=== PATIENT | female | born 1975 | race Two or more races ===

== ENCOUNTER 2020-10-13 10:46 | Emergency (ER) | payer MEDICAID, SELFPAY ==
[2020-10-13 11:30] VITALS: BP 118/79; PULSE 86; RESP 16; TEMP 36.5; O2SAT 97; BMI 26.6
--- NOTE | 2020-10-13 12:10 | ED.SKABFB ---
HPI - Skin/Abscess/Foreign Bdy General Chief complaint: Skin/Abscess/Foreign Body Stated complaint: rash Time Seen by Provider: 10/13/20 12:10 Source: patient Mode of arrival: ambulatory Limitations: no limitations History of Present Illness HPI narrative: 44-year-old female presenting to the ED with complaints of entire body itching although she does not see a rash and denies any other symptom complaints or concerns at this time. Related Data Previous Rx's Medication Instructions Recorded diphenhydramine HCl [Benadryl 50 mg PO TID PRN #10 tab 10/13/20 Allergy] famotidine [Pepcid] 20 mg PO BID #10 tab 10/13/20 hydrocortisone 1 appl TOPICAL QD-TID PRN #453.6 g 10/13/20 loratadine [Claritin] 10 mg PO DAILY PRN #10 tab 10/13/20 prednisone 40 mg PO DAILY 5 Days #10 tab 10/13/20 Allergies Allergy/AdvReac Type Severity Reaction Status Date / Time No Known Allergies Allergy Unverified 07/24/20 19:23 [No Known Allergies*] none Allergy Unknown Uncoded 01/28/20 00:00 Review of Systems Review of Systems: Constitutional : No Fever, No Chills , no body aches, no recent illness Head/Face: No facial swelling, No facial redness ENT/Mouth : No oral/throat swelling, No Hoarseness, No Swallowing Difficulty Eyes: No Eye Pain, No Swelling, No Redness Cardiovascular : No Chest Pain, No SOB, No palpitations Respiratory : No Cough, No Sputum, No Wheezing, No Smoke Exposure, No Dyspnea Gastrointestinal : No Nausea, No Vomiting, No Diarrhea, No abdominal Pain Genitourinary : No Dysuria, No Urinary Frequency, No Hematuria Musculoskeletal : No joint pain, No Myalgias, No Joint Swelling Skin : No Skin Lesions, + rash Neuro : No Weakness, No Numbness, No Headache, No dizziness, No tingling Psych : No Anxiety/Panic, No Depression Heme/Lymph: No Bruising, No Lymphadenopathy Endocrine : No Polyuria, No Polydipsia Denies changes in lotions or detergents. Denies new medications or any changes in medications. Denies drainage from rash. Denies any recent sick contacts or recent travel. Yes all other systems are reviewed and are negative PMFSH Past Medical History Attestation statement: The following information was validated with the patient. Medical History delivery delivered No known health problems Social History Social History Advance Directives: No Advance Directives Information Provided: No Physical Exam Vital Signs: Vital Signs: Last Vital Signs Temp 97.7 F 10/13/20 11:30 Pulse 86 10/13/20 11:30 Resp 16 10/13/20 11:30 BP 118/79 10/13/20 11:30 Pulse Ox 97 10/13/20 11:30 Body Mass Index 26.6 vital signs have been reviewed as normal and appeared to be correct. Blood pressure normal. Heart rate normal. Respiration rate normal. Temperature normal. Oxygen saturation normal. Appearance: Alert. Oriented X3. No acute distress. Head: Normal external exam. Normocephalic. Atraumatic. Eyes: PERRLA. EOMI. Conjunctiva and sclera normal. Eyelids normal. ENT: Pharynx normal. Uvula midline. Moist mucous membranes. No trismus noted. No drooling noted. No muffled voice noted. Neck: Normal inspection. Neck supple. FROM. No adenopathy. No meningeal signs. CVS: Normal heart rate and rhythm. Heart sound normal. No murmurs noted. Pulses normal throughout. Respiratory: No respiratory distress. Painless inspiration. Breath sounds normal. No wheezes/rales/rhonchi noted. Chest nontender. No accessory muscle usage noted or decreased air movement noted. Abdomen: Soft and nontender. Bowel sounds normal in all 4 quadrants. No distention noted. No organomegaly noted. No visible injury noted. Back: No CVA tenderness. Full range of motion noted. Skin: Skin warm and dry. Normal skin color. Normal skin turgor. No rashes Noted although patient is noted to be scratching her entire body. No lesions/lacerations noted. Extremities: Extremities exhibit normal range of motion. Extremities nontender. Neuro: Oriented X 3. No motor deficit. No sensory deficit. Reflexes normal. Course Course Course Narrative: IMP/Plan: Allergic rxn. Not anaphylaxis. Not sepsis/ infectious etiology. Patient well appearing in no acute distress, breathing easily without throat symptoms. Speaking full sentences, and handling secretions without difficulty. There is no obvious threat to airway. Lungs are CTA in all becerra. No signs of angioedema, stridor, airway compromise, anaphylaxis or anaphylactic shock. Not c/w SSSS/ TEN/ Eryth multiforme/ Falk Johnsons. Given HPI and PE - Will watch and observe. If patient continues to be symptom free - will d/c with return precautions. Patient understands and agrees with plan MDM - Skin/Abscess/Foreign Bdy Medical Records Attestation: I reviewed the patient's medical records. Discharge Plan Discharge Clinical Impression: Allergic reaction Patient Disposition: Home, Self-Care Instructions: Allergies (ED), General Allergic Reaction (ED), Allergy Testing (ED) Prescriptions: New loratadine [Claritin] 10 mg tablet 10 mg PO DAILY PRN (Reason: allergy symptoms) Qty: 10 RF: 0 prednisone 20 mg tablet 40 mg PO DAILY 5 Days Qty: 10 RF: 0 famotidine [Pepcid] 20 mg tablet 20 mg PO BID Qty: 10 RF: 0 diphenhydramine HCl [Benadryl Allergy] 25 mg tablet 50 mg PO TID PRN (Reason: allergic reaction) Qty: 10 RF: 0 hydrocortisone 2.5 % ointment 1 appl topical QD-TID PRN (Reason: rash) Qty: 453.6 RF: 0 Referrals: Leonor Ocampo MD [Primary Care Provider] - 2 days ( Patient will need an [facility] specialist referral) Print Language: Italian
[2020-10-13] MEDS: Loratadine 10 MG TABLET PO (12:28)
[2020-10-13] MEDS: predniSONE 20 MG TABLET 40 MG PO (12:28)
== END 2020-10-13 12:31 | disposition home or self-care (01) ==
PROVIDERS: Emergency Provider Emergency Medicine; PCP Internal Medicine
DX: T78.40XA Allergy, unspecified, initial encounter (principal); R21 Rash and other nonspecific skin eruption; X58.XXXA Exposure to other specified factors, initial encounter
CPT/HCPCS: 99283

== ENCOUNTER → 2020-12-19 08:19 | Outpatient (BNVA) | payer MEDICAID, SELFPAY | PROVIDERS: PCP Internal Medicine; Visit Provider Internal Medicine Gastroenterology ==

== ENCOUNTER 2021-01-07 14:24 | Emergency (ER) | payer OTHER, MEDICAID, SELFPAY ==
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
[2021-01-07 15:53] VITALS: BP 124/78; PULSE 79; RESP 18; TEMP 36.9; O2SAT 100; BMI 28.2
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
--- NOTE | 2021-01-07 18:28 | PC.NURSE ---
negative xrays. no deformity noted. seen by [employer].
== END 2021-01-07 18:35 | disposition home or self-care (01) ==
PROVIDERS: Emergency Provider Emergency Medicine
DX: S90.02XA Contusion of left ankle, initial encounter (principal); V43.52XA Car driver injured in collision with other type car in traffic accident, initial encounter; Y93.89 Activity, other specified; Y92.414 Local residential or business street as the place of occurrence of the external cause; Y99.9 Unspecified external cause status
CPT/HCPCS: 73600; 99283; 99284

== ENCOUNTER 2021-03-11 09:52 | Emergency (ER) | payer MEDICAID, SELFPAY ==
[2021-03-11 10:09] VITALS: BP 110/69; PULSE 87; RESP 16; TEMP 36.1; O2SAT 99; BMI 25.0
--- NOTE | 2021-03-11 10:32 | ED.SKABFB ---
HPI - Skin/Abscess/Foreign Bdy General Chief complaint: Skin/Abscess/Foreign Body <KAITLYN Alford Last Filed: 03/11/21 10:41> Stated complaint: rash <KAITLYN Alford Last Filed: 03/11/21 10:41> Time Seen by Provider: 03/11/21 10:31 <KAITLYN Alford Last Filed: 03/11/21 10:41> History of Present Illness HPI narrative: Patient complains of rash over her body that is very itchy that started after she used a hair spray a week ago, there is no difficulty breathing or swallowing no swelling in her tongue or lips or throat, no fever no chills <KAITLYN Alford Last Filed: 03/11/21 10:41> Related Data Home medications: Previous Rx's Medication Instructions Recorded diphenhydramine HCl [Benadryl 50 mg PO TID PRN #10 tab 10/13/20 Allergy] famotidine [Pepcid] 20 mg PO BID #10 tab 10/13/20 hydrocortisone 1 appl TOPICAL QD-TID PRN #453.6 g 10/13/20 loratadine [Claritin] 10 mg PO DAILY PRN #10 tab 10/13/20 prednisone 40 mg PO DAILY 5 Days #10 tab 10/13/20 polyethylene glycol 3350 17 17 g PO DAILY #510 g 12/19/20 gram/dose oral powder cetirizine 10 mg PO DAILY PRN #14 cap 03/11/21 hydroxyzine HCl 50 mg PO BEDTIME #14 tab 03/11/21 prednisone 60 mg PO DAILY 3 Days #9 tab 03/11/21 <KAITLYN Alford Last Filed: 03/11/21 10:41> Allergies/Adverse reactions: Allergies Allergy/AdvReac Type Severity Reaction Status Date / Time No Known Allergies Allergy Verified 12/19/20 08:20 [No Known Allergies*] <KAITLYN Alford Last Filed: 03/11/21 10:41> Review of Systems Review of Systems: Positive for itchy rash Negatives are no fever no chills no dizziness no weakness no chest pain no shortness of breath no throat swelling no lip swelling and no difficulty breathing or swallowing no difficulty speaking no abdominal pain no nausea vomiting no joint swelling no numbness or weakness <KAITLYN Alford Last Filed: 03/11/21 10:41> [facility] Past Medical History Source: nursing notes reviewed <KAITLYN Alford - Last Filed: 03/11/21 10:41> Medical History: Medical History (Updated 03/12/21 @ 00:01 by Giovany Chapman) delivery delivered No known health problems <KAITLYN Alford - Last Filed: 03/11/21 10:41> Surgical History: Surgical History H/O: <KAITLYN Alford - Last Filed: 03/11/21 10:41> Family History Family History: Family History (Updated 12/19/20 @ 08:21 by BOB Abreu) Mother Diabetes Father Heart attack <KAITLYN Alford - Last Filed: 03/11/21 10:41> Social History Social History: Social History (Updated 12/19/20 @ 08:22 by BOB Abreu) Household Members: Children Alcohol intake: never Cigarettes Per Day: 5 Advance Directives: Yes Advance Directives Information Provided: No Advance Directives on File: No Patient : No <KAITLYN Alford - Last Filed: 03/11/21 10:41> Physical Exam Vital Signs: Vital Signs: Last Vital Signs Temp 96.9 F 03/11/21 10:09 Pulse 87 03/11/21 10:09 Resp 16 03/11/21 10:09 BP 110/69 03/11/21 10:09 Pulse Ox 99 03/11/21 10:09 Body Mass Index 25.0 <KAITLYN Alford - Last Filed: 03/11/21 10:41> Vital Signs: Last Vital Signs Temp 96.9 F 03/11/21 10:09 Pulse 87 03/11/21 10:09 Resp 16 03/11/21 10:09 BP 110/69 03/11/21 10:09 Pulse Ox 99 03/11/21 10:09 Body Mass Index 25.0 <Silverio Rubin MD - Last Filed: 04/09/21 12:39> General appearance is no acute distress, calm and cooperative The pharynx is clear with no swelling of lips tongue or uvula or pharynx The neck is supple The chest is clear to auscultation with full symmetric equal breath sounds Heart no murmur The extremities full range of motion x4 no joint swelling The skin there is bilateral linear raised rash, no petechiae no wounds no sign of cellulitis or abscess Neuro no focal motor or sensory deficit <KAITLYN Alford - Last Filed: 03/11/21 10:41> Course Course Course Narrative: I have reviewed the chart <Silverio Rubin MD - Last Filed: 04/09/21 12:39> Discharge Plan Discharge Clinical Impression: Rash <KAITLYN Alford - Last Filed: 03/11/21 10:41> Patient Disposition: Home, Self-Care <KAITLYN Alford Last Filed: 03/11/21 10:41> Additional Instructions: Use medications as directed, they will usually help Return to ER any time any worse condition or concerns Follow with primary doctor in 2 days if not improved <KAITLYN Alford - Last Filed: 03/11/21 10:41> Prescriptions: New prednisone 20 mg tablet 60 mg PO DAILY 3 Days Qty: 9 RF: 0 hydroxyzine HCl 25 mg tablet 50 mg PO BEDTIME Qty: 14 RF: 0 cetirizine 10 mg capsule 10 mg PO DAILY PRN (Reason: allergy symptoms) Qty: 14 RF: 0 No Action loratadine [Claritin] 10 mg tablet 10 mg PO DAILY PRN (Reason: allergy symptoms) Qty: 10 RF: 0 prednisone 20 mg tablet 40 mg PO DAILY 5 Days Qty: 10 RF: 0 famotidine [Pepcid] 20 mg tablet 20 mg PO BID Qty: 10 RF: 0 diphenhydramine HCl [Benadryl Allergy] 25 mg tablet 50 mg PO TID PRN (Reason: allergic reaction) Qty: 10 RF: 0 hydrocortisone 2.5 % ointment 1 appl topical QD-TID PRN (Reason: rash) Qty: 453.6 RF: 0 polyethylene glycol 3350 [Miralax] 17 gram/dose powder 17 g PO DAILY Qty: 510 RF: 2 <KAITLYN Alford Last Filed: 03/11/21 10:41> Interventions: ED Discharge Assessment Last Done: 03/11/21 11:00 <KAITLYN Alford Last Filed: 03/11/21 10:41> Discharge Date/Time: 03/11/21 11:01 <KAITLYN Alford - Last Filed: 03/11/21 10:41>
[2021-03-11] MEDS: predniSONE 20 MG TABLET 60 MG PO (10:57)
== END 2021-03-11 11:01 | disposition home or self-care (01) ==
PROVIDERS: Emergency Provider Emergency Medicine; PCP Internal Medicine
DX: R21 Rash and other nonspecific skin eruption (principal); F17.210 Nicotine dependence, cigarettes, uncomplicated; Z71.6 Tobacco abuse counseling; Z79.899 Other long term (current) drug therapy
CPT/HCPCS: 99283

== ENCOUNTER 2021-06-08 15:00 | Outpatient (RCR) | payer MEDICAID, SELFPAY ==
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
== END 2021-08-14 12:01 | disposition home or self-care (01) ==
LOC: HO.PT 15:00
PROVIDERS: PCP Internal Medicine; Visit Provider Internal Medicine
DX: M54.5 Low back pain (principal)
CPT/HCPCS: 97110; 97112; 97150; 97162

== ENCOUNTER 2021-06-11 02:54 | Emergency (ER) | payer MEDICAID, SELFPAY ==
[2021-06-11 03:10] VITALS: BMI 27.4
[2021-06-11] MEDS: LORazepam 1 MG TABLET 2 MG PO (03:20)
[2021-06-11] MEDS: Nicotine 21 MG PATCH.TD24 TRANSDERMA (03:20)
--- NOTE | 2021-06-11 03:24 | ED.PSYCH ---
HPI - Psych General Chief Complaint: Psychiatric Symptoms <Elaina Hannah MD - Last Filed: 06/11/21 03:31> Stated Complaint: SI <MD Julius Kaplan Last Filed: 06/11/21 03:31> Time Seen by Provider: 06/11/21 03:16 <MD Julius Kaplan Last Filed: 06/11/21 03:31> Source: patient and surgeon assistant <MD Julius Kaplan Last Filed: 06/11/21 03:31> Mode of arrival: ambulatory <MD Julius Kaplan Last Filed: 06/11/21 03:31> Limitations: no limitations <MD Julius Kaplan Last Filed: 06/11/21 03:31> History of Present Illness HPI Narrative: 45-year-old female drove herself to the emergency department for feeling depressed and suicidal. 45-year-old female who apparently under alcohol intoxication patient drove herself to the hospital made suicidal statement and patient pulled out a pocket knife trying to hurt herself, patient stated she feel depressed because of her family and financial issue, tavera to the influence of alcohol patient is unable to give complete meaningfull history. <MD Julius Kaplan Last Filed: 06/11/21 03:31> Related Data Home Medications: Home Medications Medication Instructions Recorded Confirmed duloxetine 60 mg capsule,delayed 1 cap PO QAM 06/11/21 06/11/21 release quetiapine 100 mg tablet 1 tab PO BEDTIME 06/11/2121 <MD Julius Kaplan Last Filed: 06/11/21 03:31> Allergies/Adverse Reactions: Allergies Allergy/AdvReac Type Severity Reaction Status Date / Time No Known Allergies Allergy Verified 12/19/20 08:20 [No Known Allergies*] <MD Julius Kaplan Last Filed: 06/11/21 03:31> Review of Systems Review of Systems: All other systems are reviewed and are negative Constitutional: Reports as per HPI and Reports no additional constitutional complaints Eyes: Reports as per HPI and Reports no additional eye complaints Reports system reviewed and no additional complaints, except as documented Cardiovascular: Reports as per HPI and Reports no additional cardiovascular complaints Respiratory: Reports as per HPI and Reports no additional respiratory complaints Gastrointestinal: Reports as per HPI and Reports no additional gastrointestinal complaints Genitourinary: Reports no additional female genitourinary complaints Musculoskeletal: Reports no additional musculoskeletal complaints Skin/Breast: Reports system reviewed and no additional complaints, except as docu Psychiatric: Reports no additional psychiatric complaints Endocrine: Reports no additional endocrine complaints Hematologic/Lymphatic: Reports no additional hematologic/lymphatic complaints Allergic/Immunologic: Reports no additional allergic/immunologic complaints Reports system reviewed and no additional complaints, except as documented and Reports Abnormal speech present <Elaina Hannah MD - Last Filed: 06/11/21 03:31> FOR[facility]LY [facility], [facility] Past Medical History Medical History: Medical History delivery delivered No known health problems <Elaina Hannah MD - Last Filed: 06/11/21 03:31> Surgical History: Surgical History H/O: <Elaina Hannah MD - Last Filed: 06/11/21 03:31> Family History Family History: Family History Mother Diabetes Father Heart attack <Elaina Hannah MD - Last Filed: 06/11/21 03:31> Social History Social History: Social History Household Members: Children Alcohol intake: never Cigarettes Per Day: 5 Advance Directives: No Advance Directives Information Provided: Yes Patient : No <Elaina Hannah MD - Last Filed: 06/11/21 03:31> Physical Exam Vital Signs: Vital Signs: Last Vital Signs Temp 97.6 F 06/11/21 09:44 Pulse 89 06/11/21 09:44 Resp 18 06/11/21 09:44 BP 111/74 06/11/21 09:44 Pulse Ox 98 06/11/21 09:44 Body Mass Index 27.4 Vital signs have been reviewed as appeared to be correct. Blood pressure normal. Heart rate normal. Respiration rate normal. Temperature normal. Oxygen saturation normal. <Elaina Hannah MD - Last Filed: 06/11/21 03:31> Vital Signs: Last Vital Signs Temp 97.6 F 06/11/21 09:44 Pulse 89 06/11/21 09:44 Resp 18 06/11/21 09:44 BP 111/74 06/11/21 09:44 Pulse Ox 98 06/11/21 09:44 Body Mass Index 27.4 <KAITLYN Galvan - Last Filed: 06/11/21 11:33> Appearance: Alert. Alcohol on breath. Head: Normal external exam. Normocephalic. Atraumatic. No Dominguez signs noted. No raccoon eyes noted Eyes: PERRLA. EOMI. Conjunctiva and sclera normal. Eyelids normal. ENT: TM's Normal. Pharynx normal. Uvula midline. Moist mucous membranes. No trismus noted. No drooling noted. No muffled voice noted. Neck: Normal inspection. Neck supple. FROM. No adenopathy. Thyroid Normal. No meningeal signs. No neck mass noted. CVS: Normal heart rate and rhythm. Heart sound normal. No murmurs noted. Pulses normal throughout. Respiratory: No respiratory distress. Painless inspiration. Breath sounds normal. No wheezes/rales/rhonchi noted. Chest nontender. No accessory muscle usage noted or decreased air movement noted. Abdomen: Soft and nontender. Bowel sounds normal in all 4 quadrants. No distention noted. No organomegaly noted. No visible injury noted. Back: No CVA tenderness. Full range of motion noted. Skin: Skin warm and dry. Normal skin color. Normal skin turgor. No rashes/lesions/lacerations noted. Extremities: No lower extremity edema. Extremities exhibit normal range of motion. Extremities nontender. Neuro: No motor deficit. No sensory deficit. Reflexes normal. <Elaina Hannah MD - Last Filed: 06/11/21 03:31> Course Course Course Narrative: Physician observation started at3:30 am . Patient placed in physician observation because [facility] patient's vital sign were stable, patient is alert and oriented , neuro exam unchanged, unremarkable rest of physical exam. <Elaina Hannah MD - Last Filed: 06/11/21 03:31> MDM - Psych Lab Data Result diagrams: : 06/11/21 09:11 06/11/21 09:11 <Elaina Hannah MD - Last Filed: 06/11/21 03:31> Labs: Lab Results 06/11/21 06/11/21 06/11/21 Range/Units 03:34 03:57 03:57 WBC (4.8-10.8) X10*3/uL RBC (4.20-5.50) X10*6/uL Hgb (12.0-16.0) g/dl Hct (37-47) % MCV (80-98) fL MCH (27.0-33.0) pg MCHC (31.0-35.0) g/dl RDW (11.0-16.0) % Plt Count (160-400) X10*3/uL MPV (9.4-12.3) fL Immature Gran % (Auto) (0.0-0.4) % Neut % (Auto) (45-73) % Lymph % (Auto) (20-40) % Mccracken % (Auto) (2-11) % Eos % (Auto) (0-4) % Baso % (Auto) (0-2) % Lymph # (Auto) (1.2-4.9) X10*3/uL Mccracken # (Auto) (0.1-1.2) X10*3/uL Eos # (Auto) (0.0-0.4) X10*3/uL Baso # (Auto) (0.0-0.2) X10*3/uL Abs Immat Gran (auto) (0.00-0.03) X10*3/uL Absolute Neuts (auto) (2.0-8.3) X10*3/uL Absolute Nucleated RBC (0.0-0.012) X10*3/uL Nucleated RBC % (auto) (0.0-0.2) /100WBC Sodium (135-145) mmol/L Potassium (3.3-5.1) mmol/L Chloride (96-108) mmol/L Carbon Dioxide (22-29) mmol/L Anion Gap (12-20) BUN (9-16) mg/dL Creatinine (0.5-1.4) mg/dL Estim Creat Clear Calc Estimated GFR Random Glucose (60-115) mg/dL Calcium (8.4-10.2) mg/dL Magnesium (1.6-2.6) mg/dL Total Bilirubin (0.0-1.0) mg/dL AST (5-31) U/L ALT (0-31) U/L Alkaline Phosphatase (39-117) U/L Total Protein (6.5-8.0) g/dL Albumin (3.5-5.0) g/dL Urine Color Urine Appearance Urine pH (5.0-8.0) Ur Specific [place] (1.005-1.025) Urine Protein (NEG-TRACE) MG/DL Urine Glucose (UA) (NEG) MG/DL Urine Ketones (NEG) MG/DL Urine Blood (NEG) Urine Nitrite (NEG) Ur Leukocyte Esterase (NEG) Urine RBC (0) /HPF Urine WBC (0-4) /HPF Ur Squamous Epith Cells /LPF Urine Bacteria /LPF Urine Test NEGATIVE (NEGATIVE) Urine Opiates Screen Not Detected (Not Detect) Ur Barbiturates Screen Not Detected (Not Detect) Ur Phencyclidine Scrn Not Detected (Not Detect) Ur Amphetamines Screen Not Detected (Not Detect) U Benzodiazepines Scrn Not Detected (Not Detect) Urine Cocaine Screen POSITIVE H (Not Detect) U Marijuana (THC) Screen Not Detected (Not Detect) COVID-19 (DMITRI) Negative (Negative) COVID-19 Clin Com See Note 06/11/21 06/11/21 06/11/21 Range/Units 03:57 09:11 09:11 WBC 9.2 (4.8-10.8) X10*3/uL RBC 4.29 (4.20-5.50) X10*6/uL Hgb 11.7 L (12.0-16.0) g/dl Hct 36.3 L (37-47) % MCV 84.6 (80-98) fL MCH 27.3 (27.0-33.0) pg MCHC 32.2 (31.0-35.0) g/dl RDW 17.0 H (11.0-16.0) % Plt Count 373 (160-400) X10*3/uL MPV 9.5 (9.4-12.3) fL Immature Gran % (Auto) 0.4 (0.0-0.4) % Neut % (Auto) 69.6 (45-73) % Lymph % (Auto) 19.5 L (20-40) % Mccracken % (Auto) 9.2 (2-11) % Eos % (Auto) 0.8 (0-4) % Baso % (Auto) 0.5 (0-2) % Lymph # (Auto) 1.8 (1.2-4.9) X10*3/uL Mccracken # (Auto) 0.8 (0.1-1.2) X10*3/uL Eos # (Auto) 0.1 (0.0-0.4) X10*3/uL Baso # (Auto) 0.1 (0.0-0.2) X10*3/uL Abs Immat Gran (auto) 0.04 H (0.00-0.03) X10*3/uL Absolute Neuts (auto) 6.4 (2.0-8.3) X10*3/uL Absolute Nucleated RBC 0.000 (0.0-0.012) X10*3/uL Nucleated RBC % (auto) 0.0 (0.0-0.2) /100WBC Sodium 141 (135-145) mmol/L Potassium 4.0 (3.3-5.1) mmol/L Chloride 108 (96-108) mmol/L Carbon Dioxide 23 (22-29) mmol/L Anion Gap 14 (12-20) BUN 6 L (9-16) mg/dL Creatinine 0.77 (0.5-1.4) mg/dL Estim Creat Clear Calc 92.0 Estimated GFR > 60 Random Glucose 100 (60-115) mg/dL Calcium 9.1 (8.4-10.2) mg/dL Magnesium 1.8 (1.6-2.6) mg/dL Total Bilirubin 0.2 (0.0-1.0) mg/dL AST 14 (5-31) U/L ALT 7 (0-31) U/L Alkaline Phosphatase 77 (39-117) U/L Total Protein 7.7 (6.5-8.0) g/dL Albumin 4.3 (3.5-5.0) g/dL Urine Color COLORLESS Urine Appearance CLEAR Urine pH 6.0 (5.0-8.0) Ur Specific [place] <= 1.005 (1.005-1.025) Urine Protein NEG (NEG-TRACE) MG/DL Urine Glucose (UA) NEG (NEG) MG/DL Urine Ketones NEG (NEG) MG/DL Urine Blood NEG (NEG) Urine Nitrite NEG (NEG) Ur Leukocyte Esterase NEG (NEG) Urine RBC 0 (0) /HPF Urine WBC 0-2 (0-4) /HPF Ur Squamous Epith Cells 1+ /LPF Urine Bacteria NONE /LPF Urine Test (NEGATIVE) Urine Opiates Screen (Not Detect) Ur Barbiturates Screen (Not Detect) Ur Phencyclidine Scrn (Not Detect) Ur Amphetamines Screen (Not Detect) U Benzodiazepines Scrn (Not Detect) Urine Cocaine Screen (Not Detect) U Marijuana (THC) Screen (Not Detect) COVID-19 (DMITRI) (Negative) COVID-19 Clin Com <Elaina Hannah MD - Last Filed: 06/11/21 03:31> Lab Results 06/11/21 06/11/21 06/11/21 Range/Units 03:34 03:57 03:57 WBC (4.8-10.8) X10*3/uL RBC (4.20-5.50) X10*6/uL Hgb (12.0-16.0) g/dl Hct (37-47) % MCV (80-98) fL MCH (27.0-33.0) pg MCHC (31.0-35.0) g/dl RDW (11.0-16.0) % Plt Count (160-400) X10*3/uL MPV (9.4-12.3) fL Immature Gran % (Auto) (0.0-0.4) % Neut % (Auto) (45-73) % Lymph % (Auto) (20-40) % Mccracken % (Auto) (2-11) % Eos % (Auto) (0-4) % Baso % (Auto) (0-2) % Lymph # (Auto) (1.2-4.9) X10*3/uL Mccracken # (Auto) (0.1-1.2) X10*3/uL Eos # (Auto) (0.0-0.4) X10*3/uL Baso # (Auto) (0.0-0.2) X10*3/uL Abs Immat Gran (auto) (0.00-0.03) X10*3/uL Absolute Neuts (auto) (2.0-8.3) X10*3/uL Absolute Nucleated RBC (0.0-0.012) X10*3/uL Nucleated RBC % (auto) (0.0-0.2) /100WBC Sodium (135-145) mmol/L Potassium (3.3-5.1) mmol/L Chloride (96-108) mmol/L Carbon Dioxide (22-29) mmol/L Anion Gap (12-20) BUN (9-16) mg/dL Creatinine (0.5-1.4) mg/dL Estim Creat Clear Calc Estimated GFR Random Glucose (60-115) mg/dL Calcium (8.4-10.2) mg/dL Magnesium (1.6-2.6) mg/dL Total Bilirubin (0.0-1.0) mg/dL AST (5-31) U/L ALT (0-31) U/L Alkaline Phosphatase (39-117) U/L Total Protein (6.5-8.0) g/dL Albumin (3.5-5.0) g/dL Urine Color Urine Appearance Urine pH (5.0-8.0) Ur Specific [place] (1.005-1.025) Urine Protein (NEG-TRACE) MG/DL Urine Glucose (UA) (NEG) MG/DL Urine Ketones (NEG) MG/DL Urine Blood (NEG) Urine Nitrite (NEG) Ur Leukocyte Esterase (NEG) Urine RBC (0) /HPF Urine WBC (0-4) /HPF Ur Squamous Epith Cells /LPF Urine Bacteria /LPF Urine Test NEGATIVE (NEGATIVE) Urine Opiates Screen Not Detected (Not Detect) Ur Barbiturates Screen Not Detected (Not Detect) Ur Phencyclidine Scrn Not Detected (Not Detect) Ur Amphetamines Screen Not Detected (Not Detect) U Benzodiazepines Scrn Not Detected (Not Detect) Urine Cocaine Screen POSITIVE H (Not Detect) U Marijuana (THC) Screen Not Detected (Not Detect) COVID-19 (DMITRI) Negative (Negative) COVID-19 Clin Com See Note 06/11/21 06/11/21 06/11/21 Range/Units 03:57 09:11 09:11 WBC 9.2 (4.8-10.8) X10*3/uL RBC 4.29 (4.20-5.50) X10*6/uL Hgb 11.7 L (12.0-16.0) g/dl Hct 36.3 L (37-47) % MCV 84.6 (80-98) fL MCH 27.3 (27.0-33.0) pg MCHC 32.2 (31.0-35.0) g/dl RDW 17.0 H (11.0-16.0) % Plt Count 373 (160-400) X10*3/uL MPV 9.5 (9.4-12.3) fL Immature Gran % (Auto) 0.4 (0.0-0.4) % Neut % (Auto) 69.6 (45-73) % Lymph % (Auto) 19.5 L (20-40) % Mccracken % (Auto) 9.2 (2-11) % Eos % (Auto) 0.8 (0-4) % Baso % (Auto) 0.5 (0-2) % Lymph # (Auto) 1.8 (1.2-4.9) X10*3/uL Mccracken # (Auto) 0.8 (0.1-1.2) X10*3/uL Eos # (Auto) 0.1 (0.0-0.4) X10*3/uL Baso # (Auto) 0.1 (0.0-0.2) X10*3/uL Abs Immat Gran (auto) 0.04 H (0.00-0.03) X10*3/uL Absolute Neuts (auto) 6.4 (2.0-8.3) X10*3/uL Absolute Nucleated RBC 0.000 (0.0-0.012) X10*3/uL Nucleated RBC % (auto) 0.0 (0.0-0.2) /100WBC Sodium 141 (135-145) mmol/L Potassium 4.0 (3.3-5.1) mmol/L Chloride 108 (96-108) mmol/L Carbon Dioxide 23 (22-29) mmol/L Anion Gap 14 (12-20) BUN 6 L (9-16) mg/dL Creatinine 0.77 (0.5-1.4) mg/dL Estim Creat Clear Calc 92.0 Estimated GFR > 60 Random Glucose 100 (60-115) mg/dL Calcium 9.1 (8.4-10.2) mg/dL Magnesium 1.8 (1.6-2.6) mg/dL Total Bilirubin 0.2 (0.0-1.0) mg/dL AST 14 (5-31) U/L ALT 7 (0-31) U/L Alkaline Phosphatase 77 (39-117) U/L Total Protein 7.7 (6.5-8.0) g/dL Albumin 4.3 (3.5-5.0) g/dL Urine Color COLORLESS Urine Appearance CLEAR Urine pH 6.0 (5.0-8.0) Ur Specific [place] <= 1.005 (1.005-1.025) Urine Protein NEG (NEG-TRACE) MG/DL Urine Glucose (UA) NEG (NEG) MG/DL Urine Ketones NEG (NEG) MG/DL Urine Blood NEG (NEG) Urine Nitrite NEG (NEG) Ur Leukocyte Esterase NEG (NEG) Urine RBC 0 (0) /HPF Urine WBC 0-2 (0-4) /HPF Ur Squamous Epith Cells 1+ /LPF Urine Bacteria NONE /LPF Urine Test (NEGATIVE) Urine Opiates Screen (Not Detect) Ur Barbiturates Screen (Not Detect) Ur Phencyclidine Scrn (Not Detect) Ur Amphetamines Screen (Not Detect) U Benzodiazepines Scrn (Not Detect) Urine Cocaine Screen (Not Detect) U Marijuana (THC) Screen (Not Detect) COVID-19 (DMITRI) (Negative) COVID-19 Clin Com <KAITLYN Galvan - Last Filed: 06/11/21 11:33> Discharge Plan Discharge Clinical Impression: Alcohol intoxication <Elaina Hannah MD - Last Filed: 06/11/21 03:31> Patient Disposition: Home, Self-Care <Elaina Hannah MD - Last Filed: 06/11/21 03:31> Instructions: Alcohol Intoxication (ED) <Elaina Hannah MD - Last Filed: 06/11/21 03:31> Prescriptions: No Action duloxetine 60 mg capsule,delayed release(DR/EC) 1 cap PO QAM RF: 0 quetiapine 100 mg tablet 1 tab PO BEDTIME RF: 0 <Elaina Hannah MD - Last Filed: 06/11/21 03:31> Referrals: [facility] [Primary Care Provider] - 2 days <Elaina Hannah MD - Last Filed: 06/11/21 03:31> Print Language: Greek <Elaina Hannah MD - Last Filed: 06/11/21 03:31> ED Observation ED Observation Progress Notes 1: Progress Note: 06/11/21 - 11:32 KAITLYN Galvan - patient was evaluated by BHN and patient denies any SI/HI/auditory visual sensations thoughts of self-injury she reports that when she is drunk she says things that she does not mean. BHN spoke to the patient's daughters who will be taking care of the patient and they will be picking her up and they are comfortable with taking her home if they notice that the patient is endorsing any SI or HI they will bring her back for further evaluation and treatment although they are comfortable with picking her up at this time. Will DC home with daughters at this time. <KAITLYN Galvan - Last Filed: 06/11/21 11:33>
[2021-06-11 03:51] VITALS: BP 138/88; PULSE 110; RESP 17; TEMP 36.6; O2SAT 96
[2021-06-11 03:55] LABS: COVID-19 Test Negative (Negative); IDNOW Serial# 9DD0AD1C
[2021-06-11 04:08] LABS: Appearance Urine CLEAR; Color Urine COLORLESS; Glucose Urine UA NEG (NEG); Leukocyte Esterase Urine NEG (NEG); Nitrite Urine NEG (NEG); Specific Gravity - Urine <= 1.005 (1.005-1.025); UACC CULT NO; UPreg QC Valid YES; Urine Blood NEG (NEG); Urine Ketones NEG (NEG); Urine Pregnancy NEGATIVE (NEGATIVE); Urine Protein NEG (NEG-TRACE)
[2021-06-11 04:13] LABS: RBC Urine 0 /HPF (0); Squamous Epithelial Cell Urine 1+ /LPF; WBC Urine 0-2 /HPF (0-4)
--- NOTE | 2021-06-11 04:21 | PC.NURSE ---
N referral completed via telephone by speaking with Kera Steele [facility] overnight medical office specialist, No ETA at this time, patient will be seen in the morning, patient had couple of pseudo seizure episode, engaged in unsafe behavior by trying to throw herself on the floor, however patient can be redirected minimally, provider ordered Ativan 2 mg PO, administered as ordered/pending effect, will continue to monitor.
[2021-06-11 04:28] LABS: Amphetamine Screen Urine Not Detected (Not Detect); Barbiturates, Urine Not Detected (Not Detect); Benzodiazepines Screen Urine Not Detected (Not Detect); Cannabinoid Screen Urine Not Detected (Not Detect); Cocaine Screen Urine POSITIVE (Not Detect); Opiate Screen Urine Not Detected (Not Detect); Phencyclidine Screen Urine Not Detected (Not Detect)
--- NOTE | 2021-06-11 05:34 | PC.NURSE ---
Patient in bed lying, restlessness continues, labs pending d/t patient not compliant, awaiting BHN evaluation, will continue to monitor.
--- NOTE | 2021-06-11 07:04 | PC.NURSE ---
patient appears to remain at rest at present, patient appears in no distress, breaths are even and unlabored
--- NOTE | 2021-06-11 08:50 | ECG_ITS ---
Test Reason : MEDICAL CLEARANCE Blood Pressure : / mmHG Vent. Rate : 099 BPM Atrial Rate : 099 BPM P-R Int : 142 ms QRS Dur : 064 ms QT Int : 356 ms P-R-T Axes : 050 048 039 degrees QTc Int : 456 ms Normal sinus rhythm Normal ECG When compared with ECG of 07-MAR-2020 03:12, No significant change was found Referred By: Concetta Luevano Electronically Signed By:Alex Vargas
[2021-06-11 09:22] LABS: MANUAL DIFF FLAG NO
[2021-06-11 09:27] LABS: Basophils Absolute Auto 0.1 X10*3/uL (0.0-0.2); Basophils Percent Auto 0.5 % (0-2); Eosinophils Absolute Auto 0.1 X10*3/uL (0.0-0.4); Eosinophils Percent Auto 0.8 % (0-4); Hematocrit 36.3 % (37-47); Hemoglobin 11.7 g/dl (12.0-16.0); Imm Gran Abs Auto 0.04 X10*3/uL (0.00-0.03); Imm Gran Pct Auto 0.4 % (0.0-0.4); Lymphocytes Absolute Auto 1.8 X10*3/uL (1.2-4.9); Lymphocytes Percent Auto 19.5 % (20-40); Mean Corpuscular HGB Conc 32.2 g/dl (31.0-35.0); Mean Corpuscular Hemoglobin 27.3 pg (27.0-33.0); Mean Corpuscular Volume 84.6 fL (80-98); Mean Platelet Volume 9.5 fL (9.4-12.3); Monocytes Absolute Auto 0.8 X10*3/uL (0.1-1.2); Monocytes Percent Auto 9.2 % (2-11); Neutrophils Absolute Auto 6.4 X10*3/uL (2.0-8.3); Neutrophils Percent Auto 69.6 % (45-73); Platelet Count 373 X10*3/uL (160-400); Red Blood Count 4.29 X10*6/uL (4.20-5.50); White Blood Count 9.2 X10*3/uL (4.8-10.8)
[2021-06-11 09:44] VITALS: BP 111/74; PULSE 89; RESP 18; TEMP 36.4; O2SAT 98
[2021-06-11 09:54] LABS: Alanine Aminotransferase 7 U/L (0-31); Albumin Level 4.3 g/dL (3.5-5.0); Alkaline Phosphatase 77 U/L (39-117); Anion Gap 14 (12-20); Aspartate Amino Transferase 14 U/L (5-31); Bilirubin Total 0.2 mg/dL (0.0-1.0); Blood Urea Nitrogen 6 mg/dL (9-16); Calcium 9.1 mg/dL (8.4-10.2); Carbon Dioxide 23 mmol/L (22-29); Chloride 108 mmol/L (96-108); Estimated Glomerular Filt Rate > 60; Glucose Random 100 mg/dL (60-115); Magnesium 1.8 mg/dL (1.6-2.6); Sodium 141 mmol/L (135-145); Total Protein 7.7 g/dL (6.5-8.0)
== END 2021-06-11 11:42 | disposition home or self-care (01) ==
PROVIDERS: Physician Assistant Medical; Emergency Provider Emergency Medicine
DX: F33.1 Major depressive disorder, recurrent, moderate (principal); F10.129 Alcohol abuse with intoxication, unspecified; R45.851 Suicidal ideations; F17.210 Nicotine dependence, cigarettes, uncomplicated; Y90.8 Blood alcohol level of 240 mg/100 ml or more; Z20.822 Contact with and (suspected) exposure to COVID-19; Z71.41 Alcohol abuse counseling and surveillance of alcoholic; Z71.6 Tobacco abuse counseling; Z79.899 Other long term (current) drug therapy
CPT/HCPCS: 36415; 80053; 80307; 81001; 81025; 83735; 85025; 87635; 93005; 99284

== ENCOUNTER → 2021-06-12 10:58 | Outpatient (BNVA) | payer MEDICAID, SELFPAY | PROVIDERS: PCP Internal Medicine; Visit Provider Internal Medicine Gastroenterology ==

== ENCOUNTER 2021-07-16 17:19 | Emergency (ER) | payer MEDICAID, SELFPAY | END 2021-07-16 19:57 | disposition left against medical advice (07) | LOC: HO.ED 19:54 | PROVIDERS: Emergency Provider Emergency Medicine; PCP Internal Medicine | DX: Z20.822 Contact with and (suspected) exposure to COVID-19 (principal) ==

== ENCOUNTER 2021-07-22 11:44 | Outpatient (REF) | payer MEDICAID, SELFPAY ==
--- NOTE | ~2021-07-22 | XR_ITS ---
EXAMINATION: XR HAND, right, right wrist. CLINICAL INFORMATION: Pain COMPARISON: None available at the time of this dictation. TECHNIQUE: Frontal lateral oblique views of the hand and wrist were obtained. Total 7 views FINDINGS: There is no fracture or dislocation. Radiocarpal, intercarpal, carpometacarpal, metacarpophalangeal and interphalangeal joints are intact. There are no osteolytic or osteoblastic lesions. There are no bone erosions. Surrounding soft tissue unremarkable. XR/XR hand wrist LT IMPRESSION: No acute osseous changes to explain patient's pain symptoms. No fractures. No erosions.
--- NOTE | ~2021-07-22 | XR_ITS ---
EXAMINATION: XR HAND, right, right wrist. CLINICAL INFORMATION: Pain COMPARISON: None available at the time of this dictation. TECHNIQUE: Frontal lateral oblique views of the hand and wrist were obtained. Total 7 views FINDINGS: There is no fracture or dislocation. Radiocarpal, intercarpal, carpometacarpal, metacarpophalangeal and interphalangeal joints are intact. There are no osteolytic or osteoblastic lesions. There are no bone erosions. Surrounding soft tissue unremarkable. XR/XR hand wrist RT IMPRESSION: No acute osseous changes to explain patient's pain symptoms. No fractures. No erosions.
== END 2021-07-22 11:45 | disposition home or self-care (01) ==
LOC: HO.XRAY 11:44
PROVIDERS: PCP Internal Medicine; Visit Provider Internal Medicine
DX: M25.50 Pain in unspecified joint (principal); M25.541 Pain in joints of right hand; M25.542 Pain in joints of left hand
CPT/HCPCS: 73110; 73130

== ENCOUNTER 2022-03-25 14:40 | Emergency (ER) | payer MEDICAID, SELFPAY ==
[2022-03-25 14:50] VITALS: BP 160/83; PULSE 129; RESP 20; O2SAT 97; BMI 31.3
[2022-03-25] MEDS: LORazepam 2 MG/ML VIAL IM (15:00)
--- NOTE | 2022-03-25 15:25 | ED.PSYCH ---
HPI - Psych General Chief Complaint: Seizure Stated Complaint: fainted Time Seen by Provider: 03/25/22 15:07 Source: patient Mode of arrival: ambulatory Limitations: no limitations History of Present Illness HPI Narrative: Patient history of depression on Seroquel drove to the hospital and threw herself on the floor in the waiting area started shaking all 4 extremities with anxiety reports SI when able to verbalize needs asking for her. No history of seizures in the past no head injury patient is tearful breathing rapidly and shaking her extremities Related Data Home Medications Medication Instructions Recorded Confirmed duloxetine 60 mg capsule,delayed 1 cap PO QAM 06/11/21 03/25/22 release quetiapine 100 mg tablet 1 tab PO BEDTIME 06/11/21 03/25/22 ferrous sulfate 325 mg (65 mg 325 mg PO DAILY 06/12/21 03/25/22 iron) tablet mecobalamin (vitamin B12) 1,000 1,000 mcg SUBLINGUAL DAILY 06/12/21 03/25/22 mcg disintegrating tablet,sublingual Allergies Allergy/AdvReac Type Severity Reaction Status Date / Time No Known Allergies Allergy Verified 12/19/20 08:20 [No Known Allergies*] Review of Systems Review of Systems: Yes all other systems are reviewed and are negative PMFSH Past Medical History Medical History delivery delivered No known health problems Surgical History H/O: Family History Family History Mother Diabetes Father Heart attack Social History Social History Household Members: Children Alcohol intake: never Cigarette Packs Per Day: 0.5 Advance Directives: No Advance Directives Information Provided: No Current occupational status: employed 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 Oriented X3. No acute distress. Anxious tearful shaking her 4 extremities Eyes: PERRLA, No Nystagmus ENT: Pharynx normal. Oral Mucosa moist Neck: Normal inspection. Neck supple. CVS: Normal heart rate and rhythm. Pulses normal. Respiratory: No respiratory distress. Equal air entry bilateral, no wheezing/rales/rhonchi Abdomen: Soft and nontender. Bowel sounds are present, no mass palpable, no CVA tenderness Skin: Skin warm and dry. Normal skin color. Normal skin turgor. Extremities: No lower extremity edema. No calf tenderness Neuro: Oriented X 3. No motor deficit. No sensory deficit.No cerebellar signs , cranial nerves II-XII intact MDM - Psych MDM Narrative Medical decision making narrative: Patient with depression with history of cocaine abuse with suicidal ideation will get crisis evaluation Differential Diagnosis Differential diagnosis: Likely suicidal ideation and depression Medical Records Attestation: I reviewed the patient's medical records. Lab Data Attestation: I reviewed the patient's lab results. Result diagrams: 03/25/22 19:27 03/25/22 19:27 Labs: Lab Results 03/25/22 03/25/22 03/25/22 Range/Units 16:24 16:25 17:11 WBC (4.8-10.8) X10*3/uL RBC (4.20-5.50) X10*6/uL Hgb (12.0-16.0) g/dl Hct (37.0-47.0) % MCV (80.0-98.0) fL MCH (27.0-33.0) pg MCHC (31.0-35.0) g/dl RDW (11.0-16.0) % Plt Count (160-400) X10*3/uL MPV (9.4-12.3) fL Immature Gran % (Auto) (0.0-0.4) % Neut % (Auto) (45-73) % Lymph % (Auto) (20-40) % [place] % (Auto) (2-11) % Eos % (Auto) (0-4) % Baso % (Auto) (0-2) % Lymph # (Auto) (1.2-4.9) X10*3/uL [place] # (Auto) (0.1-1.2) X10*3/uL Eos # (Auto) (0.0-0.4) X10*3/uL Baso # (Auto) (0.0-0.2) X10*3/uL Abs Immat Gran (auto) (0.00-0.03) X10*3/uL Absolute Neuts (auto) (2.0-8.3) x10*3/uL Absolute Nucleated RBC (0.0-0.012) X10*3/uL Nucleated RBC % (auto) (0.0-0.2) /100WBC Sodium (135-145) mmol/L Potassium (3.3-5.1) mmol/L Chloride (96-108) mmol/L Carbon Dioxide (22-29) mmol/L Anion Gap (12-20) BUN (9-16) mg/dL Creatinine (0.5-1.4) mg/dL Estim Creat Clear Calc Estimated GFR Random Glucose (60-115) mg/dL Calcium (8.4-10.2) mg/dL Magnesium (1.6-2.6) mg/dL Total Bilirubin (0.0-1.0) mg/dL AST (5-31) U/L ALT (0-31) U/L Alkaline Phosphatase (39-117) U/L Total Protein (6.5-8.0) g/dL Albumin (3.5-5.0) g/dL Urine Color YELLOW Urine Appearance CLEAR Urine pH 5.5 (5.0-8.0) Ur Specific [place] >= 1.030 H (1.005-1.025) Urine Protein 1+ H (NEG-TRACE) MG/DL Urine Glucose (UA) NEG (NEG) MG/DL Urine Ketones NEG (NEG) MG/DL Urine Blood NEG (NEG) Urine Nitrite POS H (NEG) Ur Leukocyte Esterase NEG (NEG) Urine RBC 1-4 (0) /HPF Urine WBC 5-9 H (0-4) /HPF Ur Squamous Epith Cells TRACE /LPF Urine Bacteria 3+ /LPF Urine Opiates Screen Not Detected (Not Detect) Urine Fentanyl Screen Not Detected (Not Detect) Ur Barbiturates Screen Not Detected (Not Detect) Ur Phencyclidine Scrn Not Detected (Not Detect) Ur Amphetamines Screen Not Detected (Not Detect) U Benzodiazepines Scrn Not Detected (Not Detect) Urine Cocaine Screen POSITIVE H (Not Detect) U Marijuana (THC) Screen Not Detected (Not Detect) Ethyl Alcohol mg/dL COVID-19 (DMITRI) Negative (Negative) COVID-19 Clin Com See Note 03/25/22 03/25/22 03/25/22 Range/Units 19:27 19:27 19:27 WBC 11.7 H (4.8-10.8) X10*3/uL RBC 4.33 (4.20-5.50) X10*6/uL Hgb 9.6 L (12.0-16.0) g/dl Hct 31.6 L (37.0-47.0) % MCV 73.0 L (80.0-98.0) fL MCH 22.2 L (27.0-33.0) pg MCHC 30.4 L (31.0-35.0) g/dl RDW 18.6 H (11.0-16.0) % Plt Count 350 (160-400) X10*3/uL MPV 9.2 L (9.4-12.3) fL Immature Gran % (Auto) 0.3 (0.0-0.4) % Neut % (Auto) 74.4 H (45-73) % Lymph % (Auto) 16.1 L (20-40) % [place] % (Auto) 7.9 (2-11) % Eos % (Auto) 0.8 (0-4) % Baso % (Auto) 0.5 (0-2) % Lymph # (Auto) 1.9 (1.2-4.9) X10*3/uL [place] # (Auto) 0.9 (0.1-1.2) X10*3/uL Eos # (Auto) 0.1 (0.0-0.4) X10*3/uL Baso # (Auto) 0.1 (0.0-0.2) X10*3/uL Abs Immat Gran (auto) 0.04 H (0.00-0.03) X10*3/uL Absolute Neuts (auto) 8.7 H (2.0-8.3) x10*3/uL Absolute Nucleated RBC 0.000 (0.0-0.012) X10*3/uL Nucleated RBC % (auto) 0.0 (0.0-0.2) /100WBC Sodium 138 (135-145) mmol/L Potassium 4.2 (3.3-5.1) mmol/L Chloride 107 (96-108) mmol/L Carbon Dioxide 21 L (22-29) mmol/L Anion Gap 14 (12-20) BUN 6 L (9-16) mg/dL Creatinine 0.99 (0.5-1.4) mg/dL Estim Creat Clear Calc 83.8 Estimated GFR > 60 Random Glucose 97 (60-115) mg/dL Calcium 9.5 (8.4-10.2) mg/dL Magnesium 1.9 (1.6-2.6) mg/dL Total Bilirubin 0.2 (0.0-1.0) mg/dL AST 19 (5-31) U/L ALT 8 (0-31) U/L Alkaline Phosphatase 80 (39-117) U/L Total Protein 8.0 (6.5-8.0) g/dL Albumin 4.4 (3.5-5.0) g/dL Urine Color Urine Appearance Urine pH (5.0-8.0) Ur Specific [place] (1.005-1.025) Urine Protein (NEG-TRACE) MG/DL Urine Glucose (UA) (NEG) MG/DL Urine Ketones (NEG) MG/DL Urine Blood (NEG) Urine Nitrite (NEG) Ur Leukocyte Esterase (NEG) Urine RBC (0) /HPF Urine WBC (0-4) /HPF Ur Squamous Epith Cells /LPF Urine Bacteria /LPF Urine Opiates Screen (Not Detect) Urine Fentanyl Screen (Not Detect) Ur Barbiturates Screen (Not Detect) Ur Phencyclidine Scrn (Not Detect) Ur Amphetamines Screen (Not Detect) U Benzodiazepines Scrn (Not Detect) Urine Cocaine Screen (Not Detect) U Marijuana (THC) Screen (Not Detect) Ethyl Alcohol 30 mg/dL COVID-19 (DMITRI) (Negative) COVID-19 Clin Com Discharge Plan Discharge Clinical Impression: Depression, Suicidal ideation Patient Disposition: Still a Patient Prescriptions: No Action duloxetine 60 mg capsule,delayed release(DR/EC) 1 cap PO QAM 0RF quetiapine 100 mg tablet 1 tab PO BEDTIME 0RF ferrous sulfate 325 mg (65 mg iron) tablet 325 mg PO DAILY 0RF mecobalamin (vitamin B12) 1,000 mcg tablet,disintegrating 1,000 mcg sublingual DAILY 0RF Rx Instructions: place tablet under tongue and allow to dissolve for at least30 secs before swallowing
--- NOTE | 2022-03-25 15:33 | PC.NURSE ---
2mg Ativan IM administered at 1440 for anxiety. MD Recio at bedside, verbal order at the time
[2022-03-25 16:45] LABS: Appearance Urine CLEAR; Color Urine YELLOW; Glucose Urine UA NEG (NEG); Leukocyte Esterase Urine NEG (NEG); Nitrite Urine POS (NEG); PH 5.5 (5.0-8.0); Specific Gravity - Urine >= 1.030 (1.005-1.025); UACC Culture Trigger YES; Urine Blood NEG (NEG); Urine Ketones NEG (NEG); Urine Protein 1+ MG/DL (NEG-TRACE)
[2022-03-25 17:01] LABS: Amphetamine Screen Urine Not Detected (Not Detect); Barbiturates, Urine Not Detected (Not Detect); Benzodiazepines Screen Urine Not Detected (Not Detect); Cannabinoid Screen Urine Not Detected (Not Detect); Cocaine Screen Urine POSITIVE (Not Detect); Fentanyl, urine Not Detected (Not Detect); Opiate Screen Urine Not Detected (Not Detect); Phencyclidine Screen Urine Not Detected (Not Detect)
[2022-03-25 17:09] LABS: Bacteria Urine 3+ /LPF; Squamous Epithelial Cell Urine TRACE /LPF
[2022-03-25 17:51] LABS: COVID-19 Test Negative (Negative); IDNOW Serial# 55D5AD1C
[2022-03-25 19:34] LABS: Basophils Absolute Auto 0.1 X10*3/uL (0.0-0.2); Basophils Percent Auto 0.5 % (0-2); Eosinophils Absolute Auto 0.1 X10*3/uL (0.0-0.4); Eosinophils Percent Auto 0.8 % (0-4); Hematocrit 31.6 % (37.0-47.0); Hemoglobin 9.6 g/dl (12.0-16.0); Imm Gran Abs Auto 0.04 X10*3/uL (0.00-0.03); Imm Gran Pct Auto 0.3 % (0.0-0.4); Lymphocytes Absolute Auto 1.9 X10*3/uL (1.2-4.9); Lymphocytes Percent Auto 16.1 % (20-40); MANUAL DIFF FLAG NO; Mean Corpuscular HGB Conc 30.4 g/dl (31.0-35.0); Mean Corpuscular Hemoglobin 22.2 pg (27.0-33.0); Mean Platelet Volume 9.2 fL (9.4-12.3); Monocytes Absolute Auto 0.9 X10*3/uL (0.1-1.2); Monocytes Percent Auto 7.9 % (2-11); Neutrophils Absolute Auto 8.7 x10*3/uL (2.0-8.3); Neutrophils Percent Auto 74.4 % (45-73); Platelet Count 350 X10*3/uL (160-400); Red Blood Count 4.33 X10*6/uL (4.20-5.50); Red Cell Distribution Width 18.6 % (11.0-16.0); White Blood Count 11.7 X10*3/uL (4.8-10.8)
[2022-03-25 19:46] LABS: Ethanol 30 mg/dL
[2022-03-25 19:48] LABS: Alanine Aminotransferase 8 U/L (0-31); Albumin Level 4.4 g/dL (3.5-5.0); Alkaline Phosphatase 80 U/L (39-117); Anion Gap 14 (12-20); Aspartate Amino Transferase 19 U/L (5-31); Bilirubin Total 0.2 mg/dL (0.0-1.0); Blood Urea Nitrogen 6 mg/dL (9-16); Calcium 9.5 mg/dL (8.4-10.2); Carbon Dioxide 21 mmol/L (22-29); Chloride 107 mmol/L (96-108); Creatinine Clr Calc Pharmacy 83.8; Estimated Glomerular Filt Rate > 60; Glucose Random 97 mg/dL (60-115); Magnesium 1.9 mg/dL (1.6-2.6); Potassium 4.2 mmol/L (3.3-5.1); Sodium 138 mmol/L (135-145)
--- NOTE | 2022-03-26 00:46 | PC.NURSE ---
Patient is currently in bed appears sleeping, respiration +/= non labored, bilaterally, no distress observed/reported, will continue to monitor.
--- NOTE | 2022-03-26 05:56 | PC.NURSE ---
Patient slept through whole evening and night, no distress observed/reported, behavior appropriate in the morning, compliant with VS assessment, [place] speaking primarily, care team attempted to assess the patient but couldn't due to drowsiness, will be assessed in the morning by care team, med rec completed/pending provider's approval, will continue to monitor.
[2022-03-26 05:57] VITALS: BP 139/82; PULSE 99; RESP 16; TEMP 37.2; O2SAT 95
--- NOTE | 2022-03-26 07:34 | PC.NURSE ---
pt sleeping, resps are = and nonlabored. awaiting care team eval when she is awake.
--- NOTE | 2022-03-26 11:14 | MHC.CARE ---
Pt is a 46 y/o Thai speaking, female who is previously known to the CARE Team through prior ED visits.? Yesterday, pt drove herself to the ED as she was experiencing anxiety.? Pt reportedly ?threw herself on the floor? and was shaking, and unable to verbalize her needs.? Pt has a hx of depression, she is presently not on her medications for approximately one week, no known hx of suicide attempts.? Pt has tested positive for cocaine. She is alert and oriented x4 and is assessed in her room in the behavioral health pod of the ED.? She appears well groomed.? She is engaged and help seeking, stating she has been off her anxiety medications for approximately a week.? She stated that she has been off other medications for that time as well.? She reports that she had lost her prescriber and has been having difficulty securing a new one, she also noted having difficulty securing a therapist.? She reports sleep and appetite as fair.? Her mood is anxious and depressed.? She denies SI, HI, , AH, and self-harm urges.? She does say she sees ?Shadows.? moving.? Her affect appears tearful.? Insight, judgement, memory, concentration, and impulse control appear fair Plan is for pt to be discharged home with referrals to [facility] and [facility] for a therapist and prescriber.? Pt?s ED prescriber will write a prescription for pt?s medications to bridge the gap between discharge and her first [facility] appointment.? [facility] has been contacted and can see pt on Tuesday of next week.? CARE Team will refer pt to [facility] as well to secure a therapist and counselor.? This plan was discussed with and agreed upon by ED provider Goyo, CARE Package Line Relief Operator Diego KANG, and pt?s nurse MARICHUY Whiteside. F41.9 ? Unspecified anxiety d/o
== END 2022-03-26 11:43 | disposition home or self-care (01) ==
PROVIDERS: Emergency Provider Internal Medicine; PCP Internal Medicine
DX: F33.1 Major depressive disorder, recurrent, moderate (principal); R45.851 Suicidal ideations; R56.9 Unspecified convulsions; F14.90 Cocaine use, unspecified, uncomplicated; F17.210 Nicotine dependence, cigarettes, uncomplicated; Z20.822 Contact with and (suspected) exposure to COVID-19; Z79.899 Other long term (current) drug therapy; Z71.6 Tobacco abuse counseling
CPT/HCPCS: 80053; 80307; 81001; 82077; 83735; 85025; 87086; 87088; 87186; 87635; 96372; 99283; 99284; J2060

== ENCOUNTER 2022-04-24 20:28 | Inpatient (IN) | payer MEDICAID, OTHER, SELFPAY ==
[2022-04-24] VITALS (7 sets, daily range): BP systolic 109–142; BP diastolic 63–89; PULSE 18–110; RESP 18; O2SAT 95–98; BMI 29.1
--- NOTE | 2022-04-24 20:51 | PC.NURSE ---
pt became increase agitated, started to hit her self in the face, tried to eloped. security arrived to triage. pt refuse vital. pt brought to bed 22 per charge ER
[2022-04-24] MEDS: LORazepam 2 MG/ML VIAL IM (21:05)
[2022-04-24] MEDS: Haloperidol Lactate 5 MG/ML VIAL IM (21:05)
[2022-04-24 21:20] LABS: Glucose, Whole Blood 136 mg/dL (60-115)
[2022-04-24 21:29] LABS: MANUAL DIFF FLAG NO
[2022-04-24 21:36] LABS: Basophils Absolute Auto 0.1 X10*3/uL (0.0-0.2); Basophils Percent Auto 0.7 % (0-2); Eosinophils Absolute Auto 0.1 X10*3/uL (0.0-0.4); Eosinophils Percent Auto 0.7 % (0-4); Hematocrit 33.4 % (37.0-47.0); Imm Gran Abs Auto 0.03 X10*3/uL (0.00-0.03); Imm Gran Pct Auto 0.3 % (0.0-0.4); Lymphocytes Percent Auto 19.7 % (20-40); Mean Corpuscular HGB Conc 29.9 g/dl (31.0-35.0); Mean Corpuscular Hemoglobin 21.9 pg (27.0-33.0); Mean Corpuscular Volume 73.1 fL (80.0-98.0); Mean Platelet Volume 9.5 fL (9.4-12.3); Monocytes Absolute Auto 0.9 X10*3/uL (0.1-1.2); Monocytes Percent Auto 8.8 % (2-11); Neutrophils Absolute Auto 7.3 x10*3/uL (2.0-8.3); Neutrophils Percent Auto 69.8 % (45-73); Platelet Count 415 X10*3/uL (160-400); Red Blood Count 4.57 X10*6/uL (4.20-5.50); Red Cell Distribution Width 17.2 % (11.0-16.0); White Blood Count 10.4 X10*3/uL (4.8-10.8)
[2022-04-24 21:41] LABS: Ethanol 150 mg/dL
[2022-04-24 21:47] LABS: Chloride 110 mmol/L (96-108)
[2022-04-24 21:48] LABS: Alanine Aminotransferase 8 U/L (0-31); Albumin Level 4.9 g/dL (3.5-5.0); Alkaline Phosphatase 72 U/L (39-117); Anion Gap 22 (12-20); Aspartate Amino Transferase 20 U/L (5-31); Bilirubin Direct < 0.2 mg/dL (0.0-0.5); Bilirubin Total 0.3 mg/dL (0.0-1.0); Blood Urea Nitrogen 7 mg/dL (9-16); Calcium 9.6 mg/dL (8.4-10.2); Carbon Dioxide 14 mmol/L (22-29); Creatinine Clr Calc Pharmacy 72.5; Estimated Glomerular Filt Rate 58; Glucose Random 134 mg/dL (60-115); Potassium 3.9 mmol/L (3.3-5.1); Sodium 142 mmol/L (135-145); Total Protein 8.5 g/dL (6.5-8.0)
--- NOTE | 2022-04-24 22:19 | ED.PSYCH ---
HPI - Psych General Chief Complaint: Psychiatric Symptoms Stated Complaint: Crisis? Time Seen by Provider: 04/24/22 20:45 Source: patient Mode of arrival: ambulatory Limitations: no limitations History of Present Illness HPI Narrative: 46-year-old female with a history depression here with reports of feeling anxious and suicidal. Patient has plan to overdose on her home medications or jump off a bridge. No homicidal ideations. No hallucinations. Denies substance use. No physical complaints. On arrival patient quite agitated, screaming, unable to redirect. Patient hitting herself in the head with her fist. Related Data Home Medications Medication Instructions Recorded Confirmed duloxetine 60 mg capsule,delayed 60 mg PO QAM 04/25/22 04/25/22 release quetiapine 100 mg tablet 1 tab PO BEDTIME 04/25/22 04/25/22 Allergies Allergy/AdvReac Type Severity Reaction Status Date / Time No Known Allergies Allergy Verified 12/19/20 08:20 [No Known Allergies*] Review of Systems Review of Systems: Yes all other systems are reviewed and are negative Constitutional: Constitutional: Reports no additional constitutional complaints, Denies body ache(s), Denies chills, Denies fever(s), Denies headache(s) and Denies weakness Eyes: Eyes: Reports no additional eye complaints and Denies change in vision ENT: Reports system reviewed and no additional complaints, except as documented, Denies dizziness, Denies headache(s), Denies nasal congestion, Denies nasal discharge and Denies neck pain Cardiovascular: Cardiovascular: Reports no additional cardiovascular complaints, Denies chest pain, Denies leg edema and Denies dyspnea Respiratory: Respiratory: Reports no additional respiratory complaints, Denies cough and Denies dyspnea Gastrointestinal: Gastrointestinal: Reports no additional gastrointestinal complaints, Denies abdominal pain, Denies diarrhea, Denies nausea and Denies vomiting Genitourinary: Genitourinary: Reports no additional female genitourinary complaints and Denies urinary incontinence Musculoskeletal: Musculoskeletal: Reports no additional musculoskeletal complaints, Denies back pain, Denies arthralgias, Denies joint swelling, Denies neck pain, Denies numbness and Denies tingling Integumentary/Breasts: Skin/Breast: Reports system reviewed and no additional complaints, except as docu and Denies rash Neurologic: Reports system reviewed and no additional complaints, except as documented, Denies Abnormal speech present, Denies dizziness, Denies headache(s), Denies numbness, Denies tingling and Denies weakness Psychiatric: Psychiatric: Reports anxiety, Denies homicidal ideation and Reports suicidal ideation [facility] Past Medical History Attestation statement: The following information was validated with the patient. 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 Vital Signs: Vital Signs: Last Vital Signs Pulse 92 04/24/22 23:49 Resp 18 04/24/22 23:49 BP 109/70 04/24/22 23:49 Pulse Ox 96 04/24/22 23:49 O2 Del Method 04/24/22 23:49 BMI result Body Mass Index 29.1 Const: General: anxious and combative Orientation/consciousness: patient oriented x3 HEENT: Head: Yes normal to inspection Ears: hearing grossly normal bilaterally Face and sinus: Yes normal facial exam Mouth: Normal oral and palatal mucosa present Throat: Yes posterior oropharynx normal Eyes: General: appearance normal, both eyes and all related structures Pupils: Equal, round and reactive pupils present Neck: Neck: Yes normal visual inspection Chest: Chest palpation & inspection: normal inspection of the chest Resp: Other: Anxious, hyperventilating Cardio: Peripheral pulses: Peripheral pulses 2+ throughout Skin: General skin exam: no rashes or lesions noted Neuro: General: patient oriented x3 and moves all extremities Cranial nerves: Yes CN's II-XII intact bilaterally and Yes Equal, round and reactive pupils present Cognition (Neuro): normal cognition Speech: No Abnormal speech present Gait exam (Neuro): Normal gait present Extrem: General: Yes normal to inspection Course Reevaluation(s) Reevaluation #1: Sign-out pending crisis evaluation. Placed in physician observation pending disposition Time: 02:00 MDM - Psych MDM Narrative Medical decision making narrative: 46-year-old female with reports of anxiety, suicidal thoughts who arrives to triage anxious, panicking, combative, hitting herself in the head with her fist. Unable to redirect patient. She was immediately brought to room received Haldol and Ativan IM. Will need labs, toxicology, COVID screen, crisis consultation No concern for acute ingestion or trauma Medical Records Attestation: I reviewed the patient's medical records. Lab Data Attestation: I reviewed the patient's lab results. Result diagrams: 04/24/22 21:24 04/24/22 21:23 Labs: Lab Results 04/24/22 04/24/22 04/24/22 Range/Units 21:17 21:23 21:23 WBC (4.8-10.8) X10*3/uL RBC (4.20-5.50) X10*6/uL Hgb (12.0-16.0) g/dl Hct (37.0-47.0) % MCV (80.0-98.0) fL MCH (27.0-33.0) pg MCHC (31.0-35.0) g/dl RDW (11.0-16.0) % Plt Count (160-400) X10*3/uL MPV (9.4-12.3) fL Immature Gran % (Auto) (0.0-0.4) % Neut % (Auto) (45-73) % Lymph % (Auto) (20-40) % [place] % (Auto) (2-11) % Eos % (Auto) (0-4) % Baso % (Auto) (0-2) % Lymph # (Auto) (1.2-4.9) X10*3/uL [place] # (Auto) (0.1-1.2) X10*3/uL Eos # (Auto) (0.0-0.4) X10*3/uL Baso # (Auto) (0.0-0.2) X10*3/uL Abs Immat Gran (auto) (0.00-0.03) X10*3/uL Absolute Neuts (auto) (2.0-8.3) x10*3/uL Absolute Nucleated RBC (0.0-0.012) X10*3/uL Nucleated RBC % (auto) (0.0-0.2) /100WBC Sodium 142 (135-145) mmol/L Potassium 3.9 (3.3-5.1) mmol/L Chloride 110 H (96-108) mmol/L Carbon Dioxide 14 L (22-29) mmol/L Anion Gap 22 H (12-20) BUN 7 L (9-16) mg/dL Creatinine 1.03 (0.5-1.4) mg/dL Estim Creat Clear Calc 72.5 Estimated GFR 58 POC Glucose 136 H (60-115) mg/dL Random Glucose 134 H (60-115) mg/dL Calcium 9.6 (8.4-10.2) mg/dL Total Bilirubin 0.3 (0.0-1.0) mg/dL Direct Bilirubin < 0.2 (0.0-0.5) mg/dL AST 20 (5-31) U/L ALT 8 (0-31) U/L Alkaline Phosphatase 72 (39-117) U/L Total Protein 8.5 H (6.5-8.0) g/dL Albumin 4.9 (3.5-5.0) g/dL Ethyl Alcohol 150 mg/dL COVID-19 (DMITRI) (Negative) COVID-19 Clin Com 04/24/22 04/24/22 Range/Units 21:24 23:06 WBC 10.4 (4.8-10.8) X10*3/uL RBC 4.57 (4.20-5.50) X10*6/uL Hgb 10.0 L (12.0-16.0) g/dl Hct 33.4 L (37.0-47.0) % MCV 73.1 L (80.0-98.0) fL MCH 21.9 L (27.0-33.0) pg MCHC 29.9 L (31.0-35.0) g/dl RDW 17.2 H (11.0-16.0) % Plt Count 415 H (160-400) X10*3/uL MPV 9.5 (9.4-12.3) fL Immature Gran % (Auto) 0.3 (0.0-0.4) % Neut % (Auto) 69.8 (45-73) % Lymph % (Auto) 19.7 L (20-40) % [place] % (Auto) 8.8 (2-11) % Eos % (Auto) 0.7 (0-4) % Baso % (Auto) 0.7 (0-2) % Lymph # (Auto) 2.0 (1.2-4.9) X10*3/uL [place] # (Auto) 0.9 (0.1-1.2) X10*3/uL Eos # (Auto) 0.1 (0.0-0.4) X10*3/uL Baso # (Auto) 0.1 (0.0-0.2) X10*3/uL Abs Immat Gran (auto) 0.03 (0.00-0.03) X10*3/uL Absolute Neuts (auto) 7.3 (2.0-8.3) x10*3/uL Absolute Nucleated RBC 0.000 (0.0-0.012) X10*3/uL Nucleated RBC % (auto) 0.0 (0.0-0.2) /100WBC Sodium (135-145) mmol/L Potassium (3.3-5.1) mmol/L Chloride (96-108) mmol/L Carbon Dioxide (22-29) mmol/L Anion Gap (12-20) BUN (9-16) mg/dL Creatinine (0.5-1.4) mg/dL Estim Creat Clear Calc Estimated GFR POC Glucose (60-115) mg/dL Random Glucose (60-115) mg/dL Calcium (8.4-10.2) mg/dL Total Bilirubin (0.0-1.0) mg/dL Direct Bilirubin (0.0-0.5) mg/dL AST (5-31) U/L ALT (0-31) U/L Alkaline Phosphatase (39-117) U/L Total Protein (6.5-8.0) g/dL Albumin (3.5-5.0) g/dL Ethyl Alcohol mg/dL COVID-19 (DMITRI) Negative (Negative) COVID-19 Clin Com See Note Discharge Plan Discharge Clinical Impression: Suicidal ideation, Acute anxiety Patient Disposition: Still a Patient Prescriptions: No Action duloxetine 60 mg capsule,delayed release(DR/EC) 60 mg PO QAM quetiapine 100 mg tablet 1 tab PO BEDTIME
[2022-04-24 23:29] LABS: COVID-19 Test Negative (Negative); IDNOW Serial# 9DB6401D
--- NOTE | 2022-04-25 | ECG_ITS ---
Test Reason : MED CLEARANCE Blood Pressure : / mmHG Vent. Rate : 086 BPM Atrial Rate : 086 BPM P-R Int : 130 ms QRS Dur : 070 ms QT Int : 372 ms P-R-T Axes : 010 044 034 degrees QTc Int : 445 ms Normal sinus rhythm Normal ECG When compared with ECG of 11-JUN-2021 09:17, No significant change was found Referred By: Anali Flynn Electronically Signed By:MICHEL ELENA MD
--- NOTE | 2022-04-25 00:41 | PC.NURSE ---
Online [facility] referral completed by this RN.
[2022-04-25 01:41] LABS: Appearance Urine HAZY; Color Urine YELLOW; Glucose Urine UA NEG (NEG); Leukocyte Esterase Urine NEG (NEG); Nitrite Urine NEG (NEG); PH 5.5 (5.0-8.0); Specific Gravity - Urine >= 1.030 (1.005-1.025); Urine Blood NEG (NEG); Urine Ketones 15 MG/DL (NEG); Urine Protein 2+ MG/DL (NEG-TRACE)
[2022-04-25 01:46] LABS: UPreg QC Valid YES; Urine Pregnancy NEGATIVE (NEGATIVE)
[2022-04-25 01:47] LABS: Bacteria Urine TRACE /LPF; Mucus Urine 3+ /LPF; RBC Urine 0-2 /HPF (0); Squamous Epithelial Cell Urine 4+ /LPF; WBC Urine 0 /HPF (0-4)
[2022-04-25 01:48] LABS: Hyaline Casts Urine 0-2 /LPF
[2022-04-25 01:55] LABS: Amphetamine Screen Urine Not Detected (Not Detect); Barbiturates, Urine Not Detected (Not Detect); Benzodiazepines Screen Urine Not Detected (Not Detect); Cannabinoid Screen Urine Not Detected (Not Detect); Cocaine Screen Urine POSITIVE (Not Detect); Fentanyl, urine POSITIVE (Not Detect); Opiate Screen Urine Not Detected (Not Detect); Phencyclidine Screen Urine Not Detected (Not Detect)
--- NOTE | 2022-04-25 07:09 | PC.NURSE ---
Patient slept through the night, no distress observed/reported, med rec completed/JAN updated, N assessed the patient, patient well engaged, disposition is section 12 inpatient bed search, behavior non concerning, VSS, will continue to monitor.
[2022-04-25] MEDS: DULoxetine HCl 60 MG CAPSULE.DR PO (08:50)
--- NOTE | 2022-04-25 10:15 | PC.NURSE ---
PT SLEEPING MOST OF THE MORNING, UP FOR BREAKFAST AND MEDS THEN BACK TO SLEEP. NO ISSUES OBSERVED/REPORTED.
--- NOTE | 2022-04-25 10:26 | PHA.MEDREC ---
Pharmacy Consult ? Medication Reconciliation Pharmacy has completed the medication reconciliation.
--- NOTE | 2022-04-25 15:46 | PC.NURSE ---
PT SEEN BY [facility] CLINICIAN. PT SLEEPING MOST OF THE SHIFT. OUT OF ROOM ONCE OF THIS TIME.
[2022-04-25 16:56] VITALS: BP 106/70; PULSE 110; RESP 20; TEMP 37.3; O2SAT 96
[2022-04-25] MEDS: QUEtiapine Fumarate 100 MG TABLET PO (21:48)
[2022-04-26 02:06] VITALS: BP 126/63; PULSE 109; RESP 16; TEMP 36.8; O2SAT 96
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
[2022-04-26 06:00] VITALS: BP 119/66; PULSE 104; RESP 18; TEMP 36.7; O2SAT 96
[2022-04-26] MEDS: DULoxetine HCl 60 MG CAPSULE.DR PO (08:46)
[2022-04-26] MEDS: Acetaminophen 325 MG TABLET 650 MG PO ×2 (08:49→23:08)
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
[2022-04-26] MEDS: Nicotine 14 MG PATCH.TD24 TRANSDERMA (15:38)
[2022-04-26 21:10] VITALS: BP 129/85; PULSE 89; RESP 18; TEMP 36.1; O2SAT 100
[2022-04-26] MEDS: QUEtiapine Fumarate 100 MG TABLET PO (21:22)
[2022-04-26] MEDS: Mirtazapine 7.5 MG TABLET PO (21:22)
[2022-04-26] MEDS: Prazosin HCL 1 MG CAPSULE PO (21:22)
[2022-04-27] MEDS: Nicotine 14 MG PATCH.TD24 TRANSDERMA (08:30)
[2022-04-27] MEDS: DULoxetine HCl 60 MG CAPSULE.DR PO (08:30)
[2022-04-27 08:32] VITALS: BP 128/75; PULSE 103; RESP 20; TEMP 35.8; O2SAT 100
[2022-04-27 09:25] LABS: Estimated Average Glucose 97 mg/dL
[2022-04-27 09:26] LABS: Alanine Aminotransferase 9 U/L (0-31); Albumin Level 4.2 g/dL (3.5-5.0); Alkaline Phosphatase 64 U/L (39-117); Anion Gap 12 (12-20); Aspartate Amino Transferase 19 U/L (5-31); Bilirubin Total 0.4 mg/dL (0.0-1.0); Blood Urea Nitrogen 7 mg/dL (9-16); Calcium 9.4 mg/dL (8.4-10.2); Carbon Dioxide 24 mmol/L (22-29); Chloride 105 mmol/L (96-108); Cholesterol 188 mg/dL; Creatinine Clr Calc Pharmacy 98.3; Estimated Glomerular Filt Rate > 60; Glucose Fasting 100 mg/dL (60-99); HDL Cholesterol 57 mg/dL; LDL Cholesterol Calculated 120 mg/dl; Potassium 4.1 mmol/L (3.3-5.1); Sodium 137 mmol/L (135-145); Total Protein 7.1 g/dL (6.5-8.0); Triglycerides 55 mg/dL
--- NOTE | 2022-04-27 11:50 | P.PNPSI_ITS ---
Subjective Subjective Date of Service: 04/27/22 Reason For Visit: depression/SI Interim History: Reports mood is a little better and no SI. She said she had a good time seeing her grandchildren. Overall slept well and no nightmares. Patient discussed her sadness at her daughter's plan to move away and understands that it will take an adjustment for her. She talked about gas Prices and struggling to see them; lead technical writer discussed patient's substance abuse as she binge drinks and uses cocaine 2 times a week, drinking up to 24 beers that night which all adds up to about 90 dollars per week. Patient agreed that this equates to significant gas money; lead technical writer also discussed how both alcohol and cocaine are very likely contributing to her depression to which she agreed and says she wants to discontinue substance abuse. Patient talked about considering going back to [employer] which she finds a supportive environment; she says her mother was an alcoholic but became sober after going to [employer]. Mental Status Exam Mental Status Exam Narrative: Pt is alert and oriented; behavior is cooperative, calm; dressed in casual cloths with adequate hygiene and grooming; mood is described as little better and affect congruent, not downcast, not tearful; eye contact appropriate; Speech is normal rate, volume and prosody and not pressured; no psychomotor retardation present; thought process is organized and goal directed; Thought content is on feeling lonely, treatment and dealing with substance abuse; otherwise pertinent to relevant topics and without any delusional content, paranoid ideations or grandiosity; denies any SI/HI. AH; Patients insight and judgment are impaired but improving Diagnostics Vital Signs (24Hr): Vital Signs - 24 hr 04/26/22 21:10 04/27/22 08:32 Temperature 97 F 96.5 F L Pulse Rate 89 103 H Respiratory Rate 18 20 Blood Pressure 129/85 128/75 Pulse Oximetry 100 100 Oxygen Delivery Method Room Air Room Air BMI result Body Mass Index 29.1 Labs Results: 04/24/22 21:24 04/27/22 08:13 Labs: Laboratory Results - last 48 hr 04/27/22 04/27/22 08:13 08:13 Sodium 137 Potassium 4.1 Chloride 105 Carbon Dioxide 24 Anion Gap 12 BUN 7 L Creatinine 0.76 Estim Creat Clear Calc 98.3 Estimated GFR > 60 Fasting Glucose 100 H Estimat Average Glucose 97 Hemoglobin A1c % 5.0 Calcium 9.4 Total Bilirubin 0.4 AST 19 ALT 9 Alkaline Phosphatase 64 Total Protein 7.1 Albumin 4.2 Triglycerides 55 Cholesterol 188 LDL Cholesterol, Calc 120 HDL Cholesterol 57 Medications Medications Current Medications Acetaminophen (Acetaminophen 325 Mg Tablet) 650 mg PO Q6H PRN PRN Reason: Headache/Pain Mild Scale (1-3) Last Admin: 04/26/22 23:08 Dose: 650 mg Al Hydroxide/Mg Hydroxide (Magnesium Hydrox/Alum Hydrox 30 Ml Oral.Susp) 30 ml PO Q6H PRN PRN Reason: Heartburn/Nausea Buspirone HCl (Buspirone Hcl 10 Mg Tablet) 10 mg PO TID PRN PRN Reason: anxiety/seeing shadows Duloxetine HCl (Duloxetine Hcl 60 Mg Capsule.Dr) 60 mg PO DAILY SYLVIA Last Admin: 04/27/22 08:30 Dose: 60 mg Hydroxyzine HCl (Hydroxyzine Hcl 25 Mg Tablet) 25 mg PO Q6H PRN PRN Reason: Anxiety Magnesium Hydroxide (Milk Of Magnesia 30 Ml Oral.Susp) 30 ml PO DAILY PRN PRN Reason: Constipation Mirtazapine (Mirtazapine 7.5 Mg Tablet) 7.5 mg PO BEDTIME SYLVIA Last Admin: 04/26/22 21:22 Dose: 7.5 mg Nicotine (Nicotine 14 Mg Patch.Td24) 14 mg TRANSDERMA DAILY SYLVIA Last Admin: 04/27/22 08:30 Dose: 14 mg Nicotine Polacrilex (Nicotine Polacrilex 2 Mg Gum) 4 mg BUCCAL Q2H PRN PRN Reason: Nicotine Cravings Prazosin HCl (Prazosin Hcl 1 Mg Capsule) 1 mg PO BEDTIME SYLVIA; Protocol Last Admin: 04/26/22 21:22 Dose: 1 mg Quetiapine Fumarate (Quetiapine Fumarate 100 Mg Tablet) 100 mg PO BEDTIME SYLVIA Last Admin: 04/26/22 21:22 Dose: 100 mg Trazodone HCl (Trazodone Hcl 50 Mg Tablet) 50 mg PO BEDTIME PRN PRN Reason: Insomnia Allergies Allergies Allergy/AdvReac Type Severity Reaction Status Date / Time No Known Allergies Allergy Verified 12/19/20 08:20 [No Known Allergies*] Assessment & Plan Assessment & Plan (1) MDD (major depressive disorder), recurrent, severe, with psychosis: Status: Acute Code(s): F33.3 - Major depressive disorder, recurrent, severe with psychotic symptoms (2) Chronic post-traumatic stress disorder (PTSD): Status: Acute Code(s): F43.12 - Post-traumatic stress disorder, chronic (3) Panic attack: Status: Acute Code(s): F41.0 - Panic disorder [episodic paroxysmal anxiety] (4) Cocaine abuse: Status: Acute Code(s): F14.10 - Cocaine abuse, uncomplicated (5) Alcohol abuse: Status: Acute Code(s): F10.10 - Alcohol abuse, uncomplicated Plan Pt is a 46 yo female with hx MDD, PTSD, panic attacks and cocaine/alcohol abuse who presents for worsening depression and SI in face of being off some of her medications and her daughter and grandchildren moving away. Patient symptoms moderately well treated with duloxetine, Seroquel for sleep, BuSpar and she has been off Seroquel and BuSpar for few months as she is in between providers. 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 Patient also has a long history of trauma and untreated PTSD which is contributory; also patient binge drinks alcohol and uses cocaine 2 days a week which certainly Exacerbate her depressive symptoms. Patient wants to get back on Seroquel. Only uses BuSpar as a p.r.n.. She agrees to start mirtazapine to help with depression and anxiety and also since she has trouble sleeping and has had poor appetite. She also agrees to start prazosin for nightmares. Will give her the diagnosis of MDD with psychotic features for now Since it is not really clear the extent of auditory hallucinations when she is in a good mood. 04/27 mood a little better; no SI; not tearful. More active in milieu. Considering how substance abuse worsens or depression. PLAN: CV Q 15 minute checks Consider naltrexone Started prazosin 1 mg q.h.s. for nightmares Started mirtazapine 7.5 mg for depression/anxiety and for trouble sleeping and poor appetite Restart Seroquel 100 mg q.h.s. Restart BuSpar and will leave his p.r.n. since that is how she takes at home Continue duloxetine 60 mg daily Will gather collateral Patient agrees that she will benefit from therapy and is willing to engage Will also discuss maintenance treatment for substance abuse I spent minutes with the patient and/or on the patient floor today, greater than?50% of which was spent counseling/coordinating care. Patient educated on: diagnosis, medication risk/benefits, substance abuse and therapeutic strategies Informed Consent: understands Reason for contiued inpatient stay Substantial Risk for: rapid decompensation
[2022-04-27 20:13] VITALS: BP 115/68; PULSE 95
[2022-04-27] MEDS: QUEtiapine Fumarate 100 MG TABLET PO (20:13)
[2022-04-27] MEDS: Mirtazapine 7.5 MG TABLET PO (20:13)
[2022-04-27] MEDS: Prazosin HCL 1 MG CAPSULE PO (20:13)
[2022-04-28 06:39] VITALS: BP 103/50; PULSE 78; RESP 18; TEMP 36.4; O2SAT 96
[2022-04-28] MEDS: Nicotine 14 MG PATCH.TD24 TRANSDERMA (08:38)
[2022-04-28] MEDS: DULoxetine HCl 60 MG CAPSULE.DR PO (08:38)
[2022-04-28] MEDS: Milk of Magnesia 30 ML ORAL.SUSP PO (09:56)
--- NOTE | 2022-04-28 15:44 | HO.PSYCHPN ---
Subjective Subjective Date of Service: 04/28/22 Reason For Visit: depression/SI Interim History: Patient reports that she is doing well and feeling better. She says she is not really feeling depressed anymore and denies any SI at all. Patient said she slept well and is eating well. Patient denies medication side effects. Rn Critical Care discussed with her maintenance medication to help her resist the urge to drink. Patient says she is very eager to quit drinking and wants to start naltrexone after telegraphic typewriter operator went over risks/benefits.. Patient says auditory hallucinations fully resolved Mental Status Exam Mental Status Exam Narrative: Pt is alert and oriented; behavior is cooperative, calm; dressed in casual pajama type cloths with adequate hygiene and grooming; mood is described as better and affect congruent,brighter; eye contact appropriate; Speech is normal rate, volume and prosody and not pressured; no psychomotor retardation present; thought process is organized and goal directed; Thought content is on feeling better; dealing with substance abuse; otherwise pertinent to relevant topics and without any delusional content, paranoid ideations or grandiosity; denies any SI/HI. denies AH; Patients insight and judgment are fair Diagnostics Vital Signs (24Hr): Vital Signs - 24 hr 04/27/22 20:13 04/28/22 06:39 Temperature 97.5 F Pulse Rate 95 78 Respiratory Rate 18 Blood Pressure 115/68 103/50 L Pulse Oximetry 96 Oxygen Delivery Method Room Air BMI result Body Mass Index 29.1 Labs Results: 04/24/22 21:24 04/27/22 08:13 Labs: Laboratory Results - last 48 hr 04/27/22 04/27/22 08:13 08:13 Sodium 137 Potassium 4.1 Chloride 105 Carbon Dioxide 24 Anion Gap 12 BUN 7 L Creatinine 0.76 Estim Creat Clear Calc 98.3 Estimated GFR > 60 Fasting Glucose 100 H Estimat Average Glucose 97 Hemoglobin A1c % 5.0 Calcium 9.4 Total Bilirubin 0.4 AST 19 ALT 9 Alkaline Phosphatase 64 Total Protein 7.1 Albumin 4.2 Triglycerides 55 Cholesterol 188 LDL Cholesterol, Calc 120 HDL Cholesterol 57 Medications Medications Current Medications Acetaminophen (Acetaminophen 325 Mg Tablet) 650 mg PO Q6H PRN PRN Reason: Headache/Pain Mild Scale (1-3) Last Admin: 04/26/22 23:08 Dose: 650 mg Al Hydroxide/Mg Hydroxide (Magnesium Hydrox/Alum Hydrox 30 Ml Oral.Susp) 30 ml PO Q6H PRN PRN Reason: Heartburn/Nausea Buspirone HCl (Buspirone Hcl 10 Mg Tablet) 10 mg PO TID PRN PRN Reason: anxiety/seeing shadows Duloxetine HCl (Duloxetine Hcl 60 Mg Capsule.Dr) 60 mg PO DAILY SYLVIA Last Admin: 04/28/22 08:38 Dose: 60 mg Hydroxyzine HCl (Hydroxyzine Hcl 25 Mg Tablet) 25 mg PO Q6H PRN PRN Reason: Anxiety Magnesium Hydroxide (Milk Of Magnesia 30 Ml Oral.Susp) 30 ml PO DAILY PRN PRN Reason: Constipation Last Admin: 04/28/22 09:56 Dose: 30 ml Mirtazapine (Mirtazapine 7.5 Mg Tablet) 7.5 mg PO BEDTIME SYLVIA Last Admin: 04/27/22 20:13 Dose: 7.5 mg Nicotine (Nicotine 14 Mg Patch.Td24) 14 mg TRANSDERMA DAILY SYLVIA Last Admin: 04/28/22 08:38 Dose: 14 mg Nicotine Polacrilex (Nicotine Polacrilex 2 Mg Gum) 4 mg BUCCAL Q2H PRN PRN Reason: Nicotine Cravings Prazosin HCl (Prazosin Hcl 1 Mg Capsule) 1 mg PO BEDTIME SYLVIA; Protocol Last Admin: 04/27/22 20:13 Dose: 1 mg Quetiapine Fumarate (Quetiapine Fumarate 100 Mg Tablet) 100 mg PO BEDTIME SYLVIA Last Admin: 04/27/22 20:13 Dose: 100 mg Trazodone HCl (Trazodone Hcl 50 Mg Tablet) 50 mg PO BEDTIME PRN PRN Reason: Insomnia Allergies Allergies Allergy/AdvReac Type Severity Reaction Status Date / Time No Known Allergies Allergy Verified 12/19/20 08:20 [No Known Allergies*] Assessment & Plan Assessment & Plan (1) MDD (major depressive disorder), recurrent, severe, with psychosis: Status: Acute Code(s): F33.3 - Major depressive disorder, recurrent, severe with psychotic symptoms (2) Chronic post-traumatic stress disorder (PTSD): Status: Acute Code(s): F43.12 - Post-traumatic stress disorder, chronic (3) Panic attack: Status: Acute Code(s): F41.0 - Panic disorder [episodic paroxysmal anxiety] (4) Cocaine abuse: Status: Acute Code(s): F14.10 - Cocaine abuse, uncomplicated (5) Alcohol abuse: Status: Acute Code(s): F10.10 - Alcohol abuse, uncomplicated Plan Pt is a 46 yo female with hx MDD, PTSD, panic attacks and cocaine/alcohol abuse who presents for worsening depression and SI in face of being off some of her medications and her daughter and grandchildren moving away. Patient symptoms moderately well treated with duloxetine, Seroquel for sleep, BuSpar and she has been off Seroquel and BuSpar for few months as she is in between providers. Patient's support in the community mostly comes from her daughter and Acting as Part-time caregiver To her grand children; with them moving away, patient feels abandoned, though daughter continues to welcome patient and their lives. Patient also has a long history of trauma and untreated PTSD which is contributory; also patient binge drinks alcohol and uses cocaine 2 days a week which certainly Exacerbate her depressive symptoms. Patient wants to get back on Seroquel. Only uses BuSpar as a p.r.n.. She agrees to start mirtazapine to help with depression and anxiety and also since she has trouble sleeping and has had poor appetite. She also agrees to start prazosin for nightmares. Will give her the diagnosis of MDD with psychotic features for now Since it is not really clear the extent of auditory hallucinations when she is in a good mood. 04/27 mood a little better; no SI; not tearful. More active in milieu. Considering how substance abuse worsens or depression. 04/28 mood is better and patient feels that depression has resolved; no SI or AH which are both fully resolved. Patient would like to start naltrexone; telegraphic typewriter operator reviewed risks/side effects and she is eager to try this medication which could help curb cravings PLAN: CV Q 15 minute checks Start naltrexone: Will review labs Started prazosin 1 mg q.h.s. for nightmares Started mirtazapine 7.5 mg for depression/anxiety and for trouble sleeping and poor appetite Restart Seroquel 100 mg q.h.s. Restart BuSpar and will leave his p.r.n. since that is how she takes at home Continue duloxetine 60 mg daily Will gather collateral Patient agrees that she will benefit from therapy and is willing to engage Will also discuss maintenance treatment for substance abuse I spent minutes with the patient and/or on the patient floor today, greater than?50% of which was spent counseling/coordinating care. Patient educated on: medication risk/benefits, substance abuse and therapeutic strategies Informed Consent: understands Reason for contiued inpatient stay Substantial Risk for: stable for discharge
[2022-04-28 16:23] VITALS: BP 111/62; PULSE 96; TEMP 36.3; O2SAT 99
[2022-04-28] MEDS: Naltrexone HCl 50 MG TABLET 25 MG PO (16:33)
[2022-04-28 19:57] VITALS: BP 137/66; PULSE 90
[2022-04-28] MEDS: QUEtiapine Fumarate 100 MG TABLET PO (19:58)
[2022-04-28] MEDS: Mirtazapine 7.5 MG TABLET PO (19:58)
[2022-04-28] MEDS: Prazosin HCL 1 MG CAPSULE PO (19:58)
[2022-04-29 06:49] VITALS: BP 93/54; PULSE 71; RESP 18; TEMP 36.4; O2SAT 95
[2022-04-29] MEDS: Nicotine 14 MG PATCH.TD24 TRANSDERMA (08:24)
[2022-04-29] MEDS: Naltrexone HCl 50 MG TABLET 25 MG PO (08:25)
[2022-04-29] MEDS: DULoxetine HCl 60 MG CAPSULE.DR PO (08:25)
--- NOTE | 2022-04-29 10:18 | P.PNPSI_ITS ---
Subjective Subjective Date of Service: 04/29/22 Reason For Visit: depression/SI Diagnostics Vital Signs (24Hr): Vital Signs - 24 hr 04/28/22 16:23 04/28/22 19:57 04/29/22 06:49 Temperature 97.3 F 97.6 F Pulse Rate 96 90 71 Respiratory Rate 18 Blood Pressure 111/62 137/66 93/54 L Pulse Oximetry 99 95 Oxygen Delivery Method Room Air Room Air BMI result Body Mass Index 29.1 Labs Results: 04/24/22 21:24 04/27/22 08:13 Medications Medications Current Medications Acetaminophen (Acetaminophen 325 Mg Tablet) 650 mg PO Q6H PRN PRN Reason: Headache/Pain Mild Scale (1-3) Last Admin: 04/26/22 23:08 Dose: 650 mg Al Hydroxide/Mg Hydroxide (Magnesium Hydrox/Alum Hydrox 30 Ml Oral.Susp) 30 ml PO Q6H PRN PRN Reason: Heartburn/Nausea Buspirone HCl (Buspirone Hcl 10 Mg Tablet) 10 mg PO TID PRN PRN Reason: anxiety/seeing shadows Duloxetine HCl (Duloxetine Hcl 60 Mg Capsule.Dr) 60 mg PO DAILY [facility] Last Admin: 04/29/22 08:25 Dose: 60 mg Hydroxyzine HCl (Hydroxyzine Hcl 25 Mg Tablet) 25 mg PO Q6H PRN PRN Reason: Anxiety Magnesium Hydroxide (Milk Of Magnesia 30 Ml Oral.Susp) 30 ml PO DAILY PRN PRN Reason: Constipation Last Admin: 04/28/22 09:56 Dose: 30 ml Mirtazapine (Mirtazapine 7.5 Mg Tablet) 7.5 mg PO BEDTIME [facility] Last Admin: 04/28/22 19:58 Dose: 7.5 mg Naltrexone HCl (Naltrexone Hcl 50 Mg Tablet) 25 mg PO DAILY [facility] Last Admin: 04/29/22 08:25 Dose: 25 mg Nicotine (Nicotine 14 Mg Patch.Td24) 14 mg TRANSDERMA DAILY [facility] Last Admin: 04/29/22 08:24 Dose: 14 mg Nicotine Polacrilex (Nicotine Polacrilex 2 Mg Gum) 4 mg BUCCAL Q2H PRN PRN Reason: Nicotine Cravings Prazosin HCl (Prazosin Hcl 1 Mg Capsule) 1 mg PO BEDTIME [facility]; Protocol Last Admin: 04/28/22 19:58 Dose: 1 mg Quetiapine Fumarate (Quetiapine Fumarate 100 Mg Tablet) 100 mg PO BEDTIME [facility] Last Admin: 04/28/22 19:58 Dose: 100 mg Trazodone HCl (Trazodone Hcl 50 Mg Tablet) 50 mg PO BEDTIME PRN PRN Reason: Insomnia Allergies Allergies Allergy/AdvReac Type Severity Reaction Status Date / Time No Known Allergies Allergy Verified 12/19/20 08:20 [No Known Allergies*] Assessment & Plan Assessment & Plan (1) MDD (major depressive disorder), recurrent, severe, with psychosis: Status: Acute Code(s): F33.3 - Major depressive disorder, recurrent, severe with psychotic symptoms (2) Chronic post-traumatic stress disorder (PTSD): Status: Acute Code(s): F43.12 - Post-traumatic stress disorder, chronic (3) Panic attack: Status: Acute Code(s): F41.0 - Panic disorder [episodic paroxysmal anxiety] (4) Cocaine abuse: Status: Acute Code(s): F14.10 - Cocaine abuse, uncomplicated (5) Alcohol abuse: Status: Acute Code(s): F10.10 - Alcohol abuse, uncomplicated Plan Pt is a 46 yo female with hx MDD, PTSD, panic attacks and cocaine/alcohol abuse who presents for worsening depression and SI in face of being off some of her medications and her daughter and grandchildren moving away. Patient symptoms moderately well treated with duloxetine, Seroquel for sleep, BuSpar and she has been off Seroquel and BuSpar for few months as she is in between providers. Patient's support in the community mostly comes from her daughter and Acting as Part-time caregiver To her grand children; with them moving away, patient feels abandoned, though daughter continues to welcome patient and their lives. Patient also has a long history of trauma and untreated PTSD which is contributory; also patient binge drinks alcohol and uses cocaine 2 days a week which certainly Exacerbate her depressive symptoms. Patient wants to get back on Seroquel. Only uses BuSpar as a p.r.n.. She agrees to start mirtazapine to help with depression and anxiety and also since she has trouble sleeping and has had poor appetite. She also agrees to start prazosin for nightmares. Will give her the diagnosis of MDD with psychotic features for now Since it is not really clear the extent of auditory hallucinations when she is in a good mood. 04/27 mood a little better; no SI; not tearful. More active in milieu. Considering how substance abuse worsens or depression. 04/28 mood is better and patient feels that depression has resolved; no SI or AH which are both fully resolved. Patient would like to start naltrexone; insurance underwriter sales reviewed risks/side effects and she is eager to try this medication which could help curb cravings PLAN: CV Q 15 minute checks Start naltrexone: Will review labs Started prazosin 1 mg q.h.s. for nightmares Started mirtazapine 7.5 mg for depression/anxiety and for trouble sleeping and poor appetite Restart Seroquel 100 mg q.h.s. Restart BuSpar and will leave his p.r.n. since that is how she takes at home Continue duloxetine 60 mg daily Will gather collateral Patient agrees that she will benefit from therapy and is willing to engage Will also discuss maintenance treatment for substance abuse I spent minutes with the patient and/or on the patient floor today, greater than?50% of which was spent counseling/coordinating care.
--- NOTE | 2022-04-29 12:05 | PM.PSYDC ---
DS: Providers Provider Date of Service: 04/29/22 Date of admission: 04/26/22 01:23 Date of discharge: 04/29/22 Primary care physician: Nonstaff Physician Attending physician on admission: Praveen Burdick Consults: 04/26/22 10:52 Consult to Hospitalist Routine Consulting Provider: Hospitalist Reason For Exam: admission physical Attending physician on discharge: Praveen Burdick DS: Diagnosis Discharge Diagnosis (1) MDD (major depressive disorder), recurrent, severe, with psychosis: Status: Acute (2) Chronic post-traumatic stress disorder (PTSD): Status: Acute (3) Panic attack: Status: Acute (4) Cocaine abuse: Status: Acute (5) Alcohol abuse: Status: Acute DS: Medications Discharge Medications Home Medications: Previous Rx's Medication Instructions Recorded buspirone 10 mg tablet 10 mg PO BID PRN anxiety/seeing 04/29/22 shadows 30 days #60 tabs duloxetine 60 mg capsule,delayed 60 mg PO QAM 30 days #30 caps 04/29/22 release mirtazapine 7.5 mg tablet 7.5 mg PO BEDTIME 30 days #30 tabs 04/29/22 naltrexone 50 mg tablet 25 mg PO DAILY 30 days #15 tabs 04/29/22 nicotine (polacrilex) 2 mg gum 4 mg buccal Q2H PRN Nicotine 04/29/22 Cravings 30 days #100 ea nicotine 14 mg/24 hr daily 14 mg transdermal DAILY 28 days 04/29/22 transdermal patch #28 ea prazosin 1 mg capsule 1 mg PO BEDTIME 30 days #30 caps 04/29/22 quetiapine 100 mg tablet 100 mg PO BEDTIME 30 days #30 tabs 04/29/22 Mental Status Exam Mental Status Exam Narrative: Pt is alert and oriented; behavior is cooperative, calm; dressed in casual pajama type cloths with adequate hygiene and grooming; mood is described as good and affect congruent,brighter; eye contact appropriate; Speech is normal rate, volume and prosody and not pressured; no psychomotor retardation present; thought process is organized and goal directed; Thought content is on feeling better; dealing with substance abuse; otherwise pertinent to relevant topics and without any delusional content, paranoid ideations or grandiosity; denies any SI/HI. denies AH; Patients insight and judgment are fair Data Data Completed and Pending Completed studies during hospitalization [Text1]: 04/24/22 04/24/22 04/24/22 21:17 21:23 21:23 WBC RBC Hgb Hct MCV MCH MCHC RDW Plt Count MPV Immature Gran % (Auto) Neut % (Auto) Lymph % (Auto) [place] % (Auto) Eos % (Auto) Baso % (Auto) Lymph # (Auto) [place] # (Auto) Eos # (Auto) Baso # (Auto) Abs Immat Gran (auto) Absolute Neuts (auto) Absolute Nucleated RBC Nucleated RBC % (auto) Sodium 142 Potassium 3.9 Chloride 110 H Carbon Dioxide 14 L Anion Gap 22 H BUN 7 L Creatinine 1.03 Estim Creat Clear Calc 72.5 Estimated GFR 58 POC Glucose 136 H Random Glucose 134 H Fasting Glucose Estimat Average Glucose Hemoglobin A1c % Calcium 9.6 Total Bilirubin 0.3 Direct Bilirubin < 0.2 AST 20 ALT 8 Alkaline Phosphatase 72 Total Protein 8.5 H Albumin 4.9 Triglycerides Cholesterol LDL Cholesterol, Calc HDL Cholesterol Urine Color Urine Appearance Urine pH Ur Specific [place] Urine Protein Urine Glucose (UA) Urine Ketones Urine Blood Urine Nitrite Ur Leukocyte Esterase Urine RBC Urine WBC Ur Squamous Epith Cells Urine Bacteria Hyaline Casts Urine Mucus Urine Test Urine Opiates Screen Urine Fentanyl Screen Ur Barbiturates Screen Ur Phencyclidine Scrn Ur Amphetamines Screen U Benzodiazepines Scrn Urine Cocaine Screen U Marijuana (THC) Screen Ethyl Alcohol 150 COVID-19 (DMITRI) COVID-19 Clin Com 04/24/22 04/24/22 04/25/22 21:24 23:06 01:34 WBC 10.4 RBC 4.57 Hgb 10.0 L Hct 33.4 L MCV 73.1 L MCH 21.9 L MCHC 29.9 L RDW 17.2 H Plt Count 415 H MPV 9.5 Immature Gran % (Auto) 0.3 Neut % (Auto) 69.8 Lymph % (Auto) 19.7 L [place] % (Auto) 8.8 Eos % (Auto) 0.7 Baso % (Auto) 0.7 Lymph # (Auto) 2.0 [place] # (Auto) 0.9 Eos # (Auto) 0.1 Baso # (Auto) 0.1 Abs Immat Gran (auto) 0.03 Absolute Neuts (auto) 7.3 Absolute Nucleated RBC 0.000 Nucleated RBC % (auto) 0.0 Sodium Potassium Chloride Carbon Dioxide Anion Gap BUN Creatinine Estim Creat Clear Calc Estimated GFR POC Glucose Random Glucose Fasting Glucose Estimat Average Glucose Hemoglobin A1c % Calcium Total Bilirubin Direct Bilirubin AST ALT Alkaline Phosphatase Total Protein Albumin Triglycerides Cholesterol LDL Cholesterol, Calc HDL Cholesterol Urine Color Urine Appearance Urine pH Ur Specific [place] Urine Protein Urine Glucose (UA) Urine Ketones Urine Blood Urine Nitrite Ur Leukocyte Esterase Urine RBC Urine WBC Ur Squamous Epith Cells Urine Bacteria Hyaline Casts Urine Mucus Urine Test NEGATIVE Urine Opiates Screen Urine Fentanyl Screen Ur Barbiturates Screen Ur Phencyclidine Scrn Ur Amphetamines Screen U Benzodiazepines Scrn Urine Cocaine Screen U Marijuana (THC) Screen Ethyl Alcohol COVID-19 (DMITRI) Negative COVID-19 Clin Com See Note 04/25/22 04/25/22 04/27/22 01:34 01:34 08:13 WBC RBC Hgb Hct MCV MCH MCHC RDW Plt Count MPV Immature Gran % (Auto) Neut % (Auto) Lymph % (Auto) [place] % (Auto) Eos % (Auto) Baso % (Auto) Lymph # (Auto) [place] # (Auto) Eos # (Auto) Baso # (Auto) Abs Immat Gran (auto) Absolute Neuts (auto) Absolute Nucleated RBC Nucleated RBC % (auto) Sodium 137 Potassium 4.1 Chloride 105 Carbon Dioxide 24 Anion Gap 12 BUN 7 L Creatinine 0.76 Estim Creat Clear Calc 98.3 Estimated GFR > 60 POC Glucose Random Glucose Fasting Glucose 100 H Estimat Average Glucose Hemoglobin A1c % Calcium 9.4 Total Bilirubin 0.4 Direct Bilirubin AST 19 ALT 9 Alkaline Phosphatase 64 Total Protein 7.1 Albumin 4.2 Triglycerides 55 Cholesterol 188 LDL Cholesterol, Calc 120 HDL Cholesterol 57 Urine Color YELLOW Urine Appearance HAZY Urine pH 5.5 Ur Specific [place] >= 1.030 H Urine Protein 2+ H Urine Glucose (UA) NEG Urine Ketones 15 Urine Blood NEG Urine Nitrite NEG Ur Leukocyte Esterase NEG Urine RBC 0-2 Urine WBC 0 Ur Squamous Epith Cells 4+ Urine Bacteria TRACE Hyaline Casts 0-2 Urine Mucus 3+ Urine Test Urine Opiates Screen Not Detected Urine Fentanyl Screen POSITIVE H Ur Barbiturates Screen Not Detected Ur Phencyclidine Scrn Not Detected Ur Amphetamines Screen Not Detected U Benzodiazepines Scrn Not Detected Urine Cocaine Screen POSITIVE H U Marijuana (THC) Screen Not Detected Ethyl Alcohol COVID-19 (DMITRI) COVID-19 Clin Com 04/27/22 08:13 WBC RBC Hgb Hct MCV MCH MCHC RDW Plt Count MPV Immature Gran % (Auto) Neut % (Auto) Lymph % (Auto) [place] % (Auto) Eos % (Auto) Baso % (Auto) Lymph # (Auto) [place] # (Auto) Eos # (Auto) Baso # (Auto) Abs Immat Gran (auto) Absolute Neuts (auto) Absolute Nucleated RBC Nucleated RBC % (auto) Sodium Potassium Chloride Carbon Dioxide Anion Gap BUN Creatinine Estim Creat Clear Calc Estimated GFR POC Glucose Random Glucose Fasting Glucose Estimat Average Glucose 97 Hemoglobin A1c % 5.0 Calcium Total Bilirubin Direct Bilirubin AST ALT Alkaline Phosphatase Total Protein Albumin Triglycerides Cholesterol LDL Cholesterol, Calc HDL Cholesterol Urine Color Urine Appearance Urine pH Ur Specific [place] Urine Protein Urine Glucose (UA) Urine Ketones Urine Blood Urine Nitrite Ur Leukocyte Esterase Urine RBC Urine WBC Ur Squamous Epith Cells Urine Bacteria Hyaline Casts Urine Mucus Urine Test Urine Opiates Screen Urine Fentanyl Screen Ur Barbiturates Screen Ur Phencyclidine Scrn Ur Amphetamines Screen U Benzodiazepines Scrn Urine Cocaine Screen U Marijuana (THC) Screen Ethyl Alcohol COVID-19 (DMITRI) COVID-19 Clin Com DS: Summary Hospital Course Hospital Course: HPI: Pt is a 46 yo female with hx MDD, PTSD, panic attacks and cocaine/alcohol abuse who presents for worsening depression and SI in face of being off some of her medications and her daughter and grandchildren moving away. Patient symptoms moderately well treated with duloxetine, Seroquel for sleep, BuSpar and she has been off Seroquel and BuSpar for few months as she is in between providers. 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 Patient also has a long history of trauma and untreated PTSD which is contributory; also patient binge drinks alcohol and uses cocaine 2 days a week which certainly Exacerbate her depressive symptoms.? Patient wants to get back on Seroquel.? Only uses BuSpar as a p.r.n..? She agrees to start mirtazapine to help with depression and anxiety and also since she has trouble sleeping and has had poor appetite.? She also agrees to start prazosin for nightmares.? Will give her the diagnosis of MDD with psychotic features for now Since it is not really clear the extent of auditory hallucinations when she is in a good mood. Hospital course: On admission, patient was depressed and tearful but SI quickly resolved. She was restarted on Seroquel q.h.s. and agreed to start mirtazapine for continued depression anxiety as well as poor sleep and poor appetite, as well as start prazosin for nightmares, both to good effect. Soon, patient's depression abated, AH fully resolved and her mood significantly improved. She remained without any SI. Patient also reported that she was sleeping better and that nightmares were reduced. Patient was visible on the unit, interacting with peers and staff appropriately, attending groups and invested in treatment. She discussed her struggles with binge drinking and cocaine abuse and was determined to become sober, with a plan to start going to scientologist again feeling the community would be helpful; she also agreed to trial of naltrexone to curb cravings for alcohol. Patient reported some a mild dizziness for about an hour after taking naltrexone but wanted to continue with it hoping it would resolve soon (lft's checked and WNL). Patient had good visits and conversations with her daughter and felt ready for discharge. She remained in good mood, with noticeably brighter affect and without any SI or AH, optimistic about her her future and staying sober. Patient agreed to reach out for help if she felt unsafe at any time. She was eager to return to the community and continue treatment with a therapist which was being set for her by social work. Patient was not in imminent risk for harm to self or others and her request for discharge honored. Time spent discussing smoking cessation with patient: 3 to 10 minutes (Wanted the patch and gum) Status at Discharge Functional status at discharge: independent ambulation Overall status at discharge: patient is back to baseline Time Spent with Patient Time attestation: Total time spent providing and/or coordinating discharge services: Time spent: Less than 30 minutes Discharge Plan Discharge Patient Disposition: Home, Self-Care Discharge Diagnosis: MDD, recurrent, severe with psychotic features in full remission Referrals: Therapist: Shirley Funk ([facility]) [Other] - 05/03/22 11:00 am (*In person at the office* ) Psych Prescriber: Marlin Casillas ([facility]) [Other] - 05/28/22 10:00 am (*Telehealth- you will be sent an email with instructions to download an tiffany for video appointments. You will receive an email with a link to join the appointment as well*) Psych Prescriber: Marlin Casillas ([facility]) [Other] - 06/22/22 10:20 am (*Telehealth- you will receive an email with a link to join the appointment* ) Community Support Program (CSP): [facility] Support [facility] [Other] - 1 Week (*Will be calling you to schedule an intake to assist with applying for SSI*) Physician,Nonstaff [Primary Care Provider] - 05/04/22 10:45 am Discharge Medications: New nicotine 14 mg/24 hr Patch 24 Hour 14 mg transdermal DAILY 28 Days Qty: 28 0RF Rx Instructions: remove at bedtime nicotine (polacrilex) 2 mg Gum 4 mg buccal Q2H PRN (Reason: Nicotine Cravings) 30 Days Qty: 100 0RF prazosin 1 mg Capsule 1 mg PO BEDTIME 30 Days Qty: 30 0RF Protocol: Hold for SBP< HOLD for SBP < : 90 buspirone 10 mg Tablet 10 mg PO BID PRN (Reason: anxiety/seeing shadows) 30 Days Qty: 60 0RF mirtazapine 7.5 mg Tablet 7.5 mg PO BEDTIME 30 Days Qty: 30 0RF naltrexone 50 mg Tablet 25 mg PO DAILY 30 Days Qty: 15 0RF Changed quetiapine 100 mg tablet 100 mg PO BEDTIME 30 Days Qty: 30 0RF duloxetine 60 mg capsule,delayed release(DR/EC) 60 mg PO QAM 30 Days Qty: 30 0RF Discharge Orders: Discharge Order (Routine); Ordered 04/29/22 Ordered By: Praveen Burdick Diet: regular diet Activity on Discharge: As tolerated Stand Alone Forms: Patient Portal Discharge page, Community Support Care Plan Goals: Maintain mood and safe behaviors Take medications as prescribed Continue to pursue sobriety Practice coping skills Continue with outpatient providers and reach out to them as needed Health Concerns: Mood stability and behaviors Sobriety Plan of Treatment: Follow up with your PCP, psychiatric provider and other outpatient providers regarding above concerns Take medications as prescribed Assessment: Risk assessment at time of discharge:? Patient was interviewed prior to discharge and found to be fully oriented and without any SI or HI. Patient has insight and demonstrates good judgment in terms of wanting to pursue treatment. Patient is not in imminent risk of harm to self or others and has a safety plan that includes presenting to the closest ER or calling 911 if feeling unsafe.? Patient has been observed closely by nursing and unit staff throughout admission; patient has not engaged in any behaviors that suggest dangerousness to self or others and has demonstrated appropriate behaviors and impulse control
[2022-04-29 14:42] LABS: Alanine Aminotransferase 10 U/L (0-31); Albumin Level 4.2 g/dL (3.5-5.0); Alkaline Phosphatase 74 U/L (39-117); Aspartate Amino Transferase 18 U/L (5-31); Bilirubin Direct < 0.2 mg/dL (0.0-0.5); Bilirubin Total 0.2 mg/dL (0.0-1.0); Total Protein 7.3 g/dL (6.5-8.0)
== END 2022-04-29 15:12 | disposition home or self-care (01) | DRG 751 ==
LOC: HO.ED 04-25 01:19 → HO.PM5 04-26 01:41
PROVIDERS: Nurse Practitioner Family; Admitting Provider Psychiatry & Neurology Psychiatry; Emergency Provider Emergency Medicine; Visit Provider Psychiatry & Neurology Psychiatry
DX: F33.3 Major depressive disorder, recurrent, severe with psychotic symptoms (principal); R45.851 Suicidal ideations; F17.210 Nicotine dependence, cigarettes, uncomplicated; F43.12 Post-traumatic stress disorder, chronic; F41.0 Panic disorder [episodic paroxysmal anxiety]; F14.10 Cocaine abuse, uncomplicated; F10.10 Alcohol abuse, uncomplicated; Z20.822 Contact with and (suspected) exposure to COVID-19; Z71.6 Tobacco abuse counseling; Z79.899 Other long term (current) drug therapy
CPT/HCPCS: 36415; 80048; 80053; 80061; 80076; 80307; 81001; 81025; 82077; 82947; 83036; 85025; 87635; 93005; 96372; 99285; J2060

== ENCOUNTER 2022-05-05 11:01 | Emergency (ER) | payer MEDICAID, SELFPAY ==
[2022-05-05 11:40] VITALS: BP 124/69; PULSE 85; RESP 18; TEMP 35.7; O2SAT 100; BMI 30.1
--- NOTE | 2022-05-05 11:47 | ED.EAR ---
HPI - Ear Problem General Chief complaint: Ear Problems Stated complaint: ear swollen Time Seen by Provider: 05/05/22 11:46 Source: patient Mode of arrival: ambulatory Limitations: language barrier (Romanian-speaking medical imaging technologist utilized) History of Present Illness HPI Narrative: Patient presents emergency department for evaluation of right ear swelling. She reports 2 weeks ago having pimple at the base of her auricle that was painful and she popped it. For the past 5 days she has had swelling of her external ear. She denies any redness to it, denies any active drainage, reports that it does feel itchy. Denies fevers, chills, internal ear pain, dizziness, lightheadedness, tinnitus, upper respiratory symptoms. Denies any recent piercings. She states that about 1 week ago she was punching the sides of her head out of frustration, and does admit that she had punched at the area of her ears. Related Data Previous Rx's Medication Instructions Recorded buspirone 10 mg tablet 10 mg PO BID PRN anxiety/seeing 04/29/22 shadows 30 days #60 tabs duloxetine 60 mg capsule,delayed 60 mg PO QAM 30 days #30 caps 04/29/22 release mirtazapine 7.5 mg tablet 7.5 mg PO BEDTIME 30 days #30 tabs 04/29/22 naltrexone 50 mg tablet 25 mg PO DAILY 30 days #15 tabs 04/29/22 nicotine (polacrilex) 2 mg gum 4 mg buccal Q2H PRN Nicotine 04/29/22 Cravings 30 days #100 ea nicotine 14 mg/24 hr daily 14 mg transdermal DAILY 28 days 04/29/22 transdermal patch #28 ea prazosin 1 mg capsule 1 mg PO BEDTIME 30 days #30 caps 04/29/22 quetiapine 100 mg tablet 100 mg PO BEDTIME 30 days #30 tabs 04/29/22 cephalexin 500 mg capsule 500 mg PO QID 5 days #20 caps 05/05/22 Allergies Allergy/AdvReac Type Severity Reaction Status Date / Time No Known Allergies Allergy Verified 12/19/20 08:20 [No Known Allergies*] Review of Systems Review of Systems: Ear: Positive ear swelling. No pain. No drainage. No auditory changes. Yes all other systems are reviewed and are negative PMFSH Past Medical History Attestation statement: The following information was validated with the patient. Source: old records reviewed Medical History delivery delivered No known health problems Surgical History H/O: Family History Family History Mother Diabetes Father Heart attack Social History Social History Household Members: None Housing: Apartment Do you presently have visiting nurse or other home services: No Alcohol intake: never Patient Tobacco Use Status: Current everyday Tobacco user Tobacco use type: Cigarette Cigarette Packs Per Day: 0.5 Cigarettes Per Day: 10 Years Smoked: 20 e-Cigarette/Vaping Use: Never Used Second Hand Smoke Exposure: Yes Substance Use Type: Crack/Cocaine Advance Directives: No Advance Directives Information Provided: Yes service: No Current occupational status: employed 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 Blood pressure normal.? Heart rate normal.? Respiration rate normal. Temperature normal.? Oxygen saturation normal. Appearance: Alert.?Oriented to person, place and time. No acute distress.?Normal affect. Eyes: Pupils equal, round and reactive to light.? ENT: Pharynx normal.??Bilateral ear canals clear, TM normal bilaterally. Right auricular swelling, no erythema, warmth, or active drainage. Neck: Normal inspection.? Neck supple.?? CVS: Heart sounds normal. Normal heart rate and rhythm.? Pulses normal.?? Respiratory: No respiratory distress.? Lung sounds clear to auscultation bilaterally?? Abdomen: Soft and non-tender. Normoactive bowel sounds. Skin: Skin warm and dry.? Normal skin color.?? Extremities: No lower extremity edema.? Neuro: Moves all extremities spontaneously. Sensation intact bilaterally. CN II-XII intact. No focal neuro deficits. Ambulates with normal steady gait. Course Course Course Narrative: Patient is a 46-year-old female presenting to emergency department for evaluation of right external ear swelling. Physical exam concerning for auricular inflammation, may be traumatic versus infectious. There is a small area of fluctuance, the rest is indurated, patient requesting to have area opened and drained, discussed with patient procedure, will attempt drainage at this time. No systemic toxicity, and patient is well-appearing. Not consistent with necrotizing fasciitis, myositis, DVT, osteomyelitis. not consistent with otitis externa. Reevaluation(s) Reevaluation #1: patient is now status post incision and drainage of clear fluid, with relief of pressure, and tolerated the procedure well. No complications. Will discharge home with course of prophylactic oral antibiotics and symptomatic treatment instructions. Discussed reasons to return to the emergency department, and follow-up with primary care provider. Patient agreeable with plan of care. Time: 13:39 Procedures Abscess I/D Site: other (ear) Side (if applicable): right Local Anesthetic: lidocaine 1% Amount of anesthesia used (mL): 1 Technique: incised with blade Irrigation: No Packing used?: none Discharge Plan Discharge Clinical Impression: Perichondritis of auricle Patient Disposition: Home, Self-Care Additional Instructions: This area may still continue to drain, we were only able to remove clear fluid from the ear, there is no sign of pus. However, since she did report pustule to this area recently, he has been given a course of antibiotics, please complete this entire course. You should follow-up with your primary care provider within 5 days. Return to the emergency department any new or worsening symptoms or concerns, such as increased swelling, redness, pain, pus like drainage, fevers, chills. Esta ?steve a?n puede continuar drenando, solo pudimos eliminar un l?quido pau del o?do, no hay se?ales de pus. Sin embargo, debido a que astrid report? p?stulas en esta ?steve recientemente, se le sotomayor dado un ciclo de antibi?ticos, complete moshe ciclo completo. Debe hacer un seguimiento con carias proveedor de atenci?n primaria dentro de los 5 d?as. Regrese al departamento de emergencias ante cualquier s?ntoma o inquietud nuevos o que empeoren, stephen aumento de la hinchaz?n, enrojecimiento, dolor, drenaje similar al pus, fiebre, escalofr?os. Prescriptions: New cephalexin 500 mg capsule 500 mg PO QID 5 Days Qty: 20 0RF No Action nicotine 14 mg/24 hr Patch 24 Hour 14 mg transdermal DAILY 28 Days Qty: 28 0RF Rx Instructions: remove at bedtime nicotine (polacrilex) 2 mg Gum 4 mg buccal Q2H PRN (Reason: Nicotine Cravings) 30 Days Qty: 100 0RF prazosin 1 mg Capsule 1 mg PO BEDTIME 30 Days Qty: 30 0RF Protocol: Hold for SBP< HOLD for SBP < : 90 buspirone 10 mg Tablet 10 mg PO BID PRN (Reason: anxiety/seeing shadows) 30 Days Qty: 60 0RF mirtazapine 7.5 mg Tablet 7.5 mg PO BEDTIME 30 Days Qty: 30 0RF naltrexone 50 mg Tablet 25 mg PO DAILY 30 Days Qty: 15 0RF quetiapine 100 mg tablet 100 mg PO BEDTIME 30 Days Qty: 30 0RF duloxetine 60 mg capsule,delayed release(DR/EC) 60 mg PO QAM 30 Days Qty: 30 0RF Referrals: Leonor Ocampo MD [Primary Care Provider] - 5 days Interventions: ED Discharge Assessment Last Done: 05/05/22 13:58 Discharge Date/Time: 05/05/22 14:00 Print Language: Romanian
[2022-05-05] MEDS: Lidocaine HCl 1 % MPF 5 ML VIAL SUBCUT (12:13)
== END 2022-05-05 14:00 | disposition home or self-care (01) ==
PROVIDERS: Emergency Provider Emergency Medicine; PCP Internal Medicine
DX: H61.011 Acute perichondritis of right external ear (principal); F17.200 Nicotine dependence, unspecified, uncomplicated
CPT/HCPCS: 69000; 99282; 99284

== ENCOUNTER 2022-05-12 11:21 | Emergency (ER) | payer MEDICAID, SELFPAY ==
[2022-05-12 11:57] VITALS: BP 133/68; PULSE 82; RESP 16; TEMP 36.7; O2SAT 96; BMI 29.4
--- NOTE | 2022-05-12 12:16 | ED_ITS ---
HPI - Ear Problem General Chief complaint: Ear Problems Stated complaint: Right ear swollen Time Seen by Provider: 05/12/22 12:14 Source: patient Mode of arrival: ambulatory Limitations: no limitations History of Present Illness HPI Narrative: 46-year-old female here with swelling to the right ear for 2 weeks. Patient seen here week ago and had an I&D of the abscess. Recommended she start cephalexin the patient did not belt picker the medication or started. Here because the swelling continues. No fevers, chills, ear pain or drainage from the ear. Related Data Previous Rx's Medication Instructions Recorded buspirone 10 mg tablet 10 mg PO BID PRN anxiety/seeing 04/29/22 shadows 30 days #60 tabs duloxetine 60 mg capsule,delayed 60 mg PO QAM 30 days #30 caps 04/29/22 release mirtazapine 7.5 mg tablet 7.5 mg PO BEDTIME 30 days #30 tabs 04/29/22 naltrexone 50 mg tablet 25 mg PO DAILY 30 days #15 tabs 04/29/22 nicotine (polacrilex) 2 mg gum 4 mg buccal Q2H PRN Nicotine 04/29/22 Cravings 30 days #100 ea nicotine 14 mg/24 hr daily 14 mg transdermal DAILY 28 days 04/29/22 transdermal patch #28 ea prazosin 1 mg capsule 1 mg PO BEDTIME 30 days #30 caps 04/29/22 quetiapine 100 mg tablet 100 mg PO BEDTIME 30 days #30 tabs 04/29/22 cephalexin 500 mg capsule 500 mg PO QID 5 days #20 caps 05/05/22 Allergies Allergy/AdvReac Type Severity Reaction Status Date / Time No Known Allergies Allergy Verified 05/12/22 11:57 [No Known Allergies*] Review of Systems Review of Systems: Yes all other systems are reviewed and are negative Constitutional: Constitutional: Reports no additional constitutional complaints, Denies body ache(s), Denies chills, Denies fever(s), Denies headache(s) and Denies weakness Eyes: Eyes: Reports no additional eye complaints and Denies change in vision ENT: Reports system reviewed and no additional complaints, except as documented, Denies dizziness, Denies headache(s), Denies nasal congestion, Denies nasal discharge and Denies neck pain Cardiovascular: Cardiovascular: Reports no additional cardiovascular complaints, Denies chest pain, Denies leg edema and Denies dyspnea Respiratory: Respiratory: Reports no additional respiratory complaints, Denies cough and Denies dyspnea Gastrointestinal: Gastrointestinal: Reports no additional gastrointestinal complaints, Denies abdominal pain, Denies diarrhea, Denies nausea and Denies vomiting Genitourinary: Genitourinary: Reports no additional female genitourinary complaints and Denies urinary incontinence Musculoskeletal: Musculoskeletal: Reports no additional musculoskeletal complaints, Denies back pain, Denies arthralgias, Denies joint swelling, Denies neck pain, Denies numbness and Denies tingling Integumentary/Breasts: Skin/Breast: Reports system reviewed and no additional complaints, except as docu, Reports swelling and Denies rash Neurologic: Reports system reviewed and no additional complaints, except as documented, Denies Abnormal speech present, Denies dizziness, Denies headache(s), Denies numbness, Denies tingling and Denies weakness PMFSH Past Medical History Attestation statement: The following information was validated with the patient. Source: old records reviewed and nursing notes reviewed Medical History delivery delivered No known health problems Surgical History H/O: Family History Family History Mother Diabetes Father Heart attack Social History Social History Household Members: None Housing: Apartment Do you presently have visiting nurse or other home services: No Alcohol intake: never Patient Tobacco Use Status: Current everyday Tobacco user Tobacco use type: Cigarette Cigarette Packs Per Day: 0.5 Cigarettes Per Day: 10 Years Smoked: 20 e-Cigarette/Vaping Use: Never Used Second Hand Smoke Exposure: Yes Substance Use Type: Crack/Cocaine Advance Directives: No Advance Directives Information Provided: No service: No Current occupational status: employed 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 Palpable abscess with fluctuance and tenderness. General nose exam: Normal external nose present Face and sinus: Yes normal facial exam Mouth: Normal oral and palatal mucosa present Throat: Yes posterior oropharynx normal Eyes: General: appearance normal, both eyes and all related structures Pupils: Equal, round and reactive pupils present Neck: Neck: Yes normal visual inspection Chest: Chest palpation & inspection: normal inspection of the chest Resp: Effort & Inspection: normal respiratory effort Auscultation: clear to auscultation bilaterally Cardio: Rate: regular rate Rhythm: regular rhythm Peripheral pulses: Peripheral pulses 2+ throughout GI: Inspection: Yes normal to inspection Palpation (GI): Soft to palpation and nontender Auscultation: normal bowel sounds Back/Spine/Pelvis: Thoracic/Lumbar Spine: thoracic and lumbar spine normal to inspection Skin: General skin exam: no rashes or lesions noted Neuro: General: patient oriented x3, no focal motor deficits and normal sensation to monofilament Cranial nerves: Yes Equal, round and reactive pupils present Cognition (Neuro): normal cognition Speech: No Abnormal speech present Gait exam (Neuro): Normal gait present Motor exam (neuro): 5/5 motor strength present throughout Extrem: General: Yes normal to inspection Course Course Course Narrative: See procedure note Pressure dressing placed for today Patient has antibiotics to the pharmacy that she can belt picker. Procedures Abscess I/D Site: other (ear) Side (if applicable): right Local Anesthetic: lidocaine 1% Amount of anesthesia used (mL): 1 Technique: incised with blade Amount of fluid expressed (mL): 5 Sent for culture/gram staining?: No Irrigation: No Packing used?: none MDM - Ear MDM Narrative Medical decision making narrative: 46-year-old female here with reoccur an abscess to the right ear after having I and D 2 weeks ago. Patient did not feel that oral antibiotics are recommended she start. See procedure note for I and D Patient has antibiotics to the pharmacy for her Medical Records Attestation: I reviewed the patient's medical records. Lab Data Attestation: I reviewed the patient's lab results. Discharge Plan Discharge Clinical Impression: Abscess Patient Disposition: Home, Self-Care Instructions: Abscess (ED) Additional Instructions: Start your antibiotic Use the dressing today. Remove tomorrow Prescriptions: No Action nicotine 14 mg/24 hr Patch 24 Hour 14 mg transdermal DAILY 28 Days Qty: 28 0RF Rx Instructions: remove at bedtime nicotine (polacrilex) 2 mg Gum 4 mg buccal Q2H PRN (Reason: Nicotine Cravings) 30 Days Qty: 100 0RF prazosin 1 mg Capsule 1 mg PO BEDTIME 30 Days Qty: 30 0RF Protocol: Hold for SBP< HOLD for SBP < : 90 buspirone 10 mg Tablet 10 mg PO BID PRN (Reason: anxiety/seeing shadows) 30 Days Qty: 60 0RF mirtazapine 7.5 mg Tablet 7.5 mg PO BEDTIME 30 Days Qty: 30 0RF naltrexone 50 mg Tablet 25 mg PO DAILY 30 Days Qty: 15 0RF quetiapine 100 mg tablet 100 mg PO BEDTIME 30 Days Qty: 30 0RF duloxetine 60 mg capsule,delayed release(DR/EC) 60 mg PO QAM 30 Days Qty: 30 0RF cephalexin 500 mg capsule 500 mg PO QID 5 Days Qty: 20 0RF Referrals: Leonor Ocampo MD [Primary Care Provider] - Interventions: ED Discharge Assessment Last Done: 05/12/22 12:58
[2022-05-12] MEDS: Lidocaine HCl 1 % MPF 5 ML VIAL SUBCUT (12:39)
== END 2022-05-12 13:33 | disposition home or self-care (01) ==
LOC: HO.ED 13:02
PROVIDERS: Emergency Provider Internal Medicine; PCP Internal Medicine
DX: H60.01 Abscess of right external ear (principal); F17.200 Nicotine dependence, unspecified, uncomplicated
CPT/HCPCS: 69000; 99282; 99284

== ENCOUNTER 2022-08-11 07:55 | Emergency (ER) | payer MEDICAID, SELFPAY ==
--- NOTE | ~2022-08-11 | XR_ITS ---
EXAMINATION: XR FOOT, LEFT CLINICAL INFORMATION: Pain COMPARISON: None TECHNIQUE: AP, lateral, and oblique views of the left foot. FINDINGS: Bones of the midfoot are well aligned. No tarsal, metatarsal or phalangeal fracture. No appreciable degenerative changes. No focal soft tissue swelling. XR/XR foot LT min 3V IMPRESSION: Unremarkable radiographs of the left foot.
--- NOTE | ~2022-08-11 | XR_ITS ---
EXAMINATION: XR ANKLE, LEFT CLINICAL INFORMATION: Trauma COMPARISON: None TECHNIQUE: AP, lateral, and mortise views of the left ankle. FINDINGS: Soft tissue swelling laterally. No evidence for an acute fracture or dislocation. The mortise is grossly intact. Mild spurring at the insertion of the Achilles. XR/XR ankle LT 2V IMPRESSION: No acute fracture or dislocation. Soft tissue swelling is noted laterally.
[2022-08-11 08:00] VITALS: BP 138/79; PULSE 85; RESP 16; TEMP 36.6; O2SAT 98; BMI 29.9
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
[2022-08-11] MEDS: Butalb/Acetamin/Caff 50/325/40 TABLET 1 TAB PO (09:38)
[2022-08-11] MEDS: Ibuprofen 600 MG TABLET PO (09:38)
== END 2022-08-11 10:19 | disposition home or self-care (01) ==
PROVIDERS: Emergency Provider Emergency Medicine; PCP Internal Medicine
DX: M25.572 Pain in left ankle and joints of left foot (principal); M79.672 Pain in left foot; R51.9 Headache, unspecified; F17.200 Nicotine dependence, unspecified, uncomplicated; Z71.6 Tobacco abuse counseling; Z79.899 Other long term (current) drug therapy
CPT/HCPCS: 73600; 73630; 99283

== ENCOUNTER 2023-01-09 15:47 | Emergency (ER) | payer MEDICAID, SELFPAY ==
[2023-01-09] VITALS (8 sets, daily range): BP systolic 98–136; BP diastolic 57–69; PULSE 68–122; RESP 12–20; TEMP 36.5–36.9; O2SAT 99–100; BMI 29.4
--- NOTE | 2023-01-09 16:12 | ECG_ITS ---
Test Reason : WEAKNESS Blood Pressure : / mmHG Vent. Rate : 067 BPM Atrial Rate : 067 BPM P-R Int : 144 ms QRS Dur : 066 ms QT Int : 390 ms P-R-T Axes : 053 024 029 degrees QTc Int : 412 ms Normal sinus rhythm Normal ECG When compared with ECG of 25-APR-2022 23:51, No significant change was found Referred By: Zayda Mckenna Electronically Signed By:JOS DENTON
--- NOTE | 2023-01-09 16:19 | ED_ITS ---
HPI - Weakness General Chief complaint: Recheck/Abnormal Lab/Rx Stated complaint: anemic, needs blood Time Seen by Provider: 01/09/23 16:11 Source: patient Mode of arrival: ambulatory Limitations: no limitations History of Present Illness HPI Narrative: 47-year-old female presents for anemia. She had her labs drawn at [facility], they informed her that her hemoglobin was 6. Patient has had multiple transfusions in the past for anemia. She is menstruating at this time, has felt fatigue, shortness breath, and weakness for the past week. MD Complaint: generalized weakness and lack of energy Onset (ago): week(s) (1) Duration: constant and progressively worsening Location: generalized Severity: moderate Relieving factors: rest Exacerbating factors: movement and exertion Context: other (Chronic anemia) Associated symptoms: denies other symptoms Related Data Previous Rx's Medication Instructions Recorded buspirone 10 mg tablet 10 mg PO BID PRN anxiety/seeing 04/29/22 shadows 30 days #60 tabs duloxetine 60 mg capsule,delayed 60 mg PO QAM 30 days #30 caps 04/29/22 release mirtazapine 7.5 mg tablet 7.5 mg PO BEDTIME 30 days #30 tabs 04/29/22 naltrexone 50 mg tablet 25 mg PO DAILY 30 days #15 tabs 04/29/22 nicotine (polacrilex) 2 mg gum 4 mg buccal Q2H PRN Nicotine 04/29/22 Cravings 30 days #100 ea nicotine 14 mg/24 hr daily 14 mg transdermal DAILY 28 days 04/29/22 transdermal patch #28 ea prazosin 1 mg capsule 1 mg PO BEDTIME 30 days #30 caps 04/29/22 quetiapine 100 mg tablet 100 mg PO BEDTIME 30 days #30 tabs 04/29/22 cephalexin 500 mg capsule 500 mg PO QID 5 days #20 caps 05/05/22 opvdjgsozb-nvatxcjvzovty-sroflkbg 1 cap PO Q4-6H PRN headache #14 08/11/22 50 mg-300 mg-40 mg capsule caps (Fioricet) naproxen 500 mg tablet 500 mg PO BID PRN pain 10 days #20 08/11/22 tabs Allergies Allergy/AdvReac Type Severity Reaction Status Date / Time No Known Allergies Allergy Verified 01/09/23 16:23 [No Known Allergies*] Review of Systems Review of Systems: Constitutional: No Fever, No Chills Cardiovascular: No Chest Pain, positive SOB Respiratory: No Cough, No Dyspnea Gastrointestinal: No Nausea, No Vomiting, No Diarrhea, No abdominal Pain Genitourinary: No Dysuria, No Hematuria Musculoskeletal: No joint pain, No Myalgias, No Joint Swelling Skin: No Skin lacerations, No rash Neuro: Phos Weakness, positive Dizziness, No Headache Yes all other systems are reviewed and are negative [facility] Past Medical History Attestation statement: The following information was validated with the patient. Source: old records reviewed Medical History delivery delivered No known health problems Surgical History (Reviewed 01/10/23 @ :28 by Zayda Mckenna NP) H/O: Family History Family History Mother Diabetes Father Heart attack Social History Social History Household Members: None Housing: Apartment Do you presently have visiting nurse or other home services: No Alcohol intake: never Patient Tobacco Use Status: Current everyday Tobacco user Tobacco use type: Cigarette Cigarette Packs Per Day: 0.5 Cigarettes Per Day: 10 Years Smoked: 20 Smoked in Last 30 Days: Yes e-Cigarette/Vaping Use: Never Used Second Hand Smoke Exposure: Yes Substance Use Type: Crack/Cocaine Advance Directives: No Advance Directives Information Provided: No service: No Current occupational status: employed 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 Oriented X3. Moderate distress. Pale. Eyes: Pupils equal, round and reactive to light. ENT: Pharynx normal. Neck: Normal inspection. Neck supple. CVS: Normal heart rate and rhythm. Pulses normal. Respiratory: No respiratory distress. Breath sounds normal. Abdomen: Soft and nontender. Skin: Skin warm and dry. Normal skin color. Normal skin turgor. Extremities: No lower extremity edema. Gait well-balanced well coordinated. Neuro: No motor deficit. No sensory deficit. Cranial nerves 2-12 intact. Course Course Course Narrative: 47-year-old female with past medical history of chronic anemia, PTSD, alcohol abuse, cocaine abuse, major depressive disorder presents with severe anemia. Was called by [facility] to present to the emergency department for hematocrit of 6. Patient has had multiple blood transfusions in the past, and is an established gastroenterology patient with Dr. Awad for anemia. Her last visit was 06/12/2021, with negative workup. Anemia is considered to be related to menorrhagia. Currently, patient is alert oriented x4, polite, cooperative, is pale. Does not report any rectal bleeding. States that her menstrual cycle is light at this time, and at the end. She does report cocaine use on a regular basis, however not for the past 3 days. Will order type and screen. Patient's daughter is a medical field representative at another facility, patient requests that daughter interpret for her. medical interpreter present during this conversation. Patient's wishes respected. 16:39 H&H Critical 6.4/33.9. 2 units ordered. 18:00 lab called, patient has antibodies, screening will take more time. 23:00 2nd unit hanging. 01:32 2nd unit completed. Plan of care is to discharge home and patient follow- up with gynecology. 01:51 vital signs stable and within normal limits. Even unlabored respirations. No indication of adverse reaction from blood transfusion. Google translate utilized for discharge instructions. seismic interpreter utilized for all correspondence. Patient verbalized understanding of and agrees plan of care discharge home. Verbalized understanding signs and symptoms indicating need for emergent intervention. Medications Administered Discontinued Medications Generic Name Dose Route Start Last Admin Trade Name Freq PRN Reason Stop Dose Admin Acetaminophen 650 mg 01/10/23 00:25 01/10/23 00:41 Acetaminophen 325 Mg Tablet PO 01/10/23 00:26 650 mg ONCE ONE Administration Medical Decision Making Differential Diagnosis Differential Diagnoses: The differential diagnosis associated with the presentation includes Chronic severe anemia Lab Data MDM Lab Attestation statement: I reviewed the patient's lab results. 01/09/23 16:29 01/09/23 16:29 Labs: Lab Results 01/09/23 01/09/23 01/09/23 Range/Units 16:29 16:29 16:38 WBC 6.3 (4.8-10.8) X10*3/uL RBC 3.61 L D (4.20-5.50) X10*6/uL Hgb 6.4 L* D (12.0-16.0) g/dl Hct 23.3 L D (37.0-47.0) % MCV 64.5 L (80.0-98.0) fL MCH 17.7 L (27.0-33.0) pg MCHC 27.5 L (31.0-35.0) g/dl RDW 17.9 H (11.0-16.0) % Plt Count 351 (160-400) X10*3/uL MPV 9.6 (9.4-12.3) fL Immature Gran % (Auto) 0.3 (0.0-0.4) % Neut % (Auto) 61.0 (45-73) % Lymph % (Auto) 23.9 (20-40) % [place] % (Auto) 10.2 (2-11) % Eos % (Auto) 3.8 (0-4) % Baso % (Auto) 0.8 (0-2) % Lymph # (Auto) 1.5 (1.2-4.9) X10*3/uL [place] # (Auto) 0.6 (0.1-1.2) X10*3/uL Eos # (Auto) 0.2 (0.0-0.4) X10*3/uL Baso # (Auto) 0.1 (0.0-0.2) X10*3/uL Abs Immat Gran (auto) 0.02 (0.00-0.03) X10*3/uL Absolute Neuts (auto) 3.8 (2.0-8.3) x10*3/uL Absolute Nucleated RBC 0.000 (0.0-0.012) X10*3/uL Nucleated RBC % (auto) 0.0 (0.0-0.2) /100WBC Sodium 139 (135-145) mmol/L Potassium 4.9 (3.3-5.1) mmol/L Chloride 108 (96-108) mmol/L Carbon Dioxide 20 L (22-29) mmol/L Anion Gap 16 (12-20) BUN 9 (9-16) mg/dL Creatinine 0.68 (0.5-1.4) mg/dL Estim Creat Clear Calc 109.3 Estimated GFR > 60 Random Glucose 103 (60-115) mg/dL Calcium 8.6 D (8.4-10.2) mg/dL Blood Type O Positive Antibody Screen POSITIVE Antibody Identification Cold Antibody Crossmatch See Detail Crossmatch (AHG) See Detail Independent Interpretation I performed an independent interpretation of an: EKG Interpretation: Normal sinus rhythm Normal ECG When compared with ECG of 25-APR-2022 23:51, No significant change was found Vent. rate 67 BPM IA interval 144 ms QRS duration 66 ms QT/QTc 390/412 ms P-R-T axes 53 24 29 09-JAN-2023 16:19:19 Independent Historian Clinical information obtained from an independent historian. History obtained from or confirmed by: Other (Daughter) External Record Review External record reviewed: Inpatient record, Outpatient record, Prior outpatient labs and Prior outpatient radiology Critical Care Time Critical Care Time Critical Care Time: Yes Total Critical Care Time: 65 Attestation: I have personally provided critical care time exclusive of time spent on separately billable procedures. Time includes review of laboratory data, radiology results, discussion with consultants, and monitoring for potential decompensation. Interventions were performed as documented. Discharge Plan Discharge Clinical Impression: Anemia Patient Disposition: Home, Self-Care Instructions: Anemia (ED) Additional Instructions: Se le evalu? por anemia que requiri? transfusi?n de [place]. Macias hematocrito y hemoglobina fueron 6.4/23.3. Le dimos 2 unidades de concentrados de gl?bulos rojos. Contin?e con el seguimiento del m?dico de atenci?n primaria y de Ginecolog?a. Abigail por elegir moshe departamento de emergencias para macias evaluaci?n. Por favor, estephania un seguimiento con el m?dico de atenci?n primaria seg?n sea necesario. Regrese al departamento de emergencias por cualquier s?ntoma nuevo, preocupante o que empeore. You were evaluated for anemia requiring blood transfusion. Your hematocrit and hemoglobin were 6.4/23.3. We gave you 2 units of packed red blood cells. Please continue to follow-up the primary care physician as well as Gynecology. Thank you for choosing this emergency department for evaluation. Please follow-up with primary care physician as needed. Return to the emergency department for any new, concerning, or worsening symptoms. Prescriptions: No Action nicotine 14 mg/24 hr Patch 24 Hour 14 mg transdermal DAILY 28 Days Qty: 28 0RF Rx Instructions: remove at bedtime nicotine (polacrilex) 2 mg Gum 4 mg buccal Q2H PRN (Reason: Nicotine Cravings) 30 Days Qty: 100 0RF prazosin 1 mg Capsule 1 mg PO BEDTIME 30 Days Qty: 30 0RF Protocol: Hold for SBP< HOLD for SBP < : 90 buspirone 10 mg Tablet 10 mg PO BID PRN (Reason: anxiety/seeing shadows) 30 Days Qty: 60 0RF mirtazapine 7.5 mg Tablet 7.5 mg PO BEDTIME 30 Days Qty: 30 0RF naltrexone 50 mg Tablet 25 mg PO DAILY 30 Days Qty: 15 0RF quetiapine 100 mg tablet 100 mg PO BEDTIME 30 Days Qty: 30 0RF duloxetine 60 mg capsule,delayed release(DR/EC) 60 mg PO QAM 30 Days Qty: 30 0RF cephalexin 500 mg capsule 500 mg PO QID 5 Days Qty: 20 0RF naproxen 500 mg tablet 500 mg PO BID PRN (Reason: pain) 10 Days Qty: 20 0RF onopzorfht-tbmourzeqoech-msux [Fioricet] 50-300-40 mg capsule 1 cap PO Q4-6H PRN (Reason: headache) Qty: 14 0RF Referrals: Leonor Ocampo MD [Primary Care Provider] - 1 week (Severe anemia)
[2023-01-09 16:33] LABS: MANUAL DIFF FLAG NO
[2023-01-09 16:34] LABS: Basophils Absolute Auto 0.1 X10*3/uL (0.0-0.2); Basophils Percent Auto 0.8 % (0-2); Eosinophils Absolute Auto 0.2 X10*3/uL (0.0-0.4); Eosinophils Percent Auto 3.8 % (0-4); Hematocrit 23.3 % (37.0-47.0); Imm Gran Abs Auto 0.02 X10*3/uL (0.00-0.03); Imm Gran Pct Auto 0.3 % (0.0-0.4); Lymphocytes Absolute Auto 1.5 X10*3/uL (1.2-4.9); Lymphocytes Percent Auto 23.9 % (20-40); Mean Corpuscular HGB Conc 27.5 g/dl (31.0-35.0); Mean Corpuscular Hemoglobin 17.7 pg (27.0-33.0); Mean Platelet Volume 9.6 fL (9.4-12.3); Monocytes Absolute Auto 0.6 X10*3/uL (0.1-1.2); Monocytes Percent Auto 10.2 % (2-11); Neutrophils Absolute Auto 3.8 x10*3/uL (2.0-8.3); Platelet Count 351 X10*3/uL (160-400); Red Blood Count 3.61 X10*6/uL (4.20-5.50); Red Cell Distribution Width 17.9 % (11.0-16.0); White Blood Count 6.3 X10*3/uL (4.8-10.8)
[2023-01-09 16:38] LABS: Mean Corpuscular Volume 64.5 fL (80.0-98.0)
[2023-01-09 16:40] LABS: Hemoglobin 6.4 g/dl (12.0-16.0)
[2023-01-09 17:01] LABS: Anion Gap 16 (12-20); Blood Urea Nitrogen 9 mg/dL (9-16); Calcium 8.6 mg/dL (8.4-10.2); Carbon Dioxide 20 mmol/L (22-29); Chloride 108 mmol/L (96-108); Creatinine Clr Calc Pharmacy 109.3; Estimated Glomerular Filt Rate > 60; Glucose Random 103 mg/dL (60-115); Potassium 4.9 mmol/L (3.3-5.1); Sodium 139 mmol/L (135-145)
--- NOTE | 2023-01-09 20:15 | PC.NURSE ---
pt resting comfortably on stretcher, alert and oriented x4. Denies pain at this time. Blood transfusion started tolerating well thus far with no complications. VSS remains stable. Pt ambulatory with no difficulty
[2023-01-10 00:05] VITALS: BP 101/48; PULSE 78; RESP 20; TEMP 36.8; O2SAT 96
--- NOTE | 2023-01-10 00:25 | PC.NURSE ---
pt rang callbell. this rn answered callbell. pt needed assistance with using restroom. htis rn brought commode to bedside. pt assisted back into bed. pt requested something for pain at this time. this rn discussed with mauricio islas. verbal order with read back for tylenol po 650mg
[2023-01-10 00:31] VITALS: BP 104/48; PULSE 80; RESP 20; TEMP 36.8; O2SAT 96
[2023-01-10] MEDS: Acetaminophen 325 MG TABLET 650 MG PO (00:41)
[2023-01-10 00:44] VITALS: BP 103/48; PULSE 92; RESP 20; O2SAT 98
--- NOTE | 2023-01-10 00:54 | PC.NURSE ---
pt resting comfortably on stretcher, no apparent distress, soon to finish second unit of blood. Denies any reaction symptoms thus far. Blood pressure continues to be low, Zayda OPERATIONS RESEARCH DIRECTOR aware. No new orders, request to get pt up after second unit of blood is finished to see if blood pressure rises.
[2023-01-10 01:00] VITALS: BP 111/60; PULSE 75; RESP 19; O2SAT 97
[2023-01-10 01:44] VITALS: BP 110/64; PULSE 68; RESP 18; TEMP 36.8
[2023-01-10 02:09] VITALS: BP 112/62; PULSE 74; RESP 16; O2SAT 98
== END 2023-01-10 02:05 | disposition home or self-care (01) ==
PROVIDERS: Nurse Practitioner Family; Emergency Provider Emergency Medicine Emergency Medical Services; PCP Internal Medicine
DX: D64.9 Anemia, unspecified (principal); R79.89 Other specified abnormal findings of blood chemistry; R53.1 Weakness; F17.210 Nicotine dependence, cigarettes, uncomplicated; F14.10 Cocaine abuse, uncomplicated; Z71.6 Tobacco abuse counseling; Z79.899 Other long term (current) drug therapy
CPT/HCPCS: 36415; 80048; 85025; 86850; 86870; 86900; 86901; 86920; 86922; 93005; 99285; P9016

== ENCOUNTER 2023-01-13 14:02 | Emergency (ER) | payer MEDICAID, SELFPAY ==
[2023-01-13 14:13] VITALS: BP 133/83; PULSE 110; RESP 18; TEMP 36.4; O2SAT 98; BMI 29.4
--- NOTE | 2023-01-13 14:14 | ED.BACK ---
HPI - Back Pain/Injury General Chief Complaint: Back Pain/Injury <Dorota Grider CNP - Last Filed: 01/13/23 14:21> Stated Complaint: Lower back pain <Dorota Grider CNP - Last Filed: 01/13/23 14:21> Time Seen by Provider: 01/13/23 16:10 <Dorota Grider CNP - Last Filed: 01/13/23 14:21> Source: patient, RN notes reviewed and old records reviewed <Rolan Sofia - Last Filed: 01/13/23 18:21> Mode of arrival: ambulatory <Rolan Sofia - Last Filed: 01/13/23 18:21> Limitations: no limitations <Rolan Sofia - Last Filed: 01/13/23 18:21> History of Present Illness HPI Narrative: 47-year-old female presents for evaluation of back pain. Patient reports a past medical history significant for PTSD, alcohol abuse, major depressive disorder, anemia Patient states that she woke up with back pain across her low abdomen back Her pain is worse with movement, 8/10, aching She states that she was helping her sister move yesterday so was moving a heavy boxes She denies any specific injury that she can remember She also complains of burning with urination Denies any fevers, chills Denies abdominal pain, nausea <Rolan Sofia - Last Filed: 01/13/23 18:21> Related Data Home Medications: Previous Rx's Medication Instructions Recorded buspirone 10 mg tablet 10 mg PO BID PRN anxiety/seeing 04/29/22 shadows 30 days #60 tabs duloxetine 60 mg capsule,delayed 60 mg PO QAM 30 days #30 caps 04/29/22 release mirtazapine 7.5 mg tablet 7.5 mg PO BEDTIME 30 days #30 tabs 04/29/22 naltrexone 50 mg tablet 25 mg PO DAILY 30 days #15 tabs 04/29/22 nicotine (polacrilex) 2 mg gum 4 mg buccal Q2H PRN Nicotine 04/29/22 Cravings 30 days #100 ea nicotine 14 mg/24 hr daily 14 mg transdermal DAILY 28 days 04/29/22 transdermal patch #28 ea prazosin 1 mg capsule 1 mg PO BEDTIME 30 days #30 caps 04/29/22 quetiapine 100 mg tablet 100 mg PO BEDTIME 30 days #30 tabs 04/29/22 cephalexin 500 mg capsule 500 mg PO QID 5 days #20 caps 05/05/22 ffnpmuhmoi-boxubtjwhqsqk-lkxuqmfe 1 cap PO Q4-6H PRN headache #14 08/11/22 50 mg-300 mg-40 mg capsule caps (Fioricet) naproxen 500 mg tablet 500 mg PO BID PRN pain 10 days #20 08/11/22 tabs methocarbamol 500 mg tablet 500 mg PO TID PRN muscle spasm #20 01/13/23 tabs nitrofurantoin 100 mg PO Q12H 5 days #10 caps 01/13/23 monohydrate/macrocrystals 100 mg capsule (Macrobid) <Dorota Grider CNP - Last Filed: 01/13/23 14:21> Allergies/Adverse Reactions: Allergies Allergy/AdvReac Type Severity Reaction Status Date / Time No Known Allergies Allergy Verified 01/09/23 16:23 [No Known Allergies*] <Dorota Grider MARKETING ENGINEER - Last Filed: 01/13/23 14:21> Review of Systems Constitutional: Constitutional: Reports as per HPI, Denies chills and Denies fatigue <Rolan Sofia - Last Filed: 01/13/23 18:21> Cardiovascular: Cardiovascular: Denies chest pain and Denies dyspnea <Rolan Sofia - Last Filed: 01/13/23 18:21> Respiratory: Respiratory: Denies cough and Denies dyspnea <Rolan Sofia - Last Filed: 01/13/23 18:21> Gastrointestinal: Gastrointestinal: Denies abdominal pain, Denies constipation and Denies vomiting <Rolan Sofia - Last Filed: 01/13/23 18:21> Genitourinary: Genitourinary: Reports dysuria <Rolan Sofia - Last Filed: 01/13/23 18:21> Musculoskeletal: Musculoskeletal: Reports back pain <Rolan Sofia - Last Filed: 01/13/23 18:21> Endocrine: Endocrine: Denies fatigue <Rolan Sofia - Last Filed: 01/13/23 18:21> [facility] Past Medical History Medical History: Medical History delivery delivered No known health problems <Dorota Grider CNP - Last Filed: 01/13/23 14:21> Surgical History: Surgical History H/O: <Dorota Grider CNP - Last Filed: 01/13/23 14:21> Family History Family History: Family History Mother Diabetes Father Heart attack <Dorota Grider CNP - Last Filed: 01/13/23 14:21> Social History Social History: Social History Household Members: None Housing: Apartment Do you presently have visiting nurse or other home services: No Alcohol intake: never Patient Tobacco Use Status: Current everyday Tobacco user Tobacco use type: Cigarette Cigarette Packs Per Day: 0.5 Cigarettes Per Day: 10 Years Smoked: 20 e-Cigarette/Vaping Use: Never Used Second Hand Smoke Exposure: Yes Substance Use Type: Crack/Cocaine Advance Directives: No Advance Directives Information Provided: Yes service: No Current occupational status: employed 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 Sexual orientation: Did not discuss <Dorota Grider CNP - Last Filed: 01/13/23 14:21> Physical Exam Vital Signs: Vital Signs: Last Vital Signs Temp 98.5 F 01/13/23 16:01 Pulse 80 01/13/23 16:01 Resp 16 01/13/23 16:01 BP 123/68 01/13/23 16:01 Pulse Ox 98 01/13/23 16:01 O2 Del Method 01/13/23 16:01 BMI result Body Mass Index 29.4 <Dorota Grider CNP - Last Filed: 01/13/23 14:21> Vital Signs: Last Vital Signs Temp 98.5 F 01/13/23 16:01 Pulse 80 01/13/23 16:01 Resp 16 01/13/23 16:01 BP 123/68 01/13/23 16:01 Pulse Ox 98 01/13/23 16:01 O2 Del Method 01/13/23 16:01 BMI result Body Mass Index 29.4 < Last Filed: 01/13/23 18:21> Const: General: cooperative, healthy appearing, comfortable and no acute distress < Last Filed: 01/13/23 18:21> Orientation/consciousness: patient oriented x3 < - Last Filed: 01/13/23 18:21> Limitations: no limitations < - Last Filed: 01/13/23 18:21> HEENT: Head: Yes No palpable skull fracture present, Yes normocephalic and Yes atraumatic < Last Filed: 01/13/23 18:21> Eyes: Periorbital: periorbital findings normal < Last Filed: 01/13/23 18:21> Eyelids: Yes eyelids normal < Last Filed: 01/13/23 18:21> Conjunctivae: conjunctivae normal < Last Filed: 01/13/23 18:21> Sclerae: sclerae normal < - Last Filed: 01/13/23 18:21> Corneas: corneas normal < Last Filed: 01/13/23 18:21> Pupils: Equal, round and reactive pupils present and Pupils normal by confrontation < Last Filed: 01/13/23 18:21> Neck: Neck: Yes full ROM, Yes no meningeal signs, Yes trachea midline and No anterior neck swelling < Last Filed: 01/13/23 18:21> Resp: Effort & Inspection: normal respiratory effort and able to speak in complete sentences < Last Filed: 01/13/23 18:21> Auscultation: clear to auscultation bilaterally < Last Filed: 01/13/23 18:21> GI: Inspection: Yes normal to inspection < Last Filed: 01/13/23 18:21> Palpation (GI): Soft to palpation, not firm, nontender and no guarding <Rolan Sofia - Last Filed: 01/13/23 18:21> Auscultation: normoactive bowel sounds <Rolanomar Sofia - Last Filed: 01/13/23 18:21> : General: Yes no CVA tenderness <Rolan OPaul - Last Filed: 01/13/23 18:21> Back/Spine/Pelvis: Back: no CVA tenderness <Rolan OPaul - Last Filed: 01/13/23 18:21> Thoracic/Lumbar Spine: thoracic and lumbar spine normal to inspection, No Thoracic/lumbar spine scar(s), thoraco-lumbar ROM normal, straight leg raise negative bilaterally and paraspinal muscle tenderness bilaterally <Rolan [place] - Last Filed: 01/13/23 18:21> Skin: General skin exam: no rashes or lesions noted <Rolan OPaul - Last Filed: 01/13/23 18:21> Lesions: no lesions <Rolan OPaul - Last Filed: 01/13/23 18:21> Rashes: no rashes <Rolanomar Sofia Last Filed: 01/13/23 18:21> Neuro: General: patient oriented x3 and no meningeal signs <Rolanomar Sofia - Last Filed: 01/13/23 18:21> Cranial nerves: Yes Equal, round and reactive pupils present <Rolan Sofia - Last Filed: 01/13/23 18:21> Course Course Course Narrative: This is an RME: Additional HPI, ROS, PE not included below will be deferred to primary provider. Patient is a 47-year-old female who presents to the emergency department for evaluation of back pain, and anxiety. Reports she feels like she is going to have an anxiety attack, did not take her duloxetine today, able to re-direct with slowed breathing. Back pain is diffuse across lower back, onset after helping her sister move yesterday and was lifting heavy objects. Also she is reporting dysuria. History of chronic low back pain, she has underwent physical therapy. Denies fevers, chills, nausea, vomiting, bladder or bowel dysfunction. Plan: urinalysis. Tylenol for pain, she drove herself here today. placed back in waiting room pending bed availability <Dorota Malloryyulissa, GAUDENCIO - Last Filed: 01/13/23 14:21> Medications Administered Discontinued Medications Generic Name Dose Route Start Last Admin Trade Name Freq PRN Reason Stop Dose Admin Acetaminophen 975 mg 01/13/23 14:20 01/13/23 14:23 Acetaminophen 325 Mg Tablet PO 01/13/23 14:21 975 mg ONCE ONE Administration <Dorota Grider, MARKETING ENGINEER - Last Filed: 01/13/23 14:21> Medications Administered Discontinued Medications Generic Name Dose Route Start Last Admin Trade Name Freq PRN Reason Stop Dose Admin Acetaminophen 975 mg 01/13/23 14:20 01/13/23 14:23 Acetaminophen 325 Mg Tablet PO 01/13/23 14:21 975 mg ONCE ONE Administration <Rolan Sofia - Last Filed: 01/13/23 18:21> Medical Decision Making Medical Decision Making MDM Narrative: Patient's vital signs are within normal limits. Her back pain is most likely musculoskeletal in origin, it was reproducible, may she was moving heavy boxes yesterday However she does have disorder awaiting UA to evaluate for UTI as well. I doubt pyelonephritis. She is afebrile <Rolan Sofia - Last Filed: 01/13/23 18:21> Differential Diagnosis Muscle strain Radiculopathy Back pain UTI Pyelonephritis <Rolan Sofia - Last Filed: 01/13/23 18:21> Lab Data Labs: Lab Results 01/13/23 Range/Units 16:50 Urine Color Yellow Urine Appearance Cloudy Urine pH 5.5 (5.0-9.0) Ur Specific [place] >= 1.030 H (1.005-1.025) Urine Protein 30 (1+) H (Neg-Trace) mg/dL Urine Glucose (UA) Negative (Negative) mg/dL Urine Ketones Negative (Negative) mg/dL Urine Blood Large (3+) H (Negative) Urine Nitrite Negative (Negative) Ur Leukocyte Esterase Moderate (2+) H (Negative) Urine RBC 6-10 H (0-2) /HPF Urine WBC 21-50 H (0-5) /HPF Ur Squamous Epith Cells 11-20 (0-2) /HPF Urine Bacteria 4+ (None Seen) Hyaline Casts 3-5 (0-2) /LPF <Dorota Grider CNP - Last Filed: 01/13/23 14:21> Lab Results 01/13/23 Range/Units 16:50 Urine Color Yellow Urine Appearance Cloudy Urine pH 5.5 (5.0-9.0) Ur Specific [place] >= 1.030 H (1.005-1.025) Urine Protein 30 (1+) H (Neg-Trace) mg/dL Urine Glucose (UA) Negative (Negative) mg/dL Urine Ketones Negative (Negative) mg/dL Urine Blood Large (3+) H (Negative) Urine Nitrite Negative (Negative) Ur Leukocyte Esterase Moderate (2+) H (Negative) Urine RBC 6-10 H (0-2) /HPF Urine WBC 21-50 H (0-5) /HPF Ur Squamous Epith Cells 11-20 (0-2) /HPF Urine Bacteria 4+ (None Seen) Hyaline Casts 3-5 (0-2) /LPF <Rolan Sofia - Last Filed: 01/13/23 18:21> Discharge Plan Discharge Clinical Impression: Back pain, UTI (urinary tract infection) <Dorota Grider CNP - Last Filed: 01/13/23 14:21> Instructions: Urinary Tract Infection in Women (ED) <Dorota Grider CNP - Last Filed: 01/13/23 14:21> Additional Instructions: Take Macrobid twice daily for the next 5 days for UTI. Use ibuprofen and Tylenol for discomfort in your back You may also use methocarbamol for muscle spasms. This may make you sleepy, do not drink alcohol or drive after taking <Dorota Grider CNP - Last Filed: 01/13/23 14:21> Prescriptions: New nitrofurantoin monohyd/m-cryst [Macrobid] 100 mg capsule 100 mg PO Q12H 5 Days Qty: 10 0RF Rx Instructions: must administer with a meal/food methocarbamol 500 mg tablet 500 mg PO TID PRN (Reason: muscle spasm) Qty: 20 0RF No Action nicotine 14 mg/24 hr Patch 24 Hour 14 mg transdermal DAILY 28 Days Qty: 28 0RF Rx Instructions: remove at bedtime nicotine (polacrilex) 2 mg Gum 4 mg buccal Q2H PRN (Reason: Nicotine Cravings) 30 Days Qty: 100 0RF prazosin 1 mg Capsule 1 mg PO BEDTIME 30 Days Qty: 30 0RF Protocol: Hold for SBP< HOLD for SBP < : 90 buspirone 10 mg Tablet 10 mg PO BID PRN (Reason: anxiety/seeing shadows) 30 Days Qty: 60 0RF mirtazapine 7.5 mg Tablet 7.5 mg PO BEDTIME 30 Days Qty: 30 0RF naltrexone 50 mg Tablet 25 mg PO DAILY 30 Days Qty: 15 0RF quetiapine 100 mg tablet 100 mg PO BEDTIME 30 Days Qty: 30 0RF duloxetine 60 mg capsule,delayed release(DR/EC) 60 mg PO QAM 30 Days Qty: 30 0RF cephalexin 500 mg capsule 500 mg PO QID 5 Days Qty: 20 0RF naproxen 500 mg tablet 500 mg PO BID PRN (Reason: pain) 10 Days Qty: 20 0RF [id number]-[id number] [Fioricet] 50-300-40 mg capsule 1 cap PO Q4-6H PRN (Reason: headache) Qty: 14 0RF <Dorota Grider, MARKETING ENGINEER - Last Filed: 01/13/23 14:21>
[2023-01-13] MEDS: Acetaminophen 325 MG TABLET 975 MG PO (14:23)
[2023-01-13 16:01] VITALS: BP 123/68; PULSE 80; RESP 16; TEMP 36.9; O2SAT 98
[2023-01-13 17:00] LABS: Bacteria Urine 4+ (None Seen); WBC Urine 21-50 /HPF (0-5)
[2023-01-13 17:12] LABS: Appearance Urine Cloudy; Color Urine Yellow; Glucose Urine UA Negative (Negative); Leukocyte Esterase Urine Moderate (2+) (Negative); Nitrite Urine Negative (Negative); PH 5.5 (5.0-9.0); Specific Gravity - Urine >= 1.030 (1.005-1.025); UACC Culture Trigger YES; UMIC TRIGGER UACC YES; Urine Blood Large (3+) (Negative); Urine Ketones Negative (Negative); Urine Protein 30 (1+) mg/dL (Neg-Trace)
== END 2023-01-13 18:27 | disposition home or self-care (01) ==
PROVIDERS: Physician Assistant; Emergency Provider Internal Medicine; PCP Internal Medicine
DX: N39.0 Urinary tract infection, site not specified (principal); M54.50 Low back pain, unspecified; R30.0 Dysuria; F17.210 Nicotine dependence, cigarettes, uncomplicated; Z71.6 Tobacco abuse counseling; Z79.899 Other long term (current) drug therapy
CPT/HCPCS: 81001; 87086; 87147; 99283

== ENCOUNTER 2023-05-13 16:01 | Emergency (ER) | payer MEDICAID, OTHER, SELFPAY ==
[2023-05-13 16:12] VITALS: BP 136/73; BP 142/82; PULSE 124; PULSE 144; RESP 24; O2SAT 96; O2SAT 97
--- NOTE | 2023-05-13 16:27 | PC.NURSE ---
pt agitated while doing initial assessment, states that she wants me to get an object to kill herself while making the movements as if she was cutting her neck, pt then started slamming her head onto the bedframe siderails trying to hurt herself, pt crying that she wants to go home, she is also asking where her daughter is, tech bedside transferring pt into a green cameron/bringing her to the restroom, urine cup provided to pt for urine sample.
--- NOTE | 2023-05-13 16:28 | ED.PSYCH ---
HPI - Psych General Chief Complaint: Psychiatric Symptoms Stated Complaint: crisis, combative to self, per ems Time Seen by Provider: 05/13/23 16:28 Source: patient and family Mode of arrival: EMS Limitations: no limitations History of Present Illness HPI Narrative: Patient with history of anxiety had trouble with her car insurance payments which she supposed to make the pain by the end of the week dealer peak of the car today and refused to return the car patient had severe anxiety at that time with pseudo seizure crying on the floor hitting herself uncontrollable denies any SI to the EMS but when she arrived the ER said that she want to kill herself and asses the nurse to get her something to slit her throat trying to hit the side rails during his stay in the ER patient became calm denies any SI when I examined the patient Related Data Previous Rx's Medication Instructions Recorded buspirone 10 mg tablet 10 mg PO BID PRN anxiety/seeing 04/29/22 shadows 30 days #60 tabs duloxetine 60 mg capsule,delayed 60 mg PO QAM 30 days #30 caps 04/29/22 release mirtazapine 7.5 mg tablet 7.5 mg PO BEDTIME 30 days #30 tabs 04/29/22 naltrexone 50 mg tablet 25 mg PO DAILY 30 days #15 tabs 04/29/22 nicotine (polacrilex) 2 mg gum 4 mg buccal Q2H PRN Nicotine 04/29/22 Cravings 30 days #100 ea nicotine 14 mg/24 hr daily 14 mg transdermal DAILY 28 days 04/29/22 transdermal patch #28 ea prazosin 1 mg capsule 1 mg PO BEDTIME 30 days #30 caps 04/29/22 quetiapine 100 mg tablet 100 mg PO BEDTIME 30 days #30 tabs 04/29/22 cephalexin 500 mg capsule 500 mg PO QID 5 days #20 caps 05/05/22 [id number]-qyxcnqyaakhlm-[id number] 1 cap PO Q4-6H PRN headache #14 08/11/22 50 mg-300 mg-40 mg capsule caps (Fioricet) naproxen 500 mg tablet 500 mg PO BID PRN pain 10 days #20 08/11/22 tabs methocarbamol 500 mg tablet 500 mg PO TID PRN muscle spasm #20 01/13/23 tabs nitrofurantoin 100 mg PO Q12H 5 days #10 caps 01/13/23 monohydrate/macrocrystals 100 mg capsule (Macrobid) Allergies Allergy/AdvReac Type Severity Reaction Status Date / Time No Known Allergies Allergy Verified 05/13/23 16:11 [No Known Allergies*] Review of Systems Review of Systems: Yes all other systems are reviewed and are negative [facility] Past Medical History Medical History delivery delivered No known health problems Surgical History H/O: Family History Family History Mother Diabetes Father Heart attack Social History Social History Household Members: None Housing: Apartment Do you presently have visiting nurse or other home services: No Alcohol intake: current Alcohol intake frequency: holidays/special occasions only Alcohol type: beer Patient Tobacco Use Status: Current everyday Tobacco user Tobacco use type: Cigarette Cigarette Packs Per Day: 0.5 Cigarettes Per Day: 10 Years Smoked: 20 Smoked in Last 30 Days: Yes e-Cigarette/Vaping Use: Never Used Second Hand Smoke Exposure: Yes Use of substances other than those prescribed or required for medical reasons: No Substance Use Type: Crack/Cocaine Advance Directives: No Advance Directives Information Provided: No Healthcare Proxy: No Guardian: No Patient : No service: No Current occupational status: employed 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 Oriented X3. No acute distress. Anxious Eyes: PERRLA, No Nystagmus ENT: Pharynx normal. Oral Mucosa moist Neck: Normal inspection. Neck supple. CVS: Normal heart rate and rhythm. Pulses normal. Respiratory: No respiratory distress. Equal air entry bilateral, no wheezing/rales/rhonchi Abdomen: Soft and nontender. Bowel sounds are present, no mass palpable, no CVA tenderness Skin: Skin warm and dry. Normal skin color. Normal skin turgor. Extremities: No lower extremity edema. No calf tenderness psych: Anxious denied any SI at this time no hallucination/ delusion Neuro: Oriented X 3. No motor deficit. No sensory deficit.No cerebellar signs , cranial nerves II-XII intact Medications Administered Discontinued Medications Generic Name Dose Route Start Last Admin Trade Name Nanda PRN Reason Stop Dose Admin Lorazepam 2 mg 05/13/23 17:31 05/13/23 18:08 Lorazepam 1 Mg Tablet PO 05/13/23 17:32 2 mg ONCE ONE Administration Medical Decision Making Medical Decision Making [facility] Narrative: Patient with severe anxiety/panic attack got up set at [employer] as they refused to give her the car back patient threatened a very upset when she arrived later on she became calm and cooperative daughter agrees that she is not suicidal at this time and able be managed at home will get care Team consult for disposition Patient later told the daughter that she had command auditory hallucination when she gets stressed out to kill herself seen by care team plan for inpatient placement Lab Data MDM Lab Attestation statement: I reviewed the patient's lab results. 05/13/23 18:20 05/13/23 18:20 Labs: Lab Results 05/13/23 05/13/23 05/13/23 Range/Units 18:08 18:20 18:20 WBC 7.4 (4.8-10.8) X10*3/uL RBC 4.13 L (4.20-5.50) X10*6/uL Hgb 9.8 L D (12.0-16.0) g/dl Hct 32.1 L D (37.0-47.0) % MCV 77.7 L (80.0-98.0) fL MCH 23.7 L (27.0-33.0) pg MCHC 30.5 L (31.0-35.0) g/dl RDW 15.2 (11.0-16.0) % Plt Count 385 (160-400) X10*3/uL MPV 9.8 (9.4-12.3) fL Immature Gran % (Auto) 0.4 (0.0-0.4) % Neut % (Auto) 73.0 (45-73) % Lymph % (Auto) 19.0 L (20-40) % [place] % (Auto) 6.6 (2-11) % Eos % (Auto) 0.5 (0-4) % Baso % (Auto) 0.5 (0-2) % Lymph # (Auto) 1.4 (1.2-4.9) X10*3/uL [place] # (Auto) 0.5 (0.1-1.2) X10*3/uL Eos # (Auto) 0.0 (0.0-0.4) X10*3/uL Baso # (Auto) 0.0 (0.0-0.2) X10*3/uL Abs Immat Gran (auto) 0.03 (0.00-0.03) X10*3/uL Absolute Neuts (auto) 5.4 (2.0-8.3) x10*3/uL Absolute Nucleated RBC 0.000 (0.0-0.012) X10*3/uL Nucleated RBC % (auto) 0.0 (0.0-0.2) /100WBC Sodium 142 (135-145) mmol/L Potassium 3.8 D (3.3-5.1) mmol/L Chloride 109 H (96-108) mmol/L Carbon Dioxide 20 L (22-29) mmol/L Anion Gap 17 (12-20) BUN 7 L (9-16) mg/dL Creatinine 0.80 (0.5-1.4) mg/dL Estim Creat Clear Calc 93.7 Estimated GFR > 60 Random Glucose 100 (60-115) mg/dL Calcium 8.9 (8.4-10.2) mg/dL Total Bilirubin 0.3 (0.0-1.0) mg/dL AST 22 (5-31) U/L ALT 8 (0-31) U/L Alkaline Phosphatase 83 (39-117) U/L Total Protein 8.0 (6.5-8.0) g/dL Albumin 4.4 (3.5-5.0) g/dL Urine Opiates Screen Not Detected (Not Detect) Urine Fentanyl Screen Not Detected (Not Detect) Ur Barbiturates Screen Not Detected (Not Detect) Ur Phencyclidine Scrn Not Detected (Not Detect) Ur Amphetamines Screen Not Detected (Not Detect) U Benzodiazepines Scrn Not Detected (Not Detect) Urine Cocaine Screen POSITIVE H (Not Detect) U Marijuana (THC) Screen Not Detected (Not Detect) Ethyl Alcohol 110 mg/dL Discharge Plan Discharge Clinical Impression: MDD (major depressive disorder), recurrent, severe, with psychosis Patient Disposition: Still a Patient Prescriptions: No Action nicotine 14 mg/24 hr Patch 24 Hour 14 mg transdermal DAILY 28 Days Qty: 28 0RF Rx Instructions: remove at bedtime nicotine (polacrilex) 2 mg Gum 4 mg buccal Q2H PRN (Reason: Nicotine Cravings) 30 Days Qty: 100 0RF prazosin 1 mg Capsule 1 mg PO BEDTIME 30 Days Qty: 30 0RF Protocol: Hold for SBP< HOLD for SBP < : 90 buspirone 10 mg Tablet 10 mg PO BID PRN (Reason: anxiety/seeing shadows) 30 Days Qty: 60 0RF mirtazapine 7.5 mg Tablet 7.5 mg PO BEDTIME 30 Days Qty: 30 0RF naltrexone 50 mg Tablet 25 mg PO DAILY 30 Days Qty: 15 0RF quetiapine 100 mg tablet 100 mg PO BEDTIME 30 Days Qty: 30 0RF duloxetine 60 mg capsule,delayed release(DR/EC) 60 mg PO QAM 30 Days Qty: 30 0RF nitrofurantoin monohyd/m-cryst [Macrobid] 100 mg capsule 100 mg PO Q12H 5 Days Qty: 10 0RF Rx Instructions: must administer with a meal/food methocarbamol 500 mg tablet 500 mg PO TID PRN (Reason: muscle spasm) Qty: 20 0RF cephalexin 500 mg capsule 500 mg PO QID 5 Days Qty: 20 0RF naproxen 500 mg tablet 500 mg PO BID PRN (Reason: pain) 10 Days Qty: 20 0RF farmhyaoqz-pcmrnvcpmgnwo-bcbk [Fioricet] 50-300-40 mg capsule 1 cap PO Q4-6H PRN (Reason: headache) Qty: 14 0RF
--- NOTE | 2023-05-13 16:39 | PC.NURSE ---
1:1 sitter placed, seizure precauations intact, fall precautions intact, pt awaiting to see provider
--- NOTE | 2023-05-13 17:20 | PC.NURSE ---
pt continuously hitting herself while in the bed and yelling/kicking feet, no seizure activity has been noted since arriving here, this nurse spoke with provider who will be ordering care team consult- report given to pod pt will be transported to pod when security available
--- NOTE | 2023-05-13 18:02 | PC.NURSE ---
security transported pt to pod
[2023-05-13 20:30] VITALS: BP 129/74; PULSE 83; RESP 20; TEMP 36.8; O2SAT 100
--- NOTE | 2023-05-13 21:33 | PC.NURSE ---
pt assessed, calm and cooperative, ambulatory gait steady
--- NOTE | 2023-05-13 22:39 | PC.NURSE ---
care team in with pt
--- NOTE | 2023-05-13 22:45 | PC.NURSE ---
interpreter for the deaf in with pt
[2023-05-14 00:06] VITALS: BP 123/81; PULSE 87; RESP 17; TEMP 36.3; O2SAT 98
--- NOTE | 2023-05-14 07:38 | PC.NURSE ---
patient appears to remain asleep at present respirations are even and unlabored patient appears in no distress.
[2023-05-14 11:46] VITALS: BP 121/68; PULSE 59; RESP 18; O2SAT 97
--- NOTE | 2023-05-14 16:15 | MHC.CARE ---
Conducted [facility] bed search for this patient, no beds found bed search is exhausted for today. Faxed to [facility]
--- NOTE | 2023-05-14 20:03 | PC.NURSE ---
Pt got out of bed to go to the bathroom, walking with steady gait. Pt appears pleasant, calm, and cooperative.
[2023-05-14 21:13] VITALS: BP 138/79; PULSE 61; RESP 17; TEMP 36.3; O2SAT 97
--- NOTE | 2023-05-14 21:24 | PC.NURSE ---
Pt requesting something to help sleep, PO seroquel ordered.
[2023-05-15 00:31] VITALS: BP 142/76; PULSE 60; RESP 16; TEMP 36.4; O2SAT 97
[2023-05-15 08:38] VITALS: BP 104/69; PULSE 63; RESP 16; TEMP 36.5; O2SAT 97
== END 2023-05-15 12:34 | disposition home or self-care (01) ==
PROVIDERS: Emergency Provider Internal Medicine
DX: F33.3 Major depressive disorder, recurrent, severe with psychotic symptoms (principal); F41.1 Generalized anxiety disorder; F43.0 Acute stress reaction; F14.90 Cocaine use, unspecified, uncomplicated; Z79.899 Other long term (current) drug therapy
CPT/HCPCS: 36415; 80053; 80307; 85025; 99284; 99285; S9485

== ENCOUNTER 2023-06-08 14:30 | Outpatient (AMB) | payer MEDICAID, SELFPAY ==
--- NOTE | 2023-06-08 14:32 | MHC.OFFVIS ---
Intake Vital Signs 06/08/23 14:37 BP 108/70 Blood Pressure Location Lt radial Position Sitting Pulse 88 Pulse Source Pulse Oximeter Pulse Oximetry (%) 95 Oxygen Delivery Method Room Air Intake Visit Reasons: MAT Intake Intake Note: the patient presents for a mat intake Marketing Support Coordinator Required: No Allergies No Known Allergies [No Known Allergies*] Allergy (Verified 06/08/23 14:32) Do you need a note to return to daycare/school/sports/work: No HPI MAT Intake HPI Details Patient presents for AUD intake and evaluation Prior to ED visit was drinking 24+ beers at least 3 days per week Last drink Tuesday almost full case Last cocaine use about 2 weeks Denies any ATS admissions Denies any seizures Denies any tremors 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 Would like to transition to vivitrol injection Family Histroy: -father with AUD and several other family members Social History: -lives alone -working FT at [employer] PCP appt 06/14 Dr. Hector [facility] --unclear what medications she is taking at this time [facility] Medical History delivery delivered No known health problems Surgical History H/O: Family History Mother Diabetes Father Heart attack Social History Household Members: None Housing: Apartment Do you presently have visiting nurse or other home services: No Alcohol intake: never Patient Tobacco Use Status: Current everyday Tobacco user Tobacco use type: Cigarette Cigarette Packs Per Day: 0.5 Cigarettes Per Day: 10 Years Smoked: 20 e-Cigarette/Vaping Use: Never Used Second Hand Smoke Exposure: Yes Substance Use Type: Crack/Cocaine service: No Current occupational status: employed 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 Sexual orientation: Did not discuss Review of Systems Const Reports as per HPI and Reports no additional complaints Physical Exam Vital Signs: Last Vital Signs Pulse 88 06/08/23 14:37 BP 108/70 06/08/23 14:37 Pulse Ox 95 06/08/23 14:37 Oxygen Delivery Method Room Air 06/08/23 14:37 Const General: cooperative and no acute distress Orientation/consciousness: patient oriented x3 Neuro General: patient oriented x3 Psych Appearance: grossly normal Thought process: Normal thought process present Thought content: Normal thought content present Insight: Fair insight present (Psych) Judgement: Fair judgement present (Psych) Assessment & Plan Assessment & Plan (1) Alcohol use disorder, moderate, dependence: Code(s): F10.20 - Alcohol dependence, uncomplicated Plan: naltrexone ordered injection to be ordered risk reduction discussion --encouraged to present to ED with any withdrawal sx that may present Coding Level of Care Code New Pt Level 4 (03908) Diagnoses Alcohol use disorder, moderate, dependence F10.20
[2023-06-08 14:37] VITALS: BP 108/70; PULSE 88; O2SAT 95
== END 2023-06-08 15:18 | disposition home or self-care (01) ==
LOC: HO.HCC 14:30
PROVIDERS: Visit Provider Nurse Practitioner Psychiatric/Mental Health
DX: F10.20 Alcohol dependence, uncomplicated (principal)
CPT/HCPCS: 99204

== ENCOUNTER → 2023-06-08 14:30 | Outpatient (BNVA) | payer MEDICAID, SELFPAY | PROVIDERS: Visit Provider Nurse Practitioner Psychiatric/Mental Health | DX: F10.20 Alcohol dependence, uncomplicated (principal); F11.20 Opioid dependence, uncomplicated; F17.210 Nicotine dependence, cigarettes, uncomplicated; Z81.1 Family history of alcohol abuse and dependence; Z51.81 Encounter for therapeutic drug level monitoring; Z79.899 Other long term (current) drug therapy | CPT/HCPCS: 99204 ==

== ENCOUNTER 2023-06-27 14:53 | Outpatient (AMB) | payer MEDICAID, SELFPAY ==
--- NOTE | 2023-06-27 15:16 | MHC.OFFVIS ---
Intake Vital Signs 06/27/23 15:17 BP 118/72 Blood Pressure Location Lt radial Position Sitting Pulse 75 Pulse Source Pulse Oximeter Pulse Oximetry (%) 98 Oxygen Delivery Method Room Air Intake Visit Reasons: Phoebe Inj Intake Note: the patient presents for a phobee inj Convention Services Manager Required: No Allergies No Known Allergies [No Known Allergies*] Allergy (Verified 06/27/23 15:29) Do you need a note to return to daycare/school/sports/work: No HPI Phoebe Inj HPI Details Patient presents for AUD follow up and Vivitrol injection She reports that she feels the naltrexone has been helpful in managing her cravings during the week, however she continues to drink one weekend day She reports having 24 beers this Tuesday. Prior to that she states she does not drink for 2 weeks. Denies any withdrawal symptoms including tremors anxiety. Currently working FT at [employer] Does not have any questions related to Vivitrol injection. [facility] Medical History delivery delivered No known health problems Surgical History H/O: Family History Mother Diabetes Father Heart attack Social History Household Members: None Housing: Apartment Do you presently have visiting nurse or other home services: No Alcohol intake: never Patient Tobacco Use Status: Current everyday Tobacco user Tobacco use type: Cigarette Cigarette Packs Per Day: 0.5 Cigarettes Per Day: 10 Years Smoked: 20 e-Cigarette/Vaping Use: Never Used Second Hand Smoke Exposure: Yes Substance Use Type: Crack/Cocaine service: No Current occupational status: employed 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 Sexual orientation: Did not discuss Review of Systems Const Reports as per HPI and Reports no additional complaints Physical Exam Vital Signs: Last Vital Signs Pulse 75 06/27/23 15:17 BP 118/72 06/27/23 15:17 Pulse Ox 98 06/27/23 15:17 Oxygen Delivery Method Room Air 06/27/23 15:17 Const General: cooperative and no acute distress Orientation/consciousness: patient oriented x3 Neuro General: patient oriented x3 Psych Appearance: grossly normal Thought process: Normal thought process present Thought content: Normal thought content present Insight: Fair insight present (Psych) Judgement: Fair judgement present (Psych) Office Meds Vivitrol ER Performing Provider: Nancy Joshi CNP Administered by: Silvia Fonseca RN on 06/27/23 16:19 Dose Route Admin Location Lot Number Expiration Date NDC Seam Taper Machine 380 mg IM LG [id number] 10/06/25 99316-772-19 [employer] Comments: Reviewed education with patient to monitor for intolerable pain, swelling, redness, heat, discharge-to call the [facility]. Reviewed aftercare, heat/ice, massage, tylenol/ibprofen. Pt verbalized understanding. Pt tolerated injection. Results AMB 14 Panel Urine Drug Screen Urine Marijuana (THC) Negative Last Edit by Odalys Collier CMA on 06/27/23 15:31 Urine Cocaine Positive Last Edit by Odalys Collier CMA on 06/27/23 15:31 Urine Morphine Negative Last Edit by Odalys Collier CMA on 06/27/23 15:31 Urine Methamphetamine Negative Last Edit by Odalys Collier CMA on 06/27/23 15:31 Urine Amphetamine Negative Last Edit by Odalys Collier CMA on 06/27/23 15:31 Urine Benzodiazepine Negative Last Edit by Odalys Collier CMA on 06/27/23 15:31 Urine Barbiturates Negative Last Edit by Odalys Collier CMA on 06/27/23 15:31 Urine Methadone Negative Last Edit by Odalys Collier CMA on 06/27/23 15:31 Urine Buprenorphine Negative Last Edit by Odalys Collier CMA on 06/27/23 15:31 Urine Tricyclic Antidepressant Negative Last Edit by Odalys Collier CMA on 06/27/23 15:31 Urine MDMA Negative Last Edit by Odalys Collier CMA on 06/27/23 15:31 Urine Oxycodone Positive Last Edit by Odalys Collier CMA on 06/27/23 15:31 Urine Phencyclidine Negative Last Edit by Odalys Collier CMA on 06/27/23 15:31 Urine Propoxyphene Negative Last Edit by Odalys Collier CMA on 06/27/23 15:31 AMB Test Urine AMB Test Urine Negative Last Edit by Odalys Collier CMA on 06/27/23 15:33 Results Reviewed Results Reviewed: Laboratory Last Values [facility] Negative 06/27/23 15:30 POC Urine Buprenorphine Negative 06/27/23 15:30 POC Urine Morphine Negative 06/27/23 15:30 POC Urine Oxycodone Positive 06/27/23 15:30 POC Urine Methadone Negative 06/27/23 15:30 POC Urine Propoxyphene Negative 06/27/23 15:30 POC Urine Barbiturates Negative 06/27/23 15:30 POC U Tricyclic Antidpr Negative 06/27/23 15:30 POC Urine PCP Negative 06/27/23 15:30 POC Ur Amphetamines Negative 06/27/23 15:30 POC Ur Methamphetamine Negative 06/27/23 15:30 POC Urine MDMA Negative 06/27/23 15:30 POC Ur Benzodiazepine Negative 06/27/23 15:30 POC Urine Cocaine Positive 06/27/23 15:30 POC Ur Marijuana (THC) Negative 06/27/23 15:30 Assessment & Plan Assessment & Plan (1) Alcohol use disorder, moderate, dependence: Code(s): F10.20 - Alcohol dependence, uncomplicated Plan: Tolerated injection Follow up for week Risk reduction discussion related to binge drinking Orders: Orders AMB Naltrexone Injection Patient Supplied Today F10.20 - Alcohol dependence, uncomplicated AMB 14 Panel Urine Drug Screen Today Z51.81 - Encounter for therapeutic drug level monitoring AMB HCG Urine Test Today Z32.01 - Encounter for test, result positive, Z32.02 - Encounter for test, result negative Coding Level of Care Code Est Pt Level 4 (66290) Diagnoses Alcohol use disorder, moderate, dependence F10.20
[2023-06-27 15:17] VITALS: BP 118/72; PULSE 75; O2SAT 98
== END 2023-06-27 16:07 | disposition home or self-care (01) ==
PROVIDERS: Visit Provider Nurse Practitioner Psychiatric/Mental Health
DX: Z32.02 Encounter for pregnancy test, result negative (principal); Z32.01 Encounter for pregnancy test, result positive; Z51.81 Encounter for therapeutic drug level monitoring; F10.20 Alcohol dependence, uncomplicated
CPT/HCPCS: 99214; J2315

== ENCOUNTER → 2023-06-27 14:53 | Outpatient (BNVA) | payer MEDICAID, SELFPAY | PROVIDERS: Visit Provider Nurse Practitioner Psychiatric/Mental Health | DX: F10.20 Alcohol dependence, uncomplicated (principal); F14.20 Cocaine dependence, uncomplicated; F11.20 Opioid dependence, uncomplicated; F17.210 Nicotine dependence, cigarettes, uncomplicated; Z32.02 Encounter for pregnancy test, result negative; Z51.81 Encounter for therapeutic drug level monitoring; Z79.899 Other long term (current) drug therapy | CPT/HCPCS: 80305; 81025; 96372; 99214 ==

== ENCOUNTER 2023-07-18 19:07 | Outpatient (REF) | payer MEDICAID, SELFPAY ==
[2023-07-18 19:48] LABS: Influenza A PCR NEGATIVE (Negative); Influenza B PCR NEGATIVE (Negative); Resp Syncy Virus RNA Qual PCR NEGATIVE (Negative); SARS COV2 PCR INHOUSE NEGATIVE (Negative)
== END 2023-07-18 19:08 | disposition home or self-care (01) ==
LOC: HO.HHCLNP 19:07
PROVIDERS: Visit Provider Nurse Practitioner Family
DX: R05.1 Acute cough (principal); J02.9 Acute pharyngitis, unspecified; Z20.822 Contact with and (suspected) exposure to COVID-19
CPT/HCPCS: 0241U

== ENCOUNTER 2023-09-02 09:31 | Outpatient (AMB) | payer MEDICAID, SELFPAY ==
--- NOTE | 2023-09-02 09:32 | A.OFFVIS_ITS ---
Intake Vital Signs 09/02/23 09:36 BP 110/70 Blood Pressure Location Lt radial Position Sitting Pulse 91 Pulse Source Pulse Oximeter Pulse Oximetry (%) 97 Oxygen Delivery Method Room Air Intake Visit Reasons: MAT Visit Intake Note: the patient presents for a mat visit Sizing Machine Operator Required: No Allergies No Known Allergies [No Known Allergies*] Allergy (Verified 09/02/23 09:37) Do you need a note to return to daycare/school/sports/work: No HPI MAT Visit HPI Details Pt presents for AUD treatment and follow up. States she has been working a lot, 6 days a week at [employer]. ENjoying her job, reports she has been too busy to drink, and only drinks on Saturdays now. Last drink was Tuesday evening- 10 beers. Wants to stop drinking completely. Has no concerns about the otis injection, no side effects, finds it helpful in decreasing cravings. Plans to continue with the otis injections. [facility] Medical History delivery delivered No known health problems Surgical History H/O: Family History Mother Diabetes Father Heart attack Social History Household Members: None Housing: Apartment Do you presently have visiting nurse or other home services: No Alcohol intake: never Patient Tobacco Use Status: Current everyday Tobacco user Tobacco use type: Cigarette Cigarette Packs Per Day: 0.5 Cigarettes Per Day: 10 Years Smoked: 20 e-Cigarette/Vaping Use: Never Used Second Hand Smoke Exposure: Yes Substance Use Type: Crack/Cocaine service: No Current occupational status: employed 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 Sexual orientation: Did not discuss Review of Systems Const Reports as per HPI Physical Exam Vital Signs: Last Vital Signs Pulse 91 09/02/23 09:36 BP 110/70 09/02/23 09:36 Pulse Ox 97 09/02/23 09:36 Oxygen Delivery Method Room Air 09/02/23 09:36 Const General: cooperative, healthy appearing and no acute distress Orientation/consciousness: patient oriented x3 Resp Effort & Inspection: normal respiratory effort Neuro General: patient oriented x3 Psych Appearance: grossly normal Mental Status: mental status grossly normal Speech and movement: Normal speech and movement present Affect: normal affect Office Meds Vivitrol 380 mg intramuscular suspension,extended release Performing Provider: Aleyda Espino NP Performing Location: [facility] Administered by: Cinthya Garcia on 09/02/23 10:10 Dose Route Admin Location Dispensed Lot Number Expiration Date [facility] Making Department Preparer 380 mg IM RG 380 mg [id number] 10/06/25 38134-311-19 [employer] Comments: Pt tolerated injection well. Educated on signs/symptoms of infection. Encouraged to call the [facility] with questions or concerns. Denies questions or co ncerns at this time. Assessment & Plan Assessment & Plan (1) Alcohol use disorder, moderate, dependence: Code(s): F10.20 - Alcohol dependence, uncomplicated Plan: Continue with monthly vivitrol injections. Follow up in 4 weeks. Orders: Orders AMB Naltrexone Injection Patient Supplied Today F10.20 - Alcohol dependence, uncomplicated Coding Level of Care Code Est Pt Level 3 (46073) Diagnoses Alcohol use disorder, moderate, dependence F10.20
[2023-09-02 09:36] VITALS: BP 110/70; PULSE 91; O2SAT 97
== END 2023-09-02 10:24 | disposition home or self-care (01) ==
PROVIDERS: Visit Provider Nurse Practitioner Family
DX: F10.20 Alcohol dependence, uncomplicated (principal)
CPT/HCPCS: 99213; J2315

== ENCOUNTER → 2023-09-02 09:31 | Outpatient (BNVA) | payer MEDICAID, SELFPAY | PROVIDERS: Visit Provider Nurse Practitioner Family | DX: F10.20 Alcohol dependence, uncomplicated (principal); Z51.81 Encounter for therapeutic drug level monitoring; Z79.899 Other long term (current) drug therapy | CPT/HCPCS: 96372; 99212 ==

== ENCOUNTER 2023-09-04 12:08 | Emergency (ER) | payer MEDICAID, SELFPAY ==
[2023-09-04 12:16] VITALS: BP 134/79; PULSE 73; RESP 19; TEMP 36.6; O2SAT 98; BMI 26.6
--- NOTE | 2023-09-04 12:19 | ED_ITS ---
HPI - General Adult General Chief complaint: General Medical Stated complaint: Body Pain Time Seen by Provider: 09/04/23 18:26 Source: patient Mode of arrival: ambulatory Limitations: no limitations History of Present Illness HPI narrative: Patient is a 47-year-old female who presents emergency department for evaluation of body aches reportedly to the bilateral upper and lower extremities and hands, in addition to nausea with a single episode of vomiting in addition to mild suprapubic pain without dysuria, urinary frequency/urgency/hesitancy, or hematuria. Denies pelvic pain or abnormal vaginal discharge. She reports that she started naltrexone injection 2 days ago, and She states that she was advised to come to the emergency department if she develops any muscle aching. She denies any fevers, chills, dizziness, lightheadedness, chest pain, shortness of breath, diarrhea, constipation, known sick contacts, discolored urine Related Data Previous Rx's Medication Instructions Recorded buspirone 10 mg tablet 10 mg PO BID PRN anxiety/seeing 04/29/22 shadows 30 days #60 tabs duloxetine 60 mg capsule,delayed 60 mg PO QAM 30 days #30 caps 04/29/22 release mirtazapine 7.5 mg tablet 7.5 mg PO BEDTIME 30 days #30 tabs 04/29/22 naltrexone 50 mg tablet 25 mg (1/2 x 50 mg) PO DAILY 30 04/29/22 days #15 tabs nicotine (polacrilex) 2 mg gum 4 mg buccal Q2H PRN Nicotine 04/29/22 Cravings 30 days #100 ea nicotine 14 mg/24 hr daily 14 mg transdermal DAILY 28 days 04/29/22 transdermal patch #28 ea prazosin 1 mg capsule 1 mg PO BEDTIME 30 days #30 caps 04/29/22 quetiapine 100 mg tablet 100 mg PO BEDTIME 30 days #30 tabs 04/29/22 cephalexin 500 mg capsule 500 mg PO QID 5 days #20 caps 05/05/22 adgeuzbqwu-hoepmbbaynhcq-etwubntc 1 cap PO Q4-6H PRN headache #14 08/11/22 50 mg-300 mg-40 mg capsule caps (Fioricet) naproxen 500 mg tablet 500 mg PO BID PRN pain 10 days #20 08/11/22 tabs methocarbamol 500 mg tablet 500 mg PO TID PRN muscle spasm #20 01/13/23 tabs nitrofurantoin 100 mg PO Q12H 5 days #10 caps 01/13/23 monohydrate/macrocrystals 100 mg capsule (Macrobid) naltrexone microspheres 380 mg 380 mg IM Q4W #1 ea 06/14/23 intramuscular suspension,extended release (Vivitrol) cefuroxime axetil 250 mg tablet 250 mg PO BID #13 tabs 09/04/23 Allergies Allergy/AdvReac Type Severity Reaction Status Date / Time No Known Allergies Allergy Verified 09/04/23 12:16 [No Known Allergies*] Review of Systems 2 Review of Systems: Yes all other systems are reviewed and are negative PMFSH Past Medical History Attestation statement: The following information was validated with the patient. Source: old records reviewed Medical History delivery delivered No known health problems Surgical History H/O: Family History Family History Mother Diabetes Father Heart attack Social History Social History Household Members: None Housing: Apartment Do you presently have visiting nurse or other home services: No Alcohol intake: current Alcohol intake frequency: holidays/special occasions only Alcohol type: beer Patient Tobacco Use Status: Current everyday Tobacco user Tobacco use type: Cigarette Cigarette Packs Per Day: 0.5 Cigarettes Per Day: 10 Years Smoked: 20 Smoked in Last 30 Days: Yes e-Cigarette/Vaping Use: Never Used Second Hand Smoke Exposure: Yes Use of substances other than those prescribed or required for medical reasons: Yes Substance Use Type: Crack/Cocaine Substance Use Frequency: Chronic Longstanding Last Used Substance: Days (ago) Advance Directives: No Advance Directives Information Provided: Yes Patient : No service: No Current occupational status: employed 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 No acute distress.?Normal affect. Eyes: Pupils equal, round and reactive to light.? ENT: Pharynx normal.?? Neck: Normal inspection.? Neck supple.?? CVS: Heart sounds normal. Normal heart rate and rhythm.? Pulses normal.?? Respiratory: No respiratory distress.? Lung sounds clear to auscultation bilaterally?? Abdomen: Soft and non-tender. No rigidity, no guarding, no rebound tenderness. Normoactive bowel sounds. ? Skin: Skin warm and dry.? Normal skin color.? Extremities: No lower extremity edema.? No calf ttp?full AROM to bilateral upper and lower extremities Neuro: Moves all extremities spontaneously. Sensation intact bilaterally. No focal neuro deficits. Ambulates with normal steady gait. Course Course Course Narrative: This is an RME: Additional HPI, ROS, PE not included below will be deferred to primary provider. 47 yo f hx of ptsd, alcohol abuse, cocaine abuse, depression presents w/ body pain & nausea and vomiting s/p starting naltrexone, states she got her last shot tuesday. Plan- labs, urine, covid Medications Administered Discontinued Medications Generic Name Dose Route Start Last Admin Trade Name Freq PRN Reason Stop Dose Admin Acetaminophen 650 mg 09/04/23 12:20 09/04/23 18:34 Acetaminophen 325 Mg Tablet PO 09/04/23 12:21 650 mg ONCE ONE Administration Cefuroxime Axetil 250 mg 09/04/23 19:19 09/04/23 19:29 Cefuroxime Axetil 250 Mg Tablet PO 09/04/23 19:20 250 mg ONCE ONE Administration Medical Decision Making Medical Decision Making MDM Narrative: Patient is a 47-year-old female with past medical history of PTSD, ETOH abuse, cocaine abuse, depression presenting to emergency department for evaluation of suprapubic pain with nausea vomiting and body aches x2 days. She was recently started on naltrexone injection, and states that she was advised to come to the emergency department with any body aches. Overall she is well-appearing, nontoxic, afebrile, without tachycardia tachypnea or hypoxia. She is in no respiratory distress. She has no URI symptoms associated with this and has no recent sick contacts. Had COVID-19 and influenza testing obtained which were negative, advised the patient she may consider having repeat viral testing in 1- 3 days should her symptoms continue. Labs are obtained prior to my assumption of care she has no leukocytosis, baseline microcytic anemia not needing transfusion criteria and no active bleeding. CMP is overall unremarkable. Magnesium is within normal limits. Urinalysis consistent with urinary tract infection which I discussed with patient, she received initial dose of cefuroxime while in the emergency department and prescription was sent to her pharmacy. testing is negative. She has no CVA tenderness to suggest pyelonephritis. She declines any assistance with detox. At this time feel that she is stable for discharge home and outpatient follow-up with her primary care provider as needed. Reviewed worrisome signs and symptoms that would warrant re-evaluation emergency department. All questions answered. Differential Diagnosis Differential Diagnoses: The differential diagnosis associated with the presentation includes (As noted above) Lab Data MDM Lab Attestation statement: I reviewed the patient's lab results. (As noted above) 09/04/23 13:23 09/04/23 13:23 Labs: Lab Results 09/04/23 09/04/23 09/04/23 Range/Units 13:23 16:39 18:36 WBC 8.4 (4.8-10.8) X10*3/uL RBC 4.40 (4.20-5.50) X10*6/uL Hgb 9.6 L (12.0-16.0) g/dl Hct 31.6 L (37.0-47.0) % MCV 71.8 L (80.0-98.0) fL MCH 21.8 L (27.0-33.0) pg MCHC 30.4 L (31.0-35.0) g/dl RDW 17.2 H (11.0-16.0) % Plt Count 392 (160-400) X10*3/uL MPV 9.4 (9.4-12.3) fL Immature Gran % (Auto) 0.2 (0.0-0.4) % Neut % (Auto) 70.5 (45-73) % Lymph % (Auto) 17.7 L (20-40) % Barbour % (Auto) 9.3 (2-11) % Eos % (Auto) 1.3 (0-4) % Baso % (Auto) 1.0 (0-2) % Lymph # (Auto) 1.5 (1.2-4.9) X10*3/uL Barbour # (Auto) 0.8 (0.1-1.2) X10*3/uL Eos # (Auto) 0.1 (0.0-0.4) X10*3/uL Baso # (Auto) 0.1 (0.0-0.2) X10*3/uL Abs Immat Gran (auto) 0.02 (0.00-0.03) X10*3/uL Absolute Neuts (auto) 5.9 (2.0-8.3) x10*3/uL Absolute Nucleated RBC 0.000 (0.0-0.012) X10*3/uL Nucleated RBC % (auto) 0.0 (0.0-0.2) /100WBC Sodium 141 (135-145) mmol/L Potassium 4.1 (3.3-5.1) mmol/L Chloride 107 (96-108) mmol/L Carbon Dioxide 23 (22-29) mmol/L Anion Gap 15 (12-20) BUN 7 L (9-16) mg/dL Creatinine 0.78 (0.5-1.4) mg/dL Estim Creat Clear Calc 90.9 Estimated GFR > 60 Random Glucose 116 H (60-115) mg/dL Calcium 9.9 D (8.4-10.2) mg/dL Magnesium 2.1 (1.6-2.6) mg/dL Total Bilirubin 0.3 (0.0-1.0) mg/dL AST 16 (5-31) U/L ALT 5 (0-31) U/L Alkaline Phosphatase 70 (39-117) U/L Total Creatine Kinase 141 H (26-140) U/L Total Protein 8.3 H (6.5-8.0) g/dL Albumin 4.5 (3.5-5.0) g/dL Urine Color Yellow Urine Appearance Cloudy Urine pH 6.5 (5.0-9.0) Ur Specific Cutler 1.020 (1.005-1.025) Urine Protein Negative (Neg-Trace) mg/dL Urine Glucose (UA) Negative (Negative) mg/dL Urine Ketones Negative (Negative) mg/dL Urine Blood Negative (Negative) Urine Nitrite Positive H (Negative) Ur Leukocyte Esterase Small (1+) H (Negative) Urine RBC 0-2 (0-2) /HPF Urine WBC 6-10 H (0-5) /HPF Ur Squamous Epith Cells 3-5 (0-2) /HPF Urine Bacteria 4+ (None Seen) Hyaline Casts 0-2 (0-2) /LPF Urine Test NEGATIVE (NEGATIVE) COVID-19 (DMITRI) Negative (Negative) COVID-19 Clin Com See Note Influenza Type A (YOANDY) Negative (Negative) Influenza Type B (YOANDY) Negative (Negative) Influenza A & B Note See Note Independent Historian Clinical information obtained from an independent historian. History obtained from or confirmed by: Friend External Record Review External record reviewed: Prior outpatient labs Prescription Management I considered prescription management with: Antibiotic Social Determinants Patient?s care significantly limited by Social Determinants of Health including: Alcoholism and drug addiction in family Discharge Plan Discharge Clinical Impression: Urinary tract infection Patient Disposition: Home, Self-Care Instructions: Urinary Tract Infection in Women (ED) Additional Instructions: You received the initial dose of the antibiotic for your urinary tract infection while in the emergency department. I have sent a prescription to your pharmacy for the remainder of the course, please begin this tomorrow morning and complete the entire course. If you develop any new or worsening symptoms you may return back to emergency department or seek re-evaluation with your primary care provider. You can take ibuprofen 200 mg, 3 tablets (600mg) every 6-8 hours as needed for pain, in addition to Tylenol 500 mg, 2 tablets (1,000mg) every 4-6 hours as needed for pain, but not to exceed 3 doses daily (3,000mg).? Prescriptions: New cefuroxime axetil 250 mg tablet 250 mg PO BID Qty: 13 0RF No Action nicotine 14 mg/24 hr Patch 24 Hour 14 mg transdermal DAILY 28 Days Qty: 28 0RF Rx Instructions: remove at bedtime nicotine (polacrilex) 2 mg Gum 4 mg buccal Q2H PRN (Reason: Nicotine Cravings) 30 Days Qty: 100 0RF prazosin 1 mg Capsule 1 mg PO BEDTIME 30 Days Qty: 30 0RF Protocol: Hold for SBP< HOLD for SBP < : 90 buspirone 10 mg Tablet 10 mg PO BID PRN (Reason: anxiety/seeing shadows) 30 Days Qty: 60 0RF mirtazapine 7.5 mg Tablet 7.5 mg PO BEDTIME 30 Days Qty: 30 0RF naltrexone 50 mg Tablet 25 mg PO DAILY 30 Days Qty: 15 0RF quetiapine 100 mg tablet 100 mg PO BEDTIME 30 Days Qty: 30 0RF duloxetine 60 mg capsule,delayed release(DR/EC) 60 mg PO QAM 30 Days Qty: 30 0RF nitrofurantoin monohyd/m-cryst [Macrobid] 100 mg capsule 100 mg PO Q12H 5 Days Qty: 10 0RF Rx Instructions: must administer with a meal/food methocarbamol 500 mg tablet 500 mg PO TID PRN (Reason: muscle spasm) Qty: 20 0RF cephalexin 500 mg capsule 500 mg PO QID 5 Days Qty: 20 0RF naproxen 500 mg tablet 500 mg PO BID PRN (Reason: pain) 10 Days Qty: 20 0RF vvjwlzupfw-yijfanbwcieba-nmmi [Fioricet] 50-300-40 mg capsule 1 cap PO Q4-6H PRN (Reason: headache) Qty: 14 0RF Vivitrol 380 mg suspension,extended rel recon 380 mg IM Q4W Qty: 1 5RF Referrals: Leonor Ocampo MD [Primary Care Provider] -
[2023-09-04 13:28] LABS: MANUAL DIFF FLAG NO
[2023-09-04 13:34] LABS: Basophils Absolute Auto 0.1 X10*3/uL (0.0-0.2); Eosinophils Absolute Auto 0.1 X10*3/uL (0.0-0.4); Eosinophils Percent Auto 1.3 % (0-4); Hematocrit 31.6 % (37.0-47.0); Hemoglobin 9.6 g/dl (12.0-16.0); Imm Gran Abs Auto 0.02 X10*3/uL (0.00-0.03); Imm Gran Pct Auto 0.2 % (0.0-0.4); Lymphocytes Absolute Auto 1.5 X10*3/uL (1.2-4.9); Lymphocytes Percent Auto 17.7 % (20-40); Mean Corpuscular HGB Conc 30.4 g/dl (31.0-35.0); Mean Corpuscular Hemoglobin 21.8 pg (27.0-33.0); Mean Corpuscular Volume 71.8 fL (80.0-98.0); Mean Platelet Volume 9.4 fL (9.4-12.3); Monocytes Absolute Auto 0.8 X10*3/uL (0.1-1.2); Monocytes Percent Auto 9.3 % (2-11); Neutrophils Absolute Auto 5.9 x10*3/uL (2.0-8.3); Neutrophils Percent Auto 70.5 % (45-73); Platelet Count 392 X10*3/uL (160-400); Red Cell Distribution Width 17.2 % (11.0-16.0); White Blood Count 8.4 X10*3/uL (4.8-10.8)
[2023-09-04 13:42] LABS: Alanine Aminotransferase 5 U/L (0-31); Albumin Level 4.5 g/dL (3.5-5.0); Alkaline Phosphatase 70 U/L (39-117); Anion Gap 15 (12-20); Aspartate Amino Transferase 16 U/L (5-31); Bilirubin Total 0.3 mg/dL (0.0-1.0); Blood Urea Nitrogen 7 mg/dL (9-16); Calcium 9.9 mg/dL (8.4-10.2); Carbon Dioxide 23 mmol/L (22-29); Chloride 107 mmol/L (96-108); Creatinine Clr Calc Pharmacy 90.9; Estimated Glomerular Filt Rate > 60; Glucose Random 116 mg/dL (60-115); Magnesium 2.1 mg/dL (1.6-2.6); Potassium 4.1 mmol/L (3.3-5.1); Sodium 141 mmol/L (135-145); Total Protein 8.3 g/dL (6.5-8.0)
[2023-09-04 13:45] LABS: COVID-19 Test Negative (Negative); IDNOW Serial# BCCEAD1C
[2023-09-04 16:48] LABS: Appearance Urine Cloudy; Color Urine Yellow; Glucose Urine UA Negative (Negative); Leukocyte Esterase Urine Small (1+) (Negative); Nitrite Urine Positive (Negative); PH 6.5 (5.0-9.0); UMIC TRIGGER UACC YES; UPreg QC Valid YES; Urine Blood Negative (Negative); Urine Ketones Negative (Negative); Urine Pregnancy NEGATIVE (NEGATIVE); Urine Protein Negative (Neg-Trace)
[2023-09-04 16:50] LABS: Bacteria Urine 4+ (None Seen); Hyaline Casts Urine 0-2 /LPF (0-2); RBC Urine 0-2 /HPF (0-2); UACC Culture Trigger YES
[2023-09-04 18:15] VITALS: BP 126/84; PULSE 67; RESP 18; TEMP 36.6; O2SAT 99
--- NOTE | 2023-09-04 18:20 | PC.NURSE ---
a&ox3, vss and up to date at this time. pt comes in today d/t increased generalized body aches. pt recently started naltrexone treatment to help w/ obtaining abstinence from alcohol. pt states last shot was on tuesday. pt c/o 8/ body pain all over. denies fever/chills/any other sx recently. pt resting comfortably in no apparent distress at this time. respirations remain even and unlabored. call gardner placed within reach.
[2023-09-04] MEDS: Acetaminophen 325 MG TABLET 650 MG PO (18:34)
--- NOTE | 2023-09-04 18:38 | PC.NURSE ---
pt medicated w/ order that was placed in triage. labs obtained and sent to lab. call gardner placed within reach.
[2023-09-04 19:07] LABS: IDNOW Serial# 08D9AD1C; Influenza A Negative (Negative); Influenza B2 Negative (Negative)
[2023-09-04 19:28] VITALS: BP 126/76; PULSE 61; TEMP 36.8; O2SAT 97
[2023-09-04] MEDS: cefuroxime axetiL 250 MG TABLET PO (19:29)
== END 2023-09-04 20:08 | disposition home or self-care (01) ==
PROVIDERS: Nurse Practitioner Family; Physician Assistant; Emergency Provider Internal Medicine; PCP Internal Medicine
DX: N39.0 Urinary tract infection, site not specified (principal); M79.10 Myalgia, unspecified site; M79.602 Pain in left arm; M79.601 Pain in right arm; M79.605 Pain in left leg; M79.604 Pain in right leg; F17.210 Nicotine dependence, cigarettes, uncomplicated; Z11.52 Encounter for screening for COVID-19; Z20.822 Contact with and (suspected) exposure to COVID-19; Z79.899 Other long term (current) drug therapy; Z71.6 Tobacco abuse counseling
CPT/HCPCS: 80053; 81001; 81025; 82550; 83735; 85025; 87086; 87088; 87186; 87502; 87635; 99284

== ENCOUNTER 2023-10-06 12:51 | Emergency (ER) | payer MEDICAID, SELFPAY ==
--- NOTE | 2023-10-06 13:03 | ED_ITS ---
HPI - General Adult General Chief complaint: General Medical Stated complaint: body itch all over Related Data Previous Rx's Medication Instructions Recorded buspirone 10 mg tablet 10 mg PO BID PRN anxiety/seeing 04/29/22 shadows 30 days #60 tabs duloxetine 60 mg capsule,delayed 60 mg PO QAM 30 days #30 caps 04/29/22 release mirtazapine 7.5 mg tablet 7.5 mg PO BEDTIME 30 days #30 tabs 04/29/22 naltrexone 50 mg tablet 25 mg (1/2 x 50 mg) PO DAILY 30 04/29/22 days #15 tabs nicotine (polacrilex) 2 mg gum 4 mg buccal Q2H PRN Nicotine 04/29/22 Cravings 30 days #100 ea nicotine 14 mg/24 hr daily 14 mg transdermal DAILY 28 days 04/29/22 transdermal patch #28 ea prazosin 1 mg capsule 1 mg PO BEDTIME 30 days #30 caps 04/29/22 quetiapine 100 mg tablet 100 mg PO BEDTIME 30 days #30 tabs 04/29/22 cephalexin 500 mg capsule 500 mg PO QID 5 days #20 caps 05/05/22 giqhyyslba-lhjgrbrgcpsqc-xrrjpfms 1 cap PO Q4-6H PRN headache #14 08/11/22 50 mg-300 mg-40 mg capsule caps (Fioricet) naproxen 500 mg tablet 500 mg PO BID PRN pain 10 days #20 08/11/22 tabs methocarbamol 500 mg tablet 500 mg PO TID PRN muscle spasm #20 01/13/23 tabs nitrofurantoin 100 mg PO Q12H 5 days #10 caps 01/13/23 monohydrate/macrocrystals 100 mg capsule (Macrobid) naltrexone microspheres 380 mg 380 mg IM Q4W #1 ea 06/14/23 intramuscular suspension,extended release (Vivitrol) cefuroxime axetil 250 mg tablet 250 mg PO BID #13 tabs 09/04/23 Allergies Allergy/AdvReac Type Severity Reaction Status Date / Time No Known Allergies Allergy Verified 10/06/23 13:04 [No Known Allergies*] [facility] Past Medical History Medical History delivery delivered No known health problems Surgical History H/O: Family History Family History Mother Diabetes Father Heart attack Social History Social History Household Members: None Housing: Apartment Do you presently have visiting nurse or other home services: No Alcohol intake: current Alcohol intake frequency: holidays/special occasions only Alcohol type: beer Patient Tobacco Use Status: Current everyday Tobacco user Tobacco use type: Cigarette Cigarette Packs Per Day: 0.5 Cigarettes Per Day: 10 Years Smoked: 20 e-Cigarette/Vaping Use: Never Used Second Hand Smoke Exposure: Yes Substance Use Type: Crack/Cocaine Advance Directives: No Advance Directives Information Provided: Yes service: No Current occupational status: employed 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 Patient is a 47-year-old female presenting to the emergency department with complaint of diffuse body itching for one month, also requesting labs drawn and reports history of anemia. Went to the clinic and was prescribed hydrocortisone which has not improved symptoms. Reports feeling short of breath and lightheaded/dizzy for 2 weeks and states that it feels similar to when hemoglobin levels were low in the past. Denies chest pain or palpitations. Does complain of palpitations. Plan: EKG, labs 18:00 Patient back to triage office requesting medication for itching, hydroxyzine ordered. Medications Administered Discontinued Medications Generic Name Dose Route Start Last Admin Trade Name Balbirq PRN Reason Stop Dose Admin Hydroxyzine HCl 25 mg 10/06/23 17:59 10/06/23 18:03 Hydroxyzine Hcl 25 Mg Tablet PO 10/06/23 18:00 25 mg ONCE ONE Administration Medical Decision Making Lab Data 10/06/23 14:36 10/06/23 14:36 Labs: Lab Results 10/06/23 Range/Units 14:36 WBC 7.9 (4.8-10.8) X10*3/uL RBC 4.72 (4.20-5.50) X10*6/uL Hgb 9.9 L (12.0-16.0) g/dl Hct 33.8 L (37.0-47.0) % MCV 71.6 L (80.0-98.0) fL MCH 21.0 L (27.0-33.0) pg MCHC 29.3 L (31.0-35.0) g/dl RDW 18.3 H (11.0-16.0) % Plt Count 405 H (160-400) X10*3/uL MPV 9.5 (9.4-12.3) fL Immature Gran % (Auto) 0.3 (0.0-0.4) % Neut % (Auto) 71.8 (45-73) % Lymph % (Auto) 18.9 L (20-40) % [place] % (Auto) 7.5 (2-11) % Eos % (Auto) 1.0 (0-4) % Baso % (Auto) 0.5 (0-2) % Lymph # (Auto) 1.5 (1.2-4.9) X10*3/uL [place] # (Auto) 0.6 (0.1-1.2) X10*3/uL Eos # (Auto) 0.1 (0.0-0.4) X10*3/uL Baso # (Auto) 0.0 (0.0-0.2) X10*3/uL Abs Immat Gran (auto) 0.02 (0.00-0.03) X10*3/uL Absolute Neuts (auto) 5.7 (2.0-8.3) x10*3/uL Absolute Nucleated RBC 0.000 (0.0-0.012) X10*3/uL Nucleated RBC % (auto) 0.0 (0.0-0.2) /100WBC Sodium 140 (135-145) mmol/L Potassium 3.6 (3.3-5.1) mmol/L Chloride 106 (96-108) mmol/L Carbon Dioxide 26 (22-29) mmol/L Anion Gap 12 (12-20) BUN 6 L (9-16) mg/dL Creatinine 0.68 (0.5-1.4) mg/dL Estim Creat Clear Calc 104.7 Estimated GFR > 60 Random Glucose 78 (60-115) mg/dL Calcium 9.3 D (8.4-10.2) mg/dL Total Bilirubin 0.2 (0.0-1.0) mg/dL AST 18 (5-31) U/L ALT 5 (0-31) U/L Alkaline Phosphatase 77 (39-117) U/L Total Protein 8.6 H (6.5-8.0) g/dL Albumin 4.5 (3.5-5.0) g/dL Blood Type O Positive Antibody Screen NEGATIVE Crossmatch (AHG) See Detail Discharge Plan Discharge Clinical Impression: Itching Patient Disposition: Left W/O Completing Treatment Prescriptions: No Action nicotine 14 mg/24 hr Patch 24 Hour 14 mg transdermal DAILY 28 Days Qty: 28 0RF Rx Instructions: remove at bedtime nicotine (polacrilex) 2 mg Gum 4 mg buccal Q2H PRN (Reason: Nicotine Cravings) 30 Days Qty: 100 0RF prazosin 1 mg Capsule 1 mg PO BEDTIME 30 Days Qty: 30 0RF Protocol: Hold for SBP< HOLD for SBP < : 90 buspirone 10 mg Tablet 10 mg PO BID PRN (Reason: anxiety/seeing shadows) 30 Days Qty: 60 0RF mirtazapine 7.5 mg Tablet 7.5 mg PO BEDTIME 30 Days Qty: 30 0RF naltrexone 50 mg Tablet 25 mg PO DAILY 30 Days Qty: 15 0RF quetiapine 100 mg tablet 100 mg PO BEDTIME 30 Days Qty: 30 0RF duloxetine 60 mg capsule,delayed release(DR/EC) 60 mg PO QAM 30 Days Qty: 30 0RF nitrofurantoin monohyd/m-cryst [Macrobid] 100 mg capsule 100 mg PO Q12H 5 Days Qty: 10 0RF Rx Instructions: must administer with a meal/food methocarbamol 500 mg tablet 500 mg PO TID PRN (Reason: muscle spasm) Qty: 20 0RF cephalexin 500 mg capsule 500 mg PO QID 5 Days Qty: 20 0RF naproxen 500 mg tablet 500 mg PO BID PRN (Reason: pain) 10 Days Qty: 20 0RF zqwrvvhqom-tophkeffaohtl-pddc [Fioricet] 50-300-40 mg capsule 1 cap PO Q4-6H PRN (Reason: headache) Qty: 14 0RF cefuroxime axetil 250 mg tablet 250 mg PO BID Qty: 13 0RF Vivitrol 380 mg suspension,extended rel recon 380 mg IM Q4W Qty: 1 5RF Discharge Date/Time: 10/06/23 19:30
[2023-10-06 13:05] VITALS: BP 132/70; PULSE 87; RESP 18; TEMP 36.4; O2SAT 100; BMI 26.9
--- NOTE | 2023-10-06 13:12 | ECG_ITS ---
Test Reason : DIZZY Blood Pressure : / mmHG Vent. Rate : 072 BPM Atrial Rate : 072 BPM P-R Int : 146 ms QRS Dur : 072 ms QT Int : 400 ms P-R-T Axes : 021 029 033 degrees QTc Int : 438 ms Normal sinus rhythm Normal ECG When compared to the previous EKG of No significant changes seen Referred By: Beth Brush Electronically Signed By:MICHEL ELENA MD
[2023-10-06 14:40] LABS: MANUAL DIFF FLAG NO
[2023-10-06 14:41] LABS: Basophils Percent Auto 0.5 % (0-2); Eosinophils Absolute Auto 0.1 X10*3/uL (0.0-0.4); Hematocrit 33.8 % (37.0-47.0); Hemoglobin 9.9 g/dl (12.0-16.0); Imm Gran Abs Auto 0.02 X10*3/uL (0.00-0.03); Imm Gran Pct Auto 0.3 % (0.0-0.4); Lymphocytes Absolute Auto 1.5 X10*3/uL (1.2-4.9); Lymphocytes Percent Auto 18.9 % (20-40); Mean Corpuscular HGB Conc 29.3 g/dl (31.0-35.0); Mean Corpuscular Volume 71.6 fL (80.0-98.0); Mean Platelet Volume 9.5 fL (9.4-12.3); Monocytes Absolute Auto 0.6 X10*3/uL (0.1-1.2); Monocytes Percent Auto 7.5 % (2-11); Neutrophils Absolute Auto 5.7 x10*3/uL (2.0-8.3); Neutrophils Percent Auto 71.8 % (45-73); Platelet Count 405 X10*3/uL (160-400); Red Blood Count 4.72 X10*6/uL (4.20-5.50); Red Cell Distribution Width 18.3 % (11.0-16.0); White Blood Count 7.9 X10*3/uL (4.8-10.8)
[2023-10-06 15:04] LABS: Alanine Aminotransferase 5 U/L (0-31); Albumin Level 4.5 g/dL (3.5-5.0); Alkaline Phosphatase 77 U/L (39-117); Anion Gap 12 (12-20); Aspartate Amino Transferase 18 U/L (5-31); Bilirubin Total 0.2 mg/dL (0.0-1.0); Blood Urea Nitrogen 6 mg/dL (9-16); Calcium 9.3 mg/dL (8.4-10.2); Carbon Dioxide 26 mmol/L (22-29); Chloride 106 mmol/L (96-108); Creatinine Clr Calc Pharmacy 104.7; Estimated Glomerular Filt Rate > 60; Glucose Random 78 mg/dL (60-115); Potassium 3.6 mmol/L (3.3-5.1); Sodium 140 mmol/L (135-145); Total Protein 8.6 g/dL (6.5-8.0)
[2023-10-06] MEDS: hydrOXYzine HCL 25 MG TABLET PO (18:03)
== END 2023-10-06 19:30 | disposition left against medical advice (07) ==
PROVIDERS: Registered Nurse Emergency; Emergency Provider Emergency Medicine; PCP Internal Medicine
DX: L29.9 Pruritus, unspecified (principal); R42 Dizziness and giddiness; F17.210 Nicotine dependence, cigarettes, uncomplicated; Z71.6 Tobacco abuse counseling; Z79.899 Other long term (current) drug therapy
CPT/HCPCS: 36415; 80053; 85025; 86850; 86900; 86901; 86920; 86922; 93005; 99283

== ENCOUNTER → 2023-10-06 13:12 | Outpatient (BNV) | payer MEDICAID, SELFPAY | PROVIDERS: Emergency Provider Emergency Medicine; PCP Internal Medicine; Visit Provider Internal Medicine Cardiovascular Disease | DX: R06.02 Shortness of breath (principal); R42 Dizziness and giddiness | CPT/HCPCS: 93010 ==

== ENCOUNTER 2023-11-11 14:26 | Outpatient (REF) | payer MEDICAID, SELFPAY | END 2023-11-11 14:27 | disposition home or self-care (01) | LOC: HO.HHCL 14:26 | PROVIDERS: Visit Provider Internal Medicine | DX: D50.0 Iron deficiency anemia secondary to blood loss (chronic) (principal) | CPT/HCPCS: 36415; 82607; 82728; 82746 ==

== ENCOUNTER 2023-11-21 19:06 | Emergency (ER) | payer MEDICAID, SELFPAY ==
--- NOTE | ~2023-11-21 | CT_ITS ---
EXAMINATION: CT ABDOMEN AND PELVIS WITH CONTRAST CLINICAL INFORMATION: Bilateral lower quadrant pain. COMPARISON: None available. TECHNIQUE: Multidetector volumetric images were obtained from the superior aspect of the liver through the pubic symphysis following administration 85 mL of Omnipaque 350 intravenous contrast. Sagittal and coronal reformatted images were obtained on the technologist's workstation. Oral contrast: No This CT examination was performed using dose optimization techniques as appropriate, variously including the following: *Automated exposure control *Adjustment of mA and/or kV according to patient size (this includes techniques or standardized protocols for targeted exams where dose is matched to indication/reason for exam; i.e. extremities or head) *Use of iterative reconstruction technique DLP: 636 mGy-cm FINDINGS: LUNG BASES: The visualized lung bases are unremarkable. LIVER, GALLBLADDER, AND BILIARY TREE: The liver is normal in size, shape, and attenuation. No focal hepatic lesion or biliary ductal dilatation is present. The gallbladder is unremarkable with no evidence of radiopaque gallstones, gallbladder wall thickening, or obvious pericholecystic inflammatory changes. PANCREAS: Unremarkable. SPLEEN: Unremarkable. ADRENAL GLANDS: Unremarkable. KIDNEYS AND URETERS: The kidneys are normal in size, and attenuation. There is mild scarring lower pole right kidney. No hydronephrosis, hydroureter, or calculi seen. No perinephric stranding. BLADDER: Unremarkable. GASTROINTESTINAL TRACT: Prominent fluid-filled small bowel loops as well as fluid within the right colon. The appendix is visualized and is within normal limits. ABDOMINAL WALL: No significant hernia is appreciated. LYMPH NODES: Normal. VASCULAR: Unremarkable. PELVIC VISCERA: Unremarkable. OSSEOUS STRUCTURES: Unremarkable. CT/CT abdomen pelvis w IV con IMPRESSION: Prominent fluid-filled small bowel loops as well as fluid within the right colon. Findings may represent enteritis. No other significant abnormality identified. Fleischner guidelines were followed.
[2023-11-21 19:51] VITALS: BP 92/62; PULSE 110; RESP 18; TEMP 37.9; O2SAT 100; BMI 25.6
[2023-11-21 20:41] LABS: MANUAL DIFF FLAG NO
[2023-11-21 20:43] LABS: Basophils Absolute Auto 0.1 X10*3/uL (0.0-0.2); Basophils Percent Auto 0.4 % (0-2); Hematocrit 29.7 % (37.0-47.0); Hemoglobin 9.1 g/dl (12.0-16.0); Imm Gran Abs Auto 0.26 X10*3/uL (0.00-0.03); Imm Gran Pct Auto 1.2 % (0.0-0.4); Lymphocytes Absolute Auto 0.4 X10*3/uL (1.2-4.9); Lymphocytes Percent Auto 1.7 % (20-40); Mean Corpuscular HGB Conc 30.6 g/dl (31.0-35.0); Mean Corpuscular Hemoglobin 21.6 pg (27.0-33.0); Mean Corpuscular Volume 70.4 fL (80.0-98.0); Mean Platelet Volume 9.2 fL (9.4-12.3); Monocytes Absolute Auto 1.4 X10*3/uL (0.1-1.2); Monocytes Percent Auto 6.9 % (2-11); Neutrophils Absolute Auto 18.7 x10*3/uL (2.0-8.3); Neutrophils Percent Auto 89.8 % (45-73); Platelet Count 310 X10*3/uL (160-400); Red Blood Count 4.22 X10*6/uL (4.20-5.50); Red Cell Distribution Width 17.6 % (11.0-16.0); White Blood Count 20.9 X10*3/uL (4.8-10.8)
[2023-11-21 20:44] LABS: Appearance Urine Clear; Color Urine Yellow; Glucose Urine UA Negative (Negative); Leukocyte Esterase Urine Negative (Negative); Nitrite Urine Negative (Negative); PH 7.5 (5.0-9.0); Urine Blood Negative (Negative); Urine Ketones Trace mg/dL (Negative); Urine Protein Negative (Neg-Trace)
[2023-11-21 20:55] LABS: Alanine Aminotransferase 7 U/L (0-31); Albumin Level 4.4 g/dL (3.5-5.0); Alkaline Phosphatase 68 U/L (39-117); Anion Gap 15 (12-20); Aspartate Amino Transferase 20 U/L (5-31); Bilirubin Total 0.4 mg/dL (0.0-1.0); Blood Urea Nitrogen 9 mg/dL (9-16); Calcium 9.6 mg/dL (8.4-10.2); Carbon Dioxide 23 mmol/L (22-29); Chloride 101 mmol/L (96-108); Creatinine Clr Calc Pharmacy 71.1; Estimated Glomerular Filt Rate > 60; Glucose Random 103 mg/dL (60-115); Potassium 3.6 mmol/L (3.3-5.1); Sodium 135 mmol/L (135-145); Total Protein 8.2 g/dL (6.5-8.0)
[2023-11-21] MEDS: Acetaminophen 325 MG TABLET 650 MG PO (23:24)
[2023-11-21 23:25] VITALS: BP 111/71; PULSE 115; RESP 20; O2SAT 100
[2023-11-22 01:34] VITALS: BP 113/67; PULSE 97; RESP 18; TEMP 37.7; O2SAT 98
--- NOTE | 2023-11-22 02:20 | ED_ITS ---
HPI - Abdominal Pain General Chief Complaint: Abdominal Pain Stated Complaint: lower back pain ?uti Time Seen by Provider: 11/22/23 02:09 Source: patient Mode of arrival: ambulatory Limitations: no limitations History of Present Illness HPI narrative: Patient comes to the emergency room complaining of 2 weeks of bilateral lower quadrant pain and bilateral flank pain. Patient complaining of dysuria, no hematuria, subjective fever, no chills. Patient states that she has been taking cefuroxime at home for 2 doses. Patient states she had left over from her previous prescription when she had a UTI. Patient denies any chest pain or shortness of breath. Related Data Previous Rx's Medication Instructions Recorded buspirone 10 mg tablet 10 mg PO BID PRN anxiety/seeing 04/29/22 shadows 30 days #60 tabs duloxetine 60 mg capsule,delayed 60 mg PO QAM 30 days #30 caps 04/29/22 release mirtazapine 7.5 mg tablet 7.5 mg PO BEDTIME 30 days #30 tabs 04/29/22 naltrexone 50 mg tablet 25 mg (1/2 x 50 mg) PO DAILY 30 04/29/22 days #15 tabs nicotine (polacrilex) 2 mg gum 4 mg buccal Q2H PRN Nicotine 04/29/22 Cravings 30 days #100 ea nicotine 14 mg/24 hr daily 14 mg transdermal DAILY 28 days 04/29/22 transdermal patch #28 ea prazosin 1 mg capsule 1 mg PO BEDTIME 30 days #30 caps 04/29/22 quetiapine 100 mg tablet 100 mg PO BEDTIME 30 days #30 tabs 04/29/22 cephalexin 500 mg capsule 500 mg PO QID 5 days #20 caps 05/05/22 gspppgysnd-fumwnosnsbahz-iroxsqjl 1 cap PO Q4-6H PRN headache #14 08/11/22 50 mg-300 mg-40 mg capsule caps (Fioricet) naproxen 500 mg tablet 500 mg PO BID PRN pain 10 days #20 08/11/22 tabs methocarbamol 500 mg tablet 500 mg PO TID PRN muscle spasm #20 01/13/23 tabs nitrofurantoin 100 mg PO Q12H 5 days #10 caps 01/13/23 monohydrate/macrocrystals 100 mg capsule (Macrobid) naltrexone microspheres 380 mg 380 mg IM Q4W #1 ea 06/14/23 intramuscular suspension,extended release (Vivitrol) cefuroxime axetil 250 mg tablet 250 mg PO BID #13 tabs 09/04/23 levofloxacin 500 mg tablet 500 mg PO DAILY #6 tabs 11/22/23 metronidazole 250 mg tablet 250 mg PO BID #14 tabs 11/22/23 Allergies Allergy/AdvReac Type Severity Reaction Status Date / Time No Known Allergies Allergy Verified 10/06/23 13:04 [No Known Allergies*] Review of Systems Review of Systems Constitutional : No Weight loss, No Fever, No Chills, No Night Sweats, No Fatigue, No Malaise ENT/Mouth : No Hearing loss, No Ear Pain, No Nasal Congestion, No Sinus Pain, No Hoarseness, No sore throat, No Rhinorrhea, No Swallowing Difficulty Eyes: No Eye Pain, No Swelling, No Redness, No Foreign Body, No Discharge, No Vision Changes Cardiovascular : No Chest Pain, No SOB, No Dyspnea on Exertion, No Orthopnea, No Edema, No Palpitations Respiratory : No Cough, No Sputum, No Wheezing, No Smoke Exposure, No Dyspnea Gastrointestinal : No Nausea, No Vomiting, No Diarrhea, No Constipation, complaining of mild bilateral lower quadrant pain for 2 weeks, No Hematochezia, No Melena Genitourinary : no irregular bleeding, complaining of dysuria No Urinary Frequency, No Hematuria, No Urinary Incontinence, No Urgency, complaining of bilateral Flank Pain, No Urinary Flow Changes, No Hesitancy Musculoskeletal : No joint pain, No Myalgias, No Joint Swelling Skin : No Skin Lesions, No rash Neuro : No Weakness, No Numbness, No Paresthesias, No Loss of Consciousness, No Dizziness, No Headache Psych : No Anxiety/Panic, No Depression, No SI/HI/AH/VH, No Social Issues, Heme/Lymph: No Bruising, No Bleeding,No Lymphadenopathy Endocrine : No Polyuria, No Polydipsia, No Temperature Intolerance PMFSH Past Medical History Onset Date is defined in the Problem List Problems that require an onset date and time if occurred within 24 hrs of arrival to the ED Aortic Dissection and Rupture; Neurologic impairment; Cardiopulmonary Arrest; Endotracheal Intubation; Insertion or Replacement of Mechanical Circulatory Assist Device Medical History delivery delivered No known health problems Surgical History H/O: Family History Family History Mother Diabetes Father Heart attack Social History Social History Household Members: None Housing: Apartment Do you presently have visiting nurse or other home services: No Alcohol intake: current Alcohol intake frequency: holidays/special occasions only Alcohol type: beer Patient Tobacco Use Status: Current everyday Tobacco user Tobacco use type: Cigarette Cigarette Packs Per Day: 0.5 Cigarettes Per Day: 10 Years Smoked: 20 e-Cigarette/Vaping Use: Never Used Second Hand Smoke Exposure: Yes Substance Use Type: Crack/Cocaine Advance Directives: No Advance Directives Information Provided: No service: No Current occupational status: employed Current occupation: [employer] Sexual orientation: Did not discuss Physical Exam ED Vital Signs: Vital Signs - 24 hr 11/21/23 19:51 11/21/23 23:25 11/22/23 01:34 Temperature 100.2 F 99.8 F Pulse Rate 110 H 115 H 97 Respiratory Rate 18 20 18 Blood Pressure 92/62 111/71 113/67 Pulse Oximetry 100 100 98 Oxygen Delivery Method Room Air Room Air Room Air BMI result Body Mass Index 25.6 Const Other: Appearance: Alert. Oriented X3. No acute distress. Well-appearing Eyes: Pupils equal, round and reactive to light. ENT: Pharynx normal. Neck: Normal inspection. Neck supple. No lymph nodes noted. No crepitus CVS: Normal heart rate and rhythm. Pulses normal. Normal S1 and S2 Respiratory: No respiratory distress. Breath sounds normal. No Wheezing. No rales Abdomen: Soft, mild discomfort to palpation in bilateral lower quadrants and suprapubic area No rigidity. No distention. No CVA tenderness Skin: Skin warm and dry. Normal skin color. Normal skin turgor. Extremities: No lower extremity edema. No Lacerations. No Rash Neuro: Oriented X 3. No motor deficit. No sensory deficit. Moving all extremities. No slurred speech. CN 2 through 12 grossly intact Psych: calm, cooperative, normal affect Course Course Course Narrative: -CT scan of the abdomen pelvis pending Medical Decision Making Medical Decision Making MDM Narrative: -my interpretation of labs, patient's white blood cell count is significantly elevated 20.9, chemistry within normal limits, LFTs normal, urinalysis negative for UTI. -it is possible that patient may be recuperating from pyelonephritis. Patient already started the treatment at home from left over medications/cefuroxime -my interpretation of CT scan, fluid-filled bowel loops, no SBO, patient likely has enteritis, likely the source of patient's increased leukocytosis -patient states that she is prone to vaginal yeast infections with antibiotic, requesting a dose of antifungal , patient given Diflucan Lab Data [facility] Lab Attestation statement: I reviewed the patient's lab results. 11/21/23 20:34 11/21/23 20:34 Labs: Lab Results 11/21/23 Range/Units 20:34 WBC 20.9 H (4.8-10.8) X10*3/uL RBC 4.22 (4.20-5.50) X10*6/uL Hgb 9.1 L (12.0-16.0) g/dl Hct 29.7 L (37.0-47.0) % MCV 70.4 L (80.0-98.0) fL MCH 21.6 L (27.0-33.0) pg MCHC 30.6 L (31.0-35.0) g/dl RDW 17.6 H (11.0-16.0) % Plt Count 310 (160-400) X10*3/uL MPV 9.2 L (9.4-12.3) fL Immature Gran % (Auto) 1.2 H (0.0-0.4) % Neut % (Auto) 89.8 H (45-73) % Lymph % (Auto) 1.7 L (20-40) % [place] % (Auto) 6.9 (2-11) % Eos % (Auto) 0.0 (0-4) % Baso % (Auto) 0.4 (0-2) % Lymph # (Auto) 0.4 L (1.2-4.9) X10*3/uL [place] # (Auto) 1.4 H (0.1-1.2) X10*3/uL Eos # (Auto) 0.0 (0.0-0.4) X10*3/uL Baso # (Auto) 0.1 (0.0-0.2) X10*3/uL Abs Immat Gran (auto) 0.26 H (0.00-0.03) X10*3/uL Absolute Neuts (auto) 18.7 H (2.0-8.3) x10*3/uL Absolute Nucleated RBC 0.000 (0.0-0.012) X10*3/uL Nucleated RBC % (auto) 0.0 (0.0-0.2) /100WBC Sodium 135 (135-145) mmol/L Potassium 3.6 (3.3-5.1) mmol/L Chloride 101 (96-108) mmol/L Carbon Dioxide 23 (22-29) mmol/L Anion Gap 15 (12-20) BUN 9 (9-16) mg/dL Creatinine 0.97 (0.5-1.4) mg/dL Estim Creat Clear Calc 71.1 Estimated GFR > 60 Random Glucose 103 (60-115) mg/dL Calcium 9.6 (8.4-10.2) mg/dL Total Bilirubin 0.4 (0.0-1.0) mg/dL AST 20 (5-31) U/L ALT 7 (0-31) U/L Alkaline Phosphatase 68 (39-117) U/L Total Protein 8.2 H (6.5-8.0) g/dL Albumin 4.4 (3.5-5.0) g/dL Urine Color Yellow Urine Appearance Clear Urine pH 7.5 (5.0-9.0) Ur Specific [place] 1.020 (1.005-1.025) Urine Protein Negative (Neg-Trace) mg/dL Urine Glucose (UA) Negative (Negative) mg/dL Urine Ketones Trace (Negative) mg/dL Urine Blood Negative (Negative) Urine Nitrite Negative (Negative) Ur Leukocyte Esterase Negative (Negative) Urine Test NEGATIVE (NEGATIVE) Independent Interpretation I performed an independent interpretation of an: CT Scan Radiology Impression Discussion of test interpretation with radiology: I have reviewed the radiologist's reading. Radiologist Impression: FINDINGS: LUNG BASES: The visualized lung bases are unremarkable. LIVER, GALLBLADDER, AND BILIARY TREE: The liver is normal in size, shape, and attenuation. No focal hepatic lesion or biliary ductal dilatation is present. The gallbladder is unremarkable with no evidence of radiopaque gallstones, gallbladder wall thickening, or obvious pericholecystic inflammatory changes. PANCREAS: Unremarkable. SPLEEN: Unremarkable. ADRENAL GLANDS: Unremarkable. KIDNEYS AND URETERS: The kidneys are normal in size, and attenuation. There is mild scarring lower pole right kidney. No hydronephrosis, hydroureter, or calculi seen. No perinephric stranding. BLADDER: Unremarkable. GASTROINTESTINAL TRACT: Prominent fluid-filled small bowel loops as well as fluid within the right colon. The appendix is visualized and is within normal limits. ABDOMINAL WALL: No significant hernia is appreciated. LYMPH NODES: Normal. VASCULAR: Unremarkable. PELVIC VISCERA: Unremarkable. OSSEOUS STRUCTURES: Unremarkable. CT/CT abdomen pelvis w IV con IMPRESSION: Prominent fluid-filled small bowel loops as well as fluid within the right colon. Findings may represent enteritis. No other significant abnormality identified. Fleischner guidelines were followed. Medications Administered Discontinued Medications Generic Name Dose Route Start Last Admin Trade Name Freq PRN Reason Stop Dose Admin Acetaminophen 650 mg 11/21/23 22:27 11/21/23 23:24 Acetaminophen 325 Mg Tablet PO 11/21/23 22:28 650 mg ONCE ONE Administration Iohexol 85 ml 11/22/23 02:52 11/22/23 02:53 Iohexol 350 Mg/Ml 100 Ml Infus..Btl IV 11/22/23 02:53 85 ml ONCE ONE Administration Discharge Plan Discharge Clinical Impression: Enteritis Patient Disposition: Home, Self-Care Instructions: Enteritis (ED) Additional Instructions: Discontinue taking the antibiotic that you have, please start this new ones. Please follow-up with your primary care physician tomorrow. If you have any worsening or new symptoms, please return to the emergency room or call 911 Prescriptions: New levofloxacin 500 mg tablet 500 mg PO DAILY Qty: 6 0RF metronidazole 250 mg tablet 250 mg PO BID Qty: 14 0RF No Action nicotine 14 mg/24 hr Patch 24 Hour 14 mg transdermal DAILY 28 Days Qty: 28 0RF Rx Instructions: remove at bedtime nicotine (polacrilex) 2 mg Gum 4 mg buccal Q2H PRN (Reason: Nicotine Cravings) 30 Days Qty: 100 0RF prazosin 1 mg Capsule 1 mg PO BEDTIME 30 Days Qty: 30 0RF Protocol: Hold for SBP< HOLD for SBP < : 90 buspirone 10 mg Tablet 10 mg PO BID PRN (Reason: anxiety/seeing shadows) 30 Days Qty: 60 0RF mirtazapine 7.5 mg Tablet 7.5 mg PO BEDTIME 30 Days Qty: 30 0RF naltrexone 50 mg Tablet 25 mg PO DAILY 30 Days Qty: 15 0RF quetiapine 100 mg tablet 100 mg PO BEDTIME 30 Days Qty: 30 0RF duloxetine 60 mg capsule,delayed release(DR/EC) 60 mg PO QAM 30 Days Qty: 30 0RF nitrofurantoin monohyd/m-cryst [Macrobid] 100 mg capsule 100 mg PO Q12H 5 Days Qty: 10 0RF Rx Instructions: must administer with a meal/food methocarbamol 500 mg tablet 500 mg PO TID PRN (Reason: muscle spasm) Qty: 20 0RF cephalexin 500 mg capsule 500 mg PO QID 5 Days Qty: 20 0RF naproxen 500 mg tablet 500 mg PO BID PRN (Reason: pain) 10 Days Qty: 20 0RF kqlccotxrj-ymjpiuwsibpxn-lyab [Fioricet] 50-300-40 mg capsule 1 cap PO Q4-6H PRN (Reason: headache) Qty: 14 0RF cefuroxime axetil 250 mg tablet 250 mg PO BID Qty: 13 0RF Vivitrol 380 mg suspension,extended rel recon 380 mg IM Q4W Qty: 1 5RF
[2023-11-22 02:32] LABS: UPreg QC Valid YES; Urine Pregnancy NEGATIVE (NEGATIVE)
[2023-11-22] MEDS: iohexoL 350 MG/ML 100 ML INFUS..BTL 85 ML IV (02:53)
[2023-11-22] MEDS: Fluconazole 150 MG TABLET PO (05:08)
[2023-11-22] MEDS: levoFLOXacin 500 MG TABLET PO (05:08)
[2023-11-22] MEDS: metroNIDAZOLE 500 MG TABLET PO (05:08)
== END 2023-11-22 05:21 | disposition home or self-care (01) ==
PROVIDERS: Emergency Provider Emergency Medicine; PCP Internal Medicine
DX: K52.9 Noninfective gastroenteritis and colitis, unspecified (principal); R10.30 Lower abdominal pain, unspecified; M54.50 Low back pain, unspecified; F17.210 Nicotine dependence, cigarettes, uncomplicated; Z71.6 Tobacco abuse counseling; Z79.899 Other long term (current) drug therapy
CPT/HCPCS: 36415; 74177; 80053; 81003; 81025; 85025; 99284; Q9967

== ENCOUNTER 2023-11-29 13:05 | Outpatient (REF) | payer MEDICAID, SELFPAY ==
[2023-11-29 15:59] LABS: MANUAL DIFF FLAG NO
[2023-11-29 16:05] LABS: Basophils Absolute Auto 0.1 X10*3/uL (0.0-0.2); Basophils Percent Auto 0.9 % (0-2); Eosinophils Absolute Auto 0.1 X10*3/uL (0.0-0.4); Eosinophils Percent Auto 2.6 % (0-4); Hematocrit 31.2 % (37.0-47.0); Imm Gran Abs Auto 0.02 X10*3/uL (0.00-0.03); Imm Gran Pct Auto 0.4 % (0.0-0.4); Immature Retic Fraction 26.6 % (3.0-15.9); Lymphocytes Absolute Auto 1.4 X10*3/uL (1.2-4.9); Lymphocytes Percent Auto 26.3 % (20-40); Mean Corpuscular HGB Conc 28.8 g/dl (31.0-35.0); Mean Corpuscular Hemoglobin 20.9 pg (27.0-33.0); Mean Corpuscular Volume 72.4 fL (80.0-98.0); Mean Platelet Volume 10.3 fL (9.4-12.3); Monocytes Absolute Auto 0.4 X10*3/uL (0.1-1.2); Monocytes Percent Auto 7.5 % (2-11); Neutrophils Absolute Auto 3.3 x10*3/uL (2.0-8.3); Neutrophils Percent Auto 62.3 % (45-73); Platelet Count 358 X10*3/uL (160-400); Red Blood Count 4.31 X10*6/uL (4.20-5.50); Red Cell Distribution Width 18.6 % (11.0-16.0); Reticulocytes Absolute 0.076 X10*6/uL (0.026-0.095); White Blood Count 5.3 X10*3/uL (4.8-10.8)
[2023-11-29 16:42] LABS: RET ABN SCTR 1
[2023-11-30 08:57] LABS: Syphilis Screen Nonreactive (Nonreactive)
[2023-11-30 09:21] LABS: HBS Num1 107.19 mIU/mL (0-7.99); HBc Num1 0.16 S/CO (0.00-0.79); HBsAGNum1 0.32 S/CO (0.00-0.99); HIV AB/AG Nonreactive (Nonreactive); HIV Num 1 0.13 S/CO (0.00-0.99); Hepatitis B Core Antibody Nonreactive (Nonreactive); Hepatitis B Surface Antigen Negative (Negative); ~HepC Num1 0.19 S/CO (0.00-0.79); ~Hepatitis A Antibody IgM Nonreactive (Nonreactive); ~Hepatitis B Surface Antibody REACTIVE (Nonreactive); ~Hepatitis C Antibody Nonreactive (Nonreactive)
== END 2023-11-29 13:06 | disposition home or self-care (01) ==
LOC: HO.HHCL 13:05
PROVIDERS: Visit Provider Internal Medicine
DX: D50.0 Iron deficiency anemia secondary to blood loss (chronic) (principal); Z72.51 High risk heterosexual behavior
CPT/HCPCS: 36415; 85025; 85045; 86704; 86706; 86709; 86780; 86803; 87340; 87389

== ENCOUNTER 2023-12-07 10:26 | Outpatient (REF) | payer MEDICAID, SELFPAY ==
--- NOTE | ~2023-12-07 | XR_ITS ---
EXAMINATION: XR THORACIC SPINE XR LUMBAR SPINE CLINICAL INFORMATION: Midline and lower back pain x1 month. COMPARISON: None available. TECHNIQUE: AP and lateral views of the thoracic spine were obtained. AP and lateral views of the lumbar spine were obtained. FINDINGS: Thoracic spine: There is slight leftward curvature of the thoracic spine. There are 12 nonrib-bearing thoracic vertebral bodies. Vertebral body heights and intervertebral disc spaces are maintained. Pedicles are intact. Lumbar spine: There are 5 nonrib-bearing lumbar vertebral bodies. There is rightward curvature of the lumbar spine. Vertebral body heights are maintained. There is mild intervertebral disc space narrowing at L1-L2 with marginal osteophytes. Sacroiliac joints are intact. XR/XR lumbar spine 2-3V IMPRESSION: No acute abnormality.
--- NOTE | ~2023-12-07 | XR_ITS ---
EXAMINATION: XR THORACIC SPINE XR LUMBAR SPINE CLINICAL INFORMATION: Midline and lower back pain x1 month. COMPARISON: None available. TECHNIQUE: AP and lateral views of the thoracic spine were obtained. AP and lateral views of the lumbar spine were obtained. FINDINGS: Thoracic spine: There is slight leftward curvature of the thoracic spine. There are 12 nonrib-bearing thoracic vertebral bodies. Vertebral body heights and intervertebral disc spaces are maintained. Pedicles are intact. Lumbar spine: There are 5 nonrib-bearing lumbar vertebral bodies. There is rightward curvature of the lumbar spine. Vertebral body heights are maintained. There is mild intervertebral disc space narrowing at L1-L2 with marginal osteophytes. Sacroiliac joints are intact. XR/XR thoracic spine 2V IMPRESSION: No acute abnormality.
== END 2023-12-07 10:27 | disposition home or self-care (01) ==
LOC: HO.HHCX 10:26
PROVIDERS: Visit Provider Emergency Medicine
DX: M54.6 Pain in thoracic spine (principal)
CPT/HCPCS: 72070; 72100

== ENCOUNTER → 2023-12-30 10:59 | Outpatient (BNV) | payer MEDICAID, SELFPAY | PROVIDERS: PCP Internal Medicine; Visit Provider Internal Medicine Medical Oncology | DX: D50.9 Iron deficiency anemia, unspecified (principal) | CPT/HCPCS: 99204 ==

== ENCOUNTER 2024-01-10 13:32 | Outpatient (REF) | payer MEDICAID, SELFPAY ==
[2024-01-12 14:07] LABS: C. trachomatis RNA TMA NOT DETECTED (NOT DETECTED); N. gonorrhoeae RNA TMA NOT DETECTED (NOT DETECTED)
[2024-01-17 22:08] LABS: HPV mRNA E6/E7 rflx Not Detected (Not Detected)
== END 2024-01-10 13:33 | disposition home or self-care (01) ==
LOC: HO.HHCLNP 13:32
PROVIDERS: Visit Provider Internal Medicine
DX: Z01.419 Encounter for gynecological examination (general) (routine) without abnormal findings (principal); Z11.51 Encounter for screening for human papillomavirus (HPV)
CPT/HCPCS: 36415; 81513; 87491; 87591; 87624; 88142

== ENCOUNTER 2024-01-18 11:38 | Outpatient (REF) | payer MEDICAID, SELFPAY ==
[2024-01-18 11:40] VITALS: BP 104/62; PULSE 77; RESP 16; TEMP 36.8; O2SAT 98
[2024-01-18] MEDS: Iron Sucrose Complex 200 MG in 0.9 % Sodium Chloride 100 ML 440 MG IV (11:46)
== END 2024-01-18 11:39 | disposition home or self-care (01) ==
LOC: HO.MDS 11:38
PROVIDERS: Visit Provider Internal Medicine Medical Oncology
DX: D50.9 Iron deficiency anemia, unspecified (principal)
CPT/HCPCS: 96374; J1756

== ENCOUNTER 2024-01-25 12:03 | Outpatient (REF) | payer MEDICAID, SELFPAY ==
[2024-01-25 12:18] VITALS: BP 106/66; PULSE 82; RESP 16; TEMP 36.3; O2SAT 99; BMI 26.6
[2024-01-25] MEDS: Iron Sucrose Complex 200 MG in 0.9 % Sodium Chloride 100 ML 440 MG IV (12:51)
== END 2024-01-25 12:04 | disposition home or self-care (01) ==
LOC: HO.MDS 12:03
PROVIDERS: Visit Provider Internal Medicine Medical Oncology
DX: D50.9 Iron deficiency anemia, unspecified (principal)
CPT/HCPCS: 96365; J1756

== ENCOUNTER 2024-03-15 15:11 | Outpatient (REF) | payer MEDICAID, SELFPAY ==
--- NOTE | ~2024-03-15 | MM_ITS ---
EXAMINATION: MM SCREENING DIGITAL BREAST TOMOSYNTHESIS, BILATERAL CLINICAL INFORMATION: Screening. Asymptomatic. COMPARISON: Mammography: This study is compared with the most recent previous mammogram dating back to 2018. TECHNIQUE: Digital breast tomosynthesis is performed in both the craniocaudal and mediolateral oblique views along with computer-aided detection (CAD). Synthesized 2D images are generated from the tomosynthesis. FINDINGS: The breasts are heterogeneously dense, which may obscure small masses (ACR BI-RADS breast composition Category c). There are no significant masses, abnormal calcifications, or other abnormalities. MM/MM tomosynthesis screening BI IMPRESSION: No mammographic evidence of malignancy. ASSESSMENT: BI-RADS BI-RADS 1 - Negative RECOMMENDATION: Routine annual mammography screening. 1 year F/U This examination should not preclude the clinical evaluation of a suspicious palpable abnormality. This patient's information was entered into a reminder system with a target due date for their next mammogram.
== END 2024-03-15 15:12 | disposition home or self-care (01) ==
LOC: HO.MAMMO 15:11
PROVIDERS: PCP Internal Medicine; Visit Provider Internal Medicine
DX: Z12.31 Encounter for screening mammogram for malignant neoplasm of breast (principal)
CPT/HCPCS: 77063; 77067

== ENCOUNTER → 2024-03-15 15:45 | Outpatient (BNV) | payer MEDICAID, SELFPAY | PROVIDERS: PCP Internal Medicine; Visit Provider Radiology Diagnostic Radiology | DX: Z12.31 Encounter for screening mammogram for malignant neoplasm of breast (principal) | CPT/HCPCS: 77063; 77067 ==

== ENCOUNTER 2024-03-26 12:22 | Emergency (ER) | payer MEDICAID, SELFPAY ==
--- NOTE | ~2024-03-26 | US_ITS ---
EXAMINATION: US PELVIS CLINICAL INFORMATION: 2 weeks of vaginal bleeding COMPARISON: CT abdomen pelvis 11/22/2023 TECHNIQUE: Ultrasound of the pelvis is performed using both transabdominal and transvaginal transducers along with Doppler. Transvaginal imaging is performed due to inadequate visualization transabdominally. FINDINGS: Uterus: The uterus is anteverted and anteflexed measuring8.3 x 4.2 x 5.6 cm. The uterus is smooth in contour with heterogeneous echogenicity and has normal myometrial echogenicity. A small 7 mm fundal fibroid is present The double wall endometrial thickness is 3 mm. Nabothian cysts are seen in the cervix. Adnexa: Both ovaries are visualized. There is normal color flow to the adnexa. There is no ovarian torsion. There is no pelvic ascites or fluid collection. Right ovary measures 1.8 x 1.8 x 1.4 cm for a volume of 2.4 mL. 2 paraovarian cysts are present measuring 1.3 and 1.2 cm. Left ovary measures 4.1 x 3.0 x 2.1 cm for a volume of 13.5 mL which includes a complex 3.4 x 1.7 x 2.3 cm cyst. US/US pelvic and transvaginal IMPRESSION: 1. Small uterine fibroid. 2. Complex left ovarian cyst. Follow-up ultrasound in 6-12 weeks is recommended.
--- NOTE | ~2024-03-26 | US_ITS ---
EXAMINATION: US PELVIS CLINICAL INFORMATION: 2 weeks of vaginal bleeding COMPARISON: CT abdomen pelvis 11/22/2023 TECHNIQUE: Ultrasound of the pelvis is performed using both transabdominal and transvaginal transducers along with Doppler. Transvaginal imaging is performed due to inadequate visualization transabdominally. FINDINGS: Uterus: The uterus is anteverted and anteflexed measuring8.3 x 4.2 x 5.6 cm. The uterus is smooth in contour with heterogeneous echogenicity and has normal myometrial echogenicity. A small 7 mm fundal fibroid is present The double wall endometrial thickness is 3 mm. Nabothian cysts are seen in the cervix. Adnexa: Both ovaries are visualized. There is normal color flow to the adnexa. There is no ovarian torsion. There is no pelvic ascites or fluid collection. Right ovary measures 1.8 x 1.8 x 1.4 cm for a volume of 2.4 mL. 2 paraovarian cysts are present measuring 1.3 and 1.2 cm. Left ovary measures 4.1 x 3.0 x 2.1 cm for a volume of 13.5 mL which includes a complex 3.4 x 1.7 x 2.3 cm cyst. US/US pelvic ovarian doppler IMPRESSION: 1. Small uterine fibroid. 2. Complex left ovarian cyst. Follow-up ultrasound in 6-12 weeks is recommended.
[2024-03-26 12:58] VITALS: BP 112/72; PULSE 84; RESP 18; TEMP 36.6; O2SAT 98; BMI 26.7
--- NOTE | 2024-03-26 12:59 | ED_ITS ---
HPI - Abdominal Pain General Chief Complaint: Abdominal Pain Stated Complaint: Lower abd pain Time Seen by Provider: 03/26/24 20:03 Source: patient Mode of arrival: ambulatory Limitations: no limitations History of Present Illness HPI narrative: 48-year-old female with past medical history of anemia presents to ED for 3 weeks of profuse vaginal bleeding. Patient states vaginal bleeding has improved but initially in the beginning of the 1st week she had clots in her blood. Patient states mild lower abdominal cramping. Patient denies any flank pain, fever, chills, nausea, vomiting, any recent trauma Related Data Home Medications ?Medication ?Instructions ?Recorded ?Confirmed cetirizine 10 mg tablet 10 mg PO QAM PRN Allergic Symptoms 12/30/23 12/30/23 cyanocobalamin (vitamin B-12) 1,000 mcg PO DAILY 12/30/23 12/30/23 1,000 mcg tablet diclofenac sodium 1 % topical gel 2 g topical PRN pain 12/30/23 12/30/23 diphenhydramine HCl 25 mg capsule 25 - 50 mg PO Q6H PRN itch 12/30/23 12/30/23 docusate sodium 100 mg capsule 100 mg PO BID 12/30/23 12/30/23 ergocalciferol (vitamin D2) 1,250 1,250 mcg PO QWEEK 12/30/23 12/30/23 mcg (50,000 unit) capsule ferrous gluconate 324 mg (38 mg 324 mg PO QAM 12/30/23 12/30/23 iron) tablet ferrous sulfate 325 mg (65 mg 325 mg PO QAM 12/30/23 12/30/23 iron) tablet,delayed release hydrocortisone 2.5 % topical cream 1 appl topical BID 12/30/23 12/30/23 Previous Rx's ?Medication ?Instructions ?Recorded buspirone 10 mg tablet 10 mg PO BID PRN anxiety/seeing 04/29/22 shadows 30 days #60 tabs duloxetine 60 mg capsule,delayed 60 mg PO QAM 30 days #30 caps 04/29/22 release mirtazapine 7.5 mg tablet 7.5 mg PO BEDTIME 30 days #30 tabs 04/29/22 naltrexone 50 mg tablet 25 mg (1/2 x 50 mg) PO DAILY 30 04/29/22 days #15 tabs nicotine (polacrilex) 2 mg gum 4 mg buccal Q2H PRN Nicotine 04/29/22 Cravings 30 days #100 ea nicotine 14 mg/24 hr daily 14 mg transdermal DAILY 28 days 04/29/22 transdermal patch #28 ea prazosin 1 mg capsule 1 mg PO BEDTIME 30 days #30 caps 04/29/22 quetiapine 100 mg tablet 100 mg PO BEDTIME 30 days #30 tabs 04/29/22 cephalexin 500 mg capsule 500 mg PO QID 5 days #20 caps 05/05/22 fwniahqvqj-muxlgirwbinul-ozhsgneg 1 cap PO Q4-6H PRN headache #14 08/11/22 50 mg-300 mg-40 mg capsule caps (Fioricet) naproxen 500 mg tablet 500 mg PO BID PRN pain 10 days #20 08/11/22 tabs methocarbamol 500 mg tablet 500 mg PO TID PRN muscle spasm #20 01/13/23 tabs nitrofurantoin 100 mg PO Q12H 5 days #10 caps 01/13/23 monohydrate/macrocrystals 100 mg capsule (Macrobid) naltrexone microspheres 380 mg 380 mg IM Q4W #1 ea 06/14/23 intramuscular suspension,extended release (Vivitrol) cefuroxime axetil 250 mg tablet 250 mg PO BID #13 tabs 09/04/23 levofloxacin 500 mg tablet 500 mg PO DAILY #6 tabs 11/22/23 metronidazole 250 mg tablet 250 mg PO BID #14 tabs 11/22/23 cephalexin 500 mg capsule 500 mg PO QID 7 days #28 caps 03/27/24 Allergies Allergy/AdvReac Type Severity Reaction Status Date / Time No Known Allergies Allergy Verified 03/26/24 12:59 [No Known Allergies*] Review of Systems Review of Systems Three weeks of vaginal bleed Yes all other systems are reviewed and are negative PMFSH Past Medical History Medical History delivery delivered No known health problems Surgical History H/O: Family History Family History Mother Diabetes Father Heart attack Social History Social History Household Members: Children and None Housing: Apartment Do you presently have visiting nurse or other home services: No Alcohol intake: never Patient Tobacco Use Status: Current everyday Tobacco user Tobacco use type: Cigarette Cigarette Packs Per Day: 0.5 Years Smoked: 20 Smoked in Last 30 Days: No e-Cigarette/Vaping Use: Never Used Second Hand Smoke Exposure: Yes Use of substances other than those prescribed or required for medical reasons: No Substance Use Type: Crack/Cocaine Advance Directives: No Advance Directives Information Provided: No service: No Current occupational status: employed 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 Sexual orientation: Did not discuss Physical Exam ED Vital Signs: Vital Signs - 24 hr 03/26/24 12:58 03/26/24 18:47 03/26/24 20:20 Temperature 97.9 F 97.9 F 98.5 F Pulse Rate 84 90 82 Respiratory Rate 18 18 16 Blood Pressure 112/72 129/80 107/75 Pulse Oximetry 98 99 97 Oxygen Delivery Method Room Air Room Air Room Air 03/26/24 22:52 Temperature 97.5 F Pulse Rate 69 Respiratory Rate 16 Blood Pressure 125/81 Pulse Oximetry 99 Oxygen Delivery Method Room Air BMI result Body Mass Index 26.7 Const Orientation/consciousness: oriented to person, oriented to place, oriented to time and patient oriented x3 HENMT Head: Yes normal to inspection, Yes No palpable skull fracture present, Yes normocephalic and Yes atraumatic Eyes General: appearance normal, both eyes and all related structures Neck Neck: Yes normal visual inspection, Yes full ROM, Yes no lymphadenopathy, Yes no meningeal signs, Yes trachea midline, Yes supple, No anterior neck swelling and No tender Chest Chest palpation & inspection: normal inspection of the chest and normal palpation of entire chest wall Resp Effort & Inspection: normal respiratory effort and able to speak in complete sentences Auscultation: clear to auscultation bilaterally Cardio Jugular venous distension: no JVD Heart sounds: S1 normal heart sound present and S2 normal heart sound present GI Inspection: Yes normal to inspection Palpation (GI): Soft to palpation, not firm, nontender, no guarding and not rigid General: No CVA tenderness and Yes no CVA tenderness External Female Exam: normal external appearance Speculum Exam - Vagina: normal appearance of the vagina and vaginal bleeding (Mild blood in the vaginal vault) Speculum Exam - Cervix: Abnormal cervical discharge present (Mild vaginal bleeding) OB/external & speculum: vaginal bleeding (Mild blood in the vaginal vault) Back/Spine/Pelvis Back: no CVA tenderness, No CVA tenderness and No back tenderness Skin General skin exam: no rashes or lesions noted, elasticity normal and turgor normal Neuro General: oriented to person, oriented to place, oriented to time, patient oriented x3, gait normal, tone normal, moves all extremities, Normal light touch and pain sensation, no meningeal signs, no focal motor deficits, CN's II-XI intact bilaterally and normal sensation to monofilament Extrem General: Yes normal to inspection, Yes full ROM and Yes capillary refill normal Psych Appearance: grossly normal, well kempt and not disheveled Course Course Course Narrative: This is an RME: Additional HPI, ROS, PE not included below will be deferred to primary provider. RME assessment and note performed by: Bessie Gaffney PA-C This is a 15-fhwr-one-female, with hx of anemia, anxiety, and depression, who presents to the ER with complaints of abdominal pain, diarrhea, and vaginal bleeding x 2 weeks. Patient reports that she is sexually active, she states that she had a surgery 20-30 years ago to prevent , unsure what they did. She states that she typically gets her menses every month however has never had menstrual cycle lasts for this long. Plan: Labs, UA Medical Decision Making Medical Decision Making [facility] Narrative: 48-year-old female presents to ED for failure to heavy vaginal bleeding. Them shows only mild vaginal bleeding. Negative for hemorrhagic bleeding. Patient negative for . Father ultrasound shows left ovarian cyst and uterine fibroid. Negative for ovarian torsion or uterine rupture. UA has positive nitrites will treat as UTI. Plain worrisome signs informed to follow-up with primary care provider. No need for transfusion of blood Differential Diagnosis Differential Diagnoses: The differential diagnosis associated with the presentation includes (UTI, fibroid, ovarian cyst) Admission/Observation Consideration of admission/observation: Escalation of care including admission/observation considered Lab Data [facility] Lab Attestation statement: I reviewed the patient's lab results. 03/26/24 14:44 03/26/24 14:44 Labs: Lab Results 03/26/24 03/26/24 Range/Units 14:43 14:44 WBC 6.5 (4.8-10.8) X10*3/uL RBC 3.71 L (4.20-5.50) X10*6/uL Hgb 10.6 L (12.0-16.0) g/dl Hct 32.8 L (37.0-47.0) % MCV 88.4 (80.0-98.0) fL MCH 28.6 (27.0-33.0) pg MCHC 32.3 (31.0-35.0) g/dl RDW 21.1 H (11.0-16.0) % Plt Count 284 D (160-400) X10*3/uL MPV 9.4 (9.4-12.3) fL Immature Gran % (Auto) 0.5 H (0.0-0.4) % Neut % (Auto) 75.0 H (45-73) % Lymph % (Auto) 13.9 L (20-40) % [place] % (Auto) 8.0 (2-11) % Eos % (Auto) 1.8 (0-4) % Baso % (Auto) 0.8 (0-2) % Lymph # (Auto) 0.9 L (1.2-4.9) X10*3/uL [place] # (Auto) 0.5 (0.1-1.2) X10*3/uL Eos # (Auto) 0.1 (0.0-0.4) X10*3/uL Baso # (Auto) 0.1 (0.0-0.2) X10*3/uL Abs Immat Gran (auto) 0.03 (0.00-0.03) X10*3/uL Absolute Neuts (auto) 4.9 (2.0-8.3) x10*3/uL Absolute Nucleated RBC 0.000 (0.0-0.012) X10*3/uL Nucleated RBC % (auto) 0.0 (0.0-0.2) /100WBC PT 10.4 L (11.1-13.3) SEC INR 0.9 (0.9-1.1) APTT 32.3 (26.0-36.8) SEC Sodium 137 (135-145) mmol/L Potassium 4.0 (3.3-5.1) mmol/L Chloride 106 (96-108) mmol/L Carbon Dioxide 23 (22-29) mmol/L Anion Gap 12 (12-20) BUN 7 L (9-16) mg/dL Creatinine 0.77 (0.5-1.4) mg/dL Estim Creat Clear Calc 91.2 Estimated GFR > 60 Random Glucose 110 (60-115) mg/dL Calcium 9.1 (8.4-10.2) mg/dL Total Bilirubin 0.2 (0.0-1.0) mg/dL Direct Bilirubin < 0.2 (0.0-0.5) mg/dL AST 15 (5-31) U/L ALT 16 (0-31) U/L Alkaline Phosphatase 70 (39-117) U/L Total Protein 7.1 (6.5-8.0) g/dL Albumin 4.0 (3.5-5.0) g/dL Lipase 28 (8-78) U/L Beta HCG, Quant < 2 mIU/mL Urine Color Yellow Urine Appearance Clear Urine pH 7.0 (5.0-9.0) Ur Specific [place] 1.015 (1.005-1.025) Urine Protein Negative (Neg-Trace) mg/dL Urine Glucose (UA) Negative (Negative) mg/dL Urine Ketones Negative (Negative) mg/dL Urine Blood Large (3+) H (Negative) Urine Nitrite Positive H (Negative) Ur Leukocyte Esterase Trace H (Negative) Urine RBC >20 H (0-2) /HPF Urine WBC 0-5 (0-5) /HPF Ur Squamous Epith Cells 0-2 (0-2) /HPF Urine Bacteria 3+ (None Seen) Hyaline Casts 0-2 (0-2) /LPF Urine Test NEGATIVE (NEGATIVE) Independent Interpretation I performed an independent interpretation of an: Ultrasound Radiology Impression Discussion of test interpretation with radiology: I have reviewed the radiologist's reading. Independent Historian Clinical information obtained from an independent historian. History obtained from or confirmed by: Other (Patient) External Record Review External record reviewed: Other (prior visits) Prescription Management I considered prescription management with: Antibiotic Discharge Plan Discharge Clinical Impression: Fibroid, Ovarian cyst, UTI (urinary tract infection) Patient Disposition: Home, Self-Care Instructions: Ovarian Cyst (ED), Urinary Tract Infection in Women (ED) Additional Instructions: Recommend follow-up with the OBGYN and primary care provider for fibroids and left ovarian cyst. You will be given antibiotics for urinary tract infection. Recommend follow-up with your primary care provider. Return to the ED immediately for any abdominal pain, nausea, vomiting, flank pain, fever, chills, profuse vaginal bleeding, rectal bleeding, vaginal discharge, or any other concerning symptoms Prescriptions: New cephalexin 500 mg capsule 500 mg PO QID 7 Days Qty: 28 0RF No Action nicotine 14 mg/24 hr Patch 24 Hour 14 mg transdermal DAILY 28 Days Qty: 28 0RF Rx Instructions: remove at bedtime nicotine (polacrilex) 2 mg Gum 4 mg buccal Q2H PRN (Reason: Nicotine Cravings) 30 Days Qty: 100 0RF prazosin 1 mg Capsule 1 mg PO BEDTIME 30 Days Qty: 30 0RF Protocol: Hold for SBP< HOLD for SBP < : 90 buspirone 10 mg Tablet 10 mg PO BID PRN (Reason: anxiety/seeing shadows) 30 Days Qty: 60 0RF mirtazapine 7.5 mg Tablet 7.5 mg PO BEDTIME 30 Days Qty: 30 0RF naltrexone 50 mg Tablet 25 mg PO DAILY 30 Days Qty: 15 0RF quetiapine 100 mg tablet 100 mg PO BEDTIME 30 Days Qty: 30 0RF duloxetine 60 mg capsule,delayed release(DR/EC) 60 mg PO QAM 30 Days Qty: 30 0RF nitrofurantoin monohyd/m-cryst [Macrobid] 100 mg capsule 100 mg PO Q12H 5 Days Qty: 10 0RF Rx Instructions: must administer with a meal/food methocarbamol 500 mg tablet 500 mg PO TID PRN (Reason: muscle spasm) Qty: 20 0RF cephalexin 500 mg capsule 500 mg PO QID 5 Days Qty: 20 0RF naproxen 500 mg tablet 500 mg PO BID PRN (Reason: pain) 10 Days Qty: 20 0RF hrchxvfjth-zvrhjbizqfltc-hufo [Fioricet] 50-300-40 mg capsule 1 cap PO Q4-6H PRN (Reason: headache) Qty: 14 0RF cefuroxime axetil 250 mg tablet 250 mg PO BID Qty: 13 0RF levofloxacin 500 mg tablet 500 mg PO DAILY Qty: 6 0RF metronidazole 250 mg tablet 250 mg PO BID Qty: 14 0RF cetirizine 10 mg tablet 10 mg PO QAM PRN (Reason: Allergic Symptoms) cyanocobalamin (vitamin B-12) 1,000 mcg tablet 1,000 mcg PO DAILY diphenhydramine HCl 25 mg capsule 25 - 50 mg PO Q6H PRN (Reason: itch) docusate sodium 100 mg capsule 100 mg PO BID hydrocortisone 2.5 % cream 1 appl topical BID ergocalciferol (vitamin D2) 1,250 mcg (50,000 unit) capsule 1,250 mcg PO QWEEK ferrous sulfate 325 mg (65 mg iron) tablet,delayed release (DR/EC) 325 mg PO QAM ferrous gluconate 324 mg (38 mg iron) tablet 324 mg PO QAM diclofenac sodium 1 % gel 2 g topical PRN (Reason: pain) Vivitrol 380 mg suspension,extended rel recon 380 mg IM Q4W Qty: 1 5RF Referrals: [facility] [place] Women's Services [Provider Group] (Vaginal bleeding for 3 weeks. Uterine fibroids left ovarian cyst.) Stand Alone Forms: Work/School Release Interventions: ED Discharge Assessment Last Done: 03/27/24 01:00 Discharge Date/Time: 03/27/24 01:03 Print Language: Brazilian
[2024-03-26 14:51] LABS: MANUAL DIFF FLAG NO
[2024-03-26 14:55] LABS: Appearance Urine Clear; Color Urine Yellow; Glucose Urine UA Negative (Negative); Leukocyte Esterase Urine Trace (Negative); Nitrite Urine Positive (Negative); Specific Gravity - Urine 1.015 (1.005-1.025); UMIC TRIGGER UACC YES; Urine Blood Large (3+) (Negative); Urine Ketones Negative (Negative); Urine Protein Negative (Neg-Trace)
[2024-03-26 14:56] LABS: Basophils Absolute Auto 0.1 X10*3/uL (0.0-0.2); Basophils Percent Auto 0.8 % (0-2); Eosinophils Absolute Auto 0.1 X10*3/uL (0.0-0.4); Eosinophils Percent Auto 1.8 % (0-4); Hematocrit 32.8 % (37.0-47.0); Hemoglobin 10.6 g/dl (12.0-16.0); Imm Gran Abs Auto 0.03 X10*3/uL (0.00-0.03); Imm Gran Pct Auto 0.5 % (0.0-0.4); Lymphocytes Absolute Auto 0.9 X10*3/uL (1.2-4.9); Lymphocytes Percent Auto 13.9 % (20-40); Mean Corpuscular HGB Conc 32.3 g/dl (31.0-35.0); Mean Corpuscular Hemoglobin 28.6 pg (27.0-33.0); Mean Corpuscular Volume 88.4 fL (80.0-98.0); Mean Platelet Volume 9.4 fL (9.4-12.3); Monocytes Absolute Auto 0.5 X10*3/uL (0.1-1.2); Neutrophils Absolute Auto 4.9 x10*3/uL (2.0-8.3); Platelet Count 284 X10*3/uL (160-400); Red Blood Count 3.71 X10*6/uL (4.20-5.50); Red Cell Distribution Width 21.1 % (11.0-16.0); White Blood Count 6.5 X10*3/uL (4.8-10.8)
[2024-03-26 14:58] LABS: Bacteria Urine 3+ (None Seen); Hyaline Casts Urine 0-2 /LPF (0-2); RBC Urine >20 /HPF (0-2); Squamous Epithelial Cell Urine 0-2 /HPF (0-2); UACC Culture Trigger YES; WBC Urine 0-5 /HPF (0-5)
[2024-03-26 14:58] LABS: UPreg QC Valid YES; Urine Pregnancy NEGATIVE (NEGATIVE)
[2024-03-26 15:05] LABS: INTERNATIONAL NORM RATIO 0.9 (0.9-1.1); Prothrombin Time 10.4 SEC (11.1-13.3)
[2024-03-26 15:07] LABS: Partial Thromboplastin Time 32.3 SEC (26.0-36.8)
[2024-03-26 15:14] LABS: Alanine Aminotransferase 16 U/L (0-31); Alkaline Phosphatase 70 U/L (39-117); Anion Gap 12 (12-20); Aspartate Amino Transferase 15 U/L (5-31); Bilirubin Direct < 0.2 mg/dL (0.0-0.5); Bilirubin Total 0.2 mg/dL (0.0-1.0); Blood Urea Nitrogen 7 mg/dL (9-16); Calcium 9.1 mg/dL (8.4-10.2); Carbon Dioxide 23 mmol/L (22-29); Chloride 106 mmol/L (96-108); Creatinine Clr Calc Pharmacy 91.2; Estimated Glomerular Filt Rate > 60; Glucose Random 110 mg/dL (60-115); HCG Quantitative < 2 mIU/mL; Lipase 28 U/L (8-78); Sodium 137 mmol/L (135-145); Total Protein 7.1 g/dL (6.5-8.0)
[2024-03-26 18:47] VITALS: BP 129/80; PULSE 90; RESP 18; TEMP 36.6; O2SAT 99
[2024-03-26 20:20] VITALS: BP 107/75; PULSE 82; RESP 16; TEMP 36.9; O2SAT 97
--- NOTE | 2024-03-26 21:31 | PC.NURSE ---
Patient denies taking medications on a daily basis.
[2024-03-26 22:52] VITALS: BP 125/81; PULSE 69; RESP 16; TEMP 36.4; O2SAT 99
--- NOTE | 2024-03-27 00:57 | MHC.EDTECH ---
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
[2024-03-27 01:00] VITALS: BP 115/79; PULSE 80; RESP 18; TEMP 37; O2SAT 99
== END 2024-03-27 01:03 | disposition home or self-care (01) ==
PROVIDERS: Physician Assistant Medical; Emergency Provider Internal Medicine; PCP Internal Medicine
DX: D25.9 Leiomyoma of uterus, unspecified (principal); N83.292 Other ovarian cyst, left side; N39.0 Urinary tract infection, site not specified; B96.20 Unspecified Escherichia coli [E. coli] as the cause of diseases classified elsewhere; R10.2 Pelvic and perineal pain; D64.9 Anemia, unspecified; F14.10 Cocaine abuse, uncomplicated; F17.210 Nicotine dependence, cigarettes, uncomplicated; Z79.899 Other long term (current) drug therapy
CPT/HCPCS: 36415; 76830; 76856; 80048; 80076; 81001; 81025; 83690; 84702; 85025; 85610; 85730; 87086; 87088; 87186; 93975; 99284

== ENCOUNTER 2024-05-07 14:03 | Outpatient (AMB) | payer MEDICAID, SELFPAY ==
[2024-05-07 14:10] VITALS: BP 108/66; BMI 27.1
--- NOTE | 2024-05-07 14:10 | MHC.OFFVIS ---
Vital Signs 05/07/24 14:10 Height 5 ft 5 in Weight 163 lb BMI 27.1 BP 108/66 Blood Pressure Location Lt brachial Position Sitting Intake Visit Reasons: menorrhagia w/reg cycle Allergies No Known Allergies [No Known Allergies*] Allergy (Verified 05/07/24 14:10) HPI Comments Details: Presenting referred from [facility] regarding heavy and irregular menstrual cycles associated with blood clots and pelvic cramping. The following workup was done on 03/30: H&H= 10.6/32.8 Co testing was done was negative. Mammogram was BI-RADS 1. Pelvic ultrasound showed the following: Uterus: The uterus is anteverted and anteflexed measuring8.3 x 4.2 x 5.6 cm. The uterus is smooth in contour with heterogeneous echogenicity and has normal myometrial echogenicity. A small 7 mm fundal fibroid is present The double wall endometrial thickness is 3 mm. Nabothian cysts are seen in the cervix. Adnexa: Both ovaries are visualized. There is normal color flow to the adnexa. There is no ovarian torsion. There is no pelvic ascites or fluid collection. Right ovary measures 1.8 x 1.8 x 1.4 cm for a volume of 2.4 mL. 2 paraovarian cysts are present measuring 1.3 and 1.2 cm. Left ovary measures 4.1 x 3.0 x 2.1 cm for a volume of 13.5 mL which includes a complex 3.4 x 1.7 x 2.3 cm cyst. 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 Sexual orientation: Did not discuss Review of Systems Const All systems reviewed & are unremarkable except as noted in HPI and below Card Reports as per HPI Resp Reports as per HPI GI Reports as per HPI and Reports no additional complaints Reports as per HPI Physical Exam Vital Signs: Last Vital Signs BP 108/66 05/07/24 14:10 BMI result Body Mass Index 27.1 Const General: cooperative, healthy appearing and comfortable Chest Chest palpation & inspection: normal inspection of the chest and normal palpation of entire chest wall Breast/axilla inspection: normal inspection of the breasts and normal inspection of the axillae Breast/axilla palpation: normal palpation of the breasts, normal palpation of the axillae and no axillary lymphadenopathy Resp Effort & Inspection: normal respiratory effort Auscultation: clear to auscultation bilaterally Percussion: percussion normal Cardio Palpation: normal PMI Rate: regular rate Rhythm: regular rhythm Heart sounds: no murmurs and no rubs Peripheral pulses: Peripheral pulses 2+ throughout GI Inspection: Yes normal to inspection Palpation (GI): Soft to palpation, nontender, no guarding, not rigid and No hepatosplenomegaly present Percussion: Yes normal to percussion Auscultation: normal bowel sounds Rectal Exam - Female: deferred General: Yes bladder normal to palpation External Female Exam: No lesion Speculum Exam - Vagina: normal appearance of the vagina, normal palpation, normal vaginal discharge and not erythematous Speculum Exam - Cervix: normal appearance of the cervix and normal palpation Bimanual exam- vagina & uterus: normal bimanual exam, normal palpation, uterine size normal, bladder normal to palpation, consistency normal and normal palpation Bimanual Exam- Adnexa, other: normal adnexae, no masses and no tenderness Results AMB Test Urine AMB Test Urine Negative Last Edit by BOB Early on 05/07/24 14:30 AMB Urinalysis, Automated UA Leukoctes 0.5 Jaenlle/uL Last Edit by BOB Early on 05/07/24 14:30 UA Nitrite Negative Last Edit by BOB Early on 05/07/24 14:30 UA Urobilinogen 0 mg/dL Last Edit by Sapna Michaels BOB on 05/07/24 14:30 UA Protein 0 mg/dL Last Edit by Sapna Michaels BOB on 05/07/24 14:30 UA pH 5.5 Last Edit by Sapna Michaels BOB on 05/07/24 14:30 UA Blood 0 Drew/uL Last Edit by Sapna Michaels BOB on 05/07/24 14:30 UA Specific [place] 1.020 Last Edit by Sapna Michaels BOB on 05/07/24 14:30 UA Ketone Negative Last Edit by Sapna Michaels BOB on 05/07/24 14:30 UA Bilirubin 1 mg/dL Last Edit by Sapna Michaels BOB on 05/07/24 14:30 UA Glucose 0 mg/dL Last Edit by Sapna Michaels BOB on 05/07/24 14:30 Assessment & Plan Assessment & Plan (1) Abnormal uterine bleeding (AUB): Code(s): N93.9 - Abnormal uterine and vaginal bleeding, unspecified Category: Medical Plan: Co testing recently done and was negative, GC and chlamydia taken CBC, TSH, prolactin, FSH/LH HCG ordered and pelvic ultrasound was recently done . Discussed with the patient the different causes of abnormal bleeding including thyroid disorders, uterine and ovarian pathology, endometrial hyperplasia, carcinoma and other potential causes. Discussed with the patient the work up including CBC (to r/o anemia), TSH, prolactin, pelvic Ultrasound, endometrial biopsy to r/o endometrial pathology. All questions answered and the patient verbalized understanding. Instructed the patient to schedule an appointment for an endometrial biopsy in 2 weeks. (2) Uterine myoma: Code(s): D25.9 - Leiomyoma of uterus, unspecified Category: Medical Plan: Discussed with the patient the results of the ultrasound and the size of the myomas. Discussed with the patient risk of myosarcoma and symptoms that are caused by myomas including but not limited to pelvic pain, pressure symptoms, abnormal uterine bleeding. In addition discussed with the patient options of treatment for myomas including: Serial ultrasounds periodically to follow-up on the size of the myoma while targeting the treatment against fibroids related symptoms ( control pills, Mirena IUD, progesterone treatment, GnRH agonist/antagonist, uterine artery embolization or endometrial ablation) versus surgical treatment including hysterectomy and or myomectomy. All pros and cons, risks and benefits of all options were discussed with the patient. The patient understands that delay in surgical treatment in case of myosarcoma can affect her prognosis, after further discussion, the patient decided to think about it and get back to us next visit (3) Complex ovarian cyst: Code(s): N83.299 - Other ovarian cyst, unspecified side Category: Medical Plan: Discussed with the patient the complex ovarian cyst by ultrasound. Discussed with the patient the Ultrasound findings, the main limitation of transvaginal ultrasonography alone as a diagnostic tool to distinguish benign from malignant masses relates to its lack of specificity and low positive predictive value for cancer. The differential diagnosis discussed with the patient includes the following but not limited to: benign and malignant gynecological and non-gynecological causes. The patient is scheduled for repeat ultrasound tomorrow. Instructions given the patient to schedule a 2 week follow-up ultrasound appointment. All questions were answered & the patient verbalized understanding and agreed with the plan. Orders: Orders TSH reflex Free T4 Today N93.9 - Abnormal uterine and vaginal bleeding, unspecified Prolactin Today N93.9 - Abnormal uterine and vaginal bleeding, unspecified Lutenizing Hormone Today N93.9 - Abnormal uterine and vaginal bleeding, unspecified AMB HCG Urine Test Today Z32.02 - Encounter for test, result negative HCG Quantitative Today N93.9 - Abnormal uterine and vaginal bleeding, unspecified Complete Blood Count no Diff Today N93.9 - Abnormal uterine and vaginal bleeding, unspecified Follicle Stimulating Hormone Today N93.9 - Abnormal uterine and vaginal bleeding, unspecified AMB Urinalysis Automated Today R10.2 - Pelvic and perineal pain CT NG by PCR Today N93.9 - Abnormal uterine and vaginal bleeding, unspecified Coding Level of Care Code New Pt Level 3 (44428) Diagnoses Abnormal uterine bleeding (AUB) N93.9 Uterine myoma D25.9 Complex ovarian cyst N83.299
== END 2024-05-07 14:38 | disposition home or self-care (01) ==
LOC: HO.HWS 14:03
PROVIDERS: PCP Internal Medicine; Visit Provider Obstetrics & Gynecology
DX: N93.9 Abnormal uterine and vaginal bleeding, unspecified (principal); D25.9 Leiomyoma of uterus, unspecified; N83.299 Other ovarian cyst, unspecified side; Z32.02 Encounter for pregnancy test, result negative; R10.2 Pelvic and perineal pain
CPT/HCPCS: 99203

== ENCOUNTER 2024-05-07 14:03 | Outpatient (REF) | payer MEDICAID, SELFPAY | END 2024-05-07 14:04 | disposition home or self-care (01) | LOC: HO.LNP 14:03 | PROVIDERS: PCP Internal Medicine; Visit Provider Obstetrics & Gynecology | DX: Z32.02 Encounter for pregnancy test, result negative (principal); N93.9 Abnormal uterine and vaginal bleeding, unspecified; D25.9 Leiomyoma of uterus, unspecified; N83.299 Other ovarian cyst, unspecified side | CPT/HCPCS: 81003; 81025; 83001; 83002; 84146; 84443; 84702; 85027; 87491; 87591; 99202 ==

== ENCOUNTER 2024-05-07 14:45 | Outpatient (REF) | payer MEDICAID, SELFPAY ==
[2024-05-07 15:39] LABS: Hematocrit 34.3 % (37.0-47.0); Hemoglobin 10.9 g/dl (12.0-16.0); Mean Corpuscular HGB Conc 31.8 g/dl (31.0-35.0); Mean Corpuscular Hemoglobin 28.3 pg (27.0-33.0); Mean Corpuscular Volume 89.1 fL (80.0-98.0); Mean Platelet Volume 10.1 fL (9.4-12.3); Platelet Count 283 X10*3/uL (160-400); Red Blood Count 3.85 X10*6/uL (4.20-5.50); Red Cell Distribution Width 14.6 % (11.0-16.0)
[2024-05-07 16:31] LABS: HCG Quantitative < 2 mIU/mL; TSH reflex Free T4 1.23 uIU/mL (0.32-4.0)
[2024-05-08 10:34] LABS: Follicle Stimulating Hormone 34.6 mIU/mL; Lutenizing Hormone 65.2 mIU/mL; Prolactin 14.8 ng/mL
[2024-05-08 11:59] LABS: CT PCR NOT DETECTED (Not Detect.); NG PCR NOT DETECTED (Not Detect.)
== END 2024-05-07 14:46 | disposition home or self-care (01) ==
LOC: HO.LAB 14:45
PROVIDERS: PCP Internal Medicine; Visit Provider Obstetrics & Gynecology
DX: N93.9 Abnormal uterine and vaginal bleeding, unspecified (principal)
CPT/HCPCS: 83001; 83002; 84146; 84443; 84702; 85027; 87491; 87591

== ENCOUNTER 2024-05-08 13:55 | Outpatient (REF) | payer MEDICAID, SELFPAY ==
--- NOTE | ~2024-05-08 | US_ITS ---
EXAMINATION: US PELVIS CLINICAL INFORMATION: Left complex ovarian cyst follow-up, menorrhagia LMP: Unsure COMPARISON: Pelvic ultrasound 03/26/2024, CT scan abdomen and pelvis 11/22/2023 TECHNIQUE: Ultrasound of the pelvis is performed using both transabdominal and transvaginal transducers along with Doppler. Transvaginal imaging is performed due to inadequate visualization transabdominally. FINDINGS: Uterus: The uterus is anteverted and measures 8.9 x 4.9 x 6.1 cm. 0.7 x 0.5 x 0.7 cm intramural fibroid in the fundus is without significant interval change. The endometrial thickness is 0.5 cm. The uterus is smooth in contour with heterogeneous echogenicity. Adnexa: Both ovaries are visualized. There is normal color flow to the adnexa. There is no ovarian torsion. There is no pelvic ascites or fluid collection. Right ovary measures 2.2 x 1.5 x 1.2 cm. Volume 2.1 mL. Left ovary measures 3.5 x 2.1 x 2.0 cm. Volume 7.7 mL. Previously noted complex left ovarian cyst is no longer seen on today's study. US/US pelvic and transvaginal IMPRESSION: 1. No significant change in 0.7 cm intramural fibroid in the fundus of the uterus. 2. Normal ovaries.
== END 2024-05-08 13:56 | disposition home or self-care (01) ==
LOC: HO.US 13:55
PROVIDERS: PCP Internal Medicine; Visit Provider Internal Medicine
DX: N92.0 Excessive and frequent menstruation with regular cycle (principal); N83.202 Unspecified ovarian cyst, left side
CPT/HCPCS: 76830; 76856

== ENCOUNTER 2024-05-23 13:29 | Outpatient (AMB) | payer MEDICAID, SELFPAY ==
--- NOTE | 2024-05-23 13:30 | MHC.OFFVIS ---
Vital Signs 05/23/24 13:39 Height 5 ft 5 in Weight 160 lb 14.999 oz BMI 26.8 Intake Visit Reasons: EMB Acoustical Installer Required: Yes Acoustical Installer Language: Fluorescent Solution Mixer Services: Acoustical Installer Present (in person) Acoustical Installer Name: Elysia ROJAS Information Interpreted: non-clinical & clinical Cook Morning: Cook Morning Present (Elysia ROJAS) Accompanied by: Self / Same As Patient Allergies No Known Allergies [No Known Allergies*] Allergy (Verified 05/23/24 13:40) HPI Comments Details: Presenting for EMB [facility] Medical History delivery delivered No known health problems Surgical History H/O: Family History Mother Diabetes Father Heart attack Social History Household Members: Children and None Housing: Apartment Do you presently have visiting nurse or other home services: No Alcohol intake: never Patient Tobacco Use Status: Current everyday Tobacco user Tobacco use type: Cigarette Cigarette Packs Per Day: 0.5 Years Smoked: 20 e-Cigarette/Vaping Use: Never Used Second Hand Smoke Exposure: Yes Substance Use Type: Crack/Cocaine service: No Current occupational status: employed 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 hysteroscopy D&C) & the risks were discussed with the patient including but not limited: pain, uterine perforation, bleeding, infection, possible injury to bladder, bowel, ureter, possible need for blood transfusion with all its possible risks. The patient verbalized understanding all questions answered and signed consent. Urine test done in the office was negative The patient was placed into the dorsal lithotomy position; a speculum was inserted in the vagina. Using aseptic technique for the procedure, the cervix was cleansed with Betadine. The anterior lip of the cervix was grasped with a single tooth tenaculum. The uterus was sounded to 7 cm with a 4 mm Pipelle was used. Tissues samples were obtained and placed in formalin, in a patient labeled container and sent to the pathology department. At the end of the procedure, there was minimal bleeding noted The patient tolerated the procedure well and was discharged in good condition with the following instructions: Nothing in the vagina until the bleeding stops. No sex until the bleeding stops, to call if any of the following occurs: fever (>100.4), flu-like symptoms, abdominal pain, heavy bleeding, four smelling vaginal discharge. The patient was instructed to schedule a Follow up appointment in 2 weeks to discuss pathology results of the biopsy and treatment options. This note was generated with a voice recognition program. Some errors may have been overlooked during the review of this note. Sometimes these errors may affect the content or meaning of a given sentence. [id number] Biopsy Results AMB Test Urine AMB Test Urine Negative Last Edit by Elysia Heller CMA on 05/23/24 13:41 Results Reviewed Results Reviewed: Laboratory Last Values Tst Clinic Negative 05/23/24 13:41 Assessment & Plan Assessment & Plan (1) Abnormal uterine bleeding (AUB): Code(s): N93.9 - Abnormal uterine and vaginal bleeding, unspecified Category: Medical Plan: EMB done, see procedure note Orders: Orders AMB HCG Urine Test Today Z32.02 - Encounter for test, result negative AMB Endometrial Biopsy Today N93.9 - Abnormal uterine and vaginal bleeding, unspecified Coding Level of Care Code Procedure Only Diagnoses Abnormal uterine bleeding (AUB) N93.9 CPT Codes Endometrial Biopsy - CPT: 92287-[id number] Biopsy ([id number])
[2024-05-23 13:39] VITALS: BMI 26.8
== END 2024-05-23 13:53 | disposition home or self-care (01) ==
LOC: HO.HWS 13:29
PROVIDERS: PCP Internal Medicine; Visit Provider Obstetrics & Gynecology
DX: N93.9 Abnormal uterine and vaginal bleeding, unspecified (principal); Z32.02 Encounter for pregnancy test, result negative
CPT/HCPCS: 58100

== ENCOUNTER 2024-05-23 13:29 | Outpatient (REF) | payer MEDICAID, SELFPAY | END 2024-05-23 13:30 | disposition home or self-care (01) | LOC: HO.LNP 13:29 | PROVIDERS: PCP Internal Medicine; Visit Provider Obstetrics & Gynecology | DX: Z32.02 Encounter for pregnancy test, result negative (principal); N93.9 Abnormal uterine and vaginal bleeding, unspecified | CPT/HCPCS: 58100; 81025; 88305 ==

== ENCOUNTER 2024-07-11 17:24 | Outpatient (REF) | payer MEDICAID, SELFPAY ==
[2024-07-12 03:30] LABS: CT PCR NOT DETECTED (Not Detect.); NG PCR NOT DETECTED (Not Detect.)
[2024-07-12 10:48] LABS: Bacterial Vaginosis PCR POSITIVE (Negative); Candida Group PCR NOT DETECTED (Not Detect); Candida glab krusei PCR NOT DETECTED (Not Detect); Trichomonas vaginalis PCR NOT DETECTED (Not Detect)
== END 2024-07-11 17:25 | disposition home or self-care (01) ==
LOC: HO.HHCLNP 17:24
PROVIDERS: Visit Provider Emergency Medicine
DX: Z71.1 Person with feared health complaint in whom no diagnosis is made (principal)
CPT/HCPCS: 0352U; 87491; 87591

== ENCOUNTER 2024-08-27 14:03 | Outpatient (AMB) | payer MEDICAID, SELFPAY ==
[2024-08-27 14:21] VITALS: BMI 26.8
--- NOTE | 2024-08-27 14:21 | A.OFFVIS_ITS ---
Vital Signs 08/27/24 14:21 Height 5 ft 5 in Weight 160 lb 14.999 oz BMI 26.8 Intake Visit Reasons: EMB follow up/DO NOT RS Tier Truck Driver Required: Yes Tier Truck Driver Language: Field Organizer Services: Tier Truck Driver Present (in person) Tier Truck Driver Name: Elysia ROJAS Information Interpreted: non-clinical & clinical Accompanied by: Self / Same As Patient Allergies No Known Allergies [No Known Allergies*] Allergy (Verified 08/27/24 14:22) Is last menstrual period known: Yes Last menstrual period: 08/10/24 HPI Comments Details: The patient is presenting for follow-up to discuss the results of her abnormal uterine bleeding workup and options of treatment. The patient is doing well with no complaints has been having regular menstrual cycles without any passage of blood clots or cramps The following workup was done.: H&H= 10.9/34.3 TSH, prolactin, hCG, GC and chlamydia were negative. FSH/LH 34.6/65.2-in the menopausal range Endometrial biopsy pathology showed the following: Endometrium, biopsy: - Disordered weakly proliferative endometrium; negative for atypia or hyperplasia. - Small fragment of squamous epithelium within normal limits Co testing was done was negative. Mammogram was BI-RADS 1 Pelvic ultrasound done in 05/30 showed the following: IMPRESSION: 1. No significant change in 0.7 cm intramural fibroid in the fundus of the uterus. 2. Normal ovaries. Previous pelvic ultrasound in 03/30 showed the following: IMPRESSION: 1. Small uterine fibroid. 2. Complex left ovarian cyst. Follow-up ultrasound in 6-12 weeks is recommended. [facility] Medical History delivery delivered No known health problems Surgical History H/O: Family History Mother Diabetes Father Heart attack Social History Household Members: Children and None Housing: Apartment Do you presently have visiting nurse or other home services: No Alcohol intake: never Patient Tobacco Use Status: Current everyday Tobacco user Tobacco use type: Cigarette Cigarette Packs Per Day: 0.5 Years Smoked: 20 e-Cigarette/Vaping Use: Never Used Second Hand Smoke Exposure: Yes Substance Use Type: Crack/Cocaine service: No Current occupational status: employed 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 Sexual orientation: Did not discuss Female Reproductive History Menstrual Date of last menstrual period: 08/10/24 Review of Systems Const All systems reviewed & are unremarkable except as noted in HPI and below Reports as per HPI and Reports no additional complaints GI Reports no additional complaints Reports no additional complaints Physical Exam Vital Signs: BMI result Body Mass Index 26.8 Assessment & Plan Assessment & Plan (1) Uterine myoma: Code(s): D25.9 - Leiomyoma of uterus, unspecified Category: Medical Plan: Discussed with the patient the findings on pelvic ultrasound & the risk of myosarcoma; discussed with the patient the options of treatment including expectant management versus hysterectomy; the pros and cons, risks benefits of each approach were discussed with the patient including the fact that in cases of myosarcoma, surgical treatment can lead to early diagnosis and positively affects the prognosis; after further discussion, the patient decided to proceed with expectant management. Will repeat pelvic ultrasound periodically. Instructions given to patient to call in case any of the following occurs: pressure symptoms, abnormal uterine bleeding, pelvic pain; and to schedule a six-months pelvic ultrasound and a follow-up appointment . All questions answered, the patient verbalized understanding and agreed with the plan . (2) Abnormal uterine bleeding (AUB): Comment: elevated FSH/LH Code(s): N93.9 - Abnormal uterine and vaginal bleeding, unspecified Category: Medical Plan: Discussed with the patient the results of the work up done and options of treatment including Lysteda, BCP's, Mirena IUD, endometrial ablation and hysterectomy. All pros, cons, risks and benefits if each option was discussed with the patient and the patient decided to think about it and get back to us. All questions answered the patient verbalized understanding. (3) Complex ovarian cyst: Comment: Resolved Code(s): N83.299 - Other ovarian cyst, unspecified side Category: Medical Plan: Discussed with the patient ultrasound findings showing the previously identified complex cyst has resolved. The patient was instructed to call if symptoms recur. All questions were answered the patient verbalized understanding. Coding Level of Care Code Est Pt Level 3 (00348) Diagnoses Uterine myoma D25.9 Abnormal uterine bleeding (AUB) N93.9 Complex ovarian cyst N83.299
== END 2024-08-27 14:58 | disposition home or self-care (01) ==
PROVIDERS: PCP Internal Medicine; Visit Provider Obstetrics & Gynecology
DX: D25.9 Leiomyoma of uterus, unspecified (principal); N93.9 Abnormal uterine and vaginal bleeding, unspecified; N83.299 Other ovarian cyst, unspecified side
CPT/HCPCS: 99213

== ENCOUNTER → 2024-08-27 14:03 | Outpatient (BNVA) | payer MEDICAID, SELFPAY | PROVIDERS: PCP Internal Medicine; Visit Provider Obstetrics & Gynecology | DX: D25.9 Leiomyoma of uterus, unspecified (principal); N93.9 Abnormal uterine and vaginal bleeding, unspecified; N83.299 Other ovarian cyst, unspecified side | CPT/HCPCS: 99212 ==

== ENCOUNTER 2024-10-02 14:36 | Outpatient (REF) | payer MEDICAID, SELFPAY ==
--- NOTE | ~2024-10-02 | XR_ITS ---
EXAMINATION: XR SHOULDER, RIGHT CLINICAL INFORMATION: Shoulder pain. Fall. COMPARISON: X-ray 03/27/2018 TECHNIQUE: AP external rotation, Grashey, scapular Y, and axillary views of the right shoulder. FINDINGS: No evidence of acute fracture or dislocation. Humeral head articular to the glenoid. Mild acromioclavicular arthritis. No abnormal soft tissue calcification. XR/XR shoulder RT min 2V IMPRESSION: No radiographic evidence of acute fracture. Mild acromioclavicular arthritis. Electronically signed by: Abdoulaye Miranda MD 10/03/2024 03:04 PM KEITH JORDAN
== END 2024-10-02 14:37 | disposition home or self-care (01) ==
LOC: HO.HHCX 14:36
PROVIDERS: Visit Provider Nurse Practitioner
DX: M25.511 Pain in right shoulder (principal)
CPT/HCPCS: 73030

== ENCOUNTER 2024-10-30 01:05 | Emergency (ER) | payer MEDICAID, SELFPAY ==
[2024-10-30 01:07] VITALS: BP 113/65; PULSE 81; RESP 18; TEMP 36.9; O2SAT 98; BMI 25.0
--- NOTE | 2024-10-30 02:24 | ED.EXTPRO ---
HPI - Extremity Problem General Chief complaint: Extremity Problem Stated complaint: Right shoulder pain Time Seen by Provider: 10/30/24 02:05 Source: patient Mode of arrival: ambulatory Limitations: no limitations History of Present Illness ED Provider: Dr. Anali Flynn HPI Narrative: Patient comes to the emergency room complaining of chronic right shoulder pain. Patient states that about a month ago she fell and it has been hurting since then. Patient has been seen by her primary care physician, x-rays have been done, all negative. Patient states that her arm still hurts especially when she has to work and lift heavy boxes. Patient denies any new injuries Related Data Home Medications ?Medication ?Instructions ?Recorded ?Confirmed cetirizine 10 mg tablet 10 mg PO QAM PRN Allergic Symptoms 12/30/23 12/30/23 cyanocobalamin (vitamin B-12) 1,000 mcg PO DAILY 12/30/23 12/30/23 1,000 mcg tablet diclofenac sodium 1 % topical gel 2 g topical PRN pain 12/30/23 12/30/23 diphenhydramine HCl 25 mg capsule 25 - 50 mg PO Q6H PRN itch 12/30/23 12/30/23 docusate sodium 100 mg capsule 100 mg PO BID 12/30/23 12/30/23 ergocalciferol (vitamin D2) 1,250 1,250 mcg PO QWEEK 12/30/23 12/30/23 mcg (50,000 unit) capsule ferrous gluconate 324 mg (38 mg 324 mg PO QAM 12/30/23 12/30/23 iron) tablet ferrous sulfate 325 mg (65 mg 325 mg PO QAM 12/30/23 12/30/23 iron) tablet,delayed release hydrocortisone 2.5 % topical cream 1 appl topical BID 12/30/23 12/30/23 Previous Rx's ?Medication ?Instructions ?Recorded buspirone 10 mg tablet 10 mg PO BID PRN anxiety/seeing 04/29/22 shadows 30 days #60 tabs duloxetine 60 mg capsule,delayed 60 mg PO QAM 30 days #30 caps 04/29/22 release mirtazapine 7.5 mg tablet 7.5 mg PO BEDTIME 30 days #30 tabs 04/29/22 nicotine (polacrilex) 2 mg gum 4 mg buccal Q2H PRN Nicotine 04/29/22 Cravings 30 days #100 ea nicotine 14 mg/24 hr daily 14 mg transdermal DAILY 28 days 04/29/22 transdermal patch #28 ea prazosin 1 mg capsule 1 mg PO BEDTIME 30 days #30 caps 04/29/22 quetiapine 100 mg tablet 100 mg PO BEDTIME 30 days #30 tabs 04/29/22 bdeveehuij-iecdirpzfwemv-jvoouxox 1 cap PO Q4-6H PRN headache #14 08/11/22 50 mg-300 mg-40 mg capsule caps (Fioricet) naproxen 500 mg tablet 500 mg PO BID PRN pain 10 days #20 08/11/22 tabs methocarbamol 500 mg tablet 500 mg PO TID PRN muscle spasm #20 01/13/23 tabs cyclobenzaprine 10 mg tablet 10 mg PO TID PRN muscle spasm #10 10/30/24 tabs Allergies Allergy/AdvReac Type Severity Reaction Status Date / Time No Known Allergies Allergy Verified 10/30/24 01:09 [No Known Allergies*] Review of Systems Review of Systems: Constitutional : No Weight loss, No Fever, No Chills, No Night Sweats, No Fatigue, No Malaise ENT/Mouth : No Hearing loss, No Ear Pain, No Nasal Congestion, No Sinus Pain, No Hoarseness, No sore throat, No Rhinorrhea, No Swallowing Difficulty Eyes: No Eye Pain, No Swelling, No Redness, No Foreign Body, No Discharge, No Vision Changes Cardiovascular : No Chest Pain, No SOB, No Dyspnea on Exertion, No Orthopnea, No Edema, No Palpitations Respiratory : No Cough, No Sputum, No Wheezing, No Smoke Exposure, No Dyspnea Gastrointestinal : No Nausea, No Vomiting, No Diarrhea, No Constipation, No abdominal Pain, No Hematochezia, No Melena Genitourinary : no irregular bleeding, No Dysuria, No Urinary Frequency, No Hematuria, No Urinary Incontinence, No Urgency, No Flank Pain, No Urinary Flow Changes, No Hesitancy Musculoskeletal : Complaining of right shoulder pain, No Myalgias, No Joint Swelling Skin : No Skin Lesions, No rash Neuro : No Weakness, No Numbness, No Paresthesias, No Loss of Consciousness, No Dizziness, No Headache Psych : No Anxiety/Panic, No Depression, No SI/HI/AH/VH, No Social Issues, Heme/Lymph: No Bruising, No Bleeding,No Lymphadenopathy Endocrine : No Polyuria, No Polydipsia, No Temperature Intolerance [facility] Past Medical History Medical History delivery delivered No known health problems Surgical History H/O: Family History Family History Mother Diabetes Father Heart attack Social History Social History Household Members: Children and None Housing: Apartment Do you presently have visiting nurse or other home services: No Alcohol intake: never Patient Tobacco Use Status: Current everyday Tobacco user Tobacco use type: Cigarette Cigarette Packs Per Day: 0.5 Years Smoked: 20 e-Cigarette/Vaping Use: Never Used Second Hand Smoke Exposure: Yes Substance Use Type: Crack/Cocaine Advance Directives: No Advance Directives Information Provided: Yes service: No Current occupational status: employed 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 Oriented X3. No acute distress. Eyes: Pupils equal, round and reactive to light. ENT: Pharynx normal. Neck: Normal inspection. Neck supple. No lymph nodes noted. No crepitus CVS: Normal heart rate and rhythm. Pulses normal. Normal S1 and S2 Respiratory: No respiratory distress. Breath sounds normal. No Wheezing. No rales Abdomen: Soft and nontender. No rigidity. No distention. Skin: Skin warm and dry. Normal skin color. Normal skin turgor. Extremities: No lower extremity edema. No Lacerations. No Rash. Patient able to abduct the arm almost all the way up but hurts doing so especially in the right side. Neuro: Oriented X 3. No motor deficit. No sensory deficit. Moving all extremities. No slurred speech. CN 2 through 12 grossly intact Psych: calm, cooperative, normal affect Medical Decision Making Medical Decision Making MDM Narrative: Patient had an x-ray done on 10/02/2024, no acute abnormalities. I discussed the physical exam with the patient, it is possible that she may have had rotator cuff tear. At this time, all we can offer to the patient is pain relief. However, it is possible that patient may need an MRI, physical therapy Patient agrees with plan, will follow up with PCP. Patient was given a dose of p.o. tramadol. Differential Diagnosis Differential Diagnoses: The differential diagnosis associated with the presentation includes (Rotator cuff tear, tendinitis, dislocation, fracture, contusion) Discharge Plan Discharge Clinical Impression: Arthralgia of shoulder Patient Disposition: Home, Self-Care Instructions: Arthralgia (ED) Additional Instructions: Please follow-up with your primary care physician tomorrow. If you have any worsening or new symptoms, please return to the emergency room or call 911 Prescriptions: New cyclobenzaprine 10 mg tablet 10 mg PO TID PRN (Reason: muscle spasm) Qty: 10 0RF No Action nicotine 14 mg/24 hr Patch 24 Hour 14 mg transdermal DAILY 28 Days Qty: 28 0RF Rx Instructions: remove at bedtime nicotine (polacrilex) 2 mg Gum 4 mg buccal Q2H PRN (Reason: Nicotine Cravings) 30 Days Qty: 100 0RF prazosin 1 mg Capsule 1 mg PO BEDTIME 30 Days Qty: 30 0RF Protocol: Hold for SBP< HOLD for SBP < : 90 buspirone 10 mg Tablet 10 mg PO BID PRN (Reason: anxiety/seeing shadows) 30 Days Qty: 60 0RF mirtazapine 7.5 mg Tablet 7.5 mg PO BEDTIME 30 Days Qty: 30 0RF quetiapine 100 mg tablet 100 mg PO BEDTIME 30 Days Qty: 30 0RF duloxetine 60 mg capsule,delayed release(DR/EC) 60 mg PO QAM 30 Days Qty: 30 0RF methocarbamol 500 mg tablet 500 mg PO TID PRN (Reason: muscle spasm) Qty: 20 0RF naproxen 500 mg tablet 500 mg PO BID PRN (Reason: pain) 10 Days Qty: 20 0RF vroiloaykq-mgcwgfsvyvaua-gxgm [Fioricet] 50-300-40 mg capsule 1 cap PO Q4-6H PRN (Reason: headache) Qty: 14 0RF cetirizine 10 mg tablet 10 mg PO QAM PRN (Reason: Allergic Symptoms) cyanocobalamin (vitamin B-12) 1,000 mcg tablet 1,000 mcg PO DAILY diphenhydramine HCl 25 mg capsule 25 - 50 mg PO Q6H PRN (Reason: itch) docusate sodium 100 mg capsule 100 mg PO BID hydrocortisone 2.5 % cream 1 appl topical BID ergocalciferol (vitamin D2) 1,250 mcg (50,000 unit) capsule 1,250 mcg PO QWEEK ferrous sulfate 325 mg (65 mg iron) tablet,delayed release (DR/EC) 325 mg PO QAM ferrous gluconate 324 mg (38 mg iron) tablet 324 mg PO QAM diclofenac sodium 1 % gel 2 g topical PRN (Reason: pain) Print Language: Mongolian
[2024-10-30] MEDS: traMADoL HCL 50 MG TABLET PO (02:28)
[2024-10-30 02:41] VITALS: BP 113/65; PULSE 81; RESP 18; TEMP 36.9; O2SAT 98
== END 2024-10-30 02:42 | disposition home or self-care (01) ==
PROVIDERS: Emergency Provider Emergency Medicine
DX: M25.511 Pain in right shoulder (principal); F17.210 Nicotine dependence, cigarettes, uncomplicated; Z79.899 Other long term (current) drug therapy
CPT/HCPCS: 99283; 99284

== ENCOUNTER 2025-02-06 12:32 | Outpatient (REF) | payer MEDICAID, SELFPAY ==
--- NOTE | ~2025-02-06 | US_ITS ---
CLINICAL HISTORY: D25.9 - Leiomyoma of uterus, unspecified Transabdominal and transvaginal pelvic ultrasound Bilateral ovarian Doppler studies Comparison: 05/08/2024 Findings: Uterus 9.0 x 4.9 x 6.3 cm. Endometrium 7 mm. 9 mm anterior fibroid. scar near cervix. No significant free fluid. Right ovary 2.2 x 1.3 x 1.3 cm. No focal abnormality. Left ovary 4.9 x 3.6 x 4.1 cm. 3.7 cm cyst with daughter cyst. Smaller septated cyst adjacent to ovary. Arterial and venous color and spectral Doppler assessment of both ovaries. There is normal flow to both ovaries without evidence for ovarian torsion. Impression: Complicated and septated left ovarian cysts as above This document has been electronically signed by: Syed Lira MD on 02/06/2025 19:46:21
--- OUTSIDE RECORDS SUMMARY | 2025-02-06 15:02 | XMS_ITS | Encounter Summary ---
Author Organization [employer] Address [address] [place] [address] Care Team Providers Care Spike Machine Heater Name Role Phone Leonor Ocampo MD Primary Care Provider + Encounter Details Date Type Department Care Team (Latest Contact Info) Description 02/18/2021 Abstract [facility] CONVERSIONS Dental, Provider, DDS Social History Tobacco Use Types Packs/Day Years Used Date Smoking Tobacco: Never Assessed Comments Unknown Sex and Gender Information Value Date Recorded Sex Assigned at Female 09/06/2022 10:32 AM EDT Legal Sex Female 10:32 AM EDT Gender Identity Female 09/06/2022 10:32 AM EDT Sexual Orientation Straight 09/06/2022 10 :32 AM EDT documented as of this encounter Plan of Treatment Not on file documented as of this encounter Visit Diagnoses Not on filedocumented in this encounter Care Teams S[employer] Machine Heater Relationship Specialty Start Date End Date Leonor Ocampo MD [address] [place] [id number] PCP - General Family Medicine 09/27/17 documented as of this encounter
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
--- OUTSIDE RECORDS SUMMARY | 2025-02-06 15:02 | XMS_ITS | Encounter Summary ---
Author Organization [id number] Address [address] [facility] [address] [place] [address] Care Team Providers Care Logistics Intern Name Role Phone Leonor Ocampo MD Primary Care Provider + Reason for Visit * Reason Onset Date Comments Nurse Triage 11/09/2023 Encounter Details Date Type Department Care Team ([facility] Contact Info) Description 11/09/2023 Telephone [facility] MEDICINE [address] [place] [phone] Leonor Ocampo MD [address] [place] [address] Nurse Triage Social History Tobacco Use Types Packs/Day Years Used Date Smoking Tobacco: Some Days Cigarettes Passive Smoke Exposure: Current Smokeless Tobacco: Never Alcohol Use Standard Drinks/Week Comments Yes 0 (1 standard drink = 0.6 oz pur e alcohol) Housing Stability Answer Date Recorded What is your housing situation today? I have idalia gordon 09/04/[address] you li ve. Do you have problems with any of the following? None of the above 09/04/2023 Food Insecurity Answer Date Recorded Within the past 12 months, y ou worried that your food would run out before you got money to buy more: Never True 09/04/2023 Within the past 12 months,th e food you bought just didn't last and you didn't have enough money to get more: Never True Transportation Answer Date Recorded In the past 12 months, has l ack of transportation kept you from medical appts, meetings, work or from getting things needed for daily living? No 09/04/2023 Utilities Answer Date Recorded In the past 12 months, has t he electric, gas, oil or water [employer] threatened to shut off services in your home? No 09/04/2023 Comments Unknown Sex and Gender Information Value Date Recorded Sex Assigned at Female 09/06/2022 10:32 AM EDT Legal Sex Female 10:32 AM EDT Gender Identity Female 09/06/2022 10:32 AM EDT Sexual Orientation Straight 09/06/2022 10 :32 AM EDT documented as of this encounter Miscellaneous Notes * Telephone Encounter - Yesi Baca RN - 11/09/2023 12:14 PM EST Call to Kenyatta Figueredo, reports having rash on back x 1 month. Per pt unsure if having blisters or just red pinpoint dots. Per pt this rash is continuation of contact dermatitis for which was seen at [facility]. Per pt rash on scalp improved but not on back. Using Hydrocortisone and zyrtec with no relief. Does not recall use of any new products recently. Pt advised of disposition, declined visit today or [facility] tomorrow. Prefers booed appt with PCP. Given appt for Tuesday with PCP. Reviewed home care advise and reasons to call back. Protocol Used: Rash or Redness - Localized (Adult) Protocol-Based Disposition: See in Office or Video Visit within 3 Days Future Appointments Date Time Provider Department Center 11/11/2023 1:30 PM Leonor Ocampo MD MEDICINE [facility] Video visit offer not recorded Positive Triage Question: * Localized rash present > 7 days * All higher-acuity triage questions were negative Care Advice Discussed: * Reassurance and Education - Mild Localized Rash * Wash the Area * Cold Pack for Mild Itching or Mild Pain * Hydrocortisone Cream for Itching * Don't Scratch * Reasons To Call Back - Rash spreads or becomes worse - You become worse * Telephone Encounter - Agus Bundy - 11/09/2023 11:40 AM EST Symptom: Rash or Redness -from head to back Outcome: Talk to a nurse or provider within 15 minutes Reason: Large blisters on skin The caller accepted this outcome documented in this encounter Plan of Treatment Not on file documented as of this encounter Visit Diagnoses Not on filedocumented in this encounter Care Teams Logistics Intern Relationship Specialty Start Date End Date Leonor Ocampo MD [address] [place] [id number] PCP - General Family Medicine 09/27/17 documented as of this encounter
== END 2025-02-06 12:33 | disposition home or self-care (01) ==
LOC: HO.US 12:32
PROVIDERS: PCP Internal Medicine; Visit Provider Obstetrics & Gynecology
DX: D25.9 Leiomyoma of uterus, unspecified (principal)
CPT/HCPCS: 76830; 76856

== ENCOUNTER → 2025-02-06 12:35 | Outpatient (BNV) | payer MEDICAID, SELFPAY | PROVIDERS: PCP Internal Medicine; Visit Provider Radiology Diagnostic Radiology | DX: D25.9 Leiomyoma of uterus, unspecified (principal); N83.202 Unspecified ovarian cyst, left side | CPT/HCPCS: 76830; 76856 ==

== ENCOUNTER 2025-02-21 15:38 | Outpatient (REF) | payer MEDICAID, SELFPAY | END 2025-02-21 15:39 | disposition home or self-care (01) | LOC: HO.LNP 15:38 | PROVIDERS: PCP Internal Medicine; Visit Provider Obstetrics & Gynecology | DX: D25.9 Leiomyoma of uterus, unspecified (principal); N93.9 Abnormal uterine and vaginal bleeding, unspecified; N83.299 Other ovarian cyst, unspecified side; R93.89 Abnormal findings on diagnostic imaging of other specified body structures | CPT/HCPCS: 58100; 88305; 99212 ==

== ENCOUNTER 2025-02-21 15:38 | Outpatient (AMB) | payer MEDICAID, SELFPAY ==
[2025-02-21 15:44] VITALS: BMI 23.6
--- NOTE | 2025-02-21 15:44 | MHC.OFFVIS ---
Vital Signs 02/21/25 15:44 Height 5 ft 5 in Weight 142 lb BMI 23.6 Intake Visit Reasons: US follow up Licensed Dispensing Optician Required: Yes Licensed Dispensing Optician Language: Cyber Threat Analyst Services: Licensed Dispensing Optician Present (in person) Licensed Dispensing Optician Name: Elysia ROJAS Information Interpreted: non-clinical & clinical Accompanied by: Grand Child Allergies No Known Allergies [No Known Allergies*] Allergy (Verified 02/21/25 15:47) HPI Comments Details: Presenting for ultrasound follow-up which showed the following: Uterus 9.0 x 4.9 x 6.3 cm. Endometrium 7 mm. 9 mm anterior fibroid. scar near cervix. No significant free fluid. Right ovary 2.2 x 1.3 x 1.3 cm. No focal abnormality. Left ovary 4.9 x 3.6 x 4.1 cm. 3.7 cm cyst with daughter cyst. Smaller septated cyst adjacent to ovary. Arterial and venous color and spectral Doppler assessment of both ovaries. There is normal flow to both ovaries without evidence for ovarian torsion. Impression: Complicated and septated left ovarian cysts as above [facility] Medical History delivery delivered No known health problems Surgical History H/O: Family History Mother Diabetes Father Heart attack Social History Household Members: Children and None Housing: Apartment Do you presently have visiting nurse or other home services: No Alcohol intake: current Alcohol intake frequency: a few times a month Alcohol type: beer Patient Tobacco Use Status: Current everyday Tobacco user Tobacco use type: Cigarette Cigarette Packs Per Day: 0.5 Years Smoked: 20 e-Cigarette/Vaping Use: Never Used Second Hand Smoke Exposure: Yes Substance Use Type: Crack/Cocaine service: No Current occupational status: employed Current occupation: [employer] Sexual orientation: Did not discuss Review of Systems Const All systems reviewed & are unremarkable except as noted in HPI and below Reports as per HPI and Reports no additional complaints GI Reports no additional complaints Reports no additional complaints Physical Exam Vital Signs: BMI result Body Mass Index 23.6 Office Procedures Endometrial Biopsy Details: The patient was counseled regarding the indication and benefits of endometrial sampling to rule out endometrial pathology including not limited to endometrial hyperplasia or endometrial cancer and others; The alternatives (Either do nothing vs. hysteroscopy D&C) & the risks were discussed with the patient including but not limited: pain, uterine perforation, bleeding, infection, possible injury to bladder, bowel, ureter, possible need for blood transfusion with all its possible risks. The patient verbalized understanding all questions answered and signed consent. The patient was placed into the dorsal lithotomy position; a speculum was inserted in the vagina. Using aseptic technique for the procedure, the cervix was cleansed with Betadine. The anterior lip of the cervix was grasped with a single tooth tenaculum. The uterus was sounded to 7 cm with a 4 mm Pipelle was used. Tissues samples were obtained and placed in formalin, in a patient labeled container and sent to the pathology department. At the end of the procedure, there was minimal bleeding noted The patient tolerated the procedure well and was discharged in good condition with the following instructions: Nothing in the vagina until the bleeding stops. No sex until the bleeding stops, to call if any of the following occurs: fever (>100.4), flu-like symptoms, abdominal pain, heavy bleeding, four smelling vaginal discharge. The patient was instructed to schedule a Follow up appointment in 2 weeks to discuss pathology results of the biopsy and treatment options. This note was generated with a voice recognition program. Some errors may have been overlooked during the review of this note. Sometimes these errors may affect the content or meaning of a given sentence. [id number] Biopsy Assessment & Plan Assessment & Plan (1) Uterine myoma: Code(s): D25.9 - Leiomyoma of uterus, unspecified Category: Medical Plan: Discussed with the patient the findings on pelvic ultrasound & the risk of myosarcoma; in addition reviewed with the patient that malignancy and pre malignancy cannot be ruled out without hysterectomy for pathological evaluation ; furthermore, explained to the patient the limitation of pelvic ultrasound and endometrial biopsy in the setting. Discussed with the patient the options of treatment including expectant management versus hysterectomy; the pros and cons, risks benefits of each approach were discussed with the patient including the fact that in cases of myosarcoma, surgical treatment can lead to early diagnosis and positively affects the prognosis; after further discussion, the patient decided to proceed with expectant management. Will repeat pelvic ultrasound periodically. Instructions given to patient to call in case any of the following occurs: pressure symptoms, abnormal uterine bleeding, pelvic pain; and to schedule a 12 months pelvic ultrasound (order placed) and a follow-up appointment . All questions answered, the patient verbalized understanding and agreed with the plan . (2) Complex ovarian cyst: Code(s): N83.299 - Other ovarian cyst, unspecified side Category: Medical Plan: Discussed with the patient the complex ovarian cyst by ultrasound. Discussed with the patient the Ultrasound findings, the main limitation of transvaginal ultrasonography alone as a diagnostic tool to distinguish benign from malignant masses relates to its lack of specificity and low positive predictive value for cancer. The differential diagnosis discussed with the patient includes the following but not limited to: benign and malignant gynecological and non-gynecological causes. Laboratory evaluation include UPT and GC/CT , serum tumor marker CA 125 . Discussed with the patient that CA 125 is a protein associated with epithelial ovarian malignancies, but also frequently expressed at lower levels by nonmalignant tissue. Elevation of CA 125 levels may occur in nonmalignant gynecologic conditions, and in non-gynecologic cancers, It is most useful in postmenopausal women and in identifying non mucinous epithelial cancer. The CA 125 level is elevated in 80% of patients with epithelial ovarian cancer but in only 50% of patients with stage I disease. The overall sensitivity of CA 125 testing in distinguishing benign from malignant adnexal masses reportedly ranges from 61% to 90%; discussed with the patient the specificity, positive predictive value and negative predictive value. Discussed with the patient options of treatment , in case CA 125 is not elevated, including laparoscopy ovarian cystectomy/oophorectomy vs. expectant management with repeat US in repeating pelvic US in 6-12 weeks from previous US. If the ovarian complex cyst is persistent larger and / or more complex looking, or higher CA 125 will refer to gynecologic Oncology. All pros, cons, risks and benefits of each approach were discussed with the patient including but not limited to a delay in the diagnosis and treatment of ovarian cancer affecting the prognosis; The patient decided to go ahead with expectant management. Instructions given the patient to schedule a 3 months follow-up ultrasound appointment. All questions were answered & the patient verbalized understanding and agreed with the plan. (3) Thickened endometrium: Code(s): R93.89 - Abnormal findings on diagnostic imaging of other specified body structures Category: Medical Plan: Discussed with the patient endometrial thickness above 4 mm in menopause , the differential diagnosis of a thickened endometrium includes but not limited to endometrial polyp, hyperplasia or carcinoma. Explained to the patient that endometrial each thickness is less predictive of endometrial neoplasia in asymptomatic patients, i.e. those without postmenopausal uterine bleeding. The sensitivity and specificity for detecting endometrial carcinoma at an endometrial thickness of >= 5mm was 83 and 72 percent, respectively; this is lower than in patients with bleeding. Studies have shown that postmenopausal patients without uterine bleeding who had an endometrial thickness >11 mm had an endometrial carcinoma risk of 6.7 percent; this risk is similar to postmenopausal patients with bleeding and an endometrial thickness >5 mm. Recommended endometrial sampling to rule endometrial pathology via either office endometrial biopsy or diagnostic hysteroscopy/D&C with possible polypectomy/myomectomy. All pros and cons, risks and benefits of each approach were discussed with the patient, the patient decided to proceed with endometrial biopsy. EMB done, see procedure note Instructions given the patient to schedule an EMB follow-up appointment within 2 weeks. All questions answered, the patient verbalized Orders: Orders CA-125 Today N83.299 - Other ovarian cyst, unspecified side US pelvic and transvaginal 2 Months N83.299 - Other ovarian cyst, unspecified side US pelvic and transvaginal 12 Months D25.9 - Leiomyoma of uterus, unspecified AMB Endometrial Biopsy Today R93.89 - Abnormal findings on diagnostic imaging of other specified body structures Coding Level of Care Code Est Pt Level 4 (00690) Procedure Only Diagnoses Uterine myoma D25.9 Complex ovarian cyst N83.299 Thickened endometrium R93.89 CPT Codes Endometrial Biopsy - CPT: 02911-Bqigqpodbdk Biopsy ([id number])
--- OUTSIDE RECORDS SUMMARY | 2025-02-21 18:08 | XMS_ITS | Clinical Summary ---
Author Organization [employer] Address [address] [facility] 7t [place] [address] Care Team Providers Care Evp Global Product Leadership Name Role Phone Leonor Ocampo MD Primary [...] day at bedtime 08/10/20 22 Active Multiple Vitamins-Artifacts Conservator als (CertaVite/Ant ioxidants) tablet TAKE 1 TABLET BY MOUTH EVERY DAY 90 tablet 3 05/25/20 23 Active hydrocortisone 2.5 % cream Apply topically 2 times daily. 30 g 1 09/21/20 23 Active cyclobenzaprin e (Flexeril) 10 MG tablet Take 1 tablet (10 mg) by mouth at bedtime for 10 days. 15 tablet 03/22/20 24 Active fluticasone (Flonase) 50 MCG/ACT nasal [...] 25 Active ergocalciferol (Vitamin D2) 1.25 MG (28598 UT) capsule TAKE 1 CAPSULE BY MOUTH EVERY WEEK. 12 capsule 3 01/17/20 25 Active ferrous gluconate (Fergon) 324 (38 Fe) MG tablet TAKE 1 TABLET BY MOUTH DAILY WITH BREAKFAST 28 tablet 3 02/15/20 25 Active cyanocobalamin (Vitamin B-12) 1000 MCG tablet TAKE 1 TABLET BY MOUTH DAILY 90 tablet 1 02/15/20 25 Active cyanocobalamin (Vitamin B-12) 1000 MCG tablet TAKE 1 TABLET BY MOUTH DAILY 90 tablet 1 08/28/20 24 025 Discontinued ferrous gluconate (Fergon) 324 (38 Fe) MG tablet TAKE 1 TABLET BY MOUTH DAILY WITH BREAKFAST 90 tablet 1 08/28/20 24 025 Discontinued Active Problems Problem Noted [...] probably triggered by UTI Will refer to [employer], hemoglobin is stable Fu w/ me in [...] 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 Will call [facility] Pt feels safe at home and [...] Encounters Date Type Department Care Team Description 02/13/2025 Refill [facility] [address] [place] [address] Leonor Ocampo MD 02/06/2025 Orders Only [facility] External Provider, [facility] 01/18/2025 Population Health Risk Score [facility] Department [address] [phone] Provider, Population Health Generic 01/15/2025 Refill [facility] [address] [place] [address] Leonor Ocampo MD 12/19/2024 Refill [facility] [address] [place] [address] Leonor Ocampo MD Alcohol use 12/13/2024 9:15 AM EST Office Visit [facility] [address] [place] [address] Leonor Ocampo MD Visit for preventive health examination (Primary Dx); Cigarette nicotine dependence without complication; Right shoulder tendinitis 12/13/2024 Travel 12/12/2024 Telephone [facility] [address] [place] [phone] Rhonda Salinas MA Chart prep 12/03/2024 Patient Outreach [facility] [address] [place] [address] Leonor Ocampo MD Care Coordination (CHW outreach for SDOH food needs-referral completed /) 12/03/2024 Patient Outreach [facility] [address] [place] [address] Leonor Ocampo MD Pre-visit Planning (SDOH screening positive and tobacco screening positive) from Last 3 Months Immunizations Name Administration Dates Next Due Hep B, adult 08/21/2019,06/22/2019,04/12/2019 Influenza injectable quadriv alent IIV4 with preservative 08/04/2018,09/27/2017 Influenza injectable quadriv alent preservative free 11/11/2023,08/24/2022,08/03/2021,08/05 [place] SARS-CoV-2 Vaccination 01/21/2021 Pfizer Covid-19 Vaccine 12+ [...] is your housing situation today? I have idaliajeannie gordon 09/04/[address] you [...] the past 12 months, has t he [employer] gas, oil or water company threatened to [...] - PCV) 08/05/2019 08/05/2018, 08/04/2018 COVID-19 Vaccine ( season) 2024 01/31/2023, 10/06/2021, 01/21/2021 Influenza Vaccine [...] Procedure Name Priority Date/Time Associated Diagnosis Comments US PELVIS TRANSVAGINAL Routine 7:46 PM EDT POCT HEMOGLOBIN Routine 12/13/2024 2:46 PM EST [...] Recently Relevant to Health Maintenance Results * US Pelvis Transvaginal (02/06/2025 7:46 PM EDT) Anatomical Region Laterality Modality Pelvis Ultrasound 02/06/2025 7:46 PM EDT Narrative 02/06/2025 7:48 PM EDT ? [facility] ?[address] ?[place] [address] ? Ultrasound Report ? Signed ? Patient: Bustos Figueredo,Kenyatta ?MR#: M ?? [id number] ? : 1975 ?Acct:[id number] ? Age/Sex: 49 / F ?ADM Date: 04/02/25 ? Loc: HO.US ? Attending Dr: James Foss MD ? Ordering Physician: James Foss MD ?? Date of Service: 02/06/25 ?? Procedure(s): US pelvic and transvaginal ?? Accession Number(s): [id number] ? cc: Leonor Ocampo MD; James Foss MD ? CLINICAL HISTORY: D25.9 - Leiomyoma of uterus, unspecified ? Transabdominal and transvaginal pelvic ultrasound ? Bilateral ovarian Doppler studies ? Comparison: 05/08/2024 ? Findings: ? Uterus 9.0 x 4.9 x 6.3 cm. Endometrium 7 mm. ?? 9 mm anterior fibroid. scar near cervix. ?? No significant free fluid. ? Right ovary 2.2 x 1.3 x 1.3 cm. No focal abnormality. ?? Left ovary 4.9 x 3.6 x 4.1 cm. 3.7 cm cyst with daughter cyst. ?? Smaller septated cyst adjacent to ovary. ? Arterial and venous color and spectral Doppler assessment of both ovaries. ?? There is normal flow to both ovaries without evidence for ovarian torsion. ? Impression: ? Complicated and septated left ovarian cysts as above ? This document has been electronically signed by: Syed Lira MD on ?? 02/06/2025 19:46:21 ? Dictated By: ?Syed Lira MD ? Signed By: ?<Electronically signed by Syed Lira MD in OV> ? 02/06/251946 ? DD/ 45 ? TD/TT: 02/06/251945 ? Hybrid Corn Breeder: ? Procedure Note Coreen, Image - 02/06/2025 [place] [address] Ultrasound Report Signed Patient: Suzanna BrownR#: M [id number] : 1975Acct:[id number] Age/Sex: 49 / FADM Date: 02/06/25 Loc: HO.US Attending Dr: James Foss MD Ordering Physician: James Foss MD Date of Service: 02/06/25 Procedure(s): US pelvic and transvaginal Accession Number(s): [id number] cc: Leonor Ocampo MD; James Foss MD CLINICAL HISTORY: D25.9 - Leiomyoma of uterus, unspecified Transabdominal and transvaginal pelvic ultrasound Bilateral ovarian Doppler studies Comparison: 05/08/2024 Findings: Uterus 9.0 x 4.9 x 6.3 cm. Endometrium 7 mm. 9 mm anterior fibroid. scar near cervix. No significant free fluid. Right ovary 2.2 x 1.3 x 1.3 cm. No focal abnormality. Left ovary 4.9 x 3.6 x 4.1 cm. 3.7 cm cyst with daughter cyst. Smaller septated cyst adjacent to ovary. Arterial and venous color and spectral Doppler assessment of both ovaries. There is normal flow to both ovaries without evidence for ovarian torsion. Impression: Complicated and septated left ovarian cysts as above This document has been electronically signed by: Syed Lira MD on 02/06/2025 19:46:21 Dictated By: Syed Lira MD Signed By: <Electronically signed by Syed Lira MD in OV> 02/06/251946 DD/ 45 TD/TT: 02/06/251945 Hybrid Corn Breeder: [facility] External Provider IMG US PROCEDURES Final Result * POCT Hemoglobin (12/13/2024 2:46 PM EST) Hemoglobin 13.1 12.0 - 15.0 QC Media Lot # [id number] Lot# Expiration Date ,026 Blood 12/13/2024 2:46 PM EST Leonor Ocampo MD POINT OF CARE TEST ENTER /EDIT ORDERABLES Final Result * BI Mammogram Screening Tomosynthesis Bilateral (03/15/2024 3:30 PM EDT) Anatomical Region Laterality Modality Breast Bilateral Mammography 03/15/2024 3:30 PM EDT Narrative 04/13/2024 9:24 AM EDT ? [facility] ? [address] ?[place] [address] ? Mammography Report ? Signed ? Patient: Bustos Figueredo,Kenyatta ?MR#: M ?? [id number] ? : 1975 ?Acct:[id number] ? Age/Sex: 48 / F ?ADM Date: 05/09/24 ? Loc: HO.MAMMO ? Attending Dr: Leonor Ocampo MD ? Ordering Physician: Leonor Ocampo MD ?Results: 1Ne ?? gative ? Date of Service: 03/15/24 ?Follow Up: 1 Year From Orig ?? inal Mammogram ? Procedure(s): MM tomosynthesis screening BI ?? Accession Number(s): [id number] ? cc: Leonor Ocampo MD ? EXAMINATION: [...] 0920 ? DD/ 1530 ? TD/TT: ? Hybrid Corn Breeder: ? Procedure Note Dononeilter, Image - 04/13/2024 [facility] [address] [place] [address] Mammography Report Signed Patient: Keyonna BrownsMR#: M [id number] : 1975Acct:[id number] Age/Sex: 48 / FADM Date: 03/15/24 Loc: HO.MAMMO Attending Dr: Leonor Ocampo MD Ordering Physician: Leonor Ocampo MDResults: 1Ne gative Date of Service: 03/15/24Follow Up: 1 Year From Orig inal Mammogram Procedure(s): MM tomosynthesis screening BI Accession Number(s): [id number] cc: Leonor Ocampo MD EXAMINATION: MM SCREENING [...] in OV> 04/13/24 0920 DD/ 1530 TD/TT: Hybrid Corn Breeder: Leonor Ocampo MD IMG BI PROCEDURES Edited Result - Final * HPV mRNA E6/E7 w/Reflex to HPV Genotypes 16, 18/45 (01/10/2024 11:40 AM EST) HPV nRNA E6/E7 Not Detected Not Detected [facility] Comment:Methodology: Transcr iption-Mediated AmplificationThis assay detects E6/E7 viral messenger RNA (mRNA) from 14high-risk HPV types (16,18,31,33,35,39,45,51,52,56,58,59,66,68).Cervical sources are required for HPV testing.If a vaginal source from a patient who has had atotal hysterectomy with removal of cervix wassubmitted, please contact the testing laboratoryfor alternative testing options.For additional information, please refer tohttp://[email or web address]/faq/YZG990b7(This link if provided for information/educational purposes only.)THIS TEST WAS PERFORMED AT:[facility] [place] [phone] STEEL MD HPV mRNA E6/E7 [facility] HPV 16 RNA [facility] HPV 18/45 RNA [facility] 01/10/2024 11:4 0 AM EST 01/11/2024 12:30 PM EST Leonor Ocampo MD LAB CYTOLOGY ORDERABLES Final Result [facility] [address] [place] [phone] * Pap Smear (01/10/2024 11:40 AM EST) 01/10/2024 11:4 0 AM EST 01/11/2024 12:30 PM EST Narrative [facility] - 01/23/2024 7:07 AM EDT ----- ------- Name: Kenyatta Brown ?Age/Sex: 48/F ? : 1975 Unit#: [id number] ?? Attend Dr: Leonor Ocampo MD ?Re01/10/24 ?Status: DEP REF ? Location: HO.HHCLNP ? Disch: ? ----- ------- SPEC : [id number] ? RECD: 01/11/24-0 ? STATUS: ??SOUT ? REQ NUM: [id number] ? JUMANA: 01/10/24-1140 ? SUBM DR: Leonor [...] 66, 68) ?? HPV testing performed by [facility], [place], [place]. ??See reference laboratory ?? portion of the EMR for entire report. ?Clinical Information LMP: Unknown date Previous PAP test: 3 yrs ago, Unknown findings ? Material Received ?? ThinPrep-Cervical ----- ------- Signed (signature on file) ALEE Suero (ASCP) 01/23/24 0707 ? ----- ------- ? END OF REPORT ? Leonor Ocampo MD LAB CYTOLOGY ORDERABLES Final Result Performing Organization Address [facility] Co de Phone Number [facility] [address] [place] [address] [phone] * Hepatitis Panel, General (11/29/2023 1:08 PM EST) Hepatitis A IgM Nonreactive Nonreactive [facility] Comment:IgM antibodies to ALVARADO V not detected; does not exclude earlyacute or recovered HAV infection. ~Hepatitis B Surface Antibody REACTIVE Nonreactive [facility] Comment:REACTIVE: > 11.99 mI U/mL Hepatitis B Core Antibody Nonreactive Nonreactive [facility] Hepatitis C Antibody Nonreactive Nonreactive [facility] Comment:Antibodies to HCV no t detected; does not exclude early acuteHCV infection. Hepatitis B Surface Ag Negative Negative [facility] Blood 11/29/2023 1:08 PM EST 11/29/2023 3:57 PM EST us Leonor Ocampo MD LAB BLOOD ORDERABLES Fin al Result Performing Organization Address [facility]/ZIP Co de Phone Number [facility] [address] [place] [address] [phone] * HIV-1/2 Antigen and Antibodies, Fourth Generation, with Reflexes (11/29/2023 1:08 PM EST) HIV AB/AG Nonreactive Nonreactive [facility] Comment:HIV-1 p24 Ag and/or HIV-1/HIV-2 Ab not detected.A test result that is nonreactive does not exclude thepossibility of exposure to or infection with HIV-1 and/orHIV-2. Nonreactive results in this assay for individualswith prior exposure to HIV-1 and/or HIV-2 may be due toantigen and antibody levels that are below the limit ofdetection of this assay.[employer] HIV Ag/Ab Combo assay result andsupplemental assay results should be interpreted inconjunction with the patient's clinical presentation,history and other laboratory results. If the results areinconsistent with clinical evidence, additional testing issuggested to confirm the result. Blood Venous blood specimen / Unknown 11/29/2023 1:08 PM EST 11/29/2023 3:57 PM EST us Leonor Ocampo MD LAB BLOOD ORDERABLES Fin al Result [facility] [address] [place] [phone] from Last 3 Months or Most Recently Relevant to Health Maintenance Insurance [facility] C3 HSN FULL * Guarantor: Kenyatta Gonzalez Account Type Relation to Patient Date of Phone Billing Address Personal/Family Self [address] Care Teams Evp Global Product Leadership Relationship Specialty Start Date End Date Leonor Ocampo MD [address] [place] [phone] PCP - General Family Medicine 09/27/17
--- OUTSIDE RECORDS SUMMARY | 2025-02-21 18:08 | XMS_ITS | Encounter Summary ---
Author Organization [employer] Address [address] [facility] 7t [place] [address] Care Team Providers Care Staff Trainer Name Role Phone Leonor Ocampo MD Primary Care Provider + Reason for Visit * Reason Onset Date Comments Nurse Triage 11/09/2023 Encounter Details Date Type Department Care Team ([facility] Contact Info) Description 11/09/2023 Telephone [facility] [address] [place] [address] Leonor Ocampo MD [address] [place] [address] Nurse Triage Social History Tobacco Use Types [...] t he electric, gas, oil or water [employer] threatened to shut off services in your [...] contact dermatitis for which was seen at [facility]. Per pt rash on scalp improved but not on back. Using Hydrocortisone and zyrtec with no relief. Does not recall use of any new products recently. Pt advised of disposition, declined visit today or [facility] tomorrow. Prefers booed appt with PCP. Given appt for Tuesday with PCP. Reviewed home care advise and reasons to call back. Protocol Used: Rash or Redness - Localized (Adult) Protocol-Based Disposition: See in Office or Video Visit within 3 Days Future Appointments Date Time Provider Department Center 11/11/2023 1:30 PM Leonor Ocampo MD MEDICINE [facility] Video visit offer not recorded [...] on filedocumented in this encounter Care Teams Staff Trainer Relationship Specialty Start Date End Date Leonor Ocampo MD [address] [place] [phone] PCP - General Family Medicine 09/27/17 documented as of this encounter
--- OUTSIDE RECORDS SUMMARY | 2025-02-21 18:08 | XMS_ITS | Encounter Summary ---
Author Organization [employer] Address [address] [facility] 7t [place] [address] Care Team Providers Care Information Technology Account Manager Name Role Phone Leonor Ocampo MD Primary Care Provider + Encounter Details Date Type Department Care Team (Latest Contact Info) Description 02/18/2021 Abstract [facility] CONVERSIONS Dental, Provider, DDS Social History Tobacco [...] on filedocumented in this encounter Care Teams Information Technology Account Manager Relationship Specialty Start Date End Date Leonor Ocampo MD [address] [place] [phone] PCP - General Family Medicine 09/27/17 documented as of this encounter
== END 2025-02-21 16:14 | disposition home or self-care (01) ==
LOC: HO.HWS 15:38
PROVIDERS: PCP Internal Medicine; Visit Provider Obstetrics & Gynecology
DX: D25.9 Leiomyoma of uterus, unspecified (principal); N83.292 Other ovarian cyst, left side; R93.89 Abnormal findings on diagnostic imaging of other specified body structures
CPT/HCPCS: 58100; 99214

== ENCOUNTER 2025-02-21 16:18 | Outpatient (REF) | payer MEDICAID, SELFPAY ==
[2025-02-22 08:59] LABS: CA-125 6 U/mL (<35)
== END 2025-02-21 16:19 | disposition home or self-care (01) ==
LOC: HO.LAB 16:18
PROVIDERS: PCP Internal Medicine; Visit Provider Obstetrics & Gynecology
DX: N83.299 Other ovarian cyst, unspecified side (principal)
CPT/HCPCS: 36415; 86304

== ENCOUNTER 2025-03-18 20:00 | Emergency (ER) | payer OTHER, SELFPAY ==
--- NOTE | ~2025-03-18 | XR_ITS ---
CLINICAL HISTORY: pain Lumbar spine three views Comparison: 12/07/2023 Findings: No acute fracture or dislocation. Posterior alignment is normal. Mild upper lumbar degenerative change. No radiopaque foreign bodies. Impression: No acute processes This document has been electronically signed by: Syed Lira MD on 03/18/2025 20:54:49
--- NOTE | ~2025-03-18 | XR_ITS ---
CLINICAL HISTORY: pain Right shoulder 4 views Comparison: None Findings: No acute fracture or dislocation identified. No acute focal bony abnormality. No radiopaque foreign body noted. Impression: No acute bony abnormality This document has been electronically signed by: Syed Lira MD on 03/18/2025 20:58:44
[2025-03-18 20:06] VITALS: BP 106/66; PULSE 84; RESP 18; TEMP 36.3; O2SAT 97; BMI 24.0
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
[2025-03-18 20:52] VITALS: BP 106/63; PULSE 81; RESP 16; TEMP 36.9; O2SAT 99
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
--- NOTE | 2025-03-18 23:26 | PC.NURSE ---
Reviewed discharge instruction with pt . pt verbalized understanding,. no sign distress
[2025-03-18 23:28] VITALS: BP 106/63; PULSE 81; RESP 16; TEMP 36.9; O2SAT 99
== END 2025-03-18 23:50 | disposition home or self-care (01) ==
PROVIDERS: Emergency Provider Emergency Medicine; PCP Internal Medicine
DX: S39.012A Strain of muscle, fascia and tendon of lower back, initial encounter (principal); S46.911A Strain of unspecified muscle, fascia and tendon at shoulder and upper arm level, right arm, initial encounter; V43.52XA Car driver injured in collision with other type car in traffic accident, initial encounter; F17.210 Nicotine dependence, cigarettes, uncomplicated; Y93.89 Activity, other specified; Y92.410 Unspecified street and highway as the place of occurrence of the external cause; Y99.9 Unspecified external cause status; Z79.899 Other long term (current) drug therapy
CPT/HCPCS: 72100; 73030; 99283; 99284

== ENCOUNTER → 2025-03-18 20:09 | Outpatient (BNV) | payer SELFPAY | PROVIDERS: PCP Internal Medicine; Visit Provider Radiology Diagnostic Radiology | DX: M54.50 Low back pain, unspecified (principal); M25.511 Pain in right shoulder | CPT/HCPCS: 72100; 73030 ==

== ENCOUNTER 2025-03-20 11:58 | Outpatient (REF) | payer OTHER, SELFPAY ==
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
--- OUTSIDE RECORDS SUMMARY | 2025-03-20 12:41 | XMS_ITS | Encounter Summary ---
Author Organization [employer] Address [address] [facility] 7[address] [place] [address] Care Team Providers Care Wool Fleece Grader Name Role Phone Leonor Ocampo MD Primary Care Provider + Encounter Details Date Type Department Care Team (Latest Contact Info) Description 03/20/2025 Travel Social History Tobacco Use Types Packs/Day Years [...] as of this encounter Plan of Treatment Upcoming Encounters Date Type Department Care Team (Late st Contact Info) Description 07/01/2025 2:00 PM EDT Office Visit [facility] [address] [place], [place] [phone] Leonor Ocampo MD [address] [place] [address] documented as of this encounter Visit Diagnoses Not on filedocumented in this encounter Care Teams Wool Fleece Grader Relationship Specialty Start Date End Date Leonor Ocampo MD [address] [place] [address] [phone] PCP - General Family Medicine 09/27/17 documented as of this encounter
--- OUTSIDE RECORDS SUMMARY | 2025-03-20 12:41 | XMS_ITS | Encounter Summary ---
Author Organization [employer] Address [address] [facility] [address] 7[address] [place] [address] Care Team Providers Care Greenskeeper Laborer Name Role Phone Leonor Oacmpo MD Primary Care Provider + Encounter Details Date Type Department Care Team ([facility] st Contact Info) Description 03/20/2025 10:00 AM EDT Office Visit [facility] [address] [place] [address] Neck and shoulder pain (Primary Dx); Right anterior shoulder pain Social History Tobacco Use Types Packs/Day Years [...] AM EDT documented as of this encounter Last Filed Vital Signs Vital Sign Reading Time Taken Comments Blood Pressure 103/57 03/20/2025 10:10 AM EDT Pulse 82 03/20/2025 10:10 AM EDT Temperature 36.7 ??C (98 ??F) 03/20/2025 10:10 AM EDT Respiratory Rate 20 03/20/2025 10:10 AM EDT Oxygen Saturation 98% 03/20/2025 10:10 AM EDT Inhaled Oxygen Concentration - - Weight 66.7 kg (147 lb) 03/20/2025 10:10 AM EDT Height 165.1 cm (5' 5 ) 03/20/2025 10:10 AM EDT Body Mass Index 24.46 03/20/2025 10:10 AM EDT documented in this encounter Plan of Treatment Upcoming Encounters Date Type Department Care Team (Late st Contact Info) Description 07/01/2025 2:00 PM EDT Office Visit [facility] [address] [place] [phone] Leonor Ocampo MD [address] [place] [phone] Scheduled Orders Name Type Priority Associated Diagnoses Orde r Schedule XR Cervical Spine 2-3 Views Imaging Routine Neck and shoulder pain Expected: 03/20/2025, Expires: 03/20/2026 documented as of this encounter Visit Diagnoses Diagnosis Neck and shoulder pain- Primary Right anterior shoulder pain documented in this encounter Care Teams Greenskeeper Laborer Relationship Specialty Start Date End Date Leonor Ocampo MD [address] [place] [phone] PCP - General Family Medicine 09/27/17 documented as of this encounter
--- OUTSIDE RECORDS SUMMARY | 2025-03-20 12:41 | XMS_ITS | Encounter Summary ---
Author Organization [employer] Address [address] [facility] [address] [facility] [address] [place] [address] Care Team Providers Care Water Treatment Specialist Name Role Phone Leonor Ocampo MD Primary Care Provider + Encounter Details Date Type Department Care Team ([facility] Contact Info) Description 03/18/2025 Orders Only [facility] External Provider, [facility] Social History Tobacco Use Types Packs/Day Years [...] Description 07/01/2025 2:00 PM EDT Office Visit [facility] [address] [facility] [place] [address] Leonor Ocampo MD [address] [place] [address] documented as of this encounter Procedures Procedure Name Priority Date/Time Associated Diagnosis Comments XR SHOULDER 2+ VIEWS RIGHT Routine 03/18/2025 8:58 PM EDT XR LUMBAR SPINE 2-3 VIEWS Routine 03/18/2025 8:54 PM EDT documented in this encounter Results * XR Shoulder 2+ Views Right (03/18/2025 8:58 PM EDT) Anatomical Region Laterality Modality Upper Extremities, Shoulder Right Radi ographic Imaging 03/18/2025 8:58 PM EDT Narrative 03/18/2025 8:59 PM EDT ? [facility] ?[address] ?[place] [address] ?XRay Report ? Signed ? Patient: Bustos Figueredo,Kenyatta ?MR#: M ?? [id number] ? : 1975 ?Acct:[id number] ? Age/Sex: 49 / F ?ADM Date: 05/12/25 ? Loc: HO.ED ? Attending Dr: ? Ordering Physician: Rolan Sofia ?? Date of Service: 03/18/25 ?? Procedure(s): XR shoulder RT min 2V ?? Accession Number(s): [id number] ? cc: Leonor Ocampo MD; Rolan Sofia ? CLINICAL HISTORY: pain ? Right shoulder 4 views ? Comparison: None ? Findings: ? No acute fracture or dislocation identified. ?? No acute focal bony abnormality. ?? No radiopaque foreign body noted. ? Impression: ? No acute bony abnormality ? This document has been electronically signed by: Syed Lira MD on ?? 03/18/2025 20:58:44 ? Dictated By: ?Syed Lira MD ? Signed By: ?<Electronically signed by Syed Lira MD in OV> ? 03/18/252058 ? DD/ 57 ? TD/TT: 03/18/252057 ? Office Analyst: ? Procedure Note Donotsangitainterpreter, Image - 03/18/2025 [place] [address] XRay Report Signed Patient: Ernesto Brown#: M [id number] : 1975Acct:[id number] Age/Sex: 49 / FADM Date: 03/18/25 Loc: HO.ED Attending Dr: Ordering Physician: Rolan Sofia Date of Service: 03/18/25 Procedure(s): XR shoulder RT min 2V Accession Number(s): [id number] cc: Leonor Ocampo MD; Rolan Sofia CLINICAL HISTORY: pain Right shoulder 4 views Comparison: None Findings: No acute fracture or dislocation identified. No acute focal bony abnormality. No radiopaque foreign body noted. Impression: No acute bony abnormality This document has been electronically signed by: Syed Lira MD on 03/18/2025 20:58:44 Dictated By: Syed Lira MD Signed By: <Electronically signed by Syed Lira MD in OV> 03/18/252058 DD/ 57 TD/TT: 03/18/252057 Office Analyst: [facility] External Provider IMG XR PROCEDURES Edited Result - Final * XR Lumbar Spine 2-3 Views (03/18/2025 8:54 PM EDT) Anatomical Region Laterality Modality Spine, L-spine Radiographic Bernadine ging 03/18/2025 8:54 PM EDT Narrative 03/18/2025 8:56 PM EDT ? [facility] ?[address] ?[place] [address] ?XRay Report ? Signed ? Patient: Bustos Figueredo,Kenyatta ?MR#: M ?? [id number] ? : 1975 ?Acct:[id number] ? Age/Sex: 49 / F ?ADM Date: 03/18/25 ? Loc: HO.ED ? Attending Dr: ? Ordering Physician: Rolan Sofia ?? Date of Service: 03/18/25 ?? Procedure(s): XR lumbar spine 2-3V ?? Accession Number(s): [id number] ? cc: Leonor Ocampo MD; Rolan Sofia ? CLINICAL HISTORY: pain ? Lumbar spine three views ? Comparison: 12/07/2023 ? Findings: ? No acute fracture or dislocation. ?? Posterior alignment is normal. ?? Mild upper lumbar degenerative change. ?? No radiopaque foreign bodies. ? Impression: ? No acute processes ? This document has been electronically signed by: Syed Lira MD on ?? 03/18/2025 20:54:49 ? Dictated By: ?Syed Lira MD ? Signed By: ?<Electronically signed by Syed Lira MD in OV> ? 03/18/252054 ? DD/ 53 ? TD/TT: 03/18/252053 ? Office Analyst: ? Procedure Note Croeen, Image - 03/18/[address] [address] XRay Report Signed Patient: Keyonna BrownsMR#: M [id number] : 1975Acct:[id number] Age/Sex: 49 / FADM Date: 03/18/25 Loc: HO.ED Attending Dr: Ordering Physician: Rolan Sofia Date of Service: 03/18/25 Procedure(s): XR lumbar spine 2-3V Accession Number(s): [id number] cc: Leonor Ocampo MD; Rolan Sofia CLINICAL HISTORY: pain Lumbar spine three views Comparison: 12/07/2023 Findings: No acute fracture or dislocation. Posterior alignment is normal. Mild upper lumbar degenerative change. No radiopaque foreign bodies. Impression: No acute processes This document has been electronically signed by: Syed Lira MD on 03/18/2025 20:54:49 Dictated By: Syed Lira MD Signed By: <Electronically signed by Syed Lira MD in OV> 03/18/252054 DD/ 53 TD/TT: 03/18/252053 Office Analyst: [facility] External Provider IMG XR PROCEDURES Edited Result - Final documented in this encounter Visit Diagnoses Not on filedocumented in this encounter Care Teams Water Treatment Specialist Relationship Specialty Start Date End Date Leonor Ocampo MD [address] [place] [phone] PCP - General Family Medicine 09/27/17 documented as of this encounter
--- OUTSIDE RECORDS SUMMARY | 2025-03-20 12:41 | XMS_ITS | Encounter Summary ---
Author Organization [employer] Address [address] [place] [address] 7t [place] [address] Care Team Providers Care Curve Cleaner Name Role Phone Leonor Ocampo MD Primary Care Provider + Encounter Details Date Type Department Care Team (Latest Contact Info) Description 02/18/2021 Abstract [facility] CONVERSIONS Dental, Provider, DDS Social History [...] Description 07/01/2025 2:00 PM EDT Office Visit [facility] [address] [place] [address] Leonor Ocampo MD [address] [place] [address] documented as of this encounter Visit Diagnoses Not on filedocumented in this encounter Care Teams Curve Cleaner Relationship Specialty Start Date End Date Leonor Ocampo MD [address] [place] [address] PCP - General Family Medicine 09/27/17 documented as of this encounter
--- OUTSIDE RECORDS SUMMARY | 2025-03-20 12:41 | XMS_ITS | Encounter Summary ---
Author Organization [employer] Address [address] [facility] [address] [place] [address] Care Team Providers Care Multicultural Services Librarian Name Role Phone Leonor Ocampo MD Primary Care Provider + Reason for Visit * Reason Onset Date Comments Referral 03/18/2025 Encounter Details Date Type Department Care Team ([facility] Contact Info) Description 03/18/2025 Telephone [facility] [address] [place], [place] [phone] Leonor Ocampo MD [address] [place] [address] Referral Social History Tobacco Use Types Packs/Day Years [...] encounter Miscellaneous Notes * Telephone Encounter - Alek Lester - 03/18/2025 4:42 PM EDT Outgoing call to ask pt if she has a primary insurance to add to her chart. Pt did not answer and fd could not inform pt do to VM not being set up. PCP is trying to generate a referral but can not since pt only has partial hsn. documented in this encounter Plan of Treatment Upcoming Encounters Date Type Department Care Team (Late st Contact Info) Description 07/01/2025 2:00 PM EDT Office Visit [facility]INE [address] [place] [phone] Leonor Ocampo MD [address] [place] [address] documented as of this encounter Visit Diagnoses Not on filedocumented in this encounter Care Teams Multicultural Services Librarian Relationship Specialty Start Date End Date Leonor Ocampo MD [address] [place] [phone] PCP - General Family Medicine 09/27/17 documented as of this encounter
--- OUTSIDE RECORDS SUMMARY | 2025-03-20 12:41 | XMS_ITS | Encounter Summary ---
Author Organization [employer] Address [address] [address] [facility] [address] [place] [address] Care Team Providers Care Test Bore Helper Name Role Phone Leonor Ocampo MD Primary Care Provider + Encounter Details Date Type Department Care Team ([facility] st Contact Info) Description 03/09/2025 Orders Only [facility] [address] [place], [place] [phone] ProviderJodie MD Social History Tobacco Use Types Packs/Day Years [...] Description 07/01/2025 2:00 PM EDT Office Visit [facility] [address] [place] [address] Leonor Ocampo MD [address] [place] [address] documented as of this encounter Procedures Procedure Name Priority Date/Time Associated Diagnosis Comments HM COLONOSCOPY Routine 01/17/2020 4:20 PM EDT documented in this encounter Results * Hm Colonoscopy (01/17/2020 4:20 PM EDT) Colonoscopy Normal Normal Narrative Layla Poon - 01/17/2020 4:20 PM EDT Recommended 10 year follow up ( notes scanned in media intern) us Historical Provider HEALTH MAINTENANCE Edited Result - Final documented in this encounter Visit Diagnoses Not on filedocumented in this encounter Care Teams Test Bore Helper Relationship Specialty Start Date End Date Leonor Ocampo MD [address] [place] [phone] PCP - General Family Medicine 09/27/17 documented as of this encounter
--- OUTSIDE RECORDS SUMMARY | 2025-03-20 12:41 | XMS_ITS | Encounter Summary ---
Author Organization [email or web address] Address [address] [facility] 7t [place] [address] Care Team Providers Care Dental Hygienist Name Role Phone Leonor Ocampo MD Primary Care Provider + Reason for Visit * Reason Onset Date Comments Nurse Triage 11/09/2023 Encounter Details Date Type Department Care Team ([facility] Contact Info) Description 11/09/2023 Telephone [facility] [address] [place], [place] [phone] Leonor Ocampo MD [address] [place] [address] Nurse Triage Social History Tobacco Use Types [...] t he electric, gas, oil or water [employer] threatened to shut off services in your [...] 11/09/2023 12:14 PM EST Call to Kenyatta Kenan Figueredo, reports having rash on back x 1 month. Per pt unsure if having blisters or just red pinpoint dots. Per pt this rash is continuation of contact dermatitis for which was seen at [facility]. Per pt rash on scalp improved but not on back. Using Hydrocortisone and zyrtec with no relief. Does not recall use of any new products recently. Pt advised of disposition, declined visit today or [facility] tomorrow. Prefers booed appt with PCP. Given appt for Tuesday with PCP. Reviewed home care advise and reasons to call back. Protocol Used: Rash or Redness - Localized (Adult) Protocol-Based Disposition: See in Office or Video Visit within 3 Days Future Appointments Date Time Provider Department Center 11/11/2023 1:30 PM Leonor Ocampo MD MEDICINE [facility] Video visit offer not recorded Positive Triage [...] Description 07/01/2025 2:00 PM EDT Office Visit [facility] [address] [place] [address] Leonor Ocampo MD [address] [place] [address] documented as of this encounter Visit Diagnoses Not on filedocumented in this encounter Care Teams Dental Hygienist Relationship Specialty Start Date End Date Leonor Ocampo MD [address] [place], [place] [phone] PCP - General Family Medicine 09/27/17 documented as of this encounter
--- OUTSIDE RECORDS SUMMARY | 2025-03-20 12:41 | XMS_ITS | Clinical Summary ---
Author Organization [employer] Address [address] [place] [address] 7t [place] [address] Care Team Providers Care Cup Machine Operator Name Role Phone Leonor Ocampo MD Primary [...] day at bedtime 08/10/20 22 Active Multiple Vitamins-Raub als (CertaVite/Ant ioxidants) tablet TAKE 1 TABLET [...] replace cap. 16 g 2 09/25/20 24 2024 Active lidocaine (Lidoderm) 5 % patchIndicatio ns:Right anterior shoulder pain Apply 1 patch topically Once per day. Remove & discard patch within 12 hours or as directed by MD. 30 patch 11 10/02/20 24 Active thiamine (Vitamin B-1) 100 MG tabletIndicati ons:Alcohol use TAKE 1 TABLET BY MOUTH DAILY 90 tablet 3 12/19/19 25 Active ergocalciferol (Vitamin D2) 1.25 MG (74326 UT) capsule TAKE 1 CAPSULE BY MOUTH EVERY WEEK. 12 capsule 3 01/17/20 25 Active ferrous gluconate (Fergon) 324 (38 Fe) MG tablet TAKE 1 TABLET BY MOUTH DAILY WITH BREAKFAST 28 tablet 3 02/15/20 25 Active cyanocobalamin (Vitamin B-12) 1000 MCG tablet TAKE 1 TABLET BY MOUTH DAILY 90 tablet 1 02/15/20 25 Active meloxicam (Mobic) 7.5 MG tabletIndicati ons:Chronic right shoulder pain,History of endometrial biopsy Take 1-2 tablets (7.5-15 mg) by mouth Once per day. 60 tablet 2 03/05/20 25 2025 Active acetaminophen (Acetaminophen 8 Hour) 650 MG ER tabletIndicati ons:Right anterior shoulder pain Take 1 tablet (650 mg) by mouth every 8 (eight) hours if needed (pain or fever). Do not crush, chew, or split. 100 tablet 3 03/20/20 25 2025 Active baclofen (Lioresal) 10 MG tablet Take 1 tablet (10 mg) by mouth if needed in the morning, at noon, and at bedtime for muscle spasms. 60 tablet 1 03/20/20 25 2024 Active Diclofenac Sodium 1 % gel Apply 2 g topically if needed in the morning, at noon, in the evening, and at bedtime (pain). 150 g 3 03/20/20 25 Active naproxen (Naprosyn) 500 MG tablet Take 1 tablet (500 mg) by mouth if needed in the morning and at bedtime for mild pain. 40 tablet 1 03/20/20 25 2025 Active methylPREDNISo lone (Medrol Dospak) 4 MG tablets Follow schedule on package instructions 21 tablet 05/14/2024 Active gabapentin (Neurontin) 100 MG capsule Take 3 capsules (300 mg) by mouth at bedtime. 30 capsule 11 03/20/20 25 2025 Active acetaminophen (Acetaminophen 8 Hour) 650 MG ER tabletIndicati ons:Right anterior shoulder pain Take 1 tablet (650 mg) by mouth every 8 (eight) hours if needed (pain or fever). Do not crush, chew, or split. 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 Will call [place] [facility] Pt feels safe at home and [...] Encounters Date Type Department Care Team Description 03/20/2025 10:00 AM EDT Office Visit [facility] [address] [place] [phone] Neck and shoulder pain (Primary Dx); Right anterior shoulder pain 03/20/2025 Travel 03/18/2025 Orders Only [facility] External Provider, [facility] 03/18/2025 Telephone [facility] [address] [place], [place] [phone] Leonor Ocampo MD Referral 03/12/2025 Telephone [facility] [address] [place] [phone] Leonor Ocampo MD [place] recall 03/09/2025 Orders Only [facility] [address] [place] [address] Provider, MD Jodie 03/05/2025 2:00 PM EDT [facility] [address] [address] 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 Rivera, 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 Chronic right shoulder pain (Primary Dx); History of endometrial biopsy 02/21/2025 Orders Only GENERIC EXTERNAL DATA DEPARTMENT Provider, Generic External Data 02/13/2025 Refill [facility] [address] [place] [phone] Leonor Ocampo MD 02/06/2025 Orders Only [facility] External Provider, [facility] 01/18/2025 Population Health Risk Score [facility] Department [address] [phone] Provider, Population Health Generic 01/15/2025 Refill [facility] [address] [place] [phone] Leonor Ocampo MD from Last 3 Months Immunizations Immunization Administration Dates Next Due Hep B, adult [...] your housing situation today? I have idalia heidi 09/04/[address] you li [...] Mass Index 24.46 03/20/2025 10:10 AM EDT Plan of Treatment Upcoming Encounters Date Type Department Care Team (Late st Contact Info) Description 07/01/2025 2:00 PM EDT Office Visit [facility] [address] [place] [address] Leonor Ocampo MD [address] [place] [address] Health Maintenance Due Date Last Done Comments CT Colonography 1975 Dental Oral Exam 1975 Dental Prophylaxis [...] 01/31/2023, 10/06/2021, 01/21/2021 Influenza Vaccine (#1) 2024 4, 08/24/2022, 08/03/2021, Additional history exists Depression Screening 12/23/2024 12/23/2023, 12/23/19 24 SDOH Screening 12/03/2025 12/03/2024 Family Planning (PISQ) 12/13/2025 12/13/2024 Tobacco Screening 12/13/2025 12/13/2024 Mammogram 03/15/2026 03/15/2024, 07/06/2018 Zoster Vaccines (1 of 2) 2027 Cervical Cancer Screening 01/09/2029 HPV/Cotest 01/09/2029 01/10/2024, 02/21/2019 Pap Smear 01/09/2029 01/10/2024 DTaP/Tdap/Td Vaccines (2 - Td or Tdap) 04/12/2029 04/12/2019, 03/27/2018 Colonoscopy 01/16/2030 01/17/2020 Colorectal Cancer Screening 01/16/2030 RSV Patients and Patients Aged 60 years [...] patient's age to complete this topic Meningococcal B Vaccine Aged Out No l onger eligible based on patient's age to complete [...] 2-3 VIEWS Routine 03/18/2025 8:54 PM EDT CA 125 Routine 02/21/2025 4:38 PM EDT HEMATOXYLIN AND EOSIN STAIN Routine 02/21/2025 4:14 PM EDT US PELVIS TRANSVAGINAL Routine 7:46 PM EDT BI MAMMOGRAM SCREENING TOMOSYNTHESIS BILATERAL Routine 03/15/2024 [...] deficiency anemia due to chronic blood loss HM COLONOSCOPY Routine 01/17/2020 4:20 PM EDT from Last 3 Months or Most Recently Relevant to Health Maintenance Results * XR Shoulder 2+ Views Right (03/18/2025 8:58 PM EDT) Anatomical Region Laterality Modality Upper Extremities, Shoulder Right Radi ographic Imaging 03/18/2025 8:58 PM EDT Narrative 03/18/2025 8:59 PM EDT ? [facility] ?[address] ?[place] [address] ?XRay Report ? Signed ? Patient: Bustos Figueredo,Kenyatta ?MR#: M ?? [id number] ? : 1975 ?Acct:[id number] ? Age/Sex: 49 / F ?ADM Date: 05/12/25 ? Loc: HO.ED ? Attending Dr: ? Ordering Physician: Rolan Sofia ?? Date of Service: 03/18/25 ?? Procedure(s): XR shoulder RT min 2V ?? Accession Number(s): [id number] ? cc: Leonor Ocampo MD; Rolan Sofia [...] ? DD/ 57 ? TD/TT: 03/18/252057 ? Rubber Tubing Splicer: ? Procedure Note Nancy Angela - 03/18/[address] [address] XRay Report Signed Patient: Suzanna BrownR#: M [id number] : 1975Acct:[id number] Age/Sex: 49 / FADM Date: 03/18/25 Loc: HO.ED Attending Dr: Ordering Physician: Rolan Sofia Date of Service: 03/18/25 Procedure(s): XR shoulder RT min 2V Accession Number(s): [id number] cc: Leonor Ocampo MD; Rolan Sofia CLINICAL [...] in OV> 03/18/252058 DD/ 57 TD/TT: 03/18/252057 Rubber Tubing Splicer: us [facility] External Provider IMG XR PROCEDURES Edited Result - Final * XR Lumbar Spine 2-3 Views (03/18/2025 8:54 PM EDT) Anatomical Region Laterality Modality Spine, L-spine Radiographic Bernadine ging 03/18/2025 8:54 PM EDT Narrative 03/18/2025 8:56 PM EDT ? [facility] ?[address] ?[place], [place] [address] ?XRay Report ? Signed ? Patient: Kenyatta Brown ?MR#: M ?? [id number] ? : 1975 ?Acct:[id number] ? Age/Sex: 49 / F ?ADM Date: 03/18/25 ? Loc: HO.ED ? Attending Dr: ? Ordering Physician: Rolan Sofia ?? Date of Service: 03/18/25 ?? Procedure(s): XR lumbar spine 2-3V ?? Accession Number(s): [id number] ? cc: Leonor Ocampo MD; Rolan Sofia [...] ? DD/ 53 ? TD/TT: 03/18/252053 ? Rubber Tubing Splicer: ? Procedure Note Nancy Angela - 03/18/[address] [address] XRay Report Signed Patient: Bustos FigueredoKeyonna pererasMR#: M [id number] : 1975Acct:[id number] Age/Sex: 49 / FADM Date: 03/18/25 Loc: HO.ED Attending Dr: Ordering Physician: Rolan Sofia Date of Service: 03/18/25 Procedure(s): XR lumbar spine 2-3V Accession Number(s): [id number] cc: Leonor Ocampo MD; Rolan Sofia CLINICAL [...] in OV> 03/18/252054 DD/ 53 TD/TT: 03/18/252053 Rubber Tubing Splicer: [facility] External Provider IMG XR PROCEDURES Edited Result - Final * CA 125 (02/21/2025 4:38 PM EDT) CA 125 6 <35 U/mL [facility] Comment:This test was perfor med using the SiemensChemiluminescent method. Values obtained fromdifferent assay methods cannot be usedinterchangeably. CA 125 levels, regardless ofvalue, should not be interpreted as absoluteevidence of the presence or absence of disease.THIS TEST WAS PERFORMED AT:[facility] [address] [phone] STEEL MD 02/21/2025 4:38 PM EDT 02/21/2025 4:39 PM EDT Generic External Data Provider LAB BLOOD ORDERAB LES Final Result [facility] [address] [place] [phone] * Hematoxylin and Eosin Stain (02/21/2025 4:14 PM EDT) 02/21/2025 4:14 PM EDT 02/22/2025 8:20 AM EDT [facility] - 02/26/2025 3:47 PM EDT ----- ------- Name: Kenyatta Brown ?Age/Sex: 49/F ? : 1975 Unit#: [id number] ?? Attend Dr: James Foss MD ?Re02/21/25 ?Status: DEP REF ? Location: HO.LNP ?Disch: ? ----- ------- SPEC : [id number] ? RECD: 02/22/25-819 ? STATUS: ??SOUT ? REQ NUM: [id number] ? JUMANA: 02/21/25-161 ? SUBM DR: James Foss MD ? ENTERED: ??02/22/25 ?SP TYPE: Surgical ? OTHR DR: Leonor Ocampo MD ? ORDERED: ??HE Stain/2, Gross Micro L4 ? Diagnosis ?? Endometrium, biopsy: ??Secretory endometrium; few superficial fragments of endocervical ?? and squamous epithelium within normal limits; no atypia or hyperplasia identified. ?Clinical History AUB ?Microscopic Description Microscopic sections reviewed. ? Material Received ?? EMB ? Gross Description Received in formalin labeled ?EMB? are fragments of pink-rodriguez soft tissue mixed with mucus and clotted blood forming an aggregate measuring 2.4 x 2.2 x 0.3 cm which is wrapped in lens paper and entirely submitted for microscopic examination, multiple pieces in cassette A. ([facility]) Copies To: ?? Leonor Ocampo MD ?? [facility] ?? [address] [facility] ?? [place] [address] ?? [phone] ?? James Foss MD ?? [facility] ?? [address] [place] [address] [address] ?? [place] [address] ?? [phone] ----- ------- Signed (signature on file) Stephen Yee MD 02/26/25 0387 ? ----- ------- ? END OF REPORT ? us Generic External Data Provider LAB BLOOD ORDERAB LES Final Result [facility] [address] [place] [phone] * US Pelvis Transvaginal (02/06/2025 7:46 PM EDT) Anatomical Region Laterality Modality Pelvis Ultrasound 02/06/2025 7:46 PM EDT Narrative 02/06/2025 7:48 PM EDT ? [facility] ?[address] [place] [address] ?[place] [address] ? Ultrasound Report ? Signed ? Patient: Kenyatta Brown ?MR#: M ?? [id number] ? : 1975 ?Acct:[id number] ? Age/Sex: 49 / F ?ADM Date: 02/06/25 ? Loc: HO.US ? Attending Dr: James Foss MD ? Ordering Physician: James Foss MD ?? Date of Service: 02/06/25 ?? Procedure(s): US pelvic and transvaginal ?? Accession Number(s): [id number] ? cc: Leonor Ocampo MD; James Foss [...] ? DD/ 45 ? TD/TT: 02/06/251945 ? Rubber Tubing Splicer: ? Procedure Note [place], Image - 02/06/2025 [place] [address] Ultrasound Report Signed Patient: Ernesto Brown#: M [id number] : 1975Acct:[id number] Age/Sex: 49 / FADM Date: 02/06/25 Loc: HO.US Attending Dr: James Foss MD Ordering Physician: James Foss MD Date of Service: 02/06/25 Procedure(s): US pelvic and transvaginal Accession Number(s): [id number] cc: Leonor Oacmpo MD; James Foss MD CLINICAL HISTORY: D25.9 [...] in OV> 02/06/251946 DD/ 45 TD/TT: 02/06/251945 Rubber Tubing Splicer: [facility] External Provider IMG US PROCEDURES Final Result * BI Mammogram Screening Tomosynthesis Bilateral (03/15/2024 3:30 PM EDT) Anatomical Region Laterality Modality Breast Bilateral Mammography 03/15/2024 3:30 PM EDT Narrative 04/13/2024 9:24 AM EDT ? [facility] [place] ? [address] ?[place] [address] ? Mammography Report ? Signed ? Patient: Bustos Figueredo,Kenyatta ?MR#: M ?? [id number] ? : 1975 ?Acct:[id number] ? Age/Sex: 48 / F ?ADM Date: 03/15/24 ? Loc: HO.MAMMO ? Attending Dr: Leonor Ocampo MD ? Ordering Physician: Leonor Ocampo MD ?Results: 1Ne ?? gative ? Date of Service: 03/15/24 ?Follow Up: 1 Year From Orig ?? inal Mammogram ? Procedure(s): MM tomosynthesis screening BI ?? Accession Number(s): [id number] ? cc: Leonor Ocampo MD ? EXAMINATION: [...] for their next mammogram. ? Dictated By: ?Moskos,Sue MD ? Signed By: ?<Electronically signed by Sue Davey MD in OV> ? 04/13/24 0920 ? DD/ ? TD/TT: ? Rubber Tubing Splicer: ? Procedure Note Nancy Angela - 04/13/2024 [facility] [address] [place] [address] [place] [address] Mammography Report Signed Patient: BrownPingarilysMR#: M [id number] : 1975Acct:[id number] Age/Sex: 48 / FADM Date: 03/15/24 Loc: HO.MAMMO Attending Dr: Leonor Ocampo MD Ordering Physician: Leonor Ocampo MDResults: 1Ne gative Date of Service: 03/15/24Follow Up: 1 Year From [facility] ina Mammogram Procedure(s): MM tomosynthesis screening BI Accession Number(s): [id number] cc: Leonor Ocampo MD EXAMINATION: MM SCREENING [...] in OV> 04/13/24 0920 DD/ 1530 TD/TT: Rubber Tubing Splicer: Leonor Ocampo MD [facility] BI PROCEDURES Edited Result - Final * HPV mRNA E6/E7 w/Reflex to HPV Genotypes 16, 18/45 (01/10/2024 11:40 AM EST) HPV nRNA E6/E7 Not Detected Not Detected [facility] Comment:Methodology: Transcr iption-Mediated AmplificationThis assay detects E6/E7 viral messenger RNA (mRNA) from 14high-risk HPV types (16,18,31,33,35,39,45,51,52,56,58,59,66,68).Cervical sources are required for HPV testing.If a vaginal source from a patient who has had atotal hysterectomy with removal of cervix wassubmitted, please contact the testing laboratoryfor alternative testing options.For additional information, please refer tohttp://education.[employer]/faq/OJM552q6(This link if provided for information/educational purposes only.)THIS TEST WAS PERFORMED AT:[facility] [address] [address]EWDLCPAUL STEEL MD HPV mRNA E6/E7 TNP [facility] HPV 16 RNA TNP [facility] HPV 18/45 RNA [facility] 01/10/2024 11:4 0 AM EST 01/11/2024 12:30 PM EST Leonor Ocampo MD LAB CYTOLOGY ORDERABLES Final Result Performing Organization Address City/State/[facility] Co de Phone Number [facility] [address] [place] [phone] * Pap Smear (01/10/2024 11:40 AM EST) 01/10/2024 11:4 0 AM EST 01/11/2024 12:30 PM EST Narrative [facility] - 01/23/2024 7:07 AM EDT ----- ------- Name: Kenyatta Brown ?Age/Sex: 48/F ? : 1975 Unit#: [id number] ?? Attend Dr: Leonor Ocampo MD ?Re01/10/24 ?Status: DEP REF ? Location: [facility] ? Disch: ? ----- ------- SPEC : [id number] ? RECD: 01/11/24-0 ? STATUS: ??SOUT ? REQ NUM: [id number] ? JUMANA: 01/10/24 ? SUBM DR: Leonor Ocampo MD ? ENTERED: ??01/11/24 ?SP TYPE: Pap Smr ?OTHR DR: ? ORDERED: ??Pap Smear ? Interpretation ?? Satisfactory for evaluation. ?? Fungal organisms consistent with Shahida species. ?? Negative for intraepithelial lesion or malignancy. ?HPV mRNA E6/E7: ?NOT DETECTED ? This assay detects E6/E7 viral messenger RNA (mRNA) from 14 high-risk HPV types (16, 18, ?? 31, 33, 35, 39, 45, 51, 52, 56, 58, 59, 66, 68) ?? HPV testing performed by [facility], [place], [place]. ??See reference laboratory ?? portion of the EMR for entire report. ?Clinical Information LMP: Unknown date Previous PAP test: 3 yrs ago, Unknown findings ? Material Received ?? ThinPrep-Cervical ----- ------- Signed (signature on file) ALEE Suero (ASCP) 01/23/24706 ? ----- ------- ? END OF REPORT ? us Leonor Ocampo MD LAB CYTOLOGY ORDERABLES Final Result [facility] [address] [place] [address] [phone] * Hepatitis Panel, General (11/29/2023 1:08 PM EST) Hepatitis A IgM Nonreactive Nonreactive [facility] Comment:IgM antibodies to ALVARADO V not detected; does not exclude earlyacute or recovered HAV infection. ~Hepatitis B Surface Antibody REACTIVE Nonreactive [facility] Comment:REACTIVE: > 11.99 m IU/mL Hepatitis B Core Antibody Nonreactive Nonreactive [facility] Hepatitis C Antibody Nonreactive Nonreactive [facility] Comment:Antibodies to HCV no t detected; does not exclude early acuteHCV infection. Hepatitis B Surface Ag Negative Negative [facility] Blood 11/29/2023 1:08 PM EST 11/29/2023 3:57 PM EST us Leonor Ocampo MD LAB BLOOD ORDERABLES Fin al Result Performing Organization Address [facility] Co de Phone Number [facility] [address] [place] [phone] * HIV-1/2 Antigen and Antibodies, Fourth Generation, with Reflexes (11/29/2023 1:08 PM EST) [facility] HIV AB/AG Nonreactive Nonreactive [facility] Comment:HIV-1 p24 Ag and/or HIV-1/HIV-2 Ab not detected.A test result that is nonreactive does not exclude thepossibility of exposure to or infection with HIV-1 and/orHIV-2. Nonreactive results in this assay for individualswith prior exposure to HIV-1 and/or HIV-2 may be due toantigen and antibody levels that are below the limit ofdetection of this assay.The [employer]3D HIV Ag/Ab Combo assay result andsupplemental assay results should be interpreted inconjunction with the patient's clinical presentation,history and other laboratory results. If the results areinconsistent with clinical evidence, additional testing issuggested to confirm the result. Blood Venous blood specimen / Unknown 11/29/2023 1:08 PM EST 11/29/2023 3:57 PM EST us Leonor Ocampo MD LAB BLOOD ORDERABLES Fin al Result Performing Organization Address [facility]/ZIP Co de Phone Number [facility] [address] [place] [phone] * Hm Colonoscopy (01/17/2020 4:20 PM EDT) Colonoscopy Normal Normal Narrative Layla Poon - 01/17/2020 4:20 PM EDT Recommended 10 year follow up ( notes scanned in social media marketing analyst) us Historical Provider HEALTH MAINTENANCE Edited Result - Final from Last 3 Months or Most Recently Relevant to Health Maintenance Insurance [employer] [facility] MEDICAID STAND ADULT ALLSTATE Care Teams Cup Machine Operator Relationship Specialty Start Date End Date Leonor Ocampo MD [address] [place] [address] PCP - General Family Medicine 09/27/17
== END 2025-03-20 11:59 | disposition home or self-care (01) ==
LOC: HO.HHCX 11:58
PROVIDERS: Visit Provider Family Medicine
DX: M54.2 Cervicalgia (principal)
CPT/HCPCS: 72040

== ENCOUNTER → 2025-03-20 12:00 | Outpatient (BNV) | payer SELFPAY | PROVIDERS: Visit Provider Radiology Diagnostic Radiology | DX: M47.812 Spondylosis without myelopathy or radiculopathy, cervical region (principal) | CPT/HCPCS: 72040 ==

== ENCOUNTER 2025-05-02 14:02 | Outpatient (REF) | payer OTHER, SELFPAY ==
--- NOTE | ~2025-05-02 | US_ITS ---
EXAMINATION: US PELVIS TRANSABDOMINAL AND TRANSVAGINAL HISTORY: N83.299 - Other ovarian cyst, unspecified side COMPARISON: Comparison is made with the prior examination dated 02/06/2025. TECHNIQUE: Transabdominal and endovaginal real-time 2D mejias-scale ultrasound was performed. FINDINGS: Uterus: The uterus is normal in size, measuring 9.3 x 4.1 x 6.8 cm. There is a scar. Myometrium has an otherwise normal echotexture. Again seen is an anterior fibroid measuring 10 x 6 x 9 mm (previously 5 x 9 x 8 mm. There is an additional 3 mm hypoechoic structure anteriorly which likely represents a 2nd fibroid. Endometrium: The endometrial stripe measures 5 mm in thickness. There are nabothian cysts in the cervix. Right ovary: The right ovary measures 3.3 x 1.6 x 1.8 cm. The right ovary is normal in size and echotexture. There is a 2.3 x 1.3 x 1.7 cm cyst in the right adnexa. Left ovary: The left ovary measures 3.3 x 2.1 x 2.8 cm. There is a 1.8 x 1.9 x 1.9 cm probable dominant follicle. The previously seen complex cyst is no longer identified. Pelvic fluid: none. US/US pelvic and transvaginal IMPRESSION: 1. The previously seen complex left ovarian cyst is no longer identified. 2. Uterine fibroids as described. 3. 2.3 cm cyst in the right adnexa. Electronically signed by: Guanakito Barcenas MD 05/02/2025 03:25 PM EDT
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
== END 2025-05-02 14:03 | disposition home or self-care (01) ==
LOC: HO.US 14:02
PROVIDERS: Visit Provider Obstetrics & Gynecology
DX: N83.299 Other ovarian cyst, unspecified side (principal)
CPT/HCPCS: 76830; 76856

== ENCOUNTER → 2025-05-02 14:04 | Outpatient (BNV) | payer OTHER, SELFPAY | PROVIDERS: Visit Provider Radiology Diagnostic Radiology | DX: N83.201 Unspecified ovarian cyst, right side (principal) | CPT/HCPCS: 76830; 76856 ==

== ENCOUNTER 2025-05-09 15:01 | Outpatient (AMB) | payer MEDICAID, SELFPAY ==
--- OUTSIDE RECORDS SUMMARY | 2025-05-09 15:03 | XMS_ITS | Encounter Summary ---
Author Organization [facility] Address [address] [place] [address] 7[address] [place] [address] Care Team Providers Care Student Officer Name Role Phone Leonor Ocampo MD Primary Care Provider + Reason for Visit * Reason Comments Pre-visit Planning SDOH screening compl eted on 12/03/2024 Encounter Details Date Type Department Care Team ([facility] st Contact Info) Description 05/08/2025 Patient Outreach [facility] [address] [place] [phone] Leonor Ocampo MD [address] [place] [address] Pre-visit Planning (SDOH screening completed on 12/03/2024) Social History Tobacco Use Types Packs/Day Years [...] AM EDT documented as of this encounter Progress Notes * Magda Hidalgo - 05/08/2025 10:16 AM EDT IRA Man. Placed outbound call to patient to complete pre-visit planning. No answer at this time. Patient name and were not confirmed. CC left voicemail requesting return call. Direct contact information provided. documented in this encounter Plan of Treatment Upcoming Encounters Date Type Department Care Team (Late st Contact Info) Description 05/17/2025 11:15 AM EDT Office Visit [facility] [address] [place] [address] Leonor Ocampo MD [address] [place] [address] documented as of this encounter Visit Diagnoses Not on filedocumented in this encounter Care Teams Student Officer Relationship Specialty Start Date End Date Leonor Ocampo MD [address] [place] [phone] PCP - General Family Medicine 09/27/17 documented as of this encounter
[2025-05-09 15:07] VITALS: BMI 24.0
--- NOTE | 2025-05-09 15:07 | A.OFFVIS_ITS ---
Vital Signs 05/09/25 15:07 Height 5 ft 5 in Weight 144 lb BMI 24.0 Intake Visit Reasons: EMB Results and ultrasound results Seed Potato Cutter Required: Yes Seed Potato Cutter Language: Retail Account Executive Services: Seed Potato Cutter Present (in person) Seed Potato Cutter Name: Elysia ROJAS Information Interpreted: non-clinical & clinical Accompanied by: Self / Same As Patient Allergies No Known Allergies (No Known Allergies*) Allergy (Verified 05/09/25 15:08) HPI Comments Details: Presenting for EMB results with ultrasound follow-up. CA 125=6 Pelvic ultrasound done in 05/01 showed the following: Uterus: The uterus is normal in size, measuring 9.3 x 4.1 x 6.8 cm. There is a scar. Myometrium has an otherwise normal echotexture. Again seen is an anterior fibroid measuring 10 x 6 x 9 mm (previously 5 x 9 x 8 mm. There is an additional 3 mm hypoechoic structure anteriorly which likely represents a 2nd fibroid. Endometrium: The endometrial stripe measures 5 mm in thickness. There are nabothian cysts in the cervix. Right ovary: The right ovary measures 3.3 x 1.6 x 1.8 cm. The right ovary is normal in size and echotexture. There is a 2.3 x 1.3 x 1.7 cm cyst in the right adnexa. Left ovary: The left ovary measures 3.3 x 2.1 x 2.8 cm. There is a 1.8 x 1.9 x 1.9 cm probable dominant follicle. The previously seen complex cyst is no longer identified. Pelvic fluid: none. EMB pathology showed the following: Endometrium, biopsy: Secretory endometrium; few superficial fragments of endocervical and squamous epithelium within normal limits; no atypia or hyperplasia identified [facility] Medical History delivery delivered No known health problems Surgical History H/O: Family History Mother Diabetes Father Heart attack Social History Household Members: Children and None Housing: Apartment Do you presently have visiting nurse or other home services: No Alcohol intake: current Alcohol intake frequency: a few times a month Alcohol type: beer Patient Tobacco Use Status: Current everyday Tobacco user Tobacco use type: Cigarette Cigarette Packs Per Day: 0.5 Years Smoked: 20 e-Cigarette/Vaping Use: Never Used Second Hand Smoke Exposure: Yes Substance Use Type: Crack/Cocaine service: No Current occupational status: employed 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 The patient was instructed to call if symptoms recur. All questions were answered the patient verbalized understanding. (2) Thickened endometrium: Comment: Secretory endometrium in menopause Code(s): R93.89 - Abnormal findings on diagnostic imaging of other specified body structures Category: Medical Plan: Discussed with the patient the results of the endometrial biopsy showing secretory endometrium. Discussed with the patient the sensitivity, specificity, positive and negative predictive value, of endometrial biopsy in detecting en dometrial pathology including but not limited to endometrial hyperplasia, cancer and other pathology; recommended repeat EMB in three-month since the patient has been amenorrheic for 8 months and FSH/LH in the menopausal range and endometrial biopsy showed secretory endometrium, will repeat EMB in 3 months, instructions given the patient to call in case of vaginal bleeding will proceed with endome trial sampling. All questions answered, the patient verbalized understanding (3) Uterine myoma: Code(s): D25.9 - Leiomyoma of uterus, unspecified Category: Medical Plan: Discussed with the patient the findings on pelvic ultrasound & the risk of my osarcoma; in addition reviewed with the patient that malignancy and pre malignancy cannot be ruled out without hysterectomy for pathological evaluation ; furthermore, explained to the patient the limitation of pelvic ultrasound and endometrial biopsy in the setting. Discussed with the patient the options of treatment including expectant management versus hysterectomy; the pros and cons, risks benefits of each approach were discussed with the patient including the fact that in cases of myosarcoma, surgical treatment can lead to early diagnosis and positively affects the prognosis; after further discussion, the patient decided to proceed with expectant management. Will repeat pelvic ultrasound periodically. Instructions given to patient to call in case any of the following occurs: pressure symptoms, abnormal uterine bleeding, pelvic pain; and to schedule a 12 months pelvic ultrasound (order placed) and a follow-up appointment . All questions answered, the patient verbalized understanding and agreed with the plan . Orders: Orders US pelvic and transvaginal 1 Year D25.9 - Leiomyoma of uterus, unspecified Coding Level of Care Code Est Pt Level 3 (63917) Diagnoses Complex ovarian cyst N83.299 Thickened endometrium R93.89 Uterine myoma D25.9
== END 2025-05-09 15:27 | disposition home or self-care (01) ==
LOC: HO.HWS 15:01
PROVIDERS: PCP Internal Medicine; Visit Provider Obstetrics & Gynecology
DX: N83.291 Other ovarian cyst, right side (principal); N83.292 Other ovarian cyst, left side; R93.89 Abnormal findings on diagnostic imaging of other specified body structures; D25.9 Leiomyoma of uterus, unspecified
CPT/HCPCS: 99213

== ENCOUNTER → 2025-05-09 15:01 | Outpatient (BNVA) | payer MEDICAID, SELFPAY | PROVIDERS: PCP Internal Medicine; Visit Provider Obstetrics & Gynecology | DX: Z71.2 Person consulting for explanation of examination or test findings (principal); N83.291 Other ovarian cyst, right side; R93.89 Abnormal findings on diagnostic imaging of other specified body structures; D25.9 Leiomyoma of uterus, unspecified | CPT/HCPCS: 99212 ==

== ENCOUNTER 2025-09-04 13:13 | Outpatient (AMB) | payer MEDICAID, SELFPAY ==
--- NOTE | 2025-09-04 13:20 | A.OFFVIS_ITS ---
Intake Visit Reasons: EMB Cigarette Making Machine Hopper Feeder: Cigarette Making Machine Hopper Feeder Present (Caty) Accompanied by: Self / Same As Patient Allergies No Known Allergies (No Known Allergies*) Allergy (Verified 09/04/25 13:20) HPI Comments Details: Presenting for EMB [facility] Medical History delivery delivered No known health problems Surgical History H/O: Family History Mother Diabetes Father Heart attack Social History Household Members: Children and None Housing: Apartment Do you presently have visiting nurse or other home services: No Alcohol intake: current Alcohol intake frequency: a few times a month Alcohol type: beer Patient Tobacco Use Status: Current everyday Tobacco user Tobacco use type: Cigarette Cigarette Packs Per Day: 0.5 Years Smoked: 20 e-Cigarette/Vaping Use: Never Used Second Hand Smoke Exposure: Yes Substance Use Type: Crack/Cocaine service: No Current occupational status: employed 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 hysteroscopy D&C) & the risks were discussed with the patient including but not limited: pain, uterine perforation, bleeding, infection, possible injury to bladder, bowel, ureter, possible need for blood transfusion with all its possible risks. The patient verbalized understanding all questions answered and signed consent. The patient was placed into the dorsal lithotomy position; a speculum was inserted in the vagina. Using aseptic technique for the procedure, the cervix w as cleansed with Betadine. The anterior lip of the cervix was grasped with a single tooth tenaculum. The uterus was sounded to 7 cm with a 4 mm Pipelle was used. Tissues samples were obtained and placed in formalin, in a patient labeled container and sent to the pathology department. At the end of the procedure, there was minimal bleeding noted The patient tolerated the procedure well and was discharged in good condition with the following instructions: Nothing in the vagina until the bleeding stops. No sex until the bleeding stops, to call if any of the following occurs: fever (>100.4), flu-like symptoms, abdominal pain, heavy bleeding, four smelling vaginal discharge. The patient was instructed to schedule a Follow up appointment in 2 weeks to discuss pathology results of the biopsy and treatment options. This note was generated with a voice recognition program. Some errors may have been overlooked during the review of this note. Sometimes these errors may affect the content or meaning of a given sentence. [id number] Biopsy Assessment & Plan Assessment & Plan (1) Abnormal uterine bleeding (AUB): Comment: elevated FSH/LH Code(s): N93.9 - Abnormal uterine and vaginal bleeding, unspecified Category: Medical Plan: EMB done, see procedure note Orders: Orders AMB HCG Urine Test Today R93.89 - Abnormal findings on diagnostic imaging of other specified body structures AMB Endometrial Biopsy Today N93.9 - Abnormal uterine and vaginal bleeding, unspecified Coding Level of Care Code Procedure Only Diagnoses Abnormal uterine bleeding (AUB) N93.9 CPT Codes Endometrial Biopsy - CPT: 86921-Ypxcbszrpsu Biopsy ([id number])
--- OUTSIDE RECORDS SUMMARY | 2025-09-04 16:48 | XMS_ITS | Clinical Summary ---
Author Organization [employer] Address [address] [place] [address] [address] [place] [address] Care Team Providers Care Personal Fitness Manager Name Role Phone Leonor Ocampo MD [...] day at bedtime 08/10/20 22 Active Multiple Vitamins-Property Maintenance Supervisor als (CertaVite/Ant ioxidants) tablet TAKE 1 TABLET [...] 25 Active ergocalciferol (Vitamin D2) 1.25 MG (75656 UT) capsule TAKE 1 CAPSULE BY MOUTH EVERY WEEK. 12 capsule 3 01/17/20 25 Active meloxicam (Mobic) 7.5 MG tabletIndicati ons:Chronic right shoulder pain,History of endometrial biopsy Take 1-2 tablets (7.5-15 mg) by mouth Once per day. 60 tablet 2 03/05/20 25 026 Active acetaminophen (Acetaminophen 8 Hour) 650 MG ER tabletIndicati ons:Right anterior shoulder pain Take 1 tablet (650 mg) by mouth every 8 (eight) hours if needed (pain or fever). Do not crush, chew, or split. 100 tablet 3 03/20/20 25 026 Active baclofen (Lioresal) 10 MG tablet Take 1 tablet (10 mg) by mouth if needed in the morning, at noon, and at bedtime for muscle spasms. 60 tablet 1 03/20/20 25 Active Diclofenac Sodium 1 % gel Apply 2 g topically if needed in the morning, at noon, in the evening, and at bedtime (pain). 150 g 3 03/20/20 25 Active naproxen (Naprosyn) 500 MG tablet Take 1 tablet (500 mg) by mouth if needed in the morning and at bedtime for mild pain. 40 tablet 1 03/20/20 25 Active gabapentin (Neurontin) 100 MG capsule Take 3 capsules (300 mg) by mouth at bedtime. 30 capsule 11 03/20/20 25 026 Active methylPREDNISo lone (Medrol Dospak) 4 MG tablets Follow schedule on package instructions 21 tablet 04/26/20 25 Active ferrous gluconate (Fergon) 324 (38 Fe) MG tablet Take 1 tablet (324 mg) by mouth with breakfast. 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 Will call [facility] Pt feels safe at home and [...] go to emergency room COVID-19 virus detected 10/16/2022 06/2 Cough 08/21/2018 04/26/2025 Encounters Date Type Department Care Team Description 08/20/2025 Refill [facility] [address] [place], [place] [phone] Leonor Ocampo MD 07/18/2025 Refill [facility] [address] [place], [place] [phone] Teetee Daniel DO 06/26/2025 Refill [facility] [address] [place], [place] [phone] Leonor Ocampo MD Alcohol use 06/21/2025 Refill [facility] [address] [place], [place] [phone] Leonor Ocampo MD from Last 3 Months [...] 04/26/2025 2:19 PM EDT Plan of Treatment Health Maintenance Due Date [...] of 2 - PCV) 08/05/2019 08/05/2018, 08/04/2018 Depression Screening 12/23/2024 12/23/2023, 12/23/19 24 COVID-19 Vaccine ( season) 2025 01/31/2023, 10/06/2021, 01/21/2021 Influenza Vaccine (#1) 2025 , 08/24/2022, 08/03/2021, Additional history exists SDOH Screening [...] Procedure Name Priority Date/Time Associated Diagnosis Comments BI MAMMOGRAM SCREENING TOMOSYNTHESIS BILATERAL Routine 03/15/2024 [...] Recently Relevant to Health Maintenance Results * BI Mammogram Screening Tomosynthesis Bilateral (03/15/2024 3:30 PM EDT) Anatomical Region Laterality Modality Breast Bilateral Mammography 03/15/2024 3:30 PM EDT Narrative 04/13/2024 9:24 AM EDT [facility] [address] [place] [address] [place] [address] Mammography Report Signed Patient: Kenyatta Brown MR#: [id number] : 1975 Acct:[id number] Age/Sex: 48 / F ADM Date: 03/15/24 Loc: [facility] Attending Dr: Leonor Ocampo MD Ordering Physician: Leonor Ocampo MD Results: 1Ne gative Date of Service: 03/15/24 Follow Up: 1 Year From Orig ina Mammogram Procedure(s): MM tomosynthesis screening BI Accession Number(s): [id number] cc: Leonor Ocampo MD EXAMINATION: MM SCREENING [...] in OV> 04/13/24 0920 DD/ 1530 TD/TT: Laborer Sawmill: Procedure Note Donotuseinterpreter, Image - 04/13/2024 [facility] [address] [place] [address] Mammography Report Signed Patient: Keyonna BrownR#: [id number] : 1975Acct:[id number] Age/Sex: 48 / FADM Date: 03/15/24 Loc: [facility] Attending Dr: Leonor Ocampo MD Ordering Physician: Leonor Ocampo MDResults: 1Ne gative Date of Service: 03/15/24Follow Up: 1 Year From Orig ina Mammogram Procedure(s): MM tomosynthesis screening BI Accession Number(s): [id number] cc: Leonor Ocampo MD EXAMINATION: MM SCREENING [...] in OV> 04/13/24 0920 DD/ 1530 TD/TT: Laborer Sawmill: Leonor Ocampo MD [facility] BI PROCEDURES Edited Result - Final * HPV mRNA E6/E7 w/Reflex to HPV Genotypes 16, 18/45 (01/10/2024 11:40 AM EST) HPV nRNA E6/E7 Not Detected Not Detected [facility] Comment:Methodology: Transcr iption-Mediated AmplificationThis assay detects E6/E7 viral messenger RNA (mRNA) from 14high-risk HPV types (16,18,31,33,35,39,45,51,52,56,58,59,66,68).Cervical sources are required for HPV testing.If a vaginal source from a patient who has had atotal hysterectomy with removal of cervix wassubmitted, please contact the testing laboratoryfor alternative testing options.For additional information, please refer tohttp://education.ClearStream/faq/WLR409n0(This link if provided for information/educational purposes only.)THIS TEST WAS PERFORMED AT:[employer] [place] [id number] STEEL MD HPV mRNA E6/E7 TNP [facility] HPV 16 RNA TNP [facility] HPV 18/45 RNA TNP [facility] 01/10/2024 11:4 0 AM EST 01/11/2024 12:30 PM EST us Leonor Ocampo MD LAB CYTOLOGY ORDERABLES Final Result [facility] [address] [place] [address] [phone] * Pap Smear (01/10/2024 11:40 AM EST) 01/10/2024 11:4 0 AM EST 01/11/2024 12:30 PM EST Narrative [facility] - 01/23/2024 7:07 AM EDT ----- ------- Name: Kenyatta Brown Age/Sex: 48/F : 1975 Unit#: [id number] Attend Dr: Leonor Ocampo MD Re01/10/24 Status: DEP REF Location: HO.HHCLNP Disch: ----- ------- SPEC : [id number] RECD: 01/11/24 STATUS: TARA POOLE NUM: [id number] JUMANA: 01/10/24-11[address] [facility] DR: Leonor Ocampo MD ENTERED: 01/11/24-125 SP TYPE: Pap Smr OTHR DR: ORDERED: Pap Smear Interpretation Satisfactory for evaluation. Fungal organisms consistent with Shahida species. Negative for intraepithelial lesion or malignancy. HPV mRNA E6/E7: NOT DETECTED This assay detects E6/E7 viral messenger RNA (mRNA) from 14 high-risk HPV types (16, 18, 31, 33, 35, 39, 45, 51, 52, 56, 58, 59, 66, 68) HPV testing performed by [employer], [place], [place]. See reference laboratory portion of the EMR for entire report. Clinical Information LMP: Unknown date Previous PAP test: 3 yrs ago, Unknown findings Material Received ThinPrep-Cervical ----- ------- Signed (signature on file) ALEE Suero (ASCP) 01/23/24 0707 ----- ------- END OF REPORT us Leonor Ocampo MD LAB CYTOLOGY ORDERABLES Final Result [facility] [address] [place] [address] [phone] * Hepatitis Panel, General (11/29/2023 1:08 PM EST) Hepatitis A IgM Nonreactive Nonreactive [facility] Comment:IgM antibodies to ALVARADO V not detected; does not exclude earlyacute or recovered HAV infection. ~Hepatitis B Surface Antibody REACTIVE Nonreactive [facility] Comment:REACTIVE: > 11.99 mI U/mL Hepatitis B Core Antibody Nonreactive Nonreactive [facility] Hepatitis C Antibody Nonreactive Nonreactive [facility] Comment:Antibodies to HCV no t detected; does not exclude early acuteHCV infection. Hepatitis B Surface Ag Negative Negative [facility] Blood 11/29/2023 1:08 PM EST 11/29/2023 3:57 PM EST Leonor Ocampo MD LAB BLOOD ORDERABLES Fin al Result [facility] [address] [place] [address] [phone] * HIV-1/2 Antigen and Antibodies, Fourth Generation, with Reflexes (11/29/2023 1:08 PM EST) Pathologist [facility] HIV AB/AG Nonreactive Nonreactive [facility] Comment:HIV-1 p24 Ag and/or HIV-1/HIV-2 Ab not detected.A test result that is nonreactive does not exclude thepossibility of exposure to or infection with HIV-1 and/orHIV-2. Nonreactive results in this assay for individualswith prior exposure to HIV-1 and/or HIV-2 may be due toantigen and antibody levels that are below the limit ofdetection of this assay.The [employer] HIV Ag/Ab Combo assay result andsupplemental assay results should be interpreted inconjunction with the patient's clinical presentation,history and other laboratory results. If the results areinconsistent with clinical evidence, additional testing issuggested to confirm the result. Blood Venous blood specimen / Unknown 11/29/2023 1:08 PM EST 11/29/2023 3:57 PM EST us Leonor Ocampo MD LAB BLOOD ORDERABLES Fin al Result [facility] [address] [place] [address] [phone] * Hm Colonoscopy (01/17/2020 4:20 PM EDT) Colonoscopy Normal Normal Narrative Layla Poon - 01/17/2020 4:20 PM EDT Recommended 10 year follow up ( notes scanned in streaming media specialist) us Historical Provider HEALTH MAINTENANCE Edited Result - Final from Last 3 Months or Most Recently Relevant to Health Maintenance Insurance [facility] C[employer] Care Teams Personal Fitness Manager Relationship Specialty Start Date End Date Leonor Ocampo MD [address] [place] [phone] PCP - General Family Medicine 09/27/17
--- OUTSIDE RECORDS SUMMARY | 2025-09-04 16:48 | XMS_ITS | Encounter Summary ---
Author Organization [employer] Address [address] [place] [address] Care Team Providers Care Functional Architect Name Role Phone Leonor Ocampo MD Primary Care Provider + Encounter Details Date Type Department Care Team ([facility] st Contact Info) Description 03/09/[address] [facility] [address] [place], [place] [phone] ProviderJodie MD Social History Tobacco Use Types [...] on file documented as of this encounter Procedures Procedure Name Priority Date/Time Associated Diagnosis Comments HM COLONOSCOPY Routine 01/17/2020 4:20 PM EDT documented in this encounter Results * Hm Colonoscopy (01/17/2020 4:20 PM EDT) Colonoscopy Normal Normal Narrative Layla Poon - 01/17/2020 4:20 PM EDT Recommended 10 year follow up ( notes scanned in media director) Historical Provider [facility] Edited Result - Final documented in this encounter Visit Diagnoses Not on filedocumented in this encounter Care Teams Functional Architect Relationship Specialty Start Date End Date Leonor Ocampo MD [address] [place] [phone] PCP - General Family Medicine 09/27/17 documented as of this encounter
--- OUTSIDE RECORDS SUMMARY | 2025-09-04 16:48 | XMS_ITS | Encounter Summary ---
Author Organization [employer] Address [address] [facility] [address] [place] [address] Care Team Providers Care Patient Observer Name Role Phone Leonor Ocampo MD Primary Care Provider + Reason for Visit * Reason Onset Date Comments Nurse Triage 11/09/2023 Encounter Details Date Type Department Care Team ([facility] st Contact Info) Description 11/09/2023 Telephone [facility] MEDICINE [address] [place], [place] [phone] Leonor Ocampo MD [address] [place] [phone] Nurse Triage Social History Tobacco Use Types [...] t he electric, gas, oil or water [employer] threatened to shut off services in your [...] 11/09/2023 12:14 PM EST Call to Kenyatta Grayson Terell, reports having rash on back x 1 month. Per pt unsure if having blisters or just red pinpoint dots. Per pt this rash is continuation of contact dermatitis for which was seen at [facility]. Per pt rash on scalp improved but not on back. Using Hydrocortisone and zyrtec with no relief. Does not recall use of any new products recently. Pt advised of disposition, declined visit today or [facility] tomorrow. Prefers booed appt with PCP. Given appt for Tuesday with PCP. Reviewed home care advise and reasons to call back. Protocol Used: Rash or Redness - Localized (Adult) Protocol-Based Disposition: See in Office or Video Visit within 3 Days Future Appointments Date Time Provider Department Center 11/11/2023 1:30 PM Leonor Ocampo MD MEDICINE [facility] Video visit offer not recorded Positive Triage [...] on filedocumented in this encounter Care Teams Patient Observer Relationship Specialty Start Date End Date Leonor Ocampo MD [address] [place] [phone] PCP - General Family Medicine 09/27/17 documented as of this encounter
--- OUTSIDE RECORDS SUMMARY | 2025-09-04 16:48 | XMS_ITS | Encounter Summary ---
Author Organization [employer] Address [address] [place] [address] 7[address] [place] [address] Care Team Providers Care Volunteer Services Specialist Name Role Phone Leonor Ocampo MD Primary Care Provider + Encounter Details Date Type Department Care Team (Latest Contact Info) Description 02/18/2021 Abstract C CONVERSIONS Dental, Provider, DDS Social History Tobacco [...] on filedocumented in this encounter Care Teams Volunteer Services Specialist Relationship Specialty Start Date End Date Leonor Ocampo MD [address] [place] [phone] PCP - General Family Medicine 09/27/17 documented as of this encounter
--- OUTSIDE RECORDS SUMMARY | 2025-09-04 16:48 | XMS_ITS | Encounter Summary ---
Author Organization [employer] Address [address] [facility] 7t [place] [address] Care Team Providers Care Custom Ski Maker Name Role Phone Leonor Ocampo MD Primary Care Provider + Reason for Visit * Reason Comments Med Refill Encounter Details Date Type Department Care Team ([facility] Contact Info) Description 06/26/2025 Refill [facility] MEDICINE [address] [place], [place] [phone] Leonor Ocampo MD [address] [place], [place] [phone] Alcohol use Social History Tobacco Use Types Packs/Day Years [...] t he electric, gas, oil or water [employer] threatened to shut off services in your [...] as of this encounter Visit Diagnoses Diagnosis Alcohol use Other problems related to lifestyle documented in this encounter Care Teams Custom Ski Maker Relationship Specialty Start Date End Date Leonor Ocampo MD [address] [place] [phone] PCP - General Family Medicine 09/27/17 documented as of this encounter
--- OUTSIDE RECORDS SUMMARY | 2025-09-04 16:48 | XMS_ITS | Clinical Summary ---
Author Organization [facility] Address [address] [place] [phone] Phone Care Team Providers Care Vocational Rehabilitation Supervisor Name Role Phone Unknown, Unknown Primary Care Provider Jorje jaffe Social History Tobacco Use Types Packs/Day Years Used Date Smoking Tobacco: Never Assessed Comments Unknown Sex and Gender Information Value Date Recorded Sex Assigned at Not on file Legal Sex Female 1:36 PM EDT Gender Identity Not on file Sexual Orientation Not on file Plan of Treatment Health Maintenance Due Date Last Done Comments LIPID PANEL 1977 DEPRESSION SCREENING 1989 HEPATITIS C SCREENING 1995 HIV ONE-TIME SCREENING (18-6 5 YEARS) 1995 PAP SMEAR 1998 MAMMOGRAM 2017 INFLUENZA VACCINE (#1) 2025 , 08/05/2018, 09/27/2017 COVID-19 VACCINE (2024-2 6 season) 2025 10/06/2021 Adult Td,Tdap Booster 04/12/2029 04/12/2019 , 03/27/2018 PNEUMOCOCCAL VACCINES (0-49 years) Aged Out 08/05/2018 No longer eligible b ased on patient's age to complete this topic COLORECTAL CANCER SCREENING Completed HEPATITIS A VACCINES Aged Out No long er eligible based on patient's age to complete this topic HIB VACCINES Aged Out No longer eligi ble based on patient's age to complete this topic MENINGOCOCCAL VACCINES (ACWY) Aged Out No longer eligible based on patient's age to complete this topic MENINGOCOCCAL VACCINES (B) Aged Out N o longer eligible based on patient's age to complete this topic Medical Devices Not on file Care Teams Vocational Rehabilitation Supervisor Relationship Specialty Start Date End Date Unknown, Unknown, PCP - General 03/04/22 Additional Source Comments The information contained in this document represents components of the legal health record. It is not the complete legal health record.[facility]
== END 2025-09-04 14:25 | disposition home or self-care (01) ==
LOC: HO.HWS 13:13
PROVIDERS: PCP Internal Medicine; Visit Provider Obstetrics & Gynecology
DX: R93.89 Abnormal findings on diagnostic imaging of other specified body structures (principal); N93.9 Abnormal uterine and vaginal bleeding, unspecified
CPT/HCPCS: 58100

== ENCOUNTER 2025-09-04 13:13 | Outpatient (REF) | payer MEDICAID, SELFPAY | END 2025-09-04 13:14 | disposition home or self-care (01) | LOC: HO.LNP 13:13 | PROVIDERS: PCP Internal Medicine; Visit Provider Obstetrics & Gynecology | DX: N93.9 Abnormal uterine and vaginal bleeding, unspecified (principal); R93.89 Abnormal findings on diagnostic imaging of other specified body structures | CPT/HCPCS: 58100; 81025; 88305 ==

== ENCOUNTER 2025-09-12 11:10 | Outpatient (REF) | payer MEDICAID, SELFPAY ==
--- NOTE | ~2025-09-12 | XR_ITS ---
EXAMINATION: XR HIP, LEFT CLINICAL INFORMATION: PAIN COMPARISON: None available. TECHNIQUE: AP and frog-leg views of the left hip. FINDINGS: The acetabular roof is an upward angled with a, Tonnis angle measuring 17 degrees (>13 degrees is abnormal). There is minimal axial joint space narrowing No osteophytes are seen. No abnormalities are noted. 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 There is subtle axial joint narrowing of the left hip joint space. Electronically signed by: Fredis Ferrell MD 09/12/2025 12:41 PM EST
--- OUTSIDE RECORDS SUMMARY | 2025-09-12 11:00 | XMS_ITS | Encounter Summary ---
Author Organization [employer] Address [address] [place] [address] 7[address] [place] [address] Care Team Providers Care Rail Signal Designer Name Role Phone Leonor Ocampo MD Primary Care Provider + Reason for Referral * Consultation (Routine) - Pending Review Specialty Diagnoses / Procedures Referred By Conttory anne Referred To Contact Physical Therapy Diagnoses Left hip pain Left thigh pain Jose Antonio Corbett MD [address] [place] [address] Phone: tel: fax: Referral ID Status Reason Start Date Expiration Date Visits Requested Visits Authorized [id number] Pending Review Specialty Services Required 09/12/2025 09/12/2026 1 1 Reason for Visit * Reason Comments Abdominal Pain Encounter Details Date Type Department Care Team ([facility] st Contact Info) Description 09/12/2025 11:00 AM EST Office Visit [facility] [address] [place] [phone] Jose Antonio Corbett MD [address] [place] [phone] Left hip pain (Primary Dx); Left thigh pain Social History Tobacco Use Types Packs/Day [...] Sign Reading Time Taken Comments Blood Pressure 115/75 09/12/2025 10:35 AM EST Pulse 71 09/12/2025 10:35 AM EST Temperature 36.7 C (98.1 F) 09/12/2025 10:35 AM EST Respiratory Rate 18 09/12/2025 10:35 AM EST Oxygen Saturation 98% 09/12/2025 10:35 AM EST Inhaled Oxygen Concentration - - Weight 65.3 kg (144 lb) 09/12/2025 10:35 AM EST Height - - Body Mass Index 23.96 04/26/2025 2:19 PM EDT documented in this encounter Progress Notes * Jose Antonio Corbett MD - 09/12/2025 11:00 AM EST Subjective History was provided by the patient. Kenyatta Figueredo is a 49 y.o. female who presents for evaluation of left hip pain radiating along her left lateral thigh for 1 month. Denies any preceding trauma or fall. Works at [employer]. Just had an endometrial biopsy on 09/04/2025 due to history of abnormal uterine bleeding (pathology showed fragments and strips of inactive endometrium with stromal and glandular breakdown; negative for atypia, hyperplasia or malignancy). Denies dysuria or hematuria. Denies vaginal bleeding, discharge, or pain. Has a full ROM of left hip, but notable pain at full abduction and external rotation. Tried Acetaminophen without much improvement. Objective Vitals: 09/12/25 1035 BP: 115/75 BP Location: Left arm Patient Position: Sitting BP Cuff Size: Adult Pulse: 71 Resp: 18 Temp: 98.1 ??F (36.7 ??C) TempSrc: Temporal SpO2: 98% Weight: 144 lb (65.3 kg) Physical Exam Constitutional: General: She is not in acute distress. Appearance: Normal appearance. She is not ill-appearing, toxic-appearing or diaphoretic. HENT: Head: Normocephalic and atraumatic. Right Ear: External ear normal. Left Ear: External ear normal. Nose: Nose normal. Mouth/Throat: Mouth: Mucous membranes are moist. Pharynx: Oropharynx is clear. Eyes: Extraocular Movements: Extraocular movements intact. Conjunctiva/sclera: Conjunctivae normal. Cardiovascular: Rate and Rhythm: Normal rate and regular rhythm. Heart sounds: Normal heart sounds. Pulmonary: Effort: Pulmonary effort is normal. Breath sounds: Normal breath sounds. Abdominal: General: Abdomen is flat. Palpations: Abdomen is soft. Musculoskeletal: General: Normal range of motion. Cervical back: Neck supple. Comments: FROM at bilateral hips, but increased tenderness with full abduction and external rotation; negative SLR; no tenderness at the greater trochanter area; tenderness in the hip joint area; tenderness along the IT band; no deformity noted; no pedal edema Skin: General: Skin is warm and dry. Neurological: General: No focal deficit present. Mental Status: She is alert and oriented to person, place, and time. Cranial Nerves: No cranial nerve deficit. Sensory: No sensory deficit. Motor: No weakness. Coordination: Coordination normal. Gait: Gait normal. Deep Tendon Reflexes: Reflexes normal. Psychiatric: Mood and Affect: Mood normal. Behavior: Behavior normal. Kenyatta was seen today for abdominal pain. Diagnoses and all orders for this visit: Left hip pain (Primary) - Referral to Physical Therapy; Future - XR Hip 2 or 3 Views Left; Future - cyclobenzaprine (Flexeril) 5 MG tablet; Take 1 tablet (5 mg) by mouth if needed in the morning, at noon, and at bedtime for muscle spasms for up to 10 days. - meloxicam (Mobic) 7.5 MG tablet; Take 1 tablet (7.5 mg) by mouth if needed each day for mild painor moderate pain for up to 20 days. Left thigh pain - Referral to Physical Therapy; Future - cyclobenzaprine (Flexeril) 5 MG tablet; Take 1 tablet (5 mg) by mouth if needed in the morning, at noon, and at bedtime for muscle spasms for up to 10 days. - meloxicam (Mobic) 7.5 MG tablet; Take 1 tablet (7.5 mg) by mouth if needed each day for mild painor moderate pain for up to 20 days. Patient presents to [facility] with left hip pain radiating along IT band area Denies any preceding trauma or fall Denies GI/ symptoms Full ROM of left hip joint, but notable pain at full abduction and external rotation Tried Acetaminophen without much improvement Check X-ray Left Hip Referral to Physical Therapy Trial of Cyclobenzaprine PRN and Meloxicam PRN Potential adverse effects of the medications reviewed including sedating effect Previously tolerated these medications Indications for UC/ER use reviewed Advised to contact the clinic if persistent or worsening symptoms Work note provided documented in this encounter Plan of Treatment Scheduled Referrals Name Type Priority Associated Diagnoses Orde r Schedule Referral to Physical Therapy Outpatient Referral Routine Left hip pain Left thigh pain Expected: 09/12/2025 (Approximate), Expires: 09/12/2026 documented as of this encounter Procedures Procedure Name Priority Date/Time Associated Diagnosis Comments XR HIP 2 OR 3 VIEWS LEFT Routine 09/12/2025 12:25 PM EST Left hip pain documented in this encounter Results * XR Hip 2 or 3 Views Left (09/12/2025 12:25 PM EST) Anatomical Region Laterality Modality Lower Extremities, Hip Left Radiograp hic Imaging 09/12/2025 12:2 5 PM EST Narrative 09/12/2025 12:44 PM EST [address] [address] XRay Report Signed Patient: Kenyatta Brown MR#: [id number] : 1975 Acct:[id number] Age/Sex: 49 / F ADM Date: 09/12/25 Loc: [facility] Attending Dr: Jose Antonio Corbett MD Ordering Physician: Jose Antonio Corbett MD Date of Service: 09/12/25 Procedure(s): XR hip LT min 2V Accession Number(s): [id number] cc: Jose Antonio Corbett MD Reason for Exam: PAIN EXAMINATION: XR HIP, LEFT CLINICAL INFORMATION: PAIN COMPARISON: None available. TECHNIQUE: AP and frog-leg views of the left hip. FINDINGS: The acetabular roof is an upward angled with a, Tonnis angle measuring 17 degrees (>13 degrees is abnormal). There is minimal axial joint space narrowing No osteophytes are seen. No abnormalities are noted. 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 There is subtle axial joint narrowing of the left hip joint space. Electronically signed by: Fredis Ferrell MD 09/12/2025 12:41 PM EST Dictated By: Fredis Ferrell MD Signed By: <Electronically signed by Fredis Ferrell MD in OV> 09/12/25 1241 DD/ 1225 TD/TT: 09/12/25 1229 Detention Officer: Procedure Note Donotuseinterpreter, Image - 09/12/[address] [address] XRay Report Signed Patient: Keyonna BrownsMR#: [id number] : 1975Acct:[id number] Age/Sex: 49 / FADM Date: 09/12/25 Loc: [facility] Attending Dr: Jose Antonio Corbett MD Ordering Physician: Jose Antonio Corbett MD Date of Service: 09/12/25 Procedure(s): XR hip LT min 2V Accession Number(s): [id number] cc: Jose Antonio Corbett MD Reason for Exam: PAIN EXAMINATION: XR HIP, LEFT CLINICAL INFORMATION: PAIN COMPARISON: None available. TECHNIQUE: AP and frog-leg views of the left hip. FINDINGS: The acetabular roof is an upward angled with a, Tonnis angle measuring 17 degrees (>13 degrees is abnormal). There is minimal axial joint space narrowing No osteophytes are seen. No abnormalities are noted. 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 There is subtle axial joint narrowing of the left hip joint space. Electronically signed by: Fredis Ferrell MD 09/12/2025 12:41 PM [facility] [place] Dictated By: Fredis Ferrell MD Signed By: <Electronically signed by Fredis Ferrell MD in OV> 09/12/25 1241 DD/ 1225 TD/TT: 09/12/25 1229 Detention Officer: Jose Antonio Corbett MD IMG XR PROCEDURES Final Result documented in this encounter Visit Diagnoses Diagnosis Left hip pain- Primary Pain in joint, pelvic region and thigh Left thigh pain Pain in soft tissues of limb documented in this encounter Care Teams Rail Signal Designer Relationship Specialty Start Date End Date Leonor Ocampo MD [address] [place] [phone] PCP - General Family Medicine 09/27/17 documented as of this encounter
--- OUTSIDE RECORDS SUMMARY | 2025-09-12 13:52 | XMS_ITS | Clinical Summary ---
Author Organization [employer] Address [address] [facility] 7t [place] [address] Care Team Providers Care Assembler Production Line Name Role Phone Leonor Ocampo MD Primary [...] day at bedtime 08/10/20 22 Active Multiple Vitamins-Web Ui Developer als (CertaVite/Ant ioxidants) tablet TAKE 1 TABLET BY MOUTH EVERY DAY 90 tablet 3 05/25/20 23 Active hydrocortisone 2.5 % cream Apply topically 2 times daily. 30 g 1 09/21/20 23 Active lidocaine (Lidoderm) 5 % patchIndicatio ns:Right anterior shoulder pain Apply 1 patch topically Once per day. Remove & discard patch within 12 hours or as directed by MD. 30 patch 11 10/02/20 24 Active thiamine (Vitamin B-1) 100 MG tabletIndicati ons:Alcohol use TAKE 1 TABLET BY MOUTH DAILY 90 tablet 3 12/19/19 25 Active ergocalciferol (Vitamin D2) 1.25 MG (76927 UT) capsule TAKE 1 CAPSULE BY MOUTH EVERY WEEK. 12 capsule 3 01/17/20 25 Active acetaminophen (Acetaminophen 8 Hour) 650 MG ER tabletIndicati ons:Right anterior shoulder pain Take 1 tablet (650 mg) by mouth every 8 (eight) hours if needed (pain or fever). Do not crush, chew, or split. 100 tablet 3 03/20/20 25 2025 Active Diclofenac Sodium 1 % gel Apply 2 g topically if needed in the morning, at noon, in the evening, and at bedtime (pain). 150 g 03/20/20 25 Active gabapentin (Neurontin) 100 MG capsule Take 3 capsules (300 mg) by mouth at bedtime. 30 capsule 03/20/20 25 2025 Active ferrous gluconate (Fergon) 324 (38 Fe) [...] DAILY 28 tablet 5 08/21/20 25 Active cyclobenzaprin e (Flexeril) 5 MG tabletIndicati ons:Left hip pain,Left thigh pain Take 1 tablet (5 mg) by mouth if needed in the morning, at noon, and at bedtime for muscle spasms for up to 10 days. 30 tablet 09/12/20 25 2024 Active meloxicam (Mobic) 7.5 MG tabletIndicati ons:Left hip pain,Left thigh pain Take 1 tablet (7.5 mg) by mouth if needed each day for mild pain or moderate pain for up to 20 days. 20 tablet 09/12/20 25 2024 Active cyclobenzaprin e (Flexeril) 10 MG tablet Take 1 tablet (10 mg) by mouth at bedtime for 10 days. 15 tablet 03/22/20 24 2024 Discontinued cyanocobalamin (Vitamin B-12) 1000 MCG tablet TAKE 1 TABLET BY MOUTH DAILY 90 tablet 1 02/15/20 25 2024 Discontinued meloxicam (Mobic) 7.5 MG tabletIndicati ons:Chronic right shoulder pain,History of endometrial biopsy Take 1-2 tablets (7.5-15 mg) by mouth Once per day. 60 tablet 2 03/05/20 25 2024 Discontinued(R eorder (will not trigger notification to Pharmacy)) baclofen (Lioresal) 10 MG tablet Take 1 tablet (10 mg) by mouth if needed in the morning, at noon, and at bedtime for muscle spasms. 60 tablet 1 03/20/20 25 2024 Discontinued naproxen (Naprosyn) 500 MG tablet Take 1 tablet (500 mg) by mouth if needed in the morning and at bedtime for mild pain. 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 Will call [facility] Pt feels safe at home and [...] Encounters Date Type Department Care Team Description 09/12/2025 11:00 AM EST Office Visit [facility] [address] [place] [address] Jose Antonio Corbett MD Left hip pain (Primary Dx); Left thigh pain 09/12/2025 Travel 09/04/2025 Orders Only GENERIC EXTERNAL DATA DEPARTMENT Provider, Generic External Data 08/20/2025 Refill [facility] [address] [place], [place] [phone] Leonor Ocampo MD 07/18/2025 Refill [facility] [address] [place] [address] Teetee Daniel DO 06/26/2025 Refill [facility] [address] [place] [address] Leonor Ocampo MD Alcohol use 06/21/2025 Refill [facility] [address] [place], [place] [phone] Leonor Ocampo MD from Last 3 Months [...] (144 lb) 09/12/2025 10:35 AM EST Height 165.1 cm (5' 5 ) 04/26/2025 2:19 PM EDT Body Mass Index 23.96 04/26/2025 2:19 PM EDT Plan of Treatment [...] 12/13/2024 Mammogram 03/15/2026 03/15/2024, 07/06/2018 Tobacco Screening 09/12/2026 09/12/2025 Zoster Vaccines (1 of 2) 2027 Cervical [...] 09/12/2025 12:25 PM EST Left hip pain HEMATOXYLIN AND EOSIN STAIN Routine 09/04/2025 1:44 PM EDT BI MAMMOGRAM SCREENING TOMOSYNTHESIS BILATERAL [...] Relevant to Health Maintenance Results * XR Hip 2 or 3 Views Left (09/12/2025 12:25 PM EST) Anatomical Region Laterality Modality Lower Extremities, Hip Left Radiograp hic Imaging 09/12/2025 12:2 5 PM EST Narrative 09/12/2025 12:44 PM EST [address] [address] XRay Report Signed Patient: Keynatta Brown MR#: [id number] : 1975 Acct:[id number] Age/Sex: 49 / F ADM Date: 09/12/25 Loc: HO.HHCX Attending Dr: Jose Antonio Corbett MD Ordering Physician: Jose Antonio Corbett MD Date of Service: 09/12/25 Procedure(s): XR hip LT min 2V Accession Number(s): [id number] cc: Jose Antonio Corbett MD Reason for [...] Fredis Ferrell MD 09/12/2025 12:41 PM EST RP Dictated By: Fredis Ferrell MD Signed By: <Electronically signed by Fredis Ferrell MD in OV> 09/12/25 1241 DD/ 24 TD/TT: 09/12/259 Chemical Engineering Technician: Procedure Note Donotuseinterpreter, Image - 09/12/[address] [address] XRay Report Signed Patient: Keyonna BrownR#: M [id number] : 1975Acct:[id number] Age/Sex: 49 / FADM Date: 09/12/25 Loc: HO.HHCX Attending Dr: Jose Antonio Corbett MD Ordering Physician: Jose Antonio Corbett MD Date of Service: 09/12/25 Procedure(s): XR hip LT min 2V Accession Number(s): [id number] cc: Jose Antonio Corbett MD Reason for [...] Fredis Ferrell MD 09/12/2025 12:41 PM EST RP Dictated By: Fredis Ferrell MD Signed By: <Electronically signed by Fredis Ferrell MD in OV> 09/12/25 1241 DD/ TD/TT: 09/12/251228 Chemical Engineering Technician: Jose Antonio Corbett MD IMG XR PROCEDURES Final Result * Hematoxylin and Eosin Stain (09/04/2025 1:44 PM EDT) 09/04/2025 1:44 PM EDT 09/05/2025 7:31 AM EDT [facility] - 09/06/2025 1:40 PM EDT ----- ------- Name: BrownKenyatta Age/Sex: 49/F : 1975 Unit#: [id number] Attend Dr: James Foss MD Re09/04/25 Status: [facility] REF Location: [facility] Disch: ----- ------- SPEC : [id number] RECD: 09/05/25 STATUS: TARA POOLE NUM: [id number] JUMANA: 09/04/25-1344 [facility] DR: James Foss MD ENTERED: 09/05/250751 SP TYPE: Surgical OTHR DR: Leonor Ocampo MD ORDERED: HE Stain/2, Gross Micro L4 Diagnosis Endometrium, biopsy: Fragments and strips of inactive endometrium with stromal and glandular breakdown; negative for atypia, hyperplasia or malignancy. Clinical History Thickened endometrium, AUB Microscopic Description Microscopic sections reviewed. Material Received Endometrial biopsy Gross Description Received in formalin labeled EMB are fragments of red-rodriguez soft tissue mixed with mucus and clotted blood forming in aggregate measuring 2.0 x 1.7 x 0.3 cm which is wrapped in lens paper and entirely submitted for microscopic examination, multiple pieces in cassette A. ([facility]) IHC S/NG Disclaimer NOTE: Unless otherwise stated, all tissue is formalin-fixed and paraffin-embedded. Some or all of the immunohistochemical tests reported herein may have been developed and their performance characteristics determined by [facility]. They have not been cleared or approved by the U.S. Food and Drug Administration (FDA). However, the FDA has determined that such clearance or approval is not necessary. This laboratory is certified under the Clinical Laboratory Improvement Amendments of 1988 (CLIA) as qualified to perform high complexity clinical laboratory testing. Copies To: Leonor Ocampo MD [address] [address] CONTINUED ON NEXT PAGE ----- ------- Name: BrownKenyatta Age/Sex: 49/F : 1975 Unit#: [id number] Attend Dr: James Foss MD Re09/04/25 Status: DEP REF Location: [facility] Disch: ----- ------- SPEC : [id number] RECD: 09/05/2561 STATUS: TARA POOLE NUM: [id number] JUMANA: 09/04/251344 [facility] DR: James Foss MD ENTERED: 09/05/250731 SP TYPE: Surgical OTHR DR: Leonor Ocampo MD ORDERED: HE Stain/2, Gross Micro L4 Copies To: (Continued) James Foss MD [facility] [address] [place] [address] ----- ------- Signed (signature on file) Liv Morales MD 09/06/25 1340 ----- ------- END OF REPORT us Generic External Data Provider LAB BLOOD ORDERAB LES Final Result [facility] [address] [place] [address] [phone] * BI Mammogram Screening Tomosynthesis Bilateral (03/15/2024 3:30 PM EDT) Anatomical Region Laterality Modality Breast Bilateral Mammography 03/15/2024 3:30 PM EDT Narrative 04/13/2024 9:24 AM EDT [address] [place] [address] Mammography Report Signed Patient: Kenyatta Brown MR#: [id number] : 1975 Acct:[id number] Age/Sex: 48 / F ADM Date: 03/15/24 Loc: LYNDA Attending Dr: Leonor Ocampo MD Ordering Physician: Leonor Ocampo MD Results: 1Ne gative Date of Service: 03/15/24 Follow Up: 1 Year From Orig inal Mammogram Procedure(s): MM tomosynthesis screening BI Accession Number(s): [id number] cc: Leonor Ocampo MD EXAMINATION: MM SCREENING [...] in OV> 04/13/24 0920 DD/ 1530 TD/TT: Chemical Engineering Technician: Procedure Note Donotuseinterpreter, Image - 04/13/2024 [facility] [address] [place], [place] [address] Mammography Report Signed Patient: Brown AmjohnnyR#: M [id number] : 1975Acct:[id number] Age/Sex: 48 / FADM Date: 03/15/24 Loc: LYNDA Attending Dr: Leonor Ocampo MD Ordering Physician: Leonor Ocampo MDResults: 1Ne gative Date of Service: 03/15/24Follow Up: 1 Year From Orig inal Mammogram Procedure(s): MM tomosynthesis screening BI Accession Number(s): [id number] cc: Leonor Ocampo MD EXAMINATION: MM SCREENING [...] in OV> 04/13/24 0920 DD/ 1530 TD/TT: Chemical Engineering Technician: Leonor Ocampo MD IM BI PROCEDURES Edited Result - Final * HPV mRNA E6/E7 w/Reflex to HPV Genotypes 16, 18/45 (01/10/2024 11:40 AM EST) HPV nRNA E6/E7 Not Detected Not Detected [facility] Comment:Methodology: Transcr iption-Mediated AmplificationThis assay detects E6/E7 viral messenger RNA (mRNA) from 14high-risk HPV types (16,18,31,33,35,39,45,51,52,56,58,59,66,68).Cervical sources are required for HPV testing.If a vaginal source from a patient who has had atotal hysterectomy with removal of cervix wassubmitted, please contact the testing laboratoryfor alternative testing options.For additional information, please refer tohttp://education.[employer]/faq/PEB143r4(This link if provided for information/educational purposes only.)THIS TEST WAS PERFORMED AT:[facility] [place] [phone] STEEL MD HPV mRNA E6/E7 TNP [facility] HPV 16 RNA TNP [facility] HPV 18/45 RNA TNP [facility] 01/10/2024 11:4 0 AM EST 01/11/2024 12:30 PM EST Leonor Ocampo MD LAB CYTOLOGY ORDERABLES Final Result [facility] [address] [place] [address] [phone] * Pap Smear (01/10/2024 11:40 AM EST) 01/10/2024 11:4 0 AM EST 01/11/2024 12:30 PM EST Narrative [facility] - 01/23/2024 7:07 AM EDT ----- ------- Name: Bustos FigueredoKenyatta perera Age/Sex: 48/F : 1975 Unit#: [id number] Attend Dr: Leonor Ocampo MD Re01/10/24 Status: DEP REF Location: HO.HHCLNP Disch: ----- ------- SPEC : [id number] RECD: 01/11/24 STATUS: TARA POOLE NUM: [id number] JUMANA: 01/10/24-1140 [facility] DR: Leonor Ocampo MD ENTERED: 01/11/24-1251 SP TYPE: Pap Smr OTHR DR: ORDERED: Pap Smear Interpretation Satisfactory for evaluation. Fungal organisms consistent with Shahida species. Negative for intraepithelial lesion or malignancy. HPV mRNA E6/E7: NOT DETECTED This assay detects E6/E7 viral messenger RNA (mRNA) from 14 high-risk HPV types (16, 18, 31, 33, 35, 39, 45, 51, 52, 56, 58, 59, 66, 68) HPV testing performed by [facility], [place], [place]. See reference laboratory portion of the EMR for entire report. Clinical Information LMP: Unknown date Previous PAP test: 3 yrs ago, Unknown findings Material Received ThinPrep-Cervical ----- ------- Signed (signature on file) ALEE Suero (ASCP) 01/23/24 0707 ----- ------- END OF REPORT us Leonor Ocampo MD LAB CYTOLOGY ORDERABLES Final Result [facility] [address] [place] [address] [phone] * Hepatitis Panel, General (11/29/2023 1:08 PM EST) Hepatitis A IgM Nonreactive Nonreactive [facility] Comment:IgM antibodies to ALVARADO V not detected; does not exclude earlyacute or recovered HAV infection. ~Hepatitis B Surface Antibody REACTIVE Nonreactive [facility] Comment:REACTIVE: > 11.99 mI U/mL Hepatitis B Core Antibody Nonreactive Nonreactive [facility] Hepatitis C Antibody Nonreactive Nonreactive [facility] Comment:Antibodies to HCV no t detected; does not exclude early acuteHCV infection. Hepatitis B Surface Ag Negative Negative [facility] Blood 11/29/2023 1:08 PM EST 11/29/2023 3:57 PM EST us Leonor Ocampo MD LAB BLOOD ORDERABLES Fin al Result [facility] [address] [place] [phone] * HIV-1/2 Antigen and Antibodies, Fourth Generation, with Reflexes (11/29/2023 1:08 PM EST) HIV AB/AG Nonreactive Nonreactive [facility] Comment:HIV-1 p24 Ag and/or HIV-1/HIV-2 Ab not detected.A test result that is nonreactive does not exclude thepossibility of exposure to or infection with HIV-1 and/orHIV-2. Nonreactive results in this assay for individualswith prior exposure to HIV-1 and/or HIV-2 may be due toantigen and antibody levels that are below the limit ofdetection of this assay.The [employer] HIV Ag/Ab Combo assay result andsupplemental assay results should be interpreted inconjunction with the patient's clinical presentation,history and other laboratory results. If the results areinconsistent with clinical evidence, additional testing issuggested to confirm the result. Blood Venous blood specimen / Unknown 11/29/2023 1:08 PM EST 11/29/2023 3:57 PM EST us Leonor Ocampo MD LAB BLOOD ORDERABLES Fin al Result [facility] [address] [place] [address] [phone] * Hm Colonoscopy (01/17/2020 4:20 PM EDT) Colonoscopy Normal Normal Narrative Layla Poon - 01/17/2020 4:20 PM EDT Recommended 10 year follow up ( notes scanned in media marketing manager) us Historical Provider HEALTH MAINTENANCE Edited Result - Final from Last 3 Months or Most Recently Relevant to Health Maintenance Insurance [facility] Care Teams Assembler Production Line Relationship Specialty Start Date End Date Leonor Ocampo MD [address] [place] [phone] PCP - General Family Medicine 09/27/17
--- OUTSIDE RECORDS SUMMARY | 2025-09-12 13:52 | XMS_ITS | Encounter Summary ---
Author Organization [employer] [facility] Address [address] [place] [address] [address]t [place] [address] Care Team Providers Care Electrical Manager Name Role Phone Leonor Ocampo MD [...] on filedocumented in this encounter Care Teams Electrical Manager Relationship Specialty Start Date End Date Leonor Ocampo MD [address] [place] [phone] PCP - General Family Medicine 09/27/17 documented as of this encounter
--- OUTSIDE RECORDS SUMMARY | 2025-09-12 13:52 | XMS_ITS | Encounter Summary ---
Author Organization [employer] Address [address] [facility] [address]t [place] [address] Care Team Providers Care Tire Retreader Name Role Phone Leonor Ocampo MD Primary Care Provider + Reason for Visit * Reason Onset Date Comments Nurse Triage 11/09/2023 Encounter Details Date Type Department Care Team ([facility] st Contact Info) Description 11/09/2023 Telephone [facility] [address] [place], [place] [phone] Leonor Ocampo MD [address] [place], [place] [phone] Nurse Triage Social History Tobacco Use Types [...] t he electric, gas, oil or water tab ticketbroker threatened to shut off services in your [...] - 11/09/2023 12:14 PM EST Call to Kenyattaroula Figueredo, reports having rash on back x 1 month. Per pt unsure if having blisters or just red pinpoint dots. Per pt this rash is continuation of contact dermatitis for which was seen at [facility]. Per pt rash on scalp improved but not on back. Using Hydrocortisone and zyrtec with no relief. Does not recall use of any new products recently. Pt advised of disposition, declined visit today or [facility] tomorrow. Prefers booed appt with PCP. Given appt for Tuesday with PCP. Reviewed home care advise and reasons to call back. Protocol Used: Rash or Redness - Localized (Adult) Protocol-Based Disposition: See in Office or Video Visit within 3 Days Future Appointments Date Time Provider Department Center 11/11/2023 1:30 PM Leonor Ocampo MD MEDICINE [facility] Video visit offer not recorded Positive Triage [...] on filedocumented in this encounter Care Teams Tire Retreader Relationship Specialty Start Date End Date Leonor Ocampo MD [address] [place] [phone] PCP - General Family Medicine 09/27/17 documented as of this encounter
--- OUTSIDE RECORDS SUMMARY | 2025-09-12 13:52 | XMS_ITS | Clinical Summary ---
Author Organization [facility] Address [address] [place] [phone] Phone Care Team Providers Care Telehealth Coordinator Name Role Phone Unknown, Unknown Primary Care [...] Medical Devices Not on file Care Teams Telehealth Coordinator Relationship Specialty Start Date End Date Unknown, Unknown, PCP - General 03/04/22 Additional Source Comments The information contained in this document represents components of the legal health record. It is not the complete legal health record.[facility]
--- OUTSIDE RECORDS SUMMARY | 2025-09-12 13:52 | XMS_ITS | Encounter Summary ---
Author Organization [employer] Address [address] [facility] [address] [place] [address] Care Team Providers Care Business Executive Name Role Phone Leonor Ocampo MD Primary Care Provider + Reason for Visit * Reason Comments Med Refill Encounter Details Date Type Department Care Team ([facility] Contact Info) Description 06/26/2025 Refill [facility] [address] [place], [place] [phone] Leonor Ocampo MD [address] [place] [address] Alcohol use Social History Tobacco Use Types [...] lifestyle documented in this encounter Care Teams Business Executive Relationship Specialty Start Date End Date Leonor Ocampo MD [address] [place] [phone] PCP - General Family Medicine 09/27/17 documented as of this encounter
--- OUTSIDE RECORDS SUMMARY | 2025-09-12 13:52 | XMS_ITS | Encounter Summary ---
Author Organization [employer] Address [address] [facility] [address] [place] [address] Care Team Providers Care Network Technology Instructor Name Role Phone Leonor Ocampo MD Primary Care Provider + Encounter Details Date Type Department Care Team (Latest Contact Info) Description 09/12/2025 Travel Social History Tobacco Use Types Packs/Day [...] on filedocumented in this encounter Care Teams Network Technology Instructor Relationship Specialty Start Date End Date Leonor Ocampo MD [address] [place] [phone] PCP - General Family Medicine 09/27/17 documented as of this encounter
--- OUTSIDE RECORDS SUMMARY | 2025-09-12 13:52 | XMS_ITS | Encounter Summary ---
Author Organization [employer] Address [address] [facility] [address] [place] [address] Care Team Providers Care Envelope Machine Adjuster Name Role Phone Leonor Ocampo MD Primary Care Provider + Encounter Details Date Type Department Care Team ([facility] st Contact Info) Description 03/09/2025 Orders Only [facility] [address] [place], [place] [phone] Provider, MD Jodie Social History Tobacco Use Types Packs/Day Years [...] up ( notes scanned in social media senior associate) Historical Provider [facility] MAINTENANCE Edited Result - Final documented in this encounter Visit Diagnoses Not on filedocumented in this encounter Care Teams Envelope Machine Adjuster Relationship Specialty Start Date End Date Leoonr Ocampo MD [address] [place] [phone] PCP - General Family Medicine 09/27/17 documented as of this encounter
== END 2025-09-12 11:11 | disposition home or self-care (01) ==
LOC: HO.HHCX 11:10
PROVIDERS: Visit Provider Family Medicine
DX: M25.552 Pain in left hip (principal)
CPT/HCPCS: 73502

== ENCOUNTER → 2025-09-12 11:11 | Outpatient (BNV) | payer MEDICAID, SELFPAY | PROVIDERS: Visit Provider Radiology Diagnostic Radiology | DX: M25.552 Pain in left hip (principal) | CPT/HCPCS: 73502 ==

== ENCOUNTER 2025-09-23 14:30 | Outpatient (AMB) | payer MEDICAID, SELFPAY ==
--- NOTE | 2025-09-23 14:30 | MHC.OFFVIS ---
Intake Visit Reasons: emb follow up Automatic Pilot Mechanic Required: Yes Automatic Pilot Mechanic Language: Proof Carrier Services: Automatic Pilot Mechanic Present (in person) Automatic Pilot Mechanic Name: Elysia ROJAS Information Interpreted: non-clinical & clinical Allergies No Known Allergies (No Known Allergies*) Allergy (Verified 09/23/25 14:31) HPI Comments Details: The patient scheduled a telehealth visit to discuss the results of her the EMB pathology which showed the following: Fragments and strips of inactive endometrium with stromal and glandular breakdown; negative for atypia, hyperplasia or malignancy PFSH Medical History delivery delivered No known health problems Surgical History H/O: Family History Mother Diabetes Father Heart attack Social History Household Members: Children and None Housing: Apartment Do you presently have visiting nurse or other home services: No Alcohol intake: current Alcohol intake frequency: a few times a month Alcohol type: beer Patient Tobacco Use Status: Current everyday Tobacco user Tobacco use type: Cigarette Cigarette Packs Per Day: 0.5 Years Smoked: 20 e-Cigarette/Vaping Use: Never Used Second Hand Smoke Exposure: Yes Substance Use Type: Crack/Cocaine service: No Current occupational status: employed Current occupation: [employer] Sexual orientation: Did not discuss Review of Systems Const All systems reviewed & are unremarkable except as noted in HPI and below Reports as per HPI and Reports no additional complaints GI Reports no additional complaints Reports no additional complaints Telehealth Telehealth Telehealth Platform: [facility] Location of provider rendering services: practice address Location of patient: address on file Patient Identification confirmed using: Name, : Yes Telehealth method: video Patient verbally consented to treatment: Yes Patient verbally consented to billing insurance company: Yes Patient informed of any privacy concerns related to visit: Yes Minutes spent on Phone/Video with Pt.: 3 Assessment & Plan Assessment & Plan (1) Abnormal uterine bleeding (AUB): Comment: elevated FSH/LH Code(s): N93.9 - Abnormal uterine and vaginal bleeding, unspecified Category: Medical Plan: Discussed with the patient the results of the endometrial biopsy. Discussed with the patient the sensitivity, specificity, positive and negative predictive value, of endometrial biopsy in detecting endometrial pathology including but not limited to endometrial hyperplasia, cancer and other pathology; instructed the patient to call in case vaginal bleeding recurs, the next step will be to proceed with a diagnostic hysteroscopy/D&C for further endometrial sampling evaluation to rule out endometrial pathology. All questions answered and the patient verbalized understanding and agreed with the plan. I spent a total of 20 minutes reviewing the chart, talking to the patient via video and documenting in the medical record. Coding Level of Care Code Tele Est Pt Level 3 (79852) Diagnoses Abnormal uterine bleeding (AUB) N93.9
== END 2025-09-23 15:22 | disposition home or self-care (01) ==
LOC: HO.HWS 14:30
PROVIDERS: Visit Provider Obstetrics & Gynecology
DX: N93.9 Abnormal uterine and vaginal bleeding, unspecified (principal)
CPT/HCPCS: 99213